=== PATIENT | female | born 1955 | race Caucasian/White ===

== ENCOUNTER 2018-04-07 17:28 | Outpatient (REF) | payer MEDICAID, SELFPAY ==
[2018-04-07 20:46] LABS: ALT 31 U/L (12-78); Anion Gap 10.7 mmol/L (3-11); BUN 18 mg/dL (7-18); CO2 29.3 mmol/L (21.0-32.0); CREATININE 0.79 mg/dL (0.55-1.02); Calcium 9.1 mg/dL (8.5-10.1); Chloride 102 mmol/L (98-107); Glucose 106 mg/dL (70-100); LDL CHOLESTEROL 112 mg/dL (<100); Potassium 3.5 mmol/L (3.5-5.1); Sodium 142 mmol/L (136-145); TSH 1.57 uIU/mL (0.358-3.74)
== END 2018-04-07 17:48 ==
LOC: NCHCN 17:28
PROVIDERS: PCP Internal Medicine; Visit Provider Internal Medicine
DX: I10 Essential (primary) hypertension (principal); E11.9 Type 2 diabetes mellitus without complications; Z00.00 Encounter for general adult medical examination without abnormal findings
CPT/HCPCS: 80048; 83721; 84443; 84460

== ENCOUNTER 2018-10-26 14:53 | Outpatient (REF) | payer MEDICAID, SELFPAY ==
[2018-10-26 18:40] LABS: HCT 35.2 % (36.0-46.0); HGB 11.5 g/dL (12.0-15.5); Mean Corp. HGB Concentration 32.7 g/dL (32.0-36.0); Mean Corpuscular Hemoglobin 31.3 pg (27.0-33.0); Mean Corpuscular Volume 95.9 fL (80-95); Mean Platelet Volume 11.6 fL (8.0-11.0); Platelet Count 237 x1000/uL (130-400); RBC 3.67 m/cumm (4.00-5.20); RBC Distribution Width 12.4 % (11.7-14.6); White Blood Cell Count 5.41 k/cumm (4.4-10.8)
[2018-10-26 19:36] LABS: Hemoglobin A1C 7.2 % (4.5-6.2)
== END 2018-10-26 15:13 ==
LOC: NCHCN 14:53
PROVIDERS: PCP Internal Medicine; Visit Provider Nurse Practitioner Family
DX: E11.9 Type 2 diabetes mellitus without complications (principal); K52.89 Other specified noninfective gastroenteritis and colitis
CPT/HCPCS: 85027; 83036

== ENCOUNTER 2018-12-02 17:16 | Outpatient (REF) | payer MEDICAID, SELFPAY ==
[2018-12-02 19:12] LABS: COMMENT (LAB VIEW ONLY) 90.38 mg/dL; Microalb ug/mg Crea 18.1 ug/mg Cr
== END 2018-12-02 17:36 ==
LOC: NCHCO 17:16
PROVIDERS: PCP Internal Medicine; Visit Provider Internal Medicine
DX: E11.9 Type 2 diabetes mellitus without complications (principal)
CPT/HCPCS: 82043; 82570

== ENCOUNTER 2020-03-20 12:06 | Outpatient (REF) | payer MEDICAID, SELFPAY ==
--- NOTE | 2020-03-20 11:00 | PAPFT_PTH ---
PATIENT: Luz Maria Carreno LOC: [facility] U#:[id number] AGE/SX: 64/F ROOM: RE03/20/[address]: SHANNAN Harris : 1955 BED: DIS: 03/20/2020 SPEC #: [id number] RECD: 03/20/20 12:58 STATUS: EDENILSON REClarissa #: [id number] GAYATRI: 03/20/20 11:[address]: Jessie Bynum DEPT: [facility] Cytology RECD BY: Medina Alexander ENTERED: 03/20/20 12:59 SP TYPE: PAPFT OTHR DR: Shabbir Ortiz Tissues: 1 - CX/ENDOCX FOR PAP SMEARS Procedures: PAP THIN PREP/UVM Screening HPV DNA PROBE Comments: [id number]
== END 2020-03-20 12:26 ==
LOC: LBN 12:06
PROVIDERS: PCP Internal Medicine; Visit Provider Nurse Practitioner Family
DX: Z12.4 Encounter for screening for malignant neoplasm of cervix (principal); Z11.51 Encounter for screening for human papillomavirus (HPV)
CPT/HCPCS: 88142; 87624

== ENCOUNTER 2020-04-26 17:16 | Outpatient (REF) | payer MEDICAID, SELFPAY ==
[2020-04-26 18:20] LABS: HCT 35.1 % (36.0-46.0); HGB 11.6 g/dL (11.2-15.7); MCH 31.4 pg (27.0-33.0); MCV 94.9 fL (80-95); Platelet Count 228 10^3/uL (130-400); RDW 12.1 % (11.7-14.6); RDW-SD 41.9 fL; Reticulocyte 1.2 % (0.5-2.4); WBC 6.03 10^3/uL (4.4-10.8)
[2020-04-26 18:21] LABS: Iron 78 ug/dL (50-170); Total Iron Binding Capacity 345 ug/dL (250-450); Transferrin Sat 23 % (15-50)
[2020-04-26 18:48] LABS: ALT 25 U/L (14-59); Anion Gap 10.5 mmol/L (3-11); BUN 22 mg/dL (7-18); CO2 29.5 mmol/L (21.0-32.0); CREATININE 0.9 mg/dL (0.55-1.02); Calcium 9.2 mg/dL (8.5-10.1); Chloride 101 mmol/L (98-107); Ferritin 177 ng/mL (8-252); Glucose 104 mg/dL (74-106); LDL CHOLESTEROL 123 mg/dL (<100); Potassium 3.6 mmol/L (3.5-5.1); Sodium 141 mmol/L (136-145); Vitamin B12 321 pg/mL (193-986)
== END 2020-04-26 17:17 | disposition home or self-care (01) ==
LOC: NCHCN 17:16
PROVIDERS: PCP Internal Medicine; Visit Provider Internal Medicine
DX: D64.9 Anemia, unspecified (principal); E11.9 Type 2 diabetes mellitus without complications; I10 Essential (primary) hypertension; R00.2 Palpitations; I35.0 Nonrheumatic aortic (valve) stenosis
CPT/HCPCS: 80048; 83721; 85027; 82607; 82728; 83540; 83550; 84460; 85045

== ENCOUNTER 2020-08-23 13:08 | Outpatient (REF) | payer MEDICAID, SELFPAY ==
[2020-08-23 19:10] LABS: Anion Gap 8.6 mmol/L (3-11); BUN 22 mg/dL (7-18); CO2 30.4 mmol/L (21.0-32.0); CREATININE 0.9 mg/dL (0.55-1.02); Calcium 9.4 mg/dL (8.5-10.1); Chloride 103 mmol/L (98-107); Glucose 212 mg/dL (74-106); Potassium 3.9 mmol/L (3.5-5.1); Sodium 142 mmol/L (136-145)
[2020-08-23 19:21] LABS: Hemoglobin A1C 7.3 % (<5.7)
== END 2020-08-23 13:09 | disposition home or self-care (01) ==
LOC: NCHCN 13:08
PROVIDERS: PCP Internal Medicine; Visit Provider Nurse Practitioner Family
DX: E11.9 Type 2 diabetes mellitus without complications; I10 Essential (primary) hypertension
CPT/HCPCS: 80048; 83036

== ENCOUNTER 2021-09-03 12:24 | Outpatient (REF) | payer MEDICAID, SELFPAY ==
[2021-09-03 19:01] LABS: Abs Immature Grans 0.02 10^3/uL (0.0-0.06); Absolute Basophil Count 0.04 10^3/uL (0.0-0.2); Absolute Eosinophil Count 0.12 10^3/uL (0.0-0.7); Absolute Lymphocyte Count 1.84 10^3/uL (1.2-3.4); Absolute Monocyte Count 0.38 10^3/uL (0.1-0.8); Absolute Neutrophil Count 3.83 10^3/uL (1.2-6.7); Basophils % 0.6; Eosinophils % 1.9; HCT 35.4 % (36.0-46.0); HGB 11.4 g/dL (11.2-15.7); Immature Grans % 0.3; Lymphocytes % 29.5; MCH 30.8 pg (27.0-33.0); MCHC 32.2 % (32.0-36.0); MCV 96 fL (80-95); MPV 11.3 fL (8.0-11.0); Monocytes % 6.1; Neutrophils % 61.6; Platelet Count 207 10^3/uL (130-400); RDW 12.3 % (11.7-14.6); RDW-SD 42.5 fL; WBC 6.23 10^3/uL (4.4-10.8)
[2021-09-03 19:16] LABS: ALT 26 U/L (14-59); AST 16 U/L (15-37); Albumin 3.9 g/dL (3.4-5.0); Alkaline Phosphatase 94 U/L (46-116); Anion Gap 9.4 mmol/L (3-11); BUN 16 mg/dL (7-18); Bilirubin, Total 0.4 mg/dL (0.2-1.0); CO2 28.6 mmol/L (21.0-32.0); CREATININE 0.9 mg/dL (0.55-1.02); Calcium 8.8 mg/dL (8.5-10.1); Calculated LDL 123 mg/dL (<100); Chloride 100 mmol/L (98-107); Cholesterol 214 mg/dL (<200); Glucose 157 mg/dL (74-106); HDL Cholesterol 49 mg/dL (40-60); Potassium 3.7 mmol/L (3.5-5.1); Sodium 138 mmol/L (136-145); Total Protein 7.3 g/dL (6.4-8.2); Triglyceride 214 mg/dL (<150)
== END 2021-09-03 12:25 | disposition home or self-care (01) ==
LOC: NCHCN 12:24
PROVIDERS: PCP Internal Medicine; Visit Provider Nurse Practitioner Family
DX: I10 Essential (primary) hypertension (principal); R42 Dizziness and giddiness; E11.9 Type 2 diabetes mellitus without complications
CPT/HCPCS: 80053; 80061; 85025

== ENCOUNTER 2022-01-29 16:50 | Outpatient (REF) | payer MEDICAID, SELFPAY ==
[2022-01-29 19:56] LABS: ESR 20 mm/hr (0-30)
[2022-01-31 11:09] LABS: Campylobacter PCR Negative (Negative); Salmonella PCR Negative (Negative); Shiga Toxin PCR Negative (Negative); Shigella/Enteroinvasive Ecoli Negative (Negative)
[2022-01-31 12:35] LABS: Lyme Ab w Rflx to Lyme Confirm Negative (Negative)
[2022-02-03 12:23] LABS: IgA 378 mg/dL (85-499); Interpretation (See Note); Tissue Transglutaminase IgA <1.2 U/mL (<4.0)
[2022-02-03 17:04] LABS: Anaplasma phagocytophilum Negative (Negative); B. miyamotoi PCR Negative (Negative); Babesia divergens/MO-1 Negative (Negative); Babesia duncani Negative (Negative); Babesia microti Negative (Negative); Ehrlichia chaffeensis Negative (Negative); Ehrlichia ewingii/canis Negative (Negative); Ehrlichia muris eauclairensis Negative (Negative)
== END 2022-01-29 16:51 | disposition home or self-care (01) ==
LOC: NCHCN 16:50
PROVIDERS: PCP Internal Medicine; Visit Provider Nurse Practitioner Family
DX: R19.7 Diarrhea, unspecified (principal); R11.0 Nausea; R42 Dizziness and giddiness; D64.9 Anemia, unspecified; I10 Essential (primary) hypertension; E11.9 Type 2 diabetes mellitus without complications
CPT/HCPCS: 82784; 83516; 85652; 87329; 87505; 87798; 83630; 86618

== ENCOUNTER 2022-10-15 11:39 | Outpatient (REF) | payer OTHER, MEDICAID, SELFPAY ==
--- NOTE | 2022-10-15 10:00 | SKI_PTH ---
PATIENT: Luz Maria Carreno LOC: [facility]#:[id number] AGE/SX: 66/F ROOM: RE10/15/[address]: Sugar Mosqueda : 1955 BED: DIS: 10/15/2022 SPEC #: [id number] RECD: 10/16/22 10:00 STATUS: EDENILSON GIVENS #: [id number] GAYATRI: 10/15/22 10:[address] RECD BY: Chase Sam Tissues: 1 - SKIN BIOPSY(SHAVE/PUNCH) Procedures: SKIN LEVEL 4 Comments: [id number]
== END 2022-10-15 11:40 | disposition home or self-care (01) ==
LOC: NCHCN 11:39
PROVIDERS: PCP Internal Medicine; Visit Provider Nurse Practitioner Family
DX: D22.5 Melanocytic nevi of trunk (principal)
CPT/HCPCS: 88305

== ENCOUNTER 2022-12-23 16:24 | Outpatient (REF) | payer MEDICARE, MEDICAID, SELFPAY ==
[2022-12-23 19:27] LABS: Anion Gap 7.4 mmol/L (3-11); BUN 22 mg/dL (7-18); CO2 28.6 mmol/L (21.0-32.0); CREATININE 0.9 mg/dL (0.55-1.02); Calcium 9.8 mg/dL (8.5-10.1); Chloride 106 mmol/L (98-107); Estimated GFR 70.51 (mL/min/1.73m2); Glucose 260 mg/dL (74-106); Potassium 3.9 mmol/L (3.5-5.1); Sodium 142 mmol/L (136-145)
== END 2022-12-23 16:25 | disposition home or self-care (01) ==
LOC: NCHCN 16:24
PROVIDERS: PCP Internal Medicine; Visit Provider Nurse Practitioner Family
DX: I10 Essential (primary) hypertension (principal); E11.9 Type 2 diabetes mellitus without complications
CPT/HCPCS: 80048

== ENCOUNTER 2023-03-23 16:38 | Outpatient (REF) | payer MEDICARE, SELFPAY ==
--- OUTSIDE RECORDS SUMMARY | 2023-03-23 16:40 | XMS_ITS | Continuity of Care Document ---
Author Name Unknown Organization [facility] Address [address] [place] [address] Care Team Providers Care Chiller Hand Name Role Phone Primeau [facility] Primary [facility] Physician [facility] [id number] Date(s): 01/24/22 - 01/24/22 [facility] [address] [place] [address] Encounter Diagnosis Nausea, vomiting, and diarrhea(Discharge Diagnosis) - 01/24/22 Diarrhea, unspecified(Discharge Diagnosis) - 01/24/22 Discharge Disposition: Home or Self Care Attending Physician: Gabe Horvath MD Admitting Physician: Gabe Horvath MD Allergies, Adverse Reactions, Alerts No Known Allergies Assessment and Plan Extracted from: Title:Clinical Document Author:Rekha Lugo Date :01/24/22 Diagnosis: 1. Nausea, vomiti ng, and diarrhea Comment: Diagnosis: Diarrhea, unspecified Comment: Diagnosis: Vomiting Comment: Future Appointments Functional Status 01/24/22 Family Member Travel History No recent t ravel Recent Travel History No recent travel Other exposure to Infectious Disease Non e Medications Zofran 4 mg oral tablet 4 mg = 1 tab, Oral, every 8 hr, PRN nausea, # 12 tab, 0 Refill(s), Pharmacy: [facility] #[id number], 163, cm, 01/24/22 11:40:00 EST, Height/Length Dosing, 68, kg, 01/24/22 11:40:00 EST, Weight Dosing Start Date: 01/24/22 Status: Ordered Results Laboratory List Name Date Basic Metabolic Panel (BMP) 01/24/22 CBC w/o Diff 01/24/22 Most recent to oldest [Reference Range]: 1 WBC [5.0-10.0 x10^3/mcL] 5.0 x10^3/mcL (01/24/22 12:28 PM) RBC [4.1-5.3 x10^6/mcL] 4.3 x10^6/mcL (01/24/22 12: PM) BUN [7-18 mg/dL] 14 mg/dL (01/24/22: PM) Glucose Level [74-106 mg/dL] 182 mg/dL *HI* (01/24/22 PM) Potassium Level [3.5-5.1 mmol/L] 3.6 mmo l/L (01/24/22: PM) MCV [80.0-96.0] 91.8 (01/24/22 PM) MCHC [31.0-35.0 g/dL] 33.2 g/dL (01/24/22 PM) Sodium Level [136-145 mmol/L] 138 mmol/L (01/24/22 PM) Hct [37.0-47.0 %] 39.2 % (01/24/22 PM) Calcium Level [8.5-10.1 mg/dL] 9.2 mg/dL (01/24/22 PM) MCH [26.0-32.0 pg] 30.4 pg (01/24/22 PM) Hgb [12.0-16.0 g/dL] 13.0 g/dL (01/24/22: PM) Platelets [130-450 x10^3/mcL] 222 x10^3/ mcL (01/24/22: PM) CO2 [21-32 mmol/L] 29 mmol/L (01/24/22: PM) eGFR Non-AA [>=60] 78 (01/24/22: PM) eGFR AA [>=60] 78 (01/24/22: PM) Chloride Level [98-107 mmol/L] 103 mmol/ L (01/24/22: PM) RDW-CV [11.7-17.0 %] 12.7 % (11/25/22 12:28 PM) Creatinine Level [0.55-1.02 mg/dL] 0.83 mg/dL (01/24/22 12:28 PM) Vital Signs Most recent to oldest [Reference Range]: 1 2 Temperature Temporal Artery [36-38 Deg C ] 36.1 Deg C (01/24/22 11:22 AM) Peripheral Pulse Rate [60-100 bpm] 59 bp m *LOW* (01/24/22 12:21 PM) 64 bpm (01/24/22: AM) Heart Rate Monitored [60-100 bpm] 60 bpm (01/24/22 12:21 PM) Respiratory Rate [12-24 br/min] 16 br/mi n (01/24/22 12:21 PM) 16 br/min (01/24/22 11: AM) Blood Pressure [90-140/60-90 mmHg] 161/8 7mmHg *HI* (01/24/22 12:21 PM) 182/84mmHg *HI* (01/24/22 11:22 AM) Weight Dosing 68.00 kg (01/24/22 11:40 AM) Weight Estimated 68.00 kg (01/24/22 11:22 AM) Height/Length Dosing 163.000 cm (01/24/22 11:40 AM) Height/Length Estimated 163.000 cm (01/24/22 11:22 AM) Social History Social History Type Response Tobacco Never tobacco user T obacco Use:. Sex Female Physician Emergency department Note * Gabe Horvath MD: PERFORM, MODIFY Event Display: ED Note Physician Authored Date: [id number] EUNICE QUEEN :1955 Age:66 years Sex:Female Visit Date:01/24/2022 Primary Care Physician: Shabbir Barrios MD HPI 66-year-old female presents for evaluation of 2+ weeks of 2 loose watery stools per day and upwardsof 1 round of emesis per day. Symptoms are provoked by taking p.o. and relieved by reduced oral intake. Patient has seen her primary care physician who tentatively described her symptoms to discontinuing Lexapro, patient presented today due to ongoing symptomatology. No recent travel, antibiotics, or drinking unpurified water. No fevers or chills. No similar prior episodes. ?? M/S/F/SocHx notable for: please see HPI; remainder reviewed with patient and in chart.? ROS: Negative constitutional, eye, cardiovascular, pulmonary, GI, , MSK, skin, neurologic, psychiatric, endocrine unless noted in the HPI. ?? Exam HR 64, RR 16, BP 182/84, T 36.1?C, SaO2 98% on room air. Gen:??Pleasant, non-toxic appearing, resting comfortably. HEENT: NC, AT, PEERL, EOMI, neck supple with full range of movement. Resp: Clear to auscultation bilaterally, normal work of breathing, no accessory muscle usage. Card: Regular rate and rhythm with no murmurs, rubs, or gallops, extremities warm and well perfused.?? GI: Non-tender to palpation throughout all quadrants, non-distended, no rebound or guarding. : No suprapubic tenderness to palpation. MSK: No visible deformities, strength and tone without visually appreciable deficit. Skin: Normal color with no visible lesions. Neuro: alert and oriented?3, no facial asymmetry, vision and hearing WNL. Psych: Depressed mood and flat affect. ?? Labs WBC 5.0, Hb 13.0, sodium 138, potassium 3.6. ?? MDM Previous chart, nursing note, and vitals reviewed.?? A:??66-year-old female presents for evaluation of 2+ weeks of 2 loose watery stools per day and upwards of 1 round of emesis per day.? DDx: viral (enteritis, gastroenteritis 2/2 norovirus, influenza, COVID-19, NOS), bacterial gastroenteritis, food poisoning, C. Difficile, dehydration, electrolyte abnormalities, septicemia/bacteremia, DKA, acute appendicitis, inflammatory (Crohn???s vs ulcerative colitis). ?? Evaluation: Abdominal exam benign, vital signs within acceptable limits.??CBC and BMP within clinically acceptable limits (hyperglycemia noted). No evidence of clinically significant inflammatory bowel disease, no features suggestive of obstipation, clinically significant constipation, obstruction,or other acute intra-abdominal process. Recommend PCP follow-up. Zofran prescribed. ?? Impression: Vomiting, diarrhea. Electronically Signed on 01/24/22 12:56 PM Gabe Horvath MD Electronically Signed on 01/24/22 12:57 PM Gabe Horvath MD Emergency department Discharge instructions * Gabe Horvath MD: PERFORM Event Display: ED Discharge Information Authored Date: [id number] EUNICE QUEEN :1955 Age:66 years Sex:Female Visit Date:01/24/2022 Primary Care Physician: Shabbir Barrios MD Discharge Instructions We would like to thank you for allowing us to assist you with your healthcare needs. The following includes patient education materials and information regarding your injury/illness. ?? You were seen at [facility] for evaluation for evaluation of??nausea, vomiting, and diarrhea. At the time of your evaluation the cause of your symptoms is unclear. You have been prescribed Zofran for treatment of your nausea and you should follow-up with your primary care physician within 3-4 days for repeat evaluation and further care as needed.??Please read and follow all of the instructions below. ?? When calling for follow-up care, please make the office aware that this follow- up is from your recent emergency room visit.? Your care today was limited to identifying and treating emergent medical problems only. Many peoplehave subtle differences in their test results that require follow up with their outpatient physician(s) to correctly determine if this represents a normal variation or concerning abnormality with respect to your specific health.??The care given to you today was limited to identifying and treating emergent medical problems - you need to request a copy of all of your medical records from today's visit and follow up with your outpatient physician(s) to review both today's visit and your overall health. If you have any new symptoms or if you are at all concerned about your health please return immediately to the emergency department. ?? Prescriptions: If you are uninsured or have financial difficulties with filling your prescription(s), you may consider using a free pharmacy discount service such as [employer] ([employer]) or [employer] ([employer]). These services allow you to search for a medication on your phone (or computer) and obtain a coupon that usually has a significant discount from the list gardiner at a pharmacy. Your physician does not have a financial relationship with either of these services. You may also wish to speak with your physician to determine if lower cost prescriptions are possible. ?? Diarrhea You were evaluated for diarrhea, the cause of your symptoms are presently unclear.??Please follow up within 3-4 days with your primary care physician. You should call your primary care physician's office to see if you should bring a stool sample. You may place a stool sample in Tupperware and keep it refrigerated (like food, it can spoil!). You may request that your primary physician obtain theserecords or you may obtain them yourself through the medical records office of this [facility]. In themeantime, please stay well- hydrated and take any prescribed medications.?? * Please drink Pedialyte or other commercially prepared oral rehydation solution. The goal is to replace the fluids and eletrolytes lost through vomiting and diarrhea. Drink enough to produce yellow urine every 4-6 hours.?? * When your symptoms start improving, begin eating small amounts of bland food. Avoid dairy for 3-4days following the resolution of your diarrhea as many people are temporarily lacatose intolerant following many diarrheal illnesses.?? * You have may have been prescribed an antinausea medication (Zofran), anti- cramping medication (Bentyl), and antidiarrheal (loperamide), please use these as directed below. * This virus is spread very easily. Wash your hands carefully for 20 seconds after using the bathroom. Avoid vomiting near others if possible. Flush the toilet with the lid down. Family members should be mindful to wash their hands frequently and to avoid touching their face with the hands if at all possible. ?? Please return to the emergency department if you experience any of the following: * Worsening pain. If your pain does not go away in the next 12-24 hours please return to the emergency department or see your primary care physician promptly. * You cannot keep fluids down or if you are vomiting dark green material, coffe ground like material, or bright bloody material. * If you have bloody bowel movements or bowel movements that are dark and tar like. * If you are unable to pass flatus (gas) or stool for more than 8 hours. * If you have a fever > 100.4??F or shaking chills. * If you have yellow skin or eyes or dark brown urine. * If your pain moves to the right lower corner (quadrant) of your abdomen. * If you are light headed upon standing or passing out.?? * If you are otherwise concerned about your health. ?? Diagnosis from Today's Visit Nausea, vomiting, and diarrhea Diarrhea, unspecified Discharge Vitals Temperature??(Temporal Artery) 97.0 ??F (36.1 ??C) Heart Rate??(Peripheral) 59 Heart Rate??(Monitored) 60 Respiratory Rate?? 16 Blood Pressure?? 161/87?? Height?? 64.17 in (163.000 cm) Weight??(Estimated) 149.94 lb (68.00 kg) Allergies No Known Allergies What to Do Next Upcoming Scheduled Appointments Thursday 1:15 PM EST ?? You were treated today on an emergency basis; it may be staley to contact your primary care provider to notify them of your visit today. You may have been referred to your regular doctor or a specialist, please follow up as instructed. If your condition worsens or you can't get in to see the doctor, contact the Emergency Department. Medications What How Much When Why Instructions Next Dose New ondansetron (Zofran 4 mg oral tablet) 1 tab Oral (given by mouth) Every 8 hours as needed for nausea Nausea, vomiting, and diarrhea Pickup at [facility] #[id number] Pharmacy Information [facility] #[id number]: [address], [place] [phone] Tests Performed Lab Test Name Test Result Date/Time WBC 5.0 x10^3/mcL 01/24/2022 12:28 EST RBC 4.3 x10^6/mcL 01/24/2022 12:28 EST Hgb 13.0 g/dL 01/24/2022 12:28 EST Hct 39.2 % 01/24/2022 12:28 EST MCV 91.8 01/24/2022 12:28 EST MCH 30.4 pg 01/24/2022 12:28 EST MCHC 33.2 g/dL 01/24/2022 12:28 EST RDW-CV 12.7 % 01/24/2022 12:28 EST Platelets 222 x10^3/mcL 01/24/2022 12:28 EST Sodium Level 138 mmol/L 01/24/2022 12:28 EST Potassium Level 3.6 mmol/L 01/24/2022 12:28 EST Chloride Level 103 mmol/L 01/24/2022 12:28 EST CO2 29 mmol/L 01/24/2022 12:28 EST BUN 14 mg/dL 01/24/2022 12:28 EST Glucose Level 182 mg/dL 01/24/2022 12:28 EST Creatinine Level 0.83 mg/dL 01/24/2022 12:28 EST eGFR AA 78 01/24/2022 12:28 EST eGFR Non-AA 78 01/24/2022 12:28 EST Calcium Level 9.2 mg/dL 01/24/2022 12:28 EST Patient/Meat Stocker Signature Patient Name:EUNICE QUEEN I have received this information and my questions have been answered. Patient/Meat Stocker Name: Patient/Meat Stocker Signature: Relationship to Patient: Witness Name/Signature: Date: Electronically Signed on: 01/24/2022 12:58 ESTSigned by:RDJ Discharge summary * Rekha Lugo: PERFORM Event Display: Discharge Note Authored Date: * Rekha Lugo: PERFORM Event Display: Discharge Note Authored Date: Diagnosis: 1. Nausea, vomiting, and diarrhea Comment: Diagnosis: Diarrhea, unspecified Comment: Diagnosis: Vomiting Comment: Electronically Signed on 01/24/22 02:22 PM Rekha Lugo Patient Care team information Personnel Name: Shabbir Barrios MD Address: Address: [address] [address]
--- OUTSIDE RECORDS SUMMARY | 2023-03-23 16:41 | XMS_ITS | Continuity of Care Document ---
Author Name Unknown Organization [facility] Address [address] [place] [address] Care Team Providers Care Hand Molder Meat Name Role Phone Shabbir Barrios Primary Care Physician [facility] Date(s): 01/13/22 - 01/13/[address] [address] Discharge Disposition: Home or Self Care Attending Physician: Loni Mosqueda NEWS CONTENT SPECIALIST Admitting Physician: Loni Mosqueda NP Referring Physician: Loni Mosqueda NEWS CONTENT SPECIALIST Allergies, Adverse Reactions, Alerts No Known Allergies Assessment and Plan Future Appointments Results Laboratory List Name Date Creatinine 01/13/22 Most recent to oldest [Reference Range]: 1 eGFR Non-AA [>=60] 70 (01/13/22 8:51 AM) eGFR AA [>=60] 70 (01/13/22 8:51 AM) Creatinine Level [0.55-1.02 mg/dL] 0.91 mg/dL (01/13/22 8:51 AM) Social History Social History Type Response Tobacco Never tobacco user T obacco Use:. Sex Female Patient Care team information Care Team Personnel Name: Shabbir Barrios MD Position: Physician Member Role: Primary Care Physician Address: Address: [address] [address] [place] Care Team Related Persons Name: TAYLOR QUEEN Address: Home [address] [facility], [id number] Name: MATEUS QUEEN Address: Home
--- OUTSIDE RECORDS SUMMARY | 2023-03-23 16:41 | XMS_ITS | Continuity of Care Document ---
Author Name Unknown Organization [facility] Address [address] [place] [address] Care Team Providers Care Lyric Writer Name Role Phone [facility], Shabbir Yuen Primary Care Physician [facility] Date[facility]): [facility]/22/22 - 05/23/22 [facility] [address] [place] [address] Encounter Diagnosis Gastritis(Discharge Diagnosis) - 05/22/22 Discharge Disposition: Home or Self Care Attending Physician: Harsha Fairbanks MD Admitting Physician: Harsha Fairbanks MD Allergies, Adverse Reactions, Alerts No Known Allergies Assessment and Plan Extracted from: Title:Clinical Document Author:Harsha Fairbanks Ra, MD Date:05/22/22 I obtained signout from Dr. Cheng pending results of the CT scan and eventually arranging for discharge. Patient has a history of lymphocytic colitis, she is tapering off of long course of prednisone, she is presently on 6 mg. She is followed by gastroenterology at [facility]. She chronically has some abdominal discomfort. Feels she has some abdominal pain that was different this evening. She spoke with Dr. Hardy who directed her to the ER. She states that when she is on prednisone it stimulates her appetite and she has been eating more. She had lunch today at noon and 4:30 PM she had onset of upper abdominal pain. It was epigastric and right upper quadrant going to the back. She proceeded to eat some spicy chicken. Was seen and examined by Dr. Cheng. She got some Zofran and eventually 1 mg of hydromorphone. Labs overall benign, CT scan questions dilatation of the common bile duct but no filling defect or stone seen. No signs of cholecystitis. At 12:15 she is markedly more comfortable does not look septic or toxic and pain has subsided. CT scan and recommends ultrasound or MRCP. Prescription was sent for pantoprazole by Dr. Cheng, I will send her with a prepack of Vicodin for her to have something to take as needed if the pain recurs. I went over the opiate consent form and checked V PMS. I warned her that this could upset the stomach and cause some constipation. We talked about simplifying the diet. And we will put in for outpatient gallbladder ultrasound study to be done hopefully tomorrow. Discharged in markedly improved and stable condition. Functional Status 05/22/22 Recent Travel History No recent travel Other exposure to Infectious Disease Non e Medications budesonide 9 mg oral capsule, extended release 9 mg = 1 cap, Oral, every morning, swallow whole, # 30 cap, 0 Refill(s) Start Date: 05/09/22 Status: Ordered glipiZIDE 0 Refill(s) Start Date: 05/09/22 Status: Ordered hydroCHLOROthiazide 0 Refill(s) Start Date: 05/09/22 Status: Ordered lisinopril 0 Refill(s) Start Date: 05/09/22 Status: Ordered losartan 0 Refill(s) Start Date: 05/09/22 Status: Ordered pantoprazole 20 mg oral delayed release tablet 20 mg = 1 tab, Oral, Daily, X 30 days, # 30 tab, 0 Refill(s), 06/21/22 23:21:00 EDT, Pharmacy: [facility] #[id number], 160, cm, 05/22/22 21:16:00 EDT, Height/Length Dosing, 68, kg, 05/22/22 21:16:00 EDT, Weight Dosing Start Date: 05/22/22 Stop Date: 06/21/22 Status: Ordered Paxlovid 0 Refill(s) Start Date: 05/09/22 Status: Ordered simvastatin 0 Refill(s) Start Date: 05/09/22 Status: Ordered Zofran 4 mg oral tablet 4 mg = 1 tab, Oral, every 8 hr, PRN nausea, # 12 tab, 0 Refill(s), Pharmacy: [facility] #[id number], 163, cm, 01/24/22 11:40:00 EST, Height/Length Dosing, 68, kg, 01/24/22 11:40:00 EST, Weight Dosing Start Date: 01/24/22 Status: Ordered Results Laboratory List Name Date Automated Diff 05/22/22 CBC w/ Diff 05/22/22 Comprehensive Metabolic Panel (CMP) 05/22 Lactic Acid 05/22/22 Lipase Level 05/22/22 Troponin-I 05/22/22 Most recent to oldest [Reference Range]: 1 WBC [5.0-10.0 x10^3/mcL] 10.2 x10^3/mcL *HI* (05/22/22 9:55 PM) RBC [4.1-5.3 x10^6/mcL] 4.0 x10^6/mcL *LOW* (05/22/22 9:55 PM) Neutro Auto [40.0-75.0 %] 77.5 % *HI* (05/22/22 9:55 PM) Lymph Auto [20.0-50.0 %] 15.7 % *LOW* (05/22/22 9:55 PM) Licking Auto [2.0-15.0 %] 5.3 % (05/22/22 9:55 PM) Basophil Auto [0.0-1.0 %] 0.4 % (05/22/22 9:55 PM) BUN [7-18 mg/dL] 24 mg/dL *HI* (05/22/22 9:55 PM) Glucose Level [74-106 mg/dL] 239 mg/dL *HI* (05/22/22 9:55 PM) Potassium Level [3.5-5.1 mmol/L] 3.8 mmo l/L (05/22/22 9:55 PM) MCV [80.0-96.0] 93.3 (05/22/22 9:55 PM) AST [15-37 unit/L] 14 unit/L *LOW* (05/22/22 9:55 PM) ALT [14-59 unit/L] 41 unit/L (05/22/22 9:55 PM) MCHC [31.0-35.0 g/dL] 32.4 g/dL (05/22/22 9:55 PM) Troponin-I [0.0-51.4 pg/mL] 7.0 pg/mL (05/22/22 9:55 PM) Sodium Level [136-145 mmol/L] 140 mmol/L (05/22/22 9:55 PM) Hct [37.0-47.0 %] 37.3 % (05/22/22 9:55 PM) Lipase Level [16-77 unit/L] 61 unit/L (05/22/22 9:55 PM) Calcium Level [8.5-10.1 mg/dL] 8.9 mg/dL (05/22/22 9:55 PM) Albumin Level [3.4-5.0 g/dL] 3.3 g/dL *LOW* (05/22/22 9:55 PM) Protein Total [6.4-8.2 g/dL] 6.9 g/dL (05/22/22 9:55 PM) MCH [26.0-32.0 pg] 30.3 pg (05/22/22 9:55 PM) Neutro Absolute 8.0 x10^3/mcL *NA* (05/22/22 9:55 PM) Bilirubin Total [0.2-1.0 mg/dL] 0.2 mg/d L (05/22/22 9:55 PM) Hgb [12.0-16.0 g/dL] 12.1 g/dL (05/22/22 9:55 PM) Alk Phos [46-146 unit/L] 117 unit/L (05/22/22 9:55 PM) Platelets [130-450 x10^3/mcL] 196 x10^3/ mcL (05/22/22 9:55 PM) CO2 [21-32 mmol/L] 24 mmol/L (05/22/22 9:55 PM) Lactic Acid Lvl [0.7-2.0 mmol/L] 1.8 mmo l/L (05/22/22 9:55 PM) eGFR Non-AA [>=60] 52 *LOW* (05/22/22 9:55 PM) eGFR AA [>=60] 52 *LOW* (05/22/22 9:55 PM) Chloride Level [98-107 mmol/L] 104 mmol/ L (05/22/22 9:55 PM) RDW-CV [11.7-17.0 %] 12.5 % (05/22/22 9:55 PM) Imm Gran Auto [0.0-0.9 %] 0.6 % (05/22/22 9:55 PM) Creatinine Level [0.55-1.02 mg/dL] 1.17 mg/dL *HI* (05/22/22 9:55 PM) Eos, Auto [1.0-6.0 %] 0.5 % *LOW* (05/22/22 9:55 PM) Vital Signs Most recent to oldest [Reference Range]: 1 2 3 Temperature Temporal Artery [36-38 Deg C] 36.2 Deg C (05/22/22 9:07 PM) Peripheral Pulse Rate [60-100 bpm] 57 bpm *LOW* (05/23/22 12:30 AM) 56 bpm *LOW* (05/23/22 12:15 AM) 62 bpm (05/23/22 12:00 AM) Heart Rate Monitored [60-100 bpm] 67 bpm (05/23/22 12:30 AM) 58 bpm *LOW* (05/23/22 12:15 AM) 59 bpm *LOW* (05/23/22 12:00 AM) Respiratory Rate [12-24 br/min] 14 br/min (05/23/22 12:30 AM) 14 br/min (05/23/22 12:15 AM) 14 br/min (05/23/22 12:00 AM) Blood Pressure [90-140/60-90 mmHg] 164/86mmHg *HI* (05/23/22 12:15 AM) 146/91mmHg *HI* (05/23/22 12:00 AM) 159/73mmHg *HI* (05/22/22 11:45 PM) Weight Dosing 68.00 kg (05/22/22 9:16 PM) Weight Estimated 68.00 kg (05/22/22 9:07 PM) Height/Length Dosing 160.000 cm (05/22/22 9:16 PM) Height/Length Estimated 160.000 cm (05/22/22 9:07 PM) Social History Social History Type Response Tobacco Never tobacco user T obacco Use:. Sex Female Hospital Discharge Instructions Patient Education 05/22/2022 22:20:42 Gastritis, Adult Gastritis, Adult Gastritis is inflammation of the stomach. There are two kinds of gastritis: ??? Acute gastritis. This kind develops suddenly. ??? Chronic gastritis. This kind is much more common and lasts for a long time. Gastritis happens when the lining of the stomach becomes weak or gets damaged. Without treatment, gastritis can lead to stomach bleeding and ulcers. What are the causes? This condition may be caused by: ??? An infection. ??? Drinking too much alcohol. ??? Certain medicines. These include steroids, antibiotics, and some jlxx-dfx-tlifzvw medicines, such as aspirin or ibuprofen. ??? Having too much acid in the stomach. ??? A disease of the intestines or stomach. ??? Stress. ??? An allergic reaction. ??? Crohn's disease. ??? Some cancer treatments (radiation). Sometimes the cause of this condition is not known. What are the signs or symptoms? Symptoms of this condition include: ??? Pain or a burning sensation in the upper abdomen. ??? Nausea. ??? Vomiting. ??? An uncomfortable feeling of fullness after eating. ??? Weight loss. ??? Bad breath. ??? Blood in your vomit or stools. In some cases, there are no symptoms. How is this diagnosed? This condition may be diagnosed with: ??? Your medical history and a description of your symptoms. ??? A physical exam. ??? Tests. These can include: ??? Blood tests. ??? Stool tests. ??? A test in which a thin, flexible instrument with a light and a camera is passed down the esophagus and into the stomach (upper endoscopy). ??? A test in which a sample of tissue is taken for testing (biopsy). How is this treated? This condition may be treated with medicines. The medicines that are used vary depending on the cause of the gastritis: ??? If the condition is caused by a bacterial infection, you may be given antibiotic medicines. ??? If the condition is caused by too much acid in the stomach, you may be given medicines called H2 blockers, proton pump inhibitors, or antacids. Treatment may also involve stopping the use of certain medicines, such as aspirin, ibuprofen, or other NSAIDs. Follow these instructions at home: Medicines ??? Take wwho-kgq-bfggrli and prescription medicines only as told by your health care provider. ??? If you were prescribed an antibiotic medicine, take it as told by your health care provider. Donot stop taking the antibiotic even if you start to feel better. Eating and drinking ??? Eat small, frequent meals instead of large meals. ??? Avoid foods and drinks that make your symptoms worse. ??? Drink enough fluid to keep your urine pale yellow. Alcohol use ??? Do not drink alcohol if: ??? Your health care provider tells you not to drink. ??? You are , may be , or are planning to become . ??? If you drink alcohol: ??? Limit your use to: ??? 0???1 drink a day for women. ??? 0???2 drinks a day for men. ??? Be aware of how much alcohol is in your drink. In the [place] one drink equals one 12 oz bottle of beer (355 mL), one 5 oz glass of wine (148 mL), or one 1?? oz glass of hard liquor (44 mL). General instructions ??? Talk with your health care provider about ways to manage stress, such as getting regular exercise or practicing deep breathing, meditation, or yoga. ??? Do not use any products that contain nicotine or tobacco, such as cigarettes and e-cigarettes. If you need help quitting, ask your health care provider. ??? Keep all follow-up visits as told by your health care provider. This is important. Contact a health care provider if: ??? Your symptoms get worse. ??? Your symptoms return after treatment. Get help right away if: ??? You vomit blood or material that looks like coffee grounds. ??? You have black or dark red stools. ??? You are unable to keep fluids down. ??? Your abdominal pain gets worse. ??? You have a fever. ??? You do not feel better after one week. Summary ??? Gastritis is inflammation of the lining of the stomach that can occur suddenly (acute) or develop slowly over time (chronic). ??? This condition is diagnosed with a medical history, a physical exam, or tests. ??? This condition may be treated with medicines to treat infection or medicines to reduce the amount of acid in your stomach. ??? Follow your health care provider's instructions about taking medicines, making changes to your diet, and knowing when to call for help. This information is not intended to replace advice given to you by your health care provider. Make sure you discuss any questions you have with your health care provider. Document Revised: 07/06/2018 Document Reviewed: 07/06/2018 [employer] Patient Education ?? 2021 [employer]. Follow Up Care 05/22/2022 21:07:48 With:[facility] Address: [address] [phone] When:1 week Physician Emergency department Note * Harsha Fairbanks MD: PERFORM Event Display: ED Note Physician Authored Date: [id number] I obtained signout from Dr. Cheng pending results of the CT scan and eventually arranging for discharge. Patient has a history of lymphocytic colitis, she is tapering off of long course of prednisone,she is presently on 6 mg. She is followed by gastroenterology at [facility]. She chronically has some abdominal discomfort. Feels she has some abdominal pain that was different this evening. She spokewith Dr. Hardy who directed her to the ER. She states that when she is on prednisone it stimulates her appetite and she has been eating more. She had lunch today at noon and 4:30 PM she had onset of upper abdominal pain. It was epigastric and right upper quadrant going to the back. She proceeded toeat some spicy chicken. Was seen and examined by Dr. Cheng. She got some Zofran and eventually 1 mg of hydromorphone. Labs overall benign, CT scan questions dilatation of the common bile duct but no filling defect or stone seen. No signs of cholecystitis. At 12:15 she is markedly more comfortable does not look septic or toxic and pain has subsided. CT scan and recommends ultrasound or MRCP. Prescription was sent for pantoprazole by Dr. Cheng, I will send her with a prepack of Vicodin for her to have something to take as needed if the pain recurs. I went over the opiate consent form and checked V PMS. I warned her that this could upset the stomach and cause some constipation. We talked about si mplifying the diet. And we will put in for outpatient gallbladder ultrasound study to be done hopefully tomorrow. Discharged in markedly improved and stable condition. Electronically Signed on 05/23/22 12:22 AM Harsha Fairbanks MD * Patricia Cheng MD: PERFORM Event Display: ED Note Physician Authored Date: [id number] EUNICE QUEEN :1955 Age:66 years Sex:Female Visit Date:05/22/2022 Primary Care Physician: Diana GARDNER, Shabbir Yuen MD Basic Information Time Seen: Patricia Cheng MD / 05/22/2022 21:34 Chief Complaint pt reports epigastric pain that radiates to the right upper abdomen that radiates to the back. Thisbegan about 4:30 today. Pt reports nausea History Of Present Illness: 66-year-old lady with history of??diabetes, hypertension,??hypercholesterolemia, colitis,??who presents to the emergency department complaining of??midepigastric pain??radiating to the??right upper quadrant and back. ??Pain said in the afternoon she started feeling some pain in her stomach like hunger pain. She had some fruit. Her pain became worse so she had some chicken with spicy sauce and then her pain became much worse. It has been constant since then. ??She has had some nausea without any vomiting.?? No constipation or diarrhea.?? No fevers or chills. Patient denies chest pain, shortness of breath, palpitations or dizziness.?? She has had no dysuriaor hematuria. Patient has not tried anything for pain Physical Exam Vitals & Measurements T:??36.2?C ??(Temporal Artery)?? HR:??74??(Peripheral)?? HR:??67??(Monitored)?? RR:??12?? BP:??170/88?? SpO2:??94%?? HT:??160.000??cm?? WT:??68.00??kg??(Estimated)?? Pain Score:??8?? O2 Therapy:??Room air?? General: A&Ox3, Calm, no apparent distress, well developed, pleasant and cooperative ?? HEENT: Head ATNC. Eyes: LILIA. Extraocular Mobility: intact and symmetrical. Conjunctiva: non-injected, anicteric, no discharge. Oral Cavity: moist. Neck: no masses, no crepitus. Lymph Nodes: no cervical lymphadenopathy? Respiratory: CTA bilaterally, no wheezing, no rales/crackles? CV: RRR, normal S1, normal S2, no murmurs, rubs or gallops ?? Abdomen : soft, tender in the mid epigastric??and right upper quadrant area without??a Quevedo sign,non-distended, no rebound or guarding, no hepatosplenomegaly ?? Extremities: no le swelling, warm and well-perfused, no cyanosis, capillary refill <2 seconds? Skin: no rash, no lesions, no bruising? Neuro: normal tone, normal strength in all 4 extremities, sensation intact?? Medical Decision Makin-year-old lady with history of??diabetes, hypertension,??hypercholesterolemia, colitis,??who presents to the emergency department complaining of??midepigastric pain??radiating to the??right upper quadrant and back. She is well nontoxic-appearing with reassuring vital signs??though hypertensive Differential diagnosis includes??gastritis, cholelithiasis,??pancreatitis,??less likely cholecystitis with no Quevedo sign,??less likely appendicitis, diverticulitis??or obstruction Plan: labs, bedside US, CT a/p, anti emetics, analgesia Labs reassuring, on reevaluation the patient says she feels much better after tylenol and Pantoprazole. CT - on my read, there are no secondary findings of acute cholecystitis or cholelithiasis, no evidence of obstruction If final read in agreement, will d/c home with Pantoprazole. I have discussed this with the patient, and also discussed avoiding stomach irritants. She is in agreement with this plan. ?? Procedure Bedside ultrasound shows GB with no stones, wall thickness less than 4mm, CBD measured at 0.15cm, no sono Quevedo's sign No Qualifying Data Assessment/Plan 1.??Gastritis??K29.70 Ordered: pantoprazole 20 mg oral delayed release tablet, 20 mg = 1 tab, Oral, Daily, X 30 days, # 30 tab, 0 Refill(s), 06/21/22 23:21:00 EDT, [id number], 160, cm, 05/22/22 21:16:00 EDT, Height/Length Dosing, 68, kg, 05/22/22 21:16:00 EDT, Weight Dosing ?? Orders: !-Zofran, 4 mg = 2 mL, IV Push, Soln, every 6 hr, PRN nausea/vomiting, First Dose: 05/22/22 21:59:00 EDT, STAT Patient Education Gastritis, Adult Medication Reconciliation New Prescription pantoprazole (pantoprazole 20 mg oral delayed release tablet)1 tab Oral (given by mouth) every day for 30 Days. Refills: 0. ?? Unchanged budesonide (budesonide 9 mg oral capsule, extended release)1 Capsules Oral (given by mouth) every morning. swallow whole. ?? glipiZIDE ?? hydroCHLOROthiazide ?? lisinopril ?? losartan ?? nirmatrelvir-ritonavir (Paxlovid) ?? ondansetron (Zofran 4 mg oral tablet)1 tab Oral (given by mouth) every 8 hours as needed nausea. Refills: 0. ?? simvastatin Problem List/Past Medical History Ongoing No qualifying data Historical No qualifying data Medication Administration Given !-Zofran, 4 mg, IV Push acetaminophen, 650 mg, Oral HYDROmorphone, 1 mg, Slow IV Push pantoprazole, 40 mg, IV Push Allergies No Known Allergies Social History Alcohol Never Electronic Cigarette/Vaping Electronic Cigarette Use: Never. Tobacco Never tobacco user Tobacco Use:. Lab Results CBC and Differential?? LATEST RESULTS?? HISTORICAL RESULTS?? WBC?? 05/22/22 21:55?? 10.2 ??High?? 05/09/22?? 10.4 ??High?? RBC?? 05/22/22 21:55?? 4.0 ??Low?? 05/09/22?? 4.4?? Hgb?? 05/22/22 21:55?? 12.1?? 05/09/22?? 13.1?? Hct?? 05/22/22 21:55?? 37.3?? 05/09/22?? 38.8?? MCV?? 05/22/22 21:55?? 93.3?? 05/09/22?? 89.2?? MCH?? 05/22/22 21:55?? 30.3?? 05/09/22?? 30.1?? MCHC?? 05/22/22 21:55?? 32.4?? 05/09/22?? 33.8?? RDW-CV?? 05/22/22 21:55?? 12.5?? 05/09/22?? 12.0?? Platelets?? 05/22/22 21:55?? 196?? 05/09/22?? 259?? Neutro Auto?? 05/22/22 21:55?? 77.5 ??High?? 09/14/21?? 68.2?? Lymph Auto?? 05/22/22 21:55?? 15.7 ??Low?? 09/14/21?? 23.7?? [place]icking Auto?? 05/22/22 21:55?? 5.3?? 09/14/21?? 5.5?? Eos, Auto?? 05/22/22 21:55?? 0.5 ??Low?? 09/14/21?? 1.8?? Basophil Auto?? 05/22/22 21:55?? 0.4?? 09/14/21?? 0.4?? Imm Gran Auto?? 05/22/22 21:55?? 0.6?? 09/14/21?? 0.4?? Neutro Absolute?? 05/22/22 21:55?? 8.0?? 09/14/21?? 5.5? Routine Chemistry?? LATEST RESULTS?? HISTORICAL RESULTS?? Sodium Level?? 05/22/22 21:55?? 140?? 05/09/22?? 137?? Potassium Level?? 05/22/22 21:55?? 3.8?? 05/09/22?? 3.3 ??Low?? Chloride Level?? 05/22/22 21:55?? 104?? 05/09/22?? 97 ??Low?? CO2?? 05/22/22 21:55?? 24?? 05/09/22?? 26?? Alk Phos?? 05/22/22 21:55?? 117?? 05/09/22?? 107?? AST?? 05/22/22 21:55?? 14 ??Low?? 05/09/22?? 18?? ALT?? 05/22/22 21:55?? 41?? 05/09/22?? 47?? BUN?? 05/22/22 21:55?? 24 ??High?? 05/09/22?? 36 ??High?? Glucose Level?? 05/22/22 21:55?? 239 ??High?? 05/09/22?? 440 ??High?? Creatinine Level?? 05/22/22 21:55?? 1.17 ??High?? 05/09/22?? 1.62 ??High?? eGFR AA?? 05/22/22 21:55?? 52 ??Low?? 05/09/22?? 35 ??Low?? eGFR Non-AA?? 05/22/22 21:55?? 52 ??Low?? 05/09/22?? 35 ??Low?? Calcium Level?? 05/22/22 21:55?? 8.9?? 05/09/22?? 9.3?? Protein Total?? 05/22/22 21:55?? 6.9?? 05/09/22?? 7.4?? Albumin Level?? 05/22/22 21:55?? 3.3 ??Low?? 05/09/22?? 3.3 ??Low?? Bilirubin Total?? 05/22/22 21:55?? 0.2?? 05/09/22?? 0.3?? Lactic Acid Lvl?? 05/22/22 21:55?? 1.8? Lipase Level?? 05/22/22 21:55?? 61?? 09/14/21?? 94? Cardiac Isoenzymes?? LATEST RESULTS?? HISTORICAL RESULTS?? Troponin-I?? 05/22/22 21:55?? 7.0?? 09/14/21?? 5.4? Electronically Signed on 05/22/22 11:25 PM Patricia Cheng MD Emergency department Discharge instructions * Harsha Fairbanks MD: PERFORM Event Display: ED Discharge Information Authored Date: [id number] EUNICE QUEEN :1955 Age:66 years Sex:Female Visit Date:05/22/2022 Primary Care Physician: Shabbir Madison MD Discharge Instructions We would like to thank you for allowing us to assist you with your healthcare needs. The following includes patient education materials and information regarding your injury/illness. Diagnosis from Today's Visit Gastritis Discharge Vitals Temperature??(Temporal Artery) 97.2 ??F (36.2 ??C) Heart Rate??(Peripheral) 56 Heart Rate??(Monitored) 57 Respiratory Rate?? 15 Blood Pressure?? 157/74?? Height?? 62.99 in (160.000 cm) Weight??(Estimated) 149.94 lb (68.00 kg) Allergies No Known Allergies What to Do Next Instructions from Your Care Team Please start Pantoprazole daily for your stomach. Avoid stomach irritants such as hot sauce, coffee, juice on an empty stomach, etc..?? An order for gallbladder sent was sent to the radiology department.?The CT scan reading??mentioned perhaps some distention of the common bile duct??which is the canal the joints of??bile from your liver and gallbladder towards your bowels. ??They should be calling you??to set up as an outpatient, you can also call [phone]??to inquire on timing.?You cantake 1??Vicodin as needed for severe pain only. ??Recommend you take??a stool softener if you do need to take this pain meds. ??Follow up with Dr Ortiz for reevaluation in 1-2 weeks. Return to the ED for any new or worsening symptoms??chest fever or unrelenting pain. You Need to Schedule the Following Appointments Follow Up with??[facility], Shabbir Yuen MD When:??Within 1 week Where: [address] [address] [phone] You were treated today on an emergency [...] Much When Why Instructions Next Dose New pantoprazole (pantoprazole 20 mg oral delayed release tablet) 1 tab Oral (given by mouth) Every day Gastritis Duration: 30 Days Pickup at [facility] #[id number] Unchanged budesonide (budesonide 9 mg oral capsule, extended release) 1 Capsules Oral (given by mouth) Every morning swallow whole ?? Unchanged glipiZIDE Unchanged hydroCHLOROthiazide Unchanged lisinopril Unchanged losartan Unchanged nirmatrelvir-ritonavir (Paxlovid) Unchanged ondansetron (Zofran 4 mg oral tablet) 1 tab Oral (given by mouth) Every 8 hours as needed for nausea Nausea, vomiting, and diarrhea Unchanged simvastatin Pharmacy Information [facility] #[id number]: [address] [place] [phone] Education Materials Gastritis, Adult Gastritis is inflammation of the stomach. There are two kinds of gastritis: ? Acute gastritis. This kind develops suddenly. ? Chronic gastritis. This kind is much more common and lasts for a long time. Gastritis happens when the lining of the stomach becomes weak or gets damaged. Without treatment, gastritis can lead to stomach bleeding and ulcers. What are the causes? This condition may be caused by: ? An infection. ? Drinking too much alcohol. ? Certain medicines. These include steroids, antibiotics, and some qrot-chf-mreinls medicines, such as aspirin or ibuprofen. ? Having too much acid in the stomach. ? A disease of the intestines or stomach. ? Stress. ? An allergic reaction. ? Crohn's disease. ? Some cancer treatments (radiation). Sometimes the cause of this condition is not known. What are the signs or symptoms? Symptoms of this condition include: ? Pain or a burning sensation in the upper abdomen. ? Nausea. ? Vomiting. ? An uncomfortable feeling of fullness after eating. ? Weight loss. ? Bad breath. ? Blood in your vomit or stools. In some cases, there are no symptoms. How is this diagnosed? This condition may be diagnosed with: ? Your medical history and a description of your symptoms. ? A physical exam. ? Tests. These can include: ? Blood tests. ? Stool tests. ? A test in which a thin, flexible instrument with a light and a camera is passed down the esophagus and into the stomach (upper endoscopy). ? A test in which a sample of tissue is taken for testing (biopsy). How is this treated? This condition may be treated with medicines. The medicines that are used vary depending on the cause of the gastritis: ? If the condition is caused by a bacterial infection, you may be given antibiotic medicines. ? If the condition is caused by too much acid in the stomach, you may be given medicines called H2 blockers, proton pump inhibitors, or antacids. Treatment may also involve stopping the use of certain medicines, such as aspirin, ibuprofen, or other NSAIDs. Follow these instructions at home: Medicines ? Take aagz-ifd-oklgjbn and prescription medicines only as told by your health care provider. ? If you were prescribed an antibiotic medicine, take it as told by your health care provider. Do notstop taking the antibiotic even if you start to feel better. Eating and drinking ? Eat small, frequent meals instead of large meals. ? Avoid foods and drinks that make your symptoms worse. ? Drink enough fluid to keep your urine pale yellow. Alcohol use ? Do not drink alcohol if: ? Your health care provider tells you not to drink. ? You are , may be , or are planning to become . ? If you drink alcohol: ? Limit your use to: ? 0???1 drink a day for women. ? 0???2 drinks a day for men. ? Be aware of how much alcohol is in your drink. In the [place] one drink equals one 12 oz bottle of beer (355 mL), one 5 oz glass of wine (148 mL), or one 1?? oz glass of hard liquor (44 mL). General instructions ? Talk with your health care provider about ways to manage stress, such as getting regular exercise or practicing deep breathing, meditation, or yoga. ? Do not use any products that contain nicotine or tobacco, such as cigarettes and e-cigarettes. If you need help quitting, ask your health care provider. ? Keep all follow-up visits as told by your health care provider. This is important. Contact a health care provider if: ? Your symptoms get worse. ? Your symptoms return after treatment. Get help right away if: ? You vomit blood or material that looks like coffee grounds. ? You have black or dark red stools. ? You are unable to keep fluids down. ? Your abdominal pain gets worse. ? You have a fever. ? You do not feel better after one week. Summary ? Gastritis is inflammation of the lining of the stomach that can occur suddenly (acute) or develop slowly over time (chronic). ? This condition is diagnosed with a medical history, a physical exam, or tests. ? This condition may be treated with medicines to treat infection or medicines to reduce the amount of acid in your stomach. ? Follow your health care provider's instructions about taking medicines, making changes to your diet, and knowing when to call for help. This information is not intended to replace advice given to you by your health care provider. Make sure you discuss any questions you have with your health care provider. Document Revised: 07/06/2018 Document Reviewed: 07/06/2018 [employer] Patient Education ?? 2021 [employer] Tests Performed Medications and Immunizations Administered Given !-Zofran, 4 mg, IV Push acetaminophen, 650 mg, Oral HYDROmorphone, 1 mg, Slow IV Push pantoprazole, 40 mg, IV Push Lab Test Name Test Result Date/Time WBC 10.2 x10^3/mcL 05/22/2022 21:55 EDT RBC 4.0 x10^6/mcL 05/22/2022 21:55 EDT Hgb 12.1 g/dL 05/22/2022 21:55 EDT Hct 37.3 % 05/22/2022 21:55 EDT MCV 93.3 05/22/2022 21:55 EDT MCH 30.3 pg 05/22/2022 21:55 EDT MCHC 32.4 g/dL 05/22/2022 21:55 EDT RDW-CV 12.5 % 05/22/2022 21:55 EDT Platelets 196 x10^3/mcL 05/22/2022 21:55 EDT Neutro Auto 77.5 % 05/22/2022 21:55 EDT Lymph Auto 15.7 % 05/22/2022 21:55 EDT Licking Auto 5.3 % 05/22/2022 21:55 EDT Eos, Auto 0.5 % 05/22/2022 21:55 EDT Basophil Auto 0.4 % 05/22/2022 21:55 EDT Imm Gran Auto 0.6 % 05/22/2022 21:55 EDT Neutro Absolute 8.0 x10^3/mcL 05/22/2022 21:55 EDT Sodium Level 140 mmol/L 05/22/2022 21:55 EDT Potassium Level 3.8 mmol/L 05/22/2022 21:55 EDT Chloride Level 104 mmol/L 05/22/2022 21:55 EDT CO2 24 mmol/L 05/22/2022 21:55 EDT Alk Phos 117 unit/L 05/22/2022 21:55 EDT AST 14 unit/L 05/22/2022 21:55 EDT ALT 41 unit/L 05/22/2022 21:55 EDT BUN 24 mg/dL 05/22/2022 21:55 EDT Glucose Level 239 mg/dL 05/22/2022 21:55 EDT Creatinine Level 1.17 mg/dL 05/22/2022 21:55 EDT eGFR AA 52 05/22/2022 21:55 EDT eGFR Non-AA 52 05/22/2022 21:55 EDT Calcium Level 8.9 mg/dL 05/22/2022 21:55 EDT Protein Total 6.9 g/dL 05/22/2022 21:55 EDT Albumin Level 3.3 g/dL 05/22/2022 21:55 EDT Bilirubin Total 0.2 mg/dL 05/22/2022 21:55 EDT Lactic Acid Lvl 1.8 mmol/L 05/22/2022 21:55 EDT Lipase Level 61 unit/L 05/22/2022 21:55 EDT Troponin-I 7.0 pg/mL 05/22/2022 21:55 EDT Patient/Economic Manager Signature Patient Name:EUNICE QUEEN I have received this information and my questions have been answered. Patient/Economic Manager Name: Patient/Economic Manager Signature: Relationship to Patient: Witness Name/Signature: Date: Electronically Signed on: 05/23/2022 00:28 EDTSigned by:Harsha Solis MD: PERFORM Event Display: ED Discharge Information Authored Date: [id number] EUNICE QUEEN :1955 Age:66 years Sex:Female Visit Date:05/22/2022 Primary Care Physician: Diana [facility], Shabbir Yuen MD Discharge Instructions We would like to thank you for allowing us to assist you with your healthcare needs. The following includes patient education materials and information regarding your injury/illness. Diagnosis from Today's Visit Gastritis Discharge Vitals Temperature??(Temporal Artery) 97.2 ??F (36.2 ??C) Heart Rate??(Peripheral) 56 Heart Rate??(Monitored) 57 Respiratory Rate?? 15 Blood Pressure?? 157/74?? Height?? 62.99 in (160.000 cm) Weight??(Estimated) 149.94 lb (68.00 kg) Allergies No Known Allergies What to Do Next Instructions from Your Care Team Please start Pantoprazole daily for your stomach. Avoid stomach irritants such as hot sauce, coffee, juice on an empty stomach, etc.. Follow up with Dr Ortiz for reevaluation in 1-2 weeks. Return to the ED for any new or worsening symptoms. You were treated today on an emergency [...] Much When Why Instructions Next Dose New pantoprazole (pantoprazole 20 mg oral delayed release tablet) 1 tab Oral (given by mouth) Every day Gastritis Duration: 30 Days Pickup at [id number] Unchanged budesonide (budesonide 9 mg oral capsule, extended release) 1 Capsules Oral (given by mouth) Every morning swallow whole ?? Unchanged glipiZIDE Unchanged hydroCHLOROthiazide Unchanged lisinopril Unchanged losartan Unchanged nirmatrelvir-ritonavir (Paxlovid) Unchanged ondansetron (Zofran 4 mg oral tablet) 1 tab Oral (given by mouth) Every 8 hours as needed for nausea Nausea, vomiting, and diarrhea Unchanged simvastatin Pharmacy Information [facility] #[id number]: [address], [place] [id number] [phone] Education Materials Gastritis, Adult Gastritis is inflammation of the stomach. There are two kinds of gastritis: ? Acute gastritis. This kind develops suddenly. ? Chronic gastritis. This kind is much more common and lasts for a long time. Gastritis happens when the lining of the stomach becomes weak or gets damaged. Without treatment, gastritis can lead to stomach bleeding and ulcers. What are the causes? This condition may be caused by: ? An infection. ? Drinking too much alcohol. ? Certain medicines. These include steroids, antibiotics, and some igbu-jvv-rgwcyqm medicines, such as aspirin or ibuprofen. ? Having too much acid in the stomach. ? A disease of the intestines or stomach. ? Stress. ? An allergic reaction. ? Crohn's disease. ? Some cancer treatments (radiation). Sometimes the cause of this condition is not known. What are the signs or symptoms? Symptoms of this condition include: ? Pain or a burning sensation in the upper abdomen. ? Nausea. ? Vomiting. ? An uncomfortable feeling of fullness after eating. ? Weight loss. ? Bad breath. ? Blood in your vomit or stools. In some cases, there are no symptoms. How is this diagnosed? This condition may be diagnosed with: ? Your medical history and a description of your symptoms. ? A physical exam. ? Tests. These can include: ? Blood tests. ? Stool tests. ? A test in which a thin, flexible instrument with a light and a camera is passed down the esophagus and into the stomach (upper endoscopy). ? A test in which a sample of tissue is taken for testing (biopsy). How is this treated? This condition may be treated with medicines. The medicines that are used vary depending on the cause of the gastritis: ? If the condition is caused by a bacterial infection, you may be given antibiotic medicines. ? If the condition is caused by too much acid in the stomach, you may be given medicines called H2 blockers, proton pump inhibitors, or antacids. Treatment may also involve stopping the use of certain medicines, such as aspirin, ibuprofen, or other NSAIDs. Follow these instructions at home: Medicines ? Take hodf-hgg-byhrdzv and prescription medicines only as told by your health care provider. ? If you were prescribed an antibiotic medicine, take it as told by your health care provider. Do notstop taking the antibiotic even if you start to feel better. Eating and drinking ? Eat small, frequent meals instead of large meals. ? Avoid foods and drinks that make your symptoms worse. ? Drink enough fluid to keep your urine pale yellow. Alcohol use ? Do not drink alcohol if: ? Your health care provider tells you not to drink. ? You are , may be , or are planning to become . ? If you drink alcohol: ? Limit your use to: ? 0???1 drink a day for women. ? 0???2 drinks a day for men. ? Be aware of how much alcohol is in your drink. In the [place] one drink equals one 12 oz bottle of beer (355 mL), one 5 oz glass of wine (148 mL), or one 1?? oz glass of hard liquor (44 mL). General instructions ? Talk with your health care provider about ways to manage stress, such as getting regular exercise or practicing deep breathing, meditation, or yoga. ? Do not use any products that contain nicotine or tobacco, such as cigarettes and e-cigarettes. If you need help quitting, ask your health care provider. ? Keep all follow-up visits as told by your health care provider. This is important. Contact a health care provider if: ? Your symptoms get worse. ? Your symptoms return after treatment. Get help right away if: ? You vomit blood or material that looks like coffee grounds. ? You have black or dark red stools. ? You are unable to keep fluids down. ? Your abdominal pain gets worse. ? You have a fever. ? You do not feel better after one week. Summary ? Gastritis is inflammation of the lining of the stomach that can occur suddenly (acute) or develop slowly over time (chronic). ? This condition is diagnosed with a medical history, a physical exam, or tests. ? This condition may be treated with medicines to treat infection or medicines to reduce the amount of acid in your stomach. ? Follow your health care provider's instructions about taking medicines, making changes to your diet, and knowing when to call for help. This information is not intended to replace advice given to you by your health care provider. Make sure you discuss any questions you have with your health care provider. Document Revised: 07/06/2018 Document Reviewed: 07/06/2018 [employer] Patient Education ?? 2021 [employer]. Tests Performed Medications and Immunizations Administered Given !-Zofran, 4 mg, IV Push acetaminophen, 650 mg, Oral HYDROmorphone, 1 mg, Slow IV Push pantoprazole, 40 mg, IV Push Lab Test Name Test Result Date/Time WBC 10.2 x10^3/mcL 05/22/2022 21:55 EDT RBC 4.0 x10^6/mcL 05/22/2022 21:55 EDT Hgb 12.1 g/dL 05/22/2022 21:55 EDT Hct 37.3 % 05/22/2022 21:55 EDT MCV 93.3 05/22/2022 21:55 EDT MCH 30.3 pg 05/22/2022 21:55 EDT MCHC 32.4 g/dL 05/22/2022 21:55 EDT RDW-CV 12.5 % 05/22/2022 21:55 EDT Platelets 196 x10^3/mcL 05/22/2022 21:55 EDT Neutro Auto 77.5 % 05/22/2022 21:55 EDT Lymph Auto 15.7 % 05/22/2022 21:55 EDT Licking Auto 5.3 % 05/22/2022 21:55 EDT Eos, Auto 0.5 % 05/22/2022 21:55 EDT Basophil Auto 0.4 % 05/22/2022 21:55 EDT Imm Gran Auto 0.6 % 05/22/2022 21:55 EDT Neutro Absolute 8.0 x10^3/mcL 05/22/2022 21:55 EDT Sodium Level 140 mmol/L 05/22/2022 21:55 EDT Potassium Level 3.8 mmol/L 05/22/2022 21:55 EDT Chloride Level 104 mmol/L 05/22/2022 21:55 EDT CO2 24 mmol/L 05/22/2022 21:55 EDT Alk Phos 117 unit/L 05/22/2022 21:55 EDT AST 14 unit/L 05/22/2022 21:55 EDT ALT 41 unit/L 05/22/2022 21:55 EDT BUN 24 mg/dL 05/22/2022 21:55 EDT Glucose Level 239 mg/dL 05/22/2022 21:55 EDT Creatinine Level 1.17 mg/dL 05/22/2022 21:55 EDT eGFR AA 52 05/22/2022 21:55 EDT eGFR Non-AA 52 05/22/2022 21:55 EDT Calcium Level 8.9 mg/dL 05/22/2022 21:55 EDT Protein Total 6.9 g/dL 05/22/2022 21:55 EDT Albumin Level 3.3 g/dL 05/22/2022 21:55 EDT Bilirubin Total 0.2 mg/dL 05/22/2022 21:55 EDT Lactic Acid Lvl 1.8 mmol/L 05/22/2022 21:55 EDT Lipase Level 61 unit/L 05/22/2022 21:55 EDT Troponin-I 7.0 pg/mL 05/22/2022 21:55 EDT Patient/Economic Manager Signature Patient Name:EUNICE QUEEN I have received this information and my questions have been answered. Patient/Economic Manager Name: Patient/Economic Manager Signature: Relationship to Patient: Witness Name/Signature: Date: Electronically Signed on: 05/23/2022 04:53 EDTSigned by:JOSE LUIS Emergency department Note * Yue Hernandez M: PERFORM Event Display: ED Notes Authored Date: [id number] Patient Care team information Care Team Personnel Name: Shabbir Madison MD Position: No Access Member Role: Primary Care Physician Address: Address: [address] [address]- [place] Name: Diana HIShabbir Jean MD Position: Physician Member Role: Informed Provider Address: Address: [address] [place] [address] Name: Patricia Cheng MD Position: Physician Member Role: ED Physician Address: Address: [address] [place], [place] [address] Name: Tila Medina RN Position: Nurse Member Role: ED Nurse Care Team Related Persons Name: TAYLOR QUEEN Address: Home [address] [facility] [facility], [id number] Name: MATEUS QUEEN Address: Home
--- OUTSIDE RECORDS SUMMARY | 2023-03-23 16:41 | XMS_ITS | Continuity of Care Document ---
Author Name Unknown Organization [facility] Address [address] [place] [address] Care Team Providers Care Oil And Gas Specialist Name Role Phone Primeau Shabbir PRIETO Primary Care Physician [facility] [id number] Date(s): 05/09/22 - 05/09/[address] [address] Discharge Disposition: Home or Self Care Attending Physician: Patricia Cheng MD Admitting Physician: Patricia Cheng MD Referring Physician: Patricia Cheng MD Allergies, Adverse Reactions, Alerts No Known Allergies Functional Status 05/09/22 Family Member Travel History No recent t ravel Recent Travel History No recent travel Other exposure to Infectious Disease Com munity exposure to COVID-19 within the last 14 days Medications budesonide 9 mg oral capsule, extended release 9 mg = 1 cap, Oral, every morning, swallow whole, # 30 cap, 0 Refill(s) Start Date: 05/09/22 Status: Ordered glipiZIDE 0 Refill(s) Start Date: 05/09/22 Status: Ordered hydroCHLOROthiazide 0 Refill(s) Start Date: 05/09/22 Status: Ordered lisinopril 0 Refill(s) Start Date: 05/09/22 Status: Ordered losartan 0 Refill(s) Start Date: 05/09/22 Status: Ordered Paxlovid 0 Refill(s) Start Date: 05/09/22 Status: Ordered simvastatin 0 Refill(s) Start Date: 05/09/22 Status: Ordered Zofran 4 mg oral tablet 4 mg = 1 tab, Oral, every 8 hr, PRN nausea, # 12 tab, 0 Refill(s), Pharmacy: [facility] #[id number], 163, cm, 01/24/22 11:40:00 EST, Height/Length Dosing, 68, kg, 01/24/22 11:40:00 EST, Weight Dosing Start Date: 01/24/22 Status: Ordered Mental Status 05/09/22 Eye Opening Response Rescue Spontaneous ly Best Verbal Response Kristofer Oriented Best Motor Response Rescue Obeys comman ds Kristofer Coma Score 15 Results Laboratory List Name Date Glucose POCT 05/09/22 Urinalysis Microscopic 05/09/22 Urinalysis with Microscopic 05/09/22 .Manual Differential (NCTY) 05/09/22 Beta Hydroxybutyrate 05/09/22 CBC w/ Diff 05/09/22 Comprehensive Metabolic Panel (CMP) 05/09 Hemoglobin A1c 05/09/22 Most recent to oldest [Reference Range]: 1 WBC [5.0-10.0 x10^3/mcL] 10.4 x10^3/mcL *HI* (05/09/22 3:50 PM) RBC [4.1-5.3 x10^6/mcL] 4.4 x10^6/mcL (05/09/22 3:50 PM) Segs Man [40-75 %] 93 % *HI* (05/09/22 3:50 PM) Lymph Man [20-50 %] 3 % *LOW* (05/09/22 3:50 PM) [place] Man 3 % *NA* (05/09/22 3:50 PM) Eos Man 0 % *NA* (05/09/22 3:50 PM) BUN [7-18 mg/dL] 36 mg/dL *HI* (05/09/22 3:50 PM) Glucose POC [74-106 mg/dL] 398 mg/dL *CRIT* (05/09/22 6:21 PM) UA Color Pale Yellow (05/09/22 5:17 PM) UA WBC [0-3] 0-3 (05/09/22 5:17 PM) Glucose Level [74-106 mg/dL] 440 mg/dL *HI* (05/09/22 3:50 PM) Potassium Level [3.5-5.1 mmol/L] 3.3 mmo l/L *LOW* (05/09/22 3:50 PM) MCV [80.0-96.0] 89.2 (05/09/22 3:50 PM) UA Urobilinogen Normal (05/09/22 5:17 PM) RBC Morph Normal (05/09/22 3:50 PM) UA Bili [Negative] Negative (05/09/22 5:17 PM) UA Ketones Negative (05/09/22 5:17 PM) AST [15-37 unit/L] 18 unit/L (05/09/22 3:50 PM) ALT [14-59 unit/L] 47 unit/L (05/09/22 3:50 PM) MCHC [31.0-35.0 g/dL] 33.8 g/dL (05/09/22 3:50 PM) Sodium Level [136-145 mmol/L] 137 mmol/L (05/09/22 3:50 PM) UA RBC [0-2] 0-2 (05/09/22 5:17 PM) UA Leuk Est Negative (05/09/22 5:17 PM) UA Nitrite Negative (05/09/22 5:17 PM) UA Glucose [Negative] 3+ *ABN* (05/09/22 5:17 PM) Hct [37.0-47.0 %] 38.8 % (05/09/22 3:50 PM) UA Bacteria None Seen /HPF (05/09/22 5:17 PM) Calcium Level [8.5-10.1 mg/dL] 9.3 mg/dL (05/09/22 3:50 PM) Albumin Level [3.4-5.0 g/dL] 3.3 g/dL *LOW* (05/09/22 3:50 PM) Protein Total [6.4-8.2 g/dL] 7.4 g/dL (05/09/22 3:50 PM) UA Protein Negative (05/09/22 5:17 PM) MCH [26.0-32.0 pg] 30.1 pg (05/09/22 3:50 PM) Bilirubin Total [0.2-1.0 mg/dL] 0.3 mg/d L (05/09/22 3:50 PM) Hgb [12.0-16.0 g/dL] 13.1 g/dL (05/09/22 3:50 PM) Alk Phos [46-146 unit/L] 107 unit/L (05/09/22 3:50 PM) UA Blood Negative (05/09/22 5:17 PM) UA Mucous None Seen /HPF (05/09/22 5:17 PM) Band Man [0-5 %] 0 % (05/09/22 3:50 PM) UA Spec Grav 1.010 *NA* (05/09/22 5:17 PM) Platelets [130-450 x10^3/mcL] 259 x10^3/ mcL (05/09/22 3:50 PM) CO2 [21-32 mmol/L] 26 mmol/L (05/09/22 3:50 PM) UA Squam Epithelial [None Seen] None See n (05/09/22 5:17 PM) UA pH 6.0 *NA* (05/09/22 5:17 PM) eGFR Non-AA [>=60] 35 *LOW* (05/09/22 3:50 PM) eGFR AA [>=60] 35 *LOW* (05/09/22 3:50 PM) UA Appear Clear (05/09/22 5:17 PM) Hemoglobin A1c [4.0-6.0 %] 6.7 % *HI* (05/09/22 3:50 PM) Chloride Level [98-107 mmol/L] 97 mmol/L *LOW* (05/09/22 3:50 PM) RDW-CV [11.7-17.0 %] 12.0 % (05/09/22 3:50 PM) UA Culture Ind?. Not Applicable (05/09/22 5:17 PM) Abs Neut Man 9.7 x10^3/mcL *NA* (05/09/22 3:50 PM) Immature Cells 1 *NA* (05/09/22 3:50 PM) Creatinine Level [0.55-1.02 mg/dL] 1.62 mg/dL *HI* (05/09/22 3:50 PM) Baso Man [0-1 %] 0 % (05/09/22 3:50 PM) Beta-Hydroxybutyrate [0.0-0.5 mmol/L] 0. 4 mmol/L (05/09/22 3:50 PM) Vital Signs Most recent to oldest [Reference Range]: 1 2 3 Temperature Temporal Artery [36-38 Deg C] 37.1 Deg C (05/09/22 3:50 PM) 36.4 Deg C (05/09/22 3:10 PM) Peripheral Pulse Rate [60-100 bpm] 51 bpm *LOW* (05/09/22 6:14 PM) 47 bpm *LOW* (05/09/22 4:30 PM) 44 bpm *LOW* (05/09/22 3:50 PM) Respiratory Rate [12-24 br/min] 16 br/min (05/09/22 6:14 PM) 18 br/min (05/09/22 4:30 PM) 16 br/min (05/09/22 3:50 PM) Blood Pressure [90-140/60-90 mmHg] 165/75mmHg *HI* (05/09/22 6:14 PM) 164/79mmHg *HI* (05/09/22 4:30 PM) 152/83mmHg *HI* (05/09/22 3:50 PM) Weight Dosing 68.04 kg (05/09/22 3:18 PM) Weight Estimated 68.04 kg (05/09/22 3:10 PM) Height/Length Dosing 160.000 cm (05/09/22 3:18 PM) Height/Length Estimated 160.000 cm (05/09/22 3:10 PM) Social History Social History Type Response Tobacco Never tobacco user T obacco Use:. Sex Female Physician Emergency department Note * Shabbir Geller MD: PERFORM Event Display: ED Note Physician Authored Date: [id number] BRET LUZ MARIA A :1955 Age:66 years Sex:Female Visit Date:05/09/2022 Primary Care Physician: Shabbir Madison MD Name:??Luz Maria Queen, age 66 CC:??Not feeling well Triage note:??I was COVID-positive on the fourth. ??I am on steroids for colitis. ??My blood glucoses have been superhigh ever since. ??I feel terrible. ??I have a follow-up appointment on the but I do not feel like this for 5 more days. Scope of care: Consider all options HPI:??Major complaints are dizziness which means weak and wobbly. ??Context is patient with lymphocytic colitis and COVID. ??She noted her blood sugars running high over the last few days. ??She has been taking the Paxlovid and is on budesonide for her colitis. ROS:??Otherwise negative Medications: Hydrochlorothiazide, lisinopril, simvastatin, budesonide, glipizide, losartan, Paxlovid, ondansetron Medical history:??COVID, lymphocytic colitis , Mitral stenosis review of systems is negative for fever, cough, shortness of breath, upper respiratory function, visual changes, GI symptoms, symptoms, hematologic symptoms, psychiatric symptoms. ??Positive for slight headache and occasional chest discomfort related to her mitral stenosis. ??Complicating social determinants of health: Exam:??Temperature is 36.4. ??Blood pressure is 163/82. ??Heart rate is 61. ??Respiratory rate is 18. ??Oxygen saturation is 97. ??Weight is 68 kg. ??Patient is in no acute distress. ??She converses normally. ??She establishes maintains eye contact. ??Respirations are normal. ??Chest auscultation is normal. ??Heart auscultation is positive for irregular rhythm. ??Abdomen is soft nontender peer extremities are normal. Laboratory tests ordered and reviewed:??WBC is 10.4. ??Hemoglobin is 13.1. ??Beta hydroxybutyrate is normal. ??At 0.4. ??Potassium is low at 3.3. ??Creatinine is elevated at 1.62. ??Hemoglobin A1c is6.2. Independent test interpretation:??Electrocardiogram shows a rate of 45. ??Rhythm is sinus. ??There is no ST deviation. Disposition: Discharge?? Diagnosis(es):??Diabetes mellitus type 2, mild, secondary to chronic steroid therapy Patient Instructions:??Monitor your glucose 3 times per day and record the results. ??When you feeldizzy, lightheaded, wobbly that means you are mildly dehydrated. ??Follow the general guidelines for diabetic diet. ??Follow-up with your primary care provider. ??Your hydrochlorothiazide can cause you to lose potassium which also makes you feel weak. ??Eating a banana daily can help prevent your body being too low and potassium. Shabbir Geller MD Medical Decision Making:??Problem Complexity:??Low, 78469;??Data Complexity: Low, 14520 risk of Management:??Low, 86664??final Code:??78015 Electronically Signed on 05/09/22 06:41 PM Shabbir Geller MD * Shabbir Geller MD: PERFORM Event Display: ED Note Physician Authored Date: [id number] Additional diagnosis is??hypokalemia. Electronically Signed on 05/09/22 06:43 PM Shabbir Geller MD Emergency department Discharge instructions * Shabbir Geller MD: PERFORM Event Display: ED Discharge Information Authored Date: [id number] LUZ MARIA QUEEN :1955 Age:66 years Sex:Female Visit Date:05/09/2022 Primary Care Physician: Shabbir Madison MD Discharge Instructions We would like to thank you for allowing us to assist you with your healthcare needs. The following includes patient education materials and information regarding your injury/illness. Discharge Vitals Temperature??(Temporal Artery) 98.8 ??F (37.1 ??C) Heart Rate??(Peripheral) 51 Respiratory Rate?? 16 Blood Pressure?? 165/75?? Blood Pressure?? 168/78(Sitting)?? Blood Pressure?? 164/79(Standing)?? Blood Pressure?? 155/73(Supine)?? Height?? 62.99 in (160.000 cm) Weight??(Estimated) 150.03 lb (68.04 kg) Allergies No Known Allergies What to Do Next Instructions from Your Care Team Diagnosis(es):??Diabetes mellitus type 2, mild, secondary to chronic steroid therapy Patient Instructions:??Monitor your glucose 3 times per day and record the results. ??When you feeldizzy, lightheaded, wobbly that means you are mildly dehydrated. ??Follow the general guidelines for diabetic diet. ??Follow-up with your primary care provider. ??Your hydrochlorothiazide can cause you to lose potassium which also makes you feel weak. ??Eating a banana daily can help prevent your body being too low and potassium. You were treated today on an emergency [...] How Much When Why Instructions Next Dose Unchanged budesonide (budesonide 9 mg oral capsule, extended release) 1 Capsules Oral (given by mouth) Every morning swallow whole ?? Unchanged glipiZIDE Unchanged hydroCHLOROthiazide Unchanged lisinopril Unchanged losartan Unchanged nirmatrelvir-ritonavir (Paxlovid) Unchanged ondansetron (Zofran 4 mg oral tablet) 1 tab Oral (given by mouth) Every 8 hours as needed for nausea Nausea, vomiting, and diarrhea Unchanged simvastatin Tests Performed Medications and Immunizations Administered Given 0.9% NaCl bolus, 1000 mL, IV Piggyback 0.9% NaCl bolus, 1500 mL, IV Piggyback potassium chloride, 10 mEq, 10 mEq, IV Piggyback Lab Test Name Test Result Date/Time WBC 10.4 x10^3/mcL 05/09/2022 15:50 EST RBC 4.4 x10^6/mcL 05/09/2022 15:50 EST Hgb 13.1 g/dL 05/09/2022 15:50 EST Hct 38.8 % 05/09/2022 15:50 EST MCV 89.2 05/09/2022 15:50 EST MCH 30.1 pg 05/09/2022 15:50 EST MCHC 33.8 g/dL 05/09/2022 15:50 EST RDW-CV 12.0 % 05/09/2022 15:50 EST Platelets 259 x10^3/mcL 05/09/2022 15:50 EST Segs Man 93 % 05/09/2022 15:50 EST Lymph Man 3 % 05/09/2022 15:50 EST [place] Man 3 % 05/09/2022 15:50 EST Eos Man 0 % 05/09/2022 15:50 EST Baso Man 0 % 05/09/2022 15:50 EST Band Man 0 % 05/09/2022 15:50 EST Abs Neut Man 9.7 x10^3/mcL 05/09/2022 15:50 EST RBC Morph Normal 05/09/2022 15:50 EST Immature Cells 1 05/09/2022 15:50 EST Sodium Level 137 mmol/L 05/09/2022 15:50 EST Potassium Level 3.3 mmol/L 05/09/2022 15:50 EST Chloride Level 97 mmol/L 05/09/2022 15:50 EST CO2 26 mmol/L 05/09/2022 15:50 EST Alk Phos 107 unit/L 05/09/2022 15:50 EST AST 18 unit/L 05/09/2022 15:50 EST ALT 47 unit/L 05/09/2022 15:50 EST BUN 36 mg/dL 05/09/2022 15:50 EST Glucose Level 440 mg/dL 05/09/2022 15:50 EST Creatinine Level 1.62 mg/dL 05/09/2022 15:50 EST eGFR AA 35 05/09/2022 15:50 EST eGFR Non-AA 35 05/09/2022 15:50 EST Calcium Level 9.3 mg/dL 05/09/2022 15:50 EST Protein Total 7.4 g/dL 05/09/2022 15:50 EST Albumin Level 3.3 g/dL 05/09/2022 15:50 EST Bilirubin Total 0.3 mg/dL 05/09/2022 15:50 EST Beta-Hydroxybutyrate 0.4 mmol/L 05/09/2022 15:50 EST Hemoglobin A1c 6.7 % 05/09/2022 15:50 EST Glucose POC 398 mg/dL 05/09/2022 18:21 EST UA Color Pale [place] 05/09/2022 17:17 EST UA Appear CLEAR. 05/09/2022 17:17 EST UA Glucose 3+ 05/09/2022 17:17 EST UA Bili NEGATIVE 05/09/2022 17:17 EST UA Ketones NEGATIVE 05/09/2022 17:17 EST UA Spec Grav 1.010 05/09/2022 17:17 EST UA Blood NEGATIVE 05/09/2022 17:17 EST UA pH 6.0 05/09/2022 17:17 EST UA Protein NEGATIVE 05/09/2022 17:17 EST UA Urobilinogen 0.2 Uro 05/09/2022 17:17 EST UA Nitrite NEGATIVE 05/09/2022 17:17 EST UA Leuk Est NEGATIVE 05/09/2022 17:17 EST UA Culture Ind?. Not Applicable 05/09/2022 17:17 EST UA WBC 0-3 05/09/2022 17:17 EST UA RBC 0-2 05/09/2022 17:17 EST UA Squam Epithelial None Seen 05/09/2022 17:17 EST UA Mucous None Seen 05/09/2022 17:17 EST UA Bacteria None Seen 05/09/2022 17:17 EST Patient/Assistant Plant Control Operator Signature Patient Name:LUZ MARIA QUEEN I have received this information and my questions have been answered. Patient/Assistant Plant Control Operator Name: Patient/Assistant Plant Control Operator Signature: Relationship to Patient: Witness Name/Signature: Date: Electronically Signed on: 05/09/2022 18:44 ESTSigned by:[facility] Emergency department Note * Starla Gandhi: PERFORM Event Display: ED Notes Authored Date: [id number] Patient Care team information Care Team Personnel Name: Diana Shabbir PRIETO MD Position: No Access Member Role: Primary Care Physician Address: Address: [address] Name: Diana [facility] Position: Physician Member Role: Informed Provider Address: Address: [address] [place], [place] [phone] Name: Lakshmi Cote Position: Nurse Member Role: ED Nurse Name: Shabbir Geller MD Position: Physician Member Role: ED Physician Address: Address: [address] [place] [phone] [place] Care Team Related Persons Name: TAYLOR QUEEN Address: Home [address] [place] [phone] Name: MATEUS QUEEN Address: Home
--- OUTSIDE RECORDS SUMMARY | 2023-03-23 16:41 | XMS_ITS | Continuity of Care Document ---
Author Name Unknown Organization [facility] Address [address] [place] [address] Care Team Providers Care Supervisor Loading Name Role Phone Shabbir Madison Primary Care Physician [facility] - 05/30/[address] [address] Discharge Disposition: Home or Self Care Attending Physician: Shabbir Madison MD Admitting Physician: Shabbir Madison MD Referring Physician: Shabbir Madison MD Allergies, Adverse Reactions, Alerts No Known Allergies Medications budesonide 9 mg oral capsule, extended [...] tab, 0 Refill(s), 06/21/22 23:21:00 EDT, Pharmacy: [email or web address] #[id number], 160, cm, 05/22/22 21:16:00 EDT, Height/Length Dosing, 68, kg, 05/22/22 21:16:00 EDT, Weight Dosing Start Date: 05/22/22 Stop Date: 06/21/22 Status: Ordered Paxlovid 0 Refill(s) Start Date: 05/09/22 Status: Ordered simvastatin 0 Refill(s) Start Date: 05/09/22 Status: Ordered Zofran 4 mg oral tablet 4 mg = 1 tab, Oral, every 8 hr, PRN nausea, # 12 tab, 0 Refill(s), Pharmacy: [facility] #[id number], 163, cm, 01/24/22 11:40:00 EST, Height/Length Dosing, 68, kg, 01/24/22 11:40:00 EST, Weight Dosing Start Date: 01/24/22 Status: Ordered Social History Social History Type Response Tobacco Never tobacco user T obacco Use:. Sex Female Patient Care team information Care Team Personnel Name: Diana Shabbir PRIETO MD Position: No Access Member Role: Primary Care Physician Address: Address: [address] [address]- [place] Name: Diana [facility] Position: Physician Member Role: Informed Provider Address: Address: [address] [place] [phone] Care Team Related Persons Name: TAYLOR QUEEN Address: Home [address] [place] [address], [phone] Name: MATEUS QUEEN Address: Home
--- OUTSIDE RECORDS SUMMARY | 2023-03-23 16:41 | XMS_ITS | Continuity of Care Document ---
Author Name Unknown Organization [facility] Address [address] [place] [address] Care Team Providers Care Environmental Journalist Name Role Phone Shabbir Madison Primary Care Physician [facility]22 - 06/03/[address] [address] Encounter Diagnosis Acute cholecystitis(Discharge Diagnosis) - 06/03/22 Discharge Disposition: Home or Self Care Attending [...] tab, 0 Refill(s), 06/21/22 23:21:00 EDT, Pharmacy: [facility] #[id number], 160, cm, 05/22/22 21:16:00 EDT, Height/Length Dosing, 68, kg, 05/22/22 21:16:00 EDT, Weight Dosing Start Date: 05/22/22 Stop Date: 06/21/22 Status: Ordered Paxlovid 0 Refill(s) Start Date: 05/09/22 Status: Ordered simvastatin 0 Refill(s) Start Date: 05/09/22 Status: Ordered Zofran 4 mg oral tablet 4 mg = 1 tab, Oral, every 8 hr, PRN nausea, # 12 tab, 0 Refill(s), Pharmacy: [facility] #[id number], 163, cm, 01/24/22 11:40:00 EST, Height/Length Dosing, 68, kg, 01/24/22 11:40:00 EST, Weight Dosing Start Date: 01/24/22 Status: Ordered Results Laboratory List Name Date Glucose POCT 06/03/22 Most recent to oldest [Reference Range]: 1 Glucose POC [74-106 mg/dL] 108 mg/dL *HI* (06/03/22 11:49 AM) Social History Social History Type Response Tobacco Never tobacco user T obacco Use:. Sex Female Patient Care team information Care Team Personnel Name: [facility] Position: No Access Member Role: Primary Care Physician Address: Address: [address] [address] Name: Diana [facility] Position: Physician Member Role: Informed Provider Address: Address: [address] [place] [phone] Care Team Related Persons Name: TAYLOR QUEEN Address: Home [address] [place] [address], [phone] Name: MATEUS QUEEN Address: Home
--- OUTSIDE RECORDS SUMMARY | 2023-03-23 16:41 | XMS_ITS | Continuity of Care Document ---
Author Name Unknown Organization [facility] Address [address] [place] [address] Care Team Providers Care Higher Education Administrator Name Role Phone Prime[place] Shabbir PRIETO Primary Care Physician [facility] - 05/23/[address] [address] Discharge Disposition: Home or Self Care Attending Physician: Harsha Fairbanks MD Admitting Physician: Harsha Fairbanks MD Referring Physician: Harsha Fairbanks MD Allergies, Adverse Reactions, [...] tab, 0 Refill(s), 06/21/22 23:21:00 EDT, Pharmacy: [facility] #[id number], 160, cm, 05/22/22 21:16:00 EDT, Height/Length Dosing, 68, kg, 05/22/22 21:16:00 EDT, Weight Dosing Start Date: 05/22/22 Stop Date: 06/21/22 Status: Ordered Paxlovid 0 Refill(s) Start Date: 05/09/22 Status: Ordered simvastatin 0 Refill(s) Start Date: 05/09/22 Status: Ordered Zofran 4 mg oral tablet 4 mg = 1 tab, Oral, every 8 hr, PRN nausea, # 12 tab, 0 Refill(s), Pharmacy: [facility] #[id number], 163, cm, 01/24/22 11:40:00 EST, Height/Length Dosing, 68, kg, 01/24/22 11:40:00 EST, Weight Dosing Start Date: 01/24/22 Status: Ordered Social History Social History Type Response Tobacco Never tobacco user T obacco Use:. Sex Female Patient Care team information Care Team Personnel Name: Diana Shabbir PRIETO MD Position: No Access Member Role: Primary Care Physician Address: Address: [address] [address]- [place] Name: Diana [facility] Position: Physician Member Role: Informed Provider Address: Address: [address] [place] [phone] Care Team Related Persons Name: TAYLOR QUEEN Address: Home [address] [place] [address], [phone] Name: MATEUS QUEEN Address: Home
--- OUTSIDE RECORDS SUMMARY | 2023-03-23 16:41 | XMS_ITS | Continuity of Care Document ---
Author Name Unknown Organization [facility] Address [address] [place] [address] Care Team Providers Care Cad Designer Name Role Phone Primeau [facility] Primary Care Physician [id number] Date(s): 05/14/22 - 05/14/[address] [address] Discharge Disposition: Home or Self Care Attending Physician: Loni Mosqueda TURBINE ATTENDANT Admitting Physician: Loni Mosqueda TURBINE ATTENDANT Referring Physician: Loni Mosqueda TURBINE ATTENDANT Allergies, Adverse Reactions, Alerts No Known Allergies [...] nausea, # 12 tab, 0 Refill(s), Pharmacy: [facility] #[id number], 163, cm, 01/24/22 11:40:00 EST, Height/Length Dosing, 68, kg, 01/24/22 11:40:00 EST, Weight Dosing Start Date: 01/24/22 Status: Ordered Social History Social History Type Response Tobacco Never tobacco user T obacco Use:. Sex Female Patient Care team information Care Team Personnel Name: Diana Shabbir PRIETO MD Position: No Access Member Role: Primary Care Physician Address: Address: [address] [address]- [place] Name: Diana [facility] Position: Physician Member Role: Informed Provider Address: Address: [address] [place] [phone] Care Team Related Persons Name: TAYLOR QEUEN Address: Home [address] [facility], [phone] Name: MATEUS QUEEN Address: Home
--- OUTSIDE RECORDS SUMMARY | 2023-03-23 16:41 | XMS_ITS | Continuity of Care Document ---
Author Name Unknown Organization [facility] Address [address] [place] [address] Care Team Providers Care Vehicle Return Associate Name Role Phone [facility] Date(s): 06/04/22 - 06/04/[address] [id number] Encounter Diagnosis Headache(Discharge Diagnosis) - 06/04/22 Headache, unspecified(Final) - Type 2 diabetes mellitus without complications(Final) - Essential (primary) hypertension(Final) - Pure hypercholesterolemia, unspecified(Final) - Other director long term care (current) drug therapy(Final) - Discharge Disposition: Home or Self Care Attending Physician: Connor Mcdonald MD Admitting Physician: Connor Mcdonald MD Allergies, Adverse Reactions, Alerts No Known Allergies Medications budesonide 9 mg oral capsule, extended release 9 mg = 1 cap, Oral, every morning, swallow whole, # 30 cap, 0 Refill(s) Start Date: 05/09/22 Status: Ordered glipiZIDE 0 Refill(s) Start Date: 05/09/22 Status: Ordered imipramine 10 mg oral tablet 10 mg = 1 tab, Oral, Daily, Take one tab tonight and tomorrow night, then take 2 tabs per night. Follow up with your primary care provider prior to increasing further., X 10 days, # 20 tab, 0 Refill(s), 06/14/22 17:09:00 EDT, [facility]... Start Date: 06/04/22 Stop Date: 06/14/22 Status: Ordered losartan 0 Refill(s) Start Date: 05/09/22 Status: Ordered pantoprazole 20 mg oral delayed release tablet 20 mg = 1 tab, Oral, Daily, X 30 days, # 30 tab, 0 Refill(s), 06/21/22 23:21:00 EDT, Pharmacy: [facility] #[id number], 160, cm, 05/22/22 21:16:00 EDT, Height/Length Dosing, 68, kg, 05/22/22 21:16:00 EDT, Weight Dosing Start Date: 05/22/22 Stop Date: 06/21/22 Status: Ordered Paxlovid 0 Refill(s) Start Date: 05/09/22 Status: Ordered simvastatin 0 Refill(s) Start Date: 05/09/22 Status: Ordered Zofran 4 mg oral tablet 4 mg = 1 tab, Oral, every 8 hr, PRN nausea, # 12 tab, 0 Refill(s), Pharmacy: [facility] #[id number], 163, cm, 01/24/22 11:40:00 EST, Height/Length Dosing, 68, kg, 01/24/22 11:40:00 EST, Weight Dosing Start Date: 01/24/22 Status: Ordered Results Laboratory List Name Date CBC w/ Diff 06/04/22 Comprehensive Metabolic Panel (CMP) Automated Diff 06/04/22 Most recent to oldest [Reference Range]: 1 WBC [5.0-10.0 x10^3/mcL] 4.2 x10^3/mcL *LOW* (06/04/22 3:18 PM) RBC [4.1-5.3 x10^6/mcL] 4.2 x10^6/mcL (06/04/22 3:18 PM) Neutro Auto [40.0-75.0 %] 64.8 % (06/04/22 3:18 PM) Lymph Auto [20.0-50.0 %] 26.4 % (06/04/22 3:18 PM) [place] Auto [2.0-15.0 %] 6.2 % (06/04/22 3:18 PM) Basophil Auto [0.0-1.0 %] 0.7 % (06/04/22 3:18 PM) BUN [7-18 mg/dL] 12 mg/dL (06/04/22 3:18 PM) Glucose Level [74-106 mg/dL] 168 mg/dL *HI* (06/04/22 3:18 PM) Potassium Level [3.5-5.1 mmol/L] 4.0 mmo l/L (06/04/22 3:18 PM) MCV [80.0-96.0] 93.6 (06/04/22 3:18 PM) AST [15-37 unit/L] 16 unit/L (06/04/22 3:18 PM) ALT [14-59 unit/L] 32 unit/L (06/04/22 3:18 PM) MCHC [31.0-35.0 g/dL] 32.5 g/dL (06/04/22 3:18 PM) Sodium Level [136-145 mmol/L] 141 mmol/L (06/04/22 3:18 PM) Hct [37.0-47.0 %] 39.7 % (06/04/22 3:18 PM) Calcium Level [8.5-10.1 mg/dL] 9.4 mg/dL (06/04/22 3:18 PM) Albumin Level [3.4-5.0 g/dL] 3.5 g/dL (06/04/22 3:18 PM) Protein Total [6.4-8.2 g/dL] 7.2 g/dL (06/04/22 3:18 PM) MCH [26.0-32.0 pg] 30.4 pg (06/04/22 3:18 PM) Neutro Absolute 2.7 x10^3/mcL *NA* (06/04/22 3:18 PM) Bilirubin Total [0.2-1.0 mg/dL] 0.3 mg/d L (06/04/22 3:18 PM) Hgb [12.0-16.0 g/dL] 12.9 g/dL (06/04/22 3:18 PM) Alk Phos [46-146 unit/L] 123 unit/L (06/04/22 3:18 PM) Platelets [130-450 x10^3/mcL] 246 x10^3/ mcL (06/04/22 3:18 PM) CO2 [21-32 mmol/L] 29 mmol/L (06/04/22 3:18 PM) eGFR Non-AA [>=60] 71 (06/04/22 3:18 PM) eGFR AA [>=60] 71 (06/04/22 3:18 PM) Chloride Level [98-107 mmol/L] 104 mmol/ L (06/04/22 3:18 PM) RDW-CV [11.7-17.0 %] 12.7 % (06/04/22 3:18 PM) Imm Gran Auto [0.0-0.9 %] 0.2 % (06/04/22 3:18 PM) Creatinine Level [0.55-1.02 mg/dL] 0.90 mg/dL (06/04/22 3:18 PM) Eos, Auto [1.0-6.0 %] 1.7 % (06/04/22 3:18 PM) Vital Signs Most recent to oldest [Reference Range]: 1 2 3 Temperature Temporal Artery [36-38 Deg C] 35.2 Deg C *LOW* (06/04/22 2:32 PM) Peripheral Pulse Rate [60-100 bpm] 49 bpm *LOW* (06/04/22 5:31 PM) 55 bpm *LOW* (06/04/22 5:08 PM) 49 bpm *LOW* (06/04/22 4:45 PM) Heart Rate Monitored [60-100 bpm] 50 bpm *LOW* (06/04/22 5:31 PM) 55 bpm *LOW* (06/04/22 5:08 PM) 50 bpm *LOW* (06/04/22 4:45 PM) Respiratory Rate [12-24 br/min] 12 br/min (06/04/22 5:31 PM) 12 br/min (06/04/22 5:08 PM) 13 br/min (06/04/22 4:45 PM) Blood Pressure [90-140/60-90 mmHg] 151/82mmHg *HI* (06/04/22 5:08 PM) 171/77mmHg *HI* (06/04/22 4:45 PM) 155/75mmHg *HI* (06/04/22 4:24 PM) Mean Arterial Pressure Cuff 111 mmHg (06/04/22 3:47 PM) 110 mmHg (06/04/22 3:18 PM) 113 mmHg (06/04/22 3:00 PM) Weight Dosing 65.77 kg (06/04/22 2:39 PM) Weight Estimated 65.77 kg (06/04/22 2:32 PM) Height/Length Dosing 157.480 cm (06/04/22 2:39 PM) Height/Length Estimated 157.480 cm (06/04/22 2:32 PM) Social History Social History Type Response Tobacco Never tobacco user T obacco Use:. Sex Female Hospital Discharge Instructions Patient Education 06/04/2022 16:46:39 Migraine Headache Migraine Headache A migraine headache is an intense, throbbing pain on one side or both sides of the head. Migraine headaches may also cause other symptoms, such as nausea, vomiting, and sensitivity to light and noise. A migraine headache can last from 4 hours to 3 days. Talk with your doctor about what things may bring on (trigger) your migraine headaches. What are the causes? The exact cause of this condition is not known. However, a migraine may be caused when nerves in the brain become irritated and release chemicals that cause inflammation of blood vessels. This inflammation causes pain. This condition may be triggered or caused by: ??? Drinking alcohol. ??? Smoking. ??? Taking medicines, such as: ??? Medicine used to treat chest pain (nitroglycerin). ??? control pills. ??? Estrogen. ??? Certain blood pressure medicines. ??? Eating or drinking products that contain nitrates, glutamate, aspartame, or tyramine. Aged cheeses, chocolate, or caffeine may also be triggers. ??? Doing physical activity. Other things that may trigger a migraine headache include: ??? Menstruation. ??? . ??? Hunger. ??? Stress. ??? Lack of sleep or too much sleep. ??? Weather changes. ??? Fatigue. What increases the risk? The following factors may make you more likely to experience migraine headaches: ??? Being a certain age. This condition is more common in people who are 25???55 years old. ??? Being female. ??? Having a family history of migraine headaches. ??? Being . ??? Having a mental health condition, such as depression or anxiety. ??? Being obese. What are the signs or symptoms? The main symptom of this condition is pulsating or throbbing pain. This pain may: ??? Happen in any area of the head, such as on one side or both sides. ??? Interfere with daily activities. ??? Get worse with physical activity. ??? Get worse with exposure to bright lights or loud noises. Other symptoms may include: ??? Nausea. ??? Vomiting. ??? Dizziness. ??? General sensitivity to bright lights, loud noises, or smells. Before you get a migraine headache, you may get warning signs (an aura). An aura may include: ??? Seeing flashing lights or having blind spots. ??? Seeing bright spots, halos, or zigzag lines. ??? Having tunnel vision or blurred vision. ??? Having numbness or a tingling feeling. ??? Having trouble talking. ??? Having muscle weakness. Some people have symptoms after a migraine headache (postdromal phase), such as: ??? Feeling tired. ??? Difficulty concentrating. How is this diagnosed? A migraine headache can be diagnosed based on: ??? Your symptoms. ??? A physical exam. ??? Tests, such as: ??? CT scan or an MRI of the head. These imaging tests can help rule out other causes of headaches. ??? Taking fluid from the spine (lumbar puncture) and analyzing it (cerebrospinal fluid analysis, or CSF analysis). How is this treated? This condition may be treated with medicines that: ??? Relieve pain. ??? Relieve nausea. ??? Prevent migraine headaches. Treatment for this condition may also include: ??? Acupuncture. ??? Lifestyle changes like avoiding foods that trigger migraine headaches. ??? Biofeedback. ??? Cognitive behavioral therapy. Follow these instructions at home: Medicines ??? Take pltg-tqh-mxhlmki and prescription medicines only as told by your health care provider. ??? Ask your health care provider if the medicine prescribed to you: ??? Requires you to avoid driving or using heavy machinery. ??? Can cause constipation. You may need to take these actions to prevent or treat constipation: ??? Drink enough fluid to keep your urine pale yellow. ??? Take kakx-aab-wlulnbk or prescription medicines. ??? Eat foods that are high in fiber, such as beans, whole grains, and fresh fruits and vegetables. ??? Limit foods that are high in fat and processed sugars, such as fried or sweet foods. Lifestyle ??? Do not drink alcohol. ??? Do not use any products that contain nicotine or tobacco, such as cigarettes, e-cigarettes, andchewing tobacco. If you need help quitting, ask your health care provider. ??? Get at least 8 hours of sleep every night. ??? Find ways to manage stress, such as meditation, deep breathing, or yoga. General instructions ??? Keep a journal to find out what may trigger your migraine headaches. For example, write down: ??? What you eat and drink. ??? How much sleep you get. ??? Any change to your diet or medicines. ??? If you have a migraine headache: ??? Avoid things that make your symptoms worse, such as bright lights. ??? It may help to lie down in a dark, quiet room. ??? Do not drive or use heavy machinery. ??? Ask your health care provider what activities are safe for you while you are experiencing symptoms. ??? Keep all follow-up visits as told by your health care provider. This is important. Contact a health care provider if: ??? You develop symptoms that are different or more severe than your usual migraine headache symptoms. ??? You have more than 15 headache days in one month. Get help right away if: ??? Your migraine headache becomes severe. ??? Your migraine headache lasts longer than 72 hours. ??? You have a fever. ??? You have a stiff neck. ??? You have vision loss. ??? Your muscles feel weak or like you cannot control them. ??? You start to lose your balance often. ??? You have trouble walking. ??? You faint. ??? You have a seizure. Summary ??? A migraine headache is an intense, throbbing pain on one side or both sides of the head. Migraines may also cause other symptoms, such as nausea, vomiting, and sensitivity to light and noise. ??? This condition may be treated with medicines and lifestyle changes. You may also need to avoid certain things that trigger a migraine headache. ??? Keep a journal to find out what may trigger your migraine headaches. ??? Contact your health care provider if you have more than 15 headache days in a month or you develop symptoms that are different or more severe than your usual migraine headache symptoms. This information is not intended to replace advice given to you by your health care provider. Make sure you discuss any questions you have with your health care provider. Document Revised: 06/10/2019 Document Reviewed: 03/31/2019 Elsevier Patient Education ?? 2021 [employer]. Follow Up Care 06/04/2022 14:32:48 With:Follow up with primary care provider Address: When:1 to 2 weeks Physician Emergency department Note * Patricia Cheng MD: PERFORM Event Display: ED Note Physician Authored Date: [id number] EUNICE QUEEN :1955 Age:66 years Sex:Female Visit Date:06/04/2022 Primary Care Physician: Shabbir Madison MD Basic Information Time Seen: Patricia Cheng MD / 06/04/2022 14:42 Chief Complaint Pt states duraing a HIDA Scan yesterday she became dizzy. ??Went home and felt weak. ??C/O headacheand weakness today History Of Present Illness: 66-year-old lady with history of??diabetes, hypertension,??hypercholesterolemia, colitis,??who presents to the emergency department complaining of??extreme fatigue and CUNNINGHAM today. The patient states she believes her headache actually started??yesterday??prior to a HIDA scan cosmo had done here??at [facility].?? She says that after 4 hours they were not able to see her gallbladder.?? She says that she had a mild headache at the time which has become worse.?? Itdoes feel like her prior migraine headaches that she had??in the past??but had gone away??after arjun pause. ??It is located in her entire head??with radiation to bilateral eyes.?? She has some mild photophobia. ??No vision changes.?? She also described feeling dizzy??but also says that she feels dizzy most of the day??most of the time.?? This is a slight different dizziness which she describesas more like lightheadedness.??She denies this CUNNINGHAM being??the worst CUNNINGHAM she has??ever had.??She denies numbness, tingling or weakness anywhere.?? She has had no nausea or vomiting??but she does??say she has had a decreased appetite??since the problems with her gallbladder and has not been eating and drinking as much as usual, though she says her pain has not returned. She says she went home with some strong medications after her visit to the ED last week but has not had to use any.?? She denies cough, fevers, chills, neck pain or rigidity. Physical Exam Vitals & Measurements T:??35.2?C ??(Temporal Artery)?? HR:??49??(Peripheral)?? HR:??50??(Monitored)?? RR:??12?? BP:??151/82?? SpO2:??94%?? HT:??157.480??cm?? WT:??65.77??kg??(Estimated)?? O2 Therapy:??Room air?? General: A&Ox3, Calm, no [...] rubs or gallops ?? Abdomen : soft, non-tender, non-distended, no rebound or guarding, no hepatosplenomegaly ?? Extremities: no le swelling, warm and well-perfused, no cyanosis, capillary refill <2 seconds? Skin: no rash, no lesions, no bruising? Neuro: normal tone, normal strength in all 4 extremities, sensation intact?? Medical Decision Makin-year-old lady with history of??diabetes, hypertension,??hypercholesterolemia, colitis,??h/o migraine HAs, who presents to the emergency department complaining of??extreme fatigue and CUNNINGHAM today. Pt also with chronic dizziness. Pt is well and non toxic appearing with reassuring VS except some HTN. She is neurologically intact. She has no nuchal rigidity. ?? Thorough chart review performed Her ekg is reassuring and similar to previous recorded ekgs for her ?? DDx includes migraine CUNNINGHAM, dehydration, no red flags for SAH, RCVS, meningitis ?? Plan: fluids, Reglan, Toradol, monitor and r/a On reevaluation the pt tells me her headache is still present and severe. I asked what medications helped her migraine HAs in the past. Pt tells me no??medications helped. She also tells me she has not had a CUNNINGHAM in 20 years. Her then asked me if this could be an aneurysm, because she was diagnosed with an aneurysm last year. Pt then recalled that she had an MRI done in December because of daily HAs. I reviewed the imaging that the pt is talking about and which is most likely a CTA as below: ?? IMPRESSION:?? 1. 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 measuring 4.4 mm in diameter on axial image 97 with no evidence of a?? projecting aneurysm.?? 2. There is no confirmation of the suspected aneurysm of the right?? middle cerebral artery trifurcation.?? 3. There is no evidence of intracranial large vessel stenosis or?? occlusion.?? 4. There is no evidence of venous sinus thrombosis.? Pt reassured that there was no aneurysm. Nevertheless, we discussed this possibly being a worse CUNNINGHAM than she had before. I recommended an LP which the patient declined. ?? I discussed this patient with Dr Ortiz and he has recommended trial of a Tryptan here, and d/cing home on Imipramine. Increase dose from 10 to 20 in 2 days and his team will reach out to the patient for f/u. Pt in agreement with this plan. Her CUNNINGHAM was improved by the time she left. I have discussed the planextensively with her an her and answered all their questions. Procedure No Qualifying Data Assessment/Plan 1.??Headache??R51.9 Ordered: imipramine 10 mg oral tablet, 10 mg = 1 tab, Oral, Daily, Take one tab tonight and tomorrow night, then take 2 tabs per night. Follow up with your primary care provider prior to increasing further., X 10 days, # 20 tab, 0 Refill(s), 06/14/22 17:09:00 EDT, [facility]acy: [facility]... Discharge Patient, 06/04/22 17:47:00 EDT, Constant Indicator ?? Patient Education Migraine Headache Follow Up With When Contact Information Follow up with primary care provider Within 1 to 2 weeks Additional Instructions: Medication Reconciliation New Prescription imipramine (imipramine 10 mg oral tablet)1 tab Oral (given by mouth) every day for 10 Days. Take one tab tonight and tomorrow night, then take 2 tabs per night. Follow up with your primary care provider prior to increasing further.. Refills: 0. ?? Unchanged budesonide (budesonide 9 mg oral capsule, extended release)1 Capsules Oral (given by mouth) every morning. swallow whole. ?? glipiZIDE ?? losartan ?? nirmatrelvir-ritonavir (Paxlovid) ?? ondansetron (Zofran 4 mg oral tablet)1 tab Oral (given by mouth) every 8 hours as needed nausea. Refills: 0. ?? pantoprazole (pantoprazole 20 mg oral delayed release tablet)1 tab Oral (given by mouth) every day for 30 Days. Refills: 0. ?? simvastatin ?? Discontinued hydroCHLOROthiazide ?? lisinopril Problem List/Past Medical History Ongoing No qualifying data Historical No qualifying data Medication Administration Given 0.9% NaCl bolus, 500 mL, IV Bolus 0.9% NaCl bolus, 500 mL, IV Bolus Dilaudid, 0.4 mg, Slow IV Push Reglan, 10 mg, IV Push SUMAtriptan, 50 mg, Oral Toradol, 30 mg, IV Push Allergies No Known Allergies Social History Alcohol Never Electronic Cigarette/Vaping Electronic Cigarette Use: Never. Tobacco Never tobacco user Tobacco Use:. Lab Results CBC and Differential?? LATEST RESULTS?? HISTORICAL RESULTS?? WBC?? 06/04/22 15:18?? 4.2 ??Low?? 05/22/22?? 10.2 ??High?? RBC?? 06/04/22 15:18?? 4.2?? 05/22/22?? 4.0 ??Low?? Hgb?? 06/04/22 15:18?? 12.9?? 05/22/22?? 12.1?? Hct?? 06/04/22 15:18?? 39.7?? 05/22/22?? 37.3?? MCV?? 06/04/22 15:18?? 93.6?? 05/22/22?? 93.3?? MCH?? 06/04/22 15:18?? 30.4?? 05/22/22?? 30.3?? MCHC?? 06/04/22 15:18?? 32.5?? 05/22/22?? 32.4?? RDW-CV?? 06/04/22 15:18?? 12.7?? 05/22/22?? 12.5?? Platelets?? 06/04/22 15:18?? 246?? 05/22/22?? 196?? Neutro Auto?? 06/04/22 15:18?? 64.8?? 05/22/22?? 77.5 ??High?? Lymph Auto?? 06/04/22 15:18?? 26.4?? 05/22/22?? 15.7 ??Low?? [place] Auto?? 06/04/22 15:18?? 6.2?? 05/22/22?? 5.3?? Eos, Auto?? 06/04/22 15:18?? 1.7?? 05/22/22?? 0.5 ??Low?? Basophil Auto?? 06/04/22 15:18?? 0.7?? 05/22/22?? 0.4?? Imm Gran Auto?? 06/04/22 15:18?? 0.2?? 05/22/22?? 0.6?? Neutro Absolute?? 06/04/22 15:18?? 2.7?? 05/22/22?? 8.0? Routine Chemistry?? LATEST RESULTS?? HISTORICAL RESULTS?? Sodium Level?? 06/04/22 15:18?? 141?? 05/22/22?? 140?? Potassium Level?? 06/04/22 15:18?? 4.0?? 05/22/22?? 3.8?? Chloride Level?? 06/04/22 15:18?? 104?? 05/22/22?? 104?? CO2?? 06/04/22 15:18?? 29?? 05/22/22?? 24?? Alk Phos?? 06/04/22 15:18?? 123?? 05/22/22?? 117?? AST?? 06/04/22 15:18?? 16?? 05/22/22?? 14 ??Low?? ALT?? 06/04/22 15:18?? 32?? 05/22/22?? 41?? BUN?? 06/04/22 15:18?? 12?? 05/22/22?? 24 ??High?? Glucose Level?? 06/04/22 15:18?? 168 ??High?? 05/22/22?? 239 ??High?? Creatinine Level?? 06/04/22 15:18?? 0.90?? 05/22/22?? 1.17 ??High?? eGFR AA?? 06/04/22 15:18?? 71?? 05/22/22?? 52 ??Low?? eGFR Non-AA?? 06/04/22 15:18?? 71?? 05/22/22?? 52 ??Low?? Calcium Level?? 06/04/22 15:18?? 9.4?? 05/22/22?? 8.9?? Protein Total?? 06/04/22 15:18?? 7.2?? 05/22/22?? 6.9?? Albumin Level?? 06/04/22 15:18?? 3.5?? 05/22/22?? 3.3 ??Low?? Bilirubin Total?? 06/04/22 15:18?? 0.3?? 05/22/22?? 0.2? Electronically Signed on 06/04/22 05:59 PM Patricia Cheng MD Emergency department Discharge instructions * Patricia Cheng MD: PERFORM Event Display: ED Discharge Information Authored Date: [id number] EUNICE QUEEN :1955 Age:66 years Sex:Female Visit Date:06/04/2022 Primary Care Physician: Shabbir Madison MD Discharge Instructions We would like to thank you for allowing us to assist you with your healthcare needs. The following includes patient education materials and information regarding your injury/illness. Diagnosis from Today's Visit Headache Discharge Vitals Temperature??(Temporal Artery) 95.4 ??F (35.2 ??C) Heart Rate??(Peripheral) 49 Heart Rate??(Monitored) 50 Respiratory Rate?? 12 Blood Pressure?? 151/82?? Height?? 62.00 in (157.480 cm) Weight??(Estimated) 145.02 lb (65.77 kg) Allergies No Known Allergies What to Do Next Instructions from Your Care Team Please start Imipramine 10mg every night in the next 2 nights, then go up to 20mg every night. Drink plenty of fluids and eat enough food as sometimes headaches can be triggered by not eating food. ??Primary care will reach out to you for a follow up appointment. Return to the ED for any new or worsening symptoms. You Need to Schedule the Following Appointments Follow Up with??Follow up with primary care provider When:??Within 1 to 2 weeks You were treated today on an emergency [...] Much When Why Instructions Next Dose New imipramine (imipramine 10 mg oral tablet) 1 tab Oral (given by mouth) Every day Headache Duration: 10 Days Take one tab tonight and tomorrow night, then take 2 tabs per night. Follow up with your primary care provider prior to increasing further. ?? Pickup at [id number] Unchanged budesonide (budesonide 9 mg oral capsule, extended release) 1 Capsules Oral (given by mouth) Every morning swallow whole ?? Unchanged glipiZIDE Unchanged losartan Unchanged nirmatrelvir-ritonavir (Paxlovid) Unchanged ondansetron (Zofran 4 mg oral tablet) 1 tab Oral (given by mouth) Every 8 hours as needed for nausea Nausea, vomiting, and diarrhea Unchanged pantoprazole (pantoprazole 20 mg oral delayed release tablet) 1 tab Oral (given by mouth) Every day Gastritis Duration: 30 Days Unchanged simvastatin Pharmacy Information [id number]: [address], [place] [id number] [phone] ?? What When Comments Stop Taking hydroCHLOROthiazide Stop Taking lisinopril Education Materials Migraine Headache A migraine headache is an intense, throbbing pain on one side or both sides of the head. Migraine headaches may also cause other symptoms, such as nausea, vomiting, and sensitivity to light and noise. A migraine headache can last from 4 hours to 3 days. Talk with your doctor about what things may bring on (trigger) your migraine headaches. What are the causes? The exact cause of this condition is not known. However, a migraine may be caused when nerves in the brain become irritated and release chemicals that cause inflammation of blood vessels. This inflammation causes pain. This condition may be triggered or caused by: ? Drinking alcohol. ? Smoking. ? Taking medicines, such as: ? Medicine used to treat chest pain (nitroglycerin). ? control pills. ? Estrogen. ? Certain blood pressure medicines. ? Eating or drinking products that contain nitrates, glutamate, aspartame, or tyramine. Aged cheeses,chocolate, or caffeine may also be triggers. ? Doing physical activity. Other things that may trigger a migraine headache include: ? Menstruation. ? . ? Hunger. ? Stress. ? Lack of sleep or too much sleep. ? Weather changes. ? Fatigue. What increases the risk? The following factors may make you more likely to experience migraine headaches: ? Being a certain age. This condition is more common in people who are 25???55 years old. ? Being female. ? Having a family history of migraine headaches. ? Being . ? Having a mental health condition, such as depression or anxiety. ? Being obese. What are the signs or symptoms? The main symptom of this condition is pulsating or throbbing pain. This pain may: ? Happen in any area of the head, such as on one side or both sides. ? Interfere with daily activities. ? Get worse with physical activity. ? Get worse with exposure to bright lights or loud noises. Other symptoms may include: ? Nausea. ? Vomiting. ? Dizziness. ? General sensitivity to bright lights, loud noises, or smells. Before you get a migraine headache, you may get warning signs (an aura). An aura may include: ? Seeing flashing lights or having blind spots. ? Seeing bright spots, halos, or zigzag lines. ? Having tunnel vision or blurred vision. ? Having numbness or a tingling feeling. ? Having trouble talking. ? Having muscle weakness. Some people have symptoms after a migraine headache (postdromal phase), such as: ? Feeling tired. ? Difficulty concentrating. How is this diagnosed? A migraine headache can be diagnosed based on: ? Your symptoms. ? A physical exam. ? Tests, such as: ? CT scan or an MRI of the head. These imaging tests can help rule out other causes of headaches. ? Taking fluid from the spine (lumbar puncture) and analyzing it (cerebrospinal fluid analysis, or CSF analysis). How is this treated? This condition may be treated with medicines that: ? Relieve pain. ? Relieve nausea. ? Prevent migraine headaches. Treatment for this condition may also include: ? Acupuncture. ? Lifestyle changes like avoiding foods that trigger migraine headaches. ? Biofeedback. ? Cognitive behavioral therapy. Follow these instructions at home: Medicines ? Take qeke-vbx-qkqqovn and prescription medicines only as told by your health care provider. ? Ask your health care provider if the medicine prescribed to you: ? Requires you to avoid driving or using heavy machinery. ? Can cause constipation. You may need to take these actions to prevent or treat constipation: ? Drink enough fluid to keep your urine pale yellow. ? Take malk-lle-hbnhkvr or prescription medicines. ? Eat foods that are high in fiber, such as beans, whole grains, and fresh fruits and vegetables. ? Limit foods that are high in fat and processed sugars, such as fried or sweet foods. Lifestyle ? Do not drink alcohol. ? Do not use any products that contain nicotine or tobacco, such as cigarettes, e- cigarettes, and chewing tobacco. If you need help quitting, ask your health care provider. ? Get at least 8 hours of sleep every night. ? Find ways to manage stress, such as meditation, deep breathing, or yoga. General instructions ? Keep a journal to find out what may trigger your migraine headaches. For example, write down: ? What you eat and drink. ? How much sleep you get. ? Any change to your diet or medicines. ? If you have a migraine headache: ? Avoid things that make your symptoms worse, such as bright lights. ? It may help to lie down in a dark, quiet room. ? Do not drive or use heavy machinery. ? Ask your health care provider what activities are safe for you while you are experiencing symptoms. ? Keep all follow-up visits as told by your health care provider. This is important. Contact a health care provider if: ? You develop symptoms that are different or more severe than your usual migraine headache symptoms. ? You have more than 15 headache days in one month. Get help right away if: ? Your migraine headache becomes severe. ? Your migraine headache lasts longer than 72 hours. ? You have a fever. ? You have a stiff neck. ? You have vision loss. ? Your muscles feel weak or like you cannot control them. ? You start to lose your balance often. ? You have trouble walking. ? You faint. ? You have a seizure. Summary ? A migraine headache is an intense, throbbing pain on one side or both sides of the head. Migraines may also cause other symptoms, such as nausea, vomiting, and sensitivity to light and noise. ? This condition may be treated with medicines and lifestyle changes. You may also need to avoid certain things that trigger a migraine headache. ? Keep a journal to find out what may trigger your migraine headaches. ? Contact your health care provider if you have more than 15 headache days in a month or you develop symptoms that are different or more severe than your usual migraine headache symptoms. This information is not intended to replace advice given to you by your health care provider. Make sure you discuss any questions you have with your health care provider. Document Revised: 06/10/2019 Document Reviewed: 03/31/2019 [employer] Patient Education ?? 2021 [employer] Tests Performed Medications and Immunizations Administered Given 0.9% NaCl bolus, 500 mL, IV Bolus 0.9% NaCl bolus, 500 mL, IV Bolus Dilaudid, 0.4 mg, Slow IV Push Reglan, 10 mg, IV Push SUMAtriptan, 50 mg, Oral Toradol, 30 mg, IV Push Lab Test Name Test Result Date/Time WBC 4.2 x10^3/mcL 06/04/2022 15:18 EDT RBC 4.2 x10^6/mcL 06/04/2022 15:18 EDT Hgb 12.9 g/dL 06/04/2022 15:18 EDT Hct 39.7 % 06/04/2022 15:18 EDT MCV 93.6 06/04/2022 15:18 EDT MCH 30.4 pg 06/04/2022 15:18 EDT MCHC 32.5 g/dL 06/04/2022 15:18 EDT RDW-CV 12.7 % 06/04/2022 15:18 EDT Platelets 246 x10^3/mcL 06/04/2022 15:18 EDT Neutro Auto 64.8 % 06/04/2022 15:18 EDT Lymph Auto 26.4 % 06/04/2022 15:18 EDT [place] Auto 6.2 % 06/04/2022 15:18 EDT Eos, Auto 1.7 % 06/04/2022 15:18 EDT Basophil Auto 0.7 % 06/04/2022 15:18 EDT Imm Gran Auto 0.2 % 06/04/2022 15:18 EDT Neutro Absolute 2.7 x10^3/mcL 06/04/2022 15:18 EDT Sodium Level 141 mmol/L 06/04/2022 15:18 EDT Potassium Level 4.0 mmol/L 06/04/2022 15:18 EDT Chloride Level 104 mmol/L 06/04/2022 15:18 EDT CO2 29 mmol/L 06/04/2022 15:18 EDT Alk Phos 123 unit/L 06/04/2022 15:18 EDT AST 16 unit/L 06/04/2022 15:18 EDT ALT 32 unit/L 06/04/2022 15:18 EDT BUN 12 mg/dL 06/04/2022 15:18 EDT Glucose Level 168 mg/dL 06/04/2022 15:18 EDT Creatinine Level 0.90 mg/dL 06/04/2022 15:18 EDT eGFR AA 71 06/04/2022 15:18 EDT eGFR Non-AA 71 06/04/2022 15:18 EDT Calcium Level 9.4 mg/dL 06/04/2022 15:18 EDT Protein Total 7.2 g/dL 06/04/2022 15:18 EDT Albumin Level 3.5 g/dL 06/04/2022 15:18 EDT Bilirubin Total 0.3 mg/dL 06/04/2022 15:18 EDT Patient/Belt Loop Machine Operator Signature Patient Name:EUNICE QUEEN I have received this information and my questions have been answered. Patient/Belt Loop Machine Operator Name: Patient/Belt Loop Machine Operator Signature: Relationship to Patient: Witness Name/Signature: Date: Electronically Signed on: 06/04/2022 17:47 EDTSigned by:[facility] Emergency department Note * Carlee Vazquez J: PERFORM Event Display: ED Notes Authored Date: Patient Care team information Care Team Personnel Name: Shabbir Madison MD Position: No Access Member Role: Primary Care Physician Address: Address: [address] [address]- [place] Name: Shabbir Barrios MD Position: Physician Member Role: Informed Provider Address: Address: [address] [place] [address] Name: Patricia Cheng MD Position: Physician Member Role: ED Physician Address: Address: [address], [place] [address] Name: Lakshmi Cote Position: Nurse Member Role: ED Nurse Care Team Related Persons Name: TAYLOR QUEEN Address: Home [address] [place], [id number] Name: MATEUS QUEEN Address: Home
[2023-03-23 20:51] LABS: Hemoglobin A1C 8.8 % (<5.7)
[2023-03-23 21:09] LABS: ALT 34 U/L (14-59); AST 18 U/L (15-37); Albumin 3.8 g/dL (3.4-5.0); Alkaline Phosphatase 189 U/L (46-116); Anion Gap 5.2 mmol/L (3-11); BUN 12 mg/dL (7-18); Bilirubin, Total 0.3 mg/dL (0.2-1.0); CO2 30.8 mmol/L (21.0-32.0); CREATININE 0.7 mg/dL (0.55-1.02); Calcium 9.3 mg/dL (8.5-10.1); Chloride 105 mmol/L (98-107); Estimated GFR 95.32 (mL/min/1.73m2); Glucose 205 mg/dL (74-106); Potassium 3.7 mmol/L (3.5-5.1); Sodium 141 mmol/L (136-145); Total Protein 7.6 g/dL (6.4-8.2)
== END 2023-03-23 16:39 | disposition home or self-care (01) ==
LOC: NCHCN 16:38
PROVIDERS: PCP Internal Medicine; Visit Provider Nurse Practitioner Family
DX: E11.9 Type 2 diabetes mellitus without complications (principal)
CPT/HCPCS: 80053; 83036

== ENCOUNTER 2024-02-17 09:55 | Outpatient (REF) | payer MEDICARE, SELFPAY ==
--- OUTSIDE RECORDS SUMMARY | 2024-02-17 09:58 | XMS_ITS | Encounter Summary ---
Author Organization [facility] [place] [address] Care Team Providers Care Travel Clerk Name Role Phone Loni Mosqueda APRN Primary Care Provider [phone]- [phone] Encounter Details Date Type Department Care Team (Late st Contact Info) Description 10/03/2022 Telephone Audiology at [address] [address] Keara Goldberg Social History Tobacco Use Types Packs/Day Years Used Date Smoking Tobacco: Never Passive Smoke Exposure: Never Smokeless Tobacco: Never Comments:Denies vaping Alcohol Use Standard Drinks/Week Comments Yes 0 (1 standard drink = 0.6 oz pur e alcohol) 1 drink a month Overall Financial Resource Strain (CARDIA) Answe r Date Recorded How hard is it for you to pa y for the very basics like food, housing, medical care, and heating? Not very hard 09/24/2021 Hunger Vital Sign Answer Date Recorded Within the past 12 months, y ou worried that your food would run out before you got the money to buy more. Never true 09/25/19 22 Within the past 12 months, t he food you bought just didn't last and you didn't have money to get more. Never true 09/24/2021 PRAPARE - Transportation Answer Date Re corded In the past 12 months, has l ack of transportation kept you from medical appointments or from getting medications? No 08/31 In the past 12 months, has l ack of transportation kept you from meetings, work, or from getting things needed for daily living? No 09/24/2021 Housing Stability Vital Sign Answer Vargas e Recorded In the last 12 months, was t here a time when you were not able to pay the mortgage or rent on time? No 09/24/2021 Number of Places Lived in the Last Year Not on f ile 09/24/2021 In the last 12 months, was t here a time when you did not have a steady place to sleep or slept in a penitentiary (including now)? No 09/24/2021 DH IPV Inpatient Questions Answer Date Recorded Does Anyone Try to Keep You From Having Contact with Others or Doing Things Outside Your Home? no 07/08/2022 Feels Threatened by Someone no 10/2022 Feels Unsafe at Home or Work/School no 07/08/2022 Physical Signs of Abuse Present no 07/08/2022 Sex and Gender Information Value Date Recorded Sex Assigned at Not on file Gender Identity Not on file Sexual Orientation Not on file documented as of this encounter Miscellaneous Notes * Telephone Encounter - Keara Goldberg J - 10/03/2022 2:26 PM EDT VERTIGO TRIAGE QUESTIONNAIRE (PLEASE USE THE F2 RODRIGUEZ TO BEGIN THE QUESTIONNAIRE) Do you have hearing loss that is worse in one ear? Yes, both sides Does your hearing get worse ONLY when or around the time you have a dizzy spell? Yes, both sides Does your ear feel full ONLY when or around the time you have a dizzy spell? Yes, both sides Does your ear ring ONLY when or around the time you have a dizzy spell? No Is your dizziness worse when you lie down or roll over in bed? No How long do dizzy spells last? (ie seconds, minutes, hours???.?) Seconds Have you been previously seen by Neurology for your dizziness? No Have you been previously seen an ENT doctor for your dizziness? No Have you been previously seen by PT for your dizziness? No Do you have a history of migraines or headaches? Yes Do you have blackout spells or have your passed out at any time from feeling dizzy? No If Yes, to last question, If so, how long before you regained consciousness? N/A Do you have balance problems on a regular basis? Yes Do you have visual changes with your dizziness? No Do you have weakness with your dizziness? Yes, sea legs Do you have numbness with your dizziness? No What phrase best characterizes your dizziness? -I feel off balance/lightheaded Records and Imaging If patient has been seen by ENT, Neurology, or Physical Therapy previously, please send any summaries from these visits, if available. If any imaging has been done (MRI brain, etc), please have images sent to us. *PLEASE USE THE F2 RODRIGUEZ TO BEGIN THE QUESTIONNAIRE* documented in this encounter Plan of Treatment Not on file documented as of this encounter Visit Diagnoses Not on filedocumented in this encounter Care Teams Travel Clerk Relationship Specialty Start Date End Date Loni Mosqueda APRN [address] [place] [id number] PCP - General Family Medicine 05/28/22 documented as of this encounter
--- OUTSIDE RECORDS SUMMARY | 2024-02-17 09:58 | XMS_ITS | Encounter Summary ---
Author Organization [facility] [place] [address] Care Team Providers Care Biomass Power Plant Superintendent Name Role Phone Loni Mosqueda APRN Primary Care Provider [phone]- [phone] Reason for Visit * Physical Therapy (Routine) - Closed Specialty Diagnoses / Procedures Referred By Katherine lópez Referred To Contact Physical Therapy Diagnoses Vertigo Essie Connor, [facility] [place] [address] [facility] [place] [address] Referral ID Status Reason Start Date Expiration Date V isits Requested Visits Authorized [id number] Closed Evaluate and Treat 09/29/2022 09/29/2023 100 100 Encounter Details Date Type Department Care Team (Late st Contact Info) Description 12/04/2022 10:30 AM EDT Office [place] [address] Cha Ambriz, PT Dizziness; BPPV (benign paroxysmal positional vertigo), left Social History Tobacco Use Types Packs/Day Years [...] place to sleep or slept in a long-term (including now)? No 09/24/2021 DH IPV Inpatient [...] as of this encounter Miscellaneous Notes * Initial Evaluation - Cha Ambriz, PT - 12/04/2022 10:30 AM EDT Images from the original note were not included. Physical Therapy Initial Evaluation Note Date of Exam/First treatment: 12/04/22 Referral Date: 10/06/22 Referring Provider: sEsie Connor DO Diagnosis and Pertinent Co-morbidities affecting Plan of Care ICD-10-CM 1. Dizziness R42 2. BPPV (benign paroxysmal positional vertigo), left H81.12 Medical History: refer also to medical record Medications: refer to medical record HISTORY Patient reports vertigo triggered by laying down, rolling over left side, getting up quickly. Does not last long, about 3 seconds, but is frequent. Feels it was previously both ears but now mostly left ear. 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 Pat states she has a life long history of motion sickness being a passenger in a car, sitting in a rocking chair, and could never do somersaults or cartwheels. She used to get nauseouswith her dizziness but that has not happened recently. She states a tendency to veer left with walking in narrow hallways. 6 months ago, her dizziness would last half a day to multiple days. Had COVID-19 in December 2021, was on Paxlovid and a steroid which she believes caused dizziness initially. That dizziness lasted longer than current episodes, triggered by head movements. Dizziness: spinning sensation. Number of Falls in last year: none Current Assistive Device Used for Mobility: none Vision Prescription eyewear / last eye exam: , gets regular eye exams, glasses are up to date, progressivelenses. Peripheral sensation: patient denies numbness / tingling in feet, reports good sensation in feet Typical footwear: Patient presents today wearing flip flops . Typically wears boots. Functional Limitations: Patient reports difficulty with the following: Bending over Turning to L in bed Previous Level of Function: life long hx of motion sickness, but vertigo symptoms have been going on for almost a year. Social history/Personal factors affecting plan of care: Work: [employer] Living situation / social support: Lives with . Has 4 daughters and 8 grandchildren. 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 Patient's goals for physical therapy: Wants to improve dizziness 12/04/2022 10:18 AM Dizziness Handicap Inventory 2. Because of your problem, do you feel frustrated? Sometimes 3. Because of your problem, do you restrict your travel for business or pleasure? No 4. Does walking down the aisle of a supermarket increase your problem? Yes 5. Because of your problem, do you have difficulty getting into or out of bed? Yes 6. Does your problem significantly restrict your participation in social activities such as going out to dinner, the movies, dancing or to parties? No 7. Because of your problem, do you have difficulty reading? No 8. Does performing more ambitious activities like sports, dancing, or customer care professional such as sweeping or putting dishes away increase your problem? Sometimes 9. Because of your problem, are you afraid to leave your home without having someone accompany you?No 10. Because of your problem, are you embarrassed in front of others? No 11. Do quick movements of your head increase your problem? Yes 12. Because of your problem, do you avoid heights? No 13. Does turning over in bed increase your problem? Yes 14. Because of your problem, is it difficult for you to do strenuous housework or yard work? No 15. Because of your problem, are you afraid people may think that you are intoxicated? No 16. Because of your problem, is it difficult to go for a walk by yourself? No 17. Does walking down a sidewalk increase your problem? Sometimes 18. Because of your problem, is it difficult for you to concentrate? No 19. Because of your problem, is it difficult for you to walk around your house in the dark? No 20. Because of your problem, are you afraid to stay home alone? No 21. Because of your problem, do you feel handicapped? No 22. Has your problem placed stress on your relationships with members of your family or friends? No 23. Because of your problem, are you depressed? No 24. Does your problem interfere with your job or household responsibilities? No 25. Does bending over increase your problem? Yes Total Physical 18 Total Emotional 2 Total Functional 6 Total DHI Score 26 (Mild Handicap) OBJECTIVE Cervical Evaluation: WNL active range of motion in all planes Oculomotor Exam Tilt in resting head posture absent Ptosis absent Ocular alignment Slight right exophoria noted Cover/Uncover test of skew deviation Right eye exophoria Resting or gaze evoked nystagmus absent Smooth pursuit Eye movements are conjugate and full without nystagmus Saccades normal fast and not dysmetric Vestibulo-Ocular Reflex Exam Head impulse test Right Negative Head impulse test Left Negative Positional Testing for BPPV: Left Right Posterior canal (Loaded Christo-Hallpike) Positive for left torsional and upbeating nystagmus, ~2 second latency, duration ~4 seconds Not Tested Horizontal Canal (Roll test) Not Indicated Not Indicated Canalith Repositioning (21157) untimed min Single modified Adrianna maneuver performed Repeat loaded [place]-Hallpike negative Modified Clinical Test of Sensory Interaction in Balance (mCTSIB): Tested with patient standing in [place] (feet touching) with arms crossed, unless otherwise noted. Condition Time (up to 30 sec) Balance responses 1 - Eyes Open, firm surface 30 Timely and effective ankle strategies noted 2 - Eyes Closed, firm surface 30 Timely and effective ankle strategies noted 3 - Eyes Open, foam surface 30 Timely and effective ankle strategies noted 4 - Eyes Closed, foam surface 30 Timely and effective ankle strategies noted Computerized Dynamic Posturography see media tab in eD-H for detailed report Tested with subject standing in socks Functional Gait Assessment (scale 0-3, 3 = normal 0 = severe impairment) Task Score Comment 1. Gait Level Surface 3 2. Change in Gait Speed 3 3. Gait with Horizontal Head Turns 3 4. Gait with Vertical Head Turns 2 Minimal path deviation to L 5. Gait and Pivot Turn 3 6. Step Over Obstacle 3 7. Gait Narrow Base of Support 0 Hard for patient to maintain proper balance due to footwear 8. Gait with Eyes Closed 2 9. Ambulating Backward 3 10. Steps 2 Uses R hand rail for ascent, BL hand rail on descent Reciprocal stepping pattern Total Score Total Score: Assistive Device: None (MDC acute and chronic stroke 4.2 points Vianca et al. 2010; MCID Vestibular Disorders 8 points Noal and Vianca 2010; 22 or less considered Fall Risk for adults 60 or older, Kirsten and Rainer 2010) Date 12/04/22 Dizziness Handicap Inventory (self-report, lower score is better) 26/100 Functional Gait Assessment Higher score is better Sensory Organization Test Composite Score 81/68 SOT Vestibular Sub-Score 84/54 ASSESSMENT Luz Maria Carreno presents to physical therapy for vestibular evaluation due to history of vertigo with laying down, rolling to the left in bed and getting up from sitting or bed. Patient's subjective report is strongly suggestive of BPPV and positional tests for Left posterior canal BPPV were positive today. Performed canalith repositioning treatment and repeat positional test was negative. Provided patient with descriptive handout of modified Adrianna maneuver for possible self- treatment in the future. Results of oculomotor testing in room light were within normal limits. Negative bilateral head impulse test indicates appropriate vestibulo-ocular reflex function, although this was tested without the benefit of video oculography. Patient's score on the Functional Gait Assessment was 24/30, indicating fair dynamic balance and but does not classify the patient as a fall risk. Results of Sensory Organization Test (SOT) portion of Computerized Dynamic Posturography were within normal limits and indicate that the patient is able to appropriately utilize and re-weight sensoryinputs for balance. Results are not suggestive of vestibular hypofunction. Patient with resolution of symptoms following today's treatment. Patient did not schedule any follow up visits at this time, as she plans to attempt self- treatment of modified Adrianna maneuver if symptoms onset again and will contact therapist for follow up if needed. Clinical presentation: Stable Evolving Unstable X Clinical decision making of low complexity using standardized patient assessment instrument and measurable assessment of functional outcome. Interventions completed today: Initial evaluation ,canalith repositioning, patient education. GOALS GOALS Status Short Term Goals By 12/04/22 patient will... Met 12/04/22 Participate in a comprehensive vestibular physical therapy evaluation and make a plan for follow-up to address identified impairments. Met 12/04/22 Participate in Sensory Organization Test component of Computerized Dynamic Posturography for diagnostic purposes PLAN Patient to contact therapist if future visit is needed. Informed Consent: The patient consented to the physical therapy evaluation. The patient agrees to and understands the physical therapy treatment plan and goals. Total Timed Coded Treatment: Evaluation LOW Complexity (03776) Canalith Repositioning (61921) untimed code min Total visit time: 75 minutes Informed consent - patient gives verbal permission and consent for DPT student, Kat Kenny, to participate in today's session. I was present throughout today's treatment/evaluation of the patient with my student participating. Cha Ambriz PT, DPT * Addendum Note - Essie Connor DO - 12/04/2022 10:30 AM EDTAddended by: ESSIE CONNOR on: 12/04/2022 12:51 PM Modules accepted: Level of Service documented in this encounter Plan of Treatment Not on file documented as of this encounter Procedures Procedure Name Priority Date/Time Associated Diagnosis Comments PT PLAN OF CARE CERT/RE-CERT Routine 12/04/2022 12:38 PM EDT Dizziness BPPV (benign paroxysmal positional vertigo), left documented in this encounter Visit Diagnoses Diagnosis Dizziness Dizziness and giddiness BPPV (benign paroxysmal positional vertigo), left documented in this encounter Care Teams Bi[employer] Power Plant Superintendent Relationship Specialty Start Date End Date Loni Mosqueda APRN [address] [place] [id number] PCP - General Family Medicine 05/28/22 documented as of this encounter
--- OUTSIDE RECORDS SUMMARY | 2024-02-17 09:58 | XMS_ITS | Encounter Summary ---
Author Organization [facility] Address [facility] [place] [address] Care Team Providers Care Rfid Specialist Name Role Phone Loni Mosqueda MATT Primary Care Provider +1- [phone] Reason for Visit * Reason Comments Vertigo Happens cortney hurley ions are 3 seconds, happens when lying flat, rolling over, looking up. Encounter Details Date Type Department Care Team (Late st Contact Info) Description 12/04/2022 2:00 PM EDT Office [place] [address] Ivan Lemons MD [facility] [place] [address] Benign paroxysmal positional vertigo of left ear; Subjective tinnitus, bilateral; Acquired deviated nasal septum Social History Tobacco Use Types Packs/Day Years [...] place to sleep or slept in a assisted (including now)? No 09/24/2021 DH IPV Inpatient [...] on file documented as of this encounter Last Filed Vital Signs Vital Sign Reading Time Taken Comments Blood Pressure 115/81 12/04/2022 1:52 PM EDT Pulse 76 12/04/2022 1:52 PM EDT Temperature - - Respiratory Rate 18 12/04/2022 1:52 PM EDT Oxygen Saturation 96% 12/04/2022 1:52 PM EDT Inhaled Oxygen Concentration - - Weight 71.7 kg (158 lb) 12/04/2022 1:52 PM EDT Height 160 cm (5' 3) 12/04/2022 1:52 PM EDT Body Mass Index 27.99 12/04/2022 1:52 PM EDT documented in this encounter Progress Notes * Ivan Lemons MD - 12/04/2022 2:00 PM EDTAttached media from the original note were not included. * Ivan Lemons MD - 12/04/2022 2:00 PM EDT Images from the original note were not included. [facility] Otolaryngology - Head and Neck Surgery Ivan Lemons MD 12/04/22 2:19 PM [place], [place] [address] Office Patient Name: Luz Maria Yousif Date of : 1955 PCP: Loni Mosqueda APRN Chief Complaint: vertigo History of Present Illness: Luz Maria Yousif is a 67 y.o. year old female with a history of migraines and motion sensitivity, who was seen today at the request of Bogdan Benjamin in consultation for vertigo. Lifelong motion hypersensitivity. Vertigo started 6-8 months ago. When the dizziness first happened, she would have a spell lasting 6-48 hours. This was dreadful. She now only gets it at night when she lays down or rolls over. Happens 5-7 times in the night. Looking up and moving quickly triggers it. She is getting better. When the vertigo started, there were no associated changes in hearing, no aural fullness. Chronic bilateral buzzing tinnitus. Prior treatments include Kim maneuvers Otologic surgical history: None No regular qtip use. No family history of hearing loss. No prior hearing aid use. No acoustic trauma, barotrauma, or head injury. 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 No ototoxic drug exposures. No history of Lyme disease. She had strabismus surgery as a child. Also complains of left nasal obstruction. She has to pull out on the left cheek to breathe through the left side of the nose when she is sleeping. Radiology images personally reviewed: Open MRI 12/31/21: no acute intracranial process Follow up MRI raised concern for possible aneurism. Neurosurgical opinion on MRA was that there was not likely an aneurism. This is being followed. Relevant Labs reviewed: None Discussed with PT who noted: Definite left posterior canal BPPV. Negative repeat positional test after Kim. Perfect performance on CDP. Patient also reports lifelong history of being very vestibular sensitive, easily motion sick, etc, but she knows this is her baseline and is not concerned about it. Audiogram: Past Medical and Surgical History Patient Active Problem List Diagnosis Code Aortic valve stenosis I35.0 Chest pain R07.9 Lightheadedness R42 Heart palpitations R00.2 Mitral valve prolapse I34.1 Situational stress F43.9 Hypertension I10 Diabetes mellitus E11.9 Current Outpatient Medications on File Prior to Visit Medication Sig Dispense Refill meclizine (Antivert) 25 mg tablet TAKE 1 TABLET BY MOUTH TWICE DAILY NEEDED FOR DIZZINESS amLODIPine (Norvasc) 2.5 mg tablet Take 5 mg by mouth daily. losartan (Cozaar) 100 mg tablet Take 100 mg by mouth daily. pantoprazole EC (Protonix) [address] tablet Take 20 mg by mouth daily as needed. budesonide EC (Entocort EC) 3 mg Capsule, Delayed & Ext.Release Take 3 capsules by mouth every morning. 90 capsule 2 melatonin 5 mg tablet Take 10 mg by mouth. Mesalamine (CANASA) 1,000 mg Suppository glipiZIDE XL (Glucotrol XL) 5 mg Tablet Extended Rel 24 hr Take 5 mg by mouth 2 times daily. Two tablets in the am and one in the pm simvastatin (Zocor) 20 mg Tablet Take 20 mg by mouth nightly. Ibuprofen-diphenhydrAMINE (Advil PM) 200-38 mg Tablet Take 1 tablet by mouth nightly. polyethylene glycoL (Miralax) 17 gram oral powder packet Take 17 g by mouth daily. (Patient not taking: Reported on 09/29/2022) 14 each 0 No current facility-administered medications on file prior to visit. Allergies: Codeine Surgical History: Past Surgical History: Procedure Laterality Date ECTOPIC SURGERY PRO COLONOSCOPY, BIOPSY N/A 02/28/2022 COLONOSCOPY FLEXIBLE, WITH BX (WRVU 3.66) performed by Pelon Tolliver MD at [facility] ENDOSCOPY PRO COLONOSCOPY, REMV LESN, SNARE N/A 02/28/2022 COLONOSCOPY, POLYPECTOMY, REMOVAL LESION BY SNARE (WRVU 4.67) performed by Pelon Tolliver MDat [facility] ENDOSCOPY PRO LAP, CHOLECYSTECTOMY/GRAPH N/A 07/08/2022 LAPAROSCOPIC CHOLECYSTECTOMY WITH CHOLANGIOGRAM (WRVU 11.47) performed by Celestina Ruffin MD at [facility] MAIN OR STRABISMUS SURGERY Bilateral Family and Social History Family History: Family History Problem Relation Age of Onset Hypertension Mother Hypertension Father Heart Failure Father Myocardial Infarction Father Lung Cancer Sister Social History: Lives in [place] [place] [place] [facility] [id number] Social History Socioeconomic History Marital status: Spouse name: Jefry yousif Number of children: Not on file Years of education: Not on file Highest education level: Not on file Occupational History 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 Tobacco Use Smoking status: Never Passive exposure: Never Smokeless tobacco: Never Tobacco comments: Denies vaping Vaping Use Vaping Use: Never used Substance and Sexual Activity Alcohol use: Yes Comment: 1 drink a month Drug use: Never Sexual activity: Yes Partners: Male control/protection: Post-menopausal Other Topics Concern Abuse or Threat: Help requested by patient No Abuse or Threat: Physical, Sexual, Verbal Not Asked Back Care Not Asked Bike Helmet Not Asked Blood Transfusions Not Asked Caffeine Concern No Exercise Not Asked Exercise: Patient reported Not Asked Hobby Hazards Not Asked Service Not Asked Occupational Exposure Not Asked Poor oral hygiene Not Asked Seat Belt Not Asked Second-hand smoke exposure Not Asked Self-Exams Not Asked Sleep Concern No Special Diet Not Asked Stress Concern Yes Comment: feels tremendous stress about their business and managing employees/unreliable in high importance duties Violence Concern No Weight Concern Not Asked Social History Narrative Not on file Social Determinants of Health Financial Resource Strain: Not on file Food Insecurity: Not on file Transportation Needs: Not on file Physical Activity: Not on file Housing Stability: Not on file Physical Exam Temperature: Heart Rate: 76 Blood Pressure: 115/81 Respiratory Rate: 18 SpO2: 96 % General: Age appropriate, healthy appearing, well-groomed, independently mobile. Communicates easily, speech clear, voice is strong. Awake, alert, and oriented to person, place and time. Affect appropriate. Head and Face: Head is normocephalic, atraumatic. Facial resting tone symmetric. Eyes: Conjugate gaze, ocular motility intact bilaterally. Right eye deviates laterally with upward gaze consistent with history of strabismus. She denies subjective diplopia when this occurs. Neurologic: Cranial Nerves II-XII grossly intact and symmetric. Ears: External ears without deformity. See documentation of otomicroscopy below. Hearing is grossly normal. Tuning fork lateralizes to the right ear with Air>Bone bilaterally. Nose: External nose has a slight c-shape to brow tip aesthetic line. External valve on the left is nearly blocked by cupping of the caudal septum to the left. More posteriorly, the septum is straight. Oral: There are no visible or palpable buccal, gingival, lingual, or palatal lesions. The floor of mouth is soft and flat. Dentition is in good repair. Oropharynx: Symmetric without tonsillar pathology. Larynx: Strong voice and cough Pulmonary: Breathing comfortably. Symmetric chest expansion without use of accessory muscles or retraction. Procedures Binocular otomicroscopy was performed: Left side: Ear canal clear Tympanic membrane intact and translucent with normal mobility on pneumatic otoscopy. Fistula test is negative. Right side: Ear canal clear Tympanic membrane intact and translucent with normal mobility on pneumatic otoscopy. Fistula test is negative. ASSESSMENT & RECOMMENDATIONS Luz Maria Yousif is a very pleasant 67 y.o. female howard with history of migraines, strabismus, andmotion sensitivity, who has been diagnosed with left posterior canal BPPV and treated with kim maneuvers by PT today. I am hopeful this will help with her dizziness and encouraged that she is improving over time. We talked about consideration of hearing aids for management of hearing loss and tinnitus but she'snot ready to consider this yet. We also discussed her left nasal valve narrowing. In my opinion she is a candidate for swinging door septoplasty with nasal valve reconstruction and possible columellar strut graft. She will try airmax first but may call to set up functional nasal surgery in the future if this remains bothersome. Ihave attached a photo of the base view of the nose. Follow up with ENT as needed. Ivan Lemons MD, FACS Otolaryngology - Head and Neck Surgery 12/04/22 2:19 PM documented in this encounter Plan of Treatment Not on file documented as of this encounter Visit Diagnoses Diagnosis Benign paroxysmal positional vertigo of left ear Subjective tinnitus, bilateral Acquired deviated nasal septum Deviated nasal septum documented in this encounter Care Teams Rfid Specialist Relationship Specialty Start Date End Date Loni Mosqueda APRN [address] [place] [id number] PCP - General Family Medicine 05/28/22 documented as of this encounter
--- OUTSIDE RECORDS SUMMARY | 2024-02-17 09:58 | XMS_ITS | Encounter Summary ---
Author Organization [facility] Address [facility] [place] [address] Care Team Providers Care Strategic Planner Name Role Phone Loni Mosqueda APRN Primary Care Provider +1- [phone] Encounter Details Date Type Department Care Team (Latest Contact Info) Description 12/04/2022 Travel Social History Tobacco Use Types Packs/Day Years [...] place to sleep or slept in a chcf (including now)? No 09/24/2021 DH IPV Inpatient [...] on file documented as of this encounter Plan of Treatment Not on file documented as of this encounter Visit Diagnoses Not on filedocumented in this encounter Care Teams Strategic Planner Relationship Specialty Start Date End Date Loni Mosqueda APRN [address] [place] [phone] PCP - General Family Medicine 05/28/22 documented as of this encounter
--- OUTSIDE RECORDS SUMMARY | 2024-02-17 09:58 | XMS_ITS | Encounter Summary ---
Author Organization [facility] Address [facility] [place] [address] Care Team Providers Care Psychiatric Therapist Name Role Phone Loni Mosqueda APRN Primary Care Provider +1- [phone] Encounter Details Date Type Department Care Team (Late st Contact Info) Description 11/12/2023 2:00 PM EDT TH Visit (TeleHealth) [place] [id number] Nelsy Orta MD [facility] [address] Abnormal MRI of head Social History Tobacco Use Types Packs/Day Years Used Date Smoking Tobacco: Never Passive Smoke Exposure: Never Smokeless Tobacco: Never Comments:Denies vaping Alcohol Use Standard Drinks/Week Comments Yes 0 (1 standard drink = 0.6 oz pur e alcohol) 1 drink a month Overall Financial Resource Strain (CARDIA) Keylae r Date Recorded How hard is it [...] place to sleep or slept in a usp (including now)? No 09/24/2021 DH IPV Inpatient [...] on file documented as of this encounter Progress Notes * Nelsy Orta MD - 11/12/2023 2:00 PM EDT Cerebrovascular & Neurosurgery Telehealth Note Patient Luz Maria Carreno 1955 DATE OF VISIT: 11/12/2023 RELEVANT HISTORY: F/u with MRA for basilar artery appearance. No concerning symptoms or new headaches. PAST MEDICAL HISTORY: Past Medical History: Diagnosis Date Aortic valve stenosis 09/12/2021 Chest pain 09/12/2021 Diabetes mellitus Heart murmur Heart palpitations 09/17/2021 Hyperlipidemia Hypertension Lightheadedness 09/17/2021 Migraine Mitral valve prolapse 09/17/2021 Overweight Palpitations PAST SURGICAL HISTORY: Past Surgical History: Procedure Laterality Date ECTOPIC SURGERY PRO COLONOSCOPY, BIOPSY N/A 02/28/2022 COLONOSCOPY FLEXIBLE, WITH BX (WRVU 3.66) performed by Pelon Tolliver MD at [facility] ENDOSCOPY PRO COLONOSCOPY, REMV LESN, SNARE N/A 02/28/2022 COLONOSCOPY, POLYPECTOMY, REMOVAL LESION BY SNARE (WRVU 4.67) performed by Pelon Tolliver MDat [facility] ENDOSCOPY PRO LAP, CHOLECYSTECTOMY/GRAPH N/A 07/08/2022 LAPAROSCOPIC CHOLECYSTECTOMY WITH CHOLANGIOGRAM (WRVU 11.47) performed by Celestina Ruffin MD at [facility] MAIN OR STRABISMUS SURGERY Bilateral RELEVANT FINDINGS ON TELE-NEUROLOGIC EXAMINATION: Well-sounding, NAD Speech fluent without dysarthria or aphasia Asks and answers questions appropriately CURRENT MEDICATIONS: Ibuprofen-diphenhydrAMINE, Mesalamine, amLODIPine, budesonide EC, glipiZIDE XL, losartan, meclizine, melatonin, pantoprazole EC, polyethylene glycoL, and simvastatin IMAGING & STUDIES PERSONALLY INTERPRETED: MRA head 11/11/2023: Anteflexed basilar apex without saccular aneurysm that is unchanged in appearance from prior studies. No intracranial aneurysm identified. ASSESSMENT & PLAN: Problem List Items Addressed This Visit None Given the stable and reassuring imaging results, I do not see significant benefit in repeating an MRA or CTA in the absence of a new problem. This is a normal anatomic variant that does not carry a risk of hemorrhage. She does not have a family history of aneurysm that would make periodic surveillance indicated. She is in agreement for no scheduled follow up at this time and will reach out with any questions or concerns in the future. I spent a total of 10 minutes in the care of this patient today including review of prior notes, review of prior images, interval history, physical exam as outlined above, personal review and independent interpretation of studies outlined above, patient counseling, documentation in the medical record, and coordination of care. -- Nelsy Orta MD Open cerebrovascular and endovascular neurosurgery attending Section of Neurosurgery Department of Surgery [facility] Please note that due to the virtual nature of the visit, no vital signs were obtained and physical examination is limited. documented in this encounter Plan of Treatment Not on file documented as of this encounter Visit Diagnoses Diagnosis Abnormal MRI of head Nonspecific (abnormal) findings on radiological and other examination of skull and head documented in this encounter Care Teams Psychiatric Therapist Relationship Specialty Start Date End Date Loni Mosqueda APRN [address] [place] [phone] PCP - General Family Medicine 05/28/22 documented as of this encounter
--- OUTSIDE RECORDS SUMMARY | 2024-02-17 09:58 | XMS_ITS | Encounter Summary ---
Author Organization [facility] Address [facility] [place] [address] Care Team Providers Care Cycle Manager Name Role Phone Loni Mosqueda APRN Primary Care Provider +1- [phone] Encounter Details Date Type Department Care Team (Latest Contact Info) Description 12/03/2022 Travel Social History Tobacco Use Types Packs/Day [...] on filedocumented in this encounter Care Teams Cycle Manager Relationship Specialty Start Date End Date Loni Mosqueda APRN [address] [place] [phone] PCP - General Family Medicine 05/28/22 documented as of this encounter
--- OUTSIDE RECORDS SUMMARY | 2024-02-17 09:58 | XMS_ITS | Encounter Summary ---
Author Organization [facility] [place] [address] Care Team Providers Care Diesel Fleet Mechanic Name Role Phone Loni Mosqueda APRN Primary Care Provider +1- [phone] Reason for Visit * Reason Onset Date Comments Abdominal Pain 05/05/2023 Encounter Details Date Type Department Care Team (Late st Contact Info) Description 05/05/2023 [place] [address] Osiris Yan, RN Abdominal Pain Social History Tobacco Use Types Packs/Day Years [...] place to sleep or slept in a prison (including now)? No 09/24/2021 DH IPV Inpatient [...] encounter Miscellaneous Notes * Telephone Encounter - Osiris Yan RN - 05/05/2023 11:41 AM EST PC to Pat attempted regarding scheduling of MRI Angiogram head ordered by Dr. Nelsy Orta on 11/07/22. LVM for pt to call Radiology at [phone]. documented in this encounter Plan of Treatment Not on file documented as of this encounter Visit Diagnoses Not on filedocumented in this encounter Care Teams Diesel Fleet Mechanic Relationship Specialty Start Date End Date Loni Mosqueda APRN [address] [place] [id number] PCP - General Family Medicine 05/28/22 documented as of this encounter
--- OUTSIDE RECORDS SUMMARY | 2024-02-17 09:58 | XMS_ITS | Encounter Summary ---
Author Organization [facility] Address [facility] [place] [address] Care Team Providers Care Training Mgr Name Role Phone Loni Mosqueda APRN Primary Care Provider +1- [phone] Encounter Details Date Type Department Care Team (Latest Contact Info) Description 01/14/2023 Travel Social History Tobacco Use Types Packs/Day [...] place to sleep or slept in a alf (including now)? No 09/24/2021 DH IPV Inpatient [...] on filedocumented in this encounter Care Teams Training Mgr Relationship Specialty Start Date End Date Loni Mosqueda APRN [address] [place] [id number] PCP - General Family Medicine 05/28/22 documented as of this encounter
--- OUTSIDE RECORDS SUMMARY | 2024-02-17 09:58 | XMS_ITS | Encounter Summary ---
Author Organization [facility] Address [facility] [place] [address] Care Team Providers Care Skin Care Consultant Name Role Phone Jaylin Loni Jean APRN Primary Care Provider +1- [phone] Encounter Details Date Type Department Care Team (Latest Contact Info) Description 10/22/2022 Travel Social History Tobacco Use Types Packs/Day [...] place to sleep or slept in a senior living (including now)? No 09/24/2021 DH IPV Inpatient [...] on filedocumented in this encounter Care Teams Skin Care Consultant Relationship Specialty Start Date End Date Loni Mosqueda APRN [address] [place] [phone] PCP - General Family Medicine 05/28/22 documented as of this encounter
--- OUTSIDE RECORDS SUMMARY | 2024-02-17 09:58 | XMS_ITS | Encounter Summary ---
Author Organization [facility] [place] [address] Care Team Providers Care Gluing Machine Offbearer Name Role Phone Loni Mosqueda APRN Primary Care Provider +1- [phone] Reason for Visit * Audiology Exam (Routine) - Closed Specialty Diagnoses / Procedures Referred By Katherine lópez Referred To Contact Audiology Diagnoses Vertigo Bogdan Benjamin, DO [facility] [place] [address] [facility] [address] [place] [phone] Referral ID Status Reason Start Date Expiration Date V isits Requested Visits Authorized [id number] Closed Specialty Service Requested 09/29/2022 09/29/2023 1 1 Encounter Details Date Type Department Care Team (Late st Contact Info) Description 12/04/2022 9:30 AM EDT Office Visit Audiology at [address] [address] Kitty Peters, PhD [facility] [place] [address] Dizziness; Tinnitus, unspecified laterality; Sensorineural hearing loss, bilateral Social History Tobacco Use Types Packs/Day Years [...] as of this encounter Progress Notes * Kitty Peters, PhD - 12/04/2022 9:30 AM EDT Luz Maria Carreno was seen on 12/04/2022 for an audiologic evaluation in conjunction with Ivan Lemons MD, Otolaryngology. Please refer to the scanned audiogram listed under the Procedures tab in theEMR for findings, impressions and recommendations. Kitty Peters, [place] [address] ; documented in this encounter Plan of Treatment Not on file documented as of this encounter Procedures Procedure Name Priority Date/Time Associated Diagnosis Comments COMPREHENSIVE HEARING TEST Routine 12/04/2022 9:20 AM EDT documented in this encounter Results * Comprehensive hearing test (12/04/2022 9:20 AM EDT) 12/04/2022 9:20 AM EDT Narrative AUDBASE COMP - 12/04/2022 9:20 AM EDT Better thresholds with supra-aural earphones this date Right: mild to moderate high frequency sensorineural hearing loss. Left: mild low and moderate to severe high frequency sensorineural hearing loss. Good word recognition. Tympanograms: Right WNL / Left reduced static admittance Follow-up as scheduled with Dr. Lemons. ?? Procedure Note Unknown - 12/04/2022 Better thresholds with supra-aural earphones this date Right: mild to moderate high frequency sensorineural hearing loss. Left: mild low and moderate to severe high frequency sensorineural hearingloss. Good word recognition. Tympanograms: Right WNL / Left reduced static admittance Follow-up as scheduled with Dr. Lemons. Kitty Peters PhD AUDIOLOGY SERVICES ORDERABLES AUDBASE COMP documented in this encounter Visit Diagnoses Diagnosis Dizziness Dizziness and giddiness Tinnitus, unspecified laterality Sensorineural hearing loss, bilateral documented in this encounter Care Teams Gluing Machine Offbearer Relationship Specialty Start Date End Date Loni Mosqueda APRN [address] [place] [address] PCP - General Family Medicine 05/28/22 documented as of this encounter
--- OUTSIDE RECORDS SUMMARY | 2024-02-17 09:58 | XMS_ITS | Encounter Summary ---
Author Organization [facility] [place] [address] Care Team Providers Care Watch Train Inspector Name Role Phone Loni Mosqueda APRN Primary Care Provider +1- [phone] Reason for Referral * Consultation (Priority 3) - Closed Specialty Diagnoses / Procedures Referred By Katherine lópez Referred To Contact Dermatology Diagnoses Melanocytic nevus, unspecified location Loni Mosqueda APRN [address] [place] [id number] [facility] Dermatology [address] [place] [address] Referral ID Status Reason Start Date Expiration Date V isits Requested Visits Authorized [id number] Closed Consult, Test & Treat PCP Updated and/or Approved 10/24/2022 10/24/2023 6 6 Encounter Details Date Type Department Care Team (Late st Contact Info) Description 10/24/2022 Transcribe Orders eDH Incoming Referrals [phone] Loni Mosqueda APRN [address] [place] [id number] Melanocytic nevus, unspecified location Social History Tobacco Use Types Packs/Day Years [...] place to sleep or slept in a mcc (including now)? No 09/24/2021 DH IPV Inpatient [...] as of this encounter Plan of Treatment Scheduled Referrals Name Type Priority Associated Diagnoses Orde r Schedule Referral to Dermatology Outpatient Referral Routine Melanocytic nevus, unspecified location Ordered: 10/24/2022 documented as of this encounter Visit Diagnoses Diagnosis Melanocytic nevus, unspecified location documented in this encounter Care Teams Watch Train Inspector Relationship Specialty Start Date End Date Loni Mosqueda APRN [address] [place] [id number] PCP - General Family Medicine 05/28/22 documented as of this encounter
--- OUTSIDE RECORDS SUMMARY | 2024-02-17 09:58 | XMS_ITS | Encounter Summary ---
Author Organization [facility] [place] [address] Care Team Providers Care Social Worker Assistant Name Role Phone Loni Mosqueda APRN Primary Care Provider [phone]- [phone] Reason for Referral * Diagnostic Test (Routine) - Closed Specialty Diagnoses / Procedures Referred By Katherine lópez Referred To Contact Radiology Diagnoses Abnormal MRI of head Procedures MRI Angiogram Head wo Contrast (Generic) Nelsy Orta MD [facility] [place] [address] [place] [address] [place] [address] Referral ID Status Reason Start Date Expiration Date V isits Requested Visits Authorized [id number] Closed Specialty Service Requested 11/07/2022 05/07/2024 1 1 Reason for Visit * Diagnostic Test (Routine) - Closed Specialty Diagnoses / Procedures Referred By Katherine lópez Referred To Contact Radiology Diagnoses Abnormal MRI of head Procedures MRI Angiogram Head wo Contrast (Generic) Nelsy Orta MD [facility] [place] [address] [place] [address] [place] [address] Referral ID Status Reason Start Date Expiration Date V isits Requested Visits Authorized [id number] Closed Specialty Service Requested 11/07/2022 05/07/2024 1 1 Encounter Details Date Type Department Care Team (Latest Contact Info) Description 11/11/2023 12:26 PM EDT - 11/11/2023 11:59 PM EDT Hospital Encounter MRI at [facility] [place] [address] Nelsy Orta MD [facility] [place] [address] [place] [address] Abnormal MRI of head Discharge Disposition: Home Social History Tobacco Use Types Packs/Day Years [...] place to sleep or slept in a retirement (including now)? No 09/24/2021 DH IPV Inpatient [...] on file documented as of this encounter Medications at Time of Discharge Medication Sig Dispensed Refills Start Date End Date meclizine (Antivert) 25 mg tablet TAKE 1 TABLET BY MOUTH TWICE DAILY NEEDED FOR DIZZINESS 08/14/2022 amLODIPine (Norvasc) 2.5 mg tablet Take 5 mg by mouth daily. 06/18/2022 losartan (Cozaar) 100 mg tablet Take 100 mg by mouth daily. 05/19/2022 pantoprazole EC (Protonix) [address] tablet Take 20 mg by mouth daily as needed. 06/17/2022 polyethylene glycoL (Miralax) 17 gram oral powder packet Take 17 g by mouth daily. 14 each 07/08/2022 budesonide EC (Entocort EC) 3 mg Capsule, Delayed & Ext.ReleaseIndications: Microscopic colitis, unspecified microscopic colitis type Take 3 capsules by mouth every morning. 90 capsule 2 05/05/2022 melatonin 5 mg tablet Take 10 mg by mouth. Mesalamine (CANASA) 1,000 mg Suppository 02/11/2022 glipiZIDE XL (Glucotrol XL) 5 mg Tablet Extended Rel 24 hr Take 5 mg by mouth 2 times daily. Two tablets in the am and one in the pm simvastatin (Zocor) 20 mg Tablet Take 20 mg by mouth nightly. Ibuprofen-diphenhydrAMI NE (Advil PM) 200-38 mg Tablet Take 1 tablet by mouth nightly. documented as of this encounter Plan of Treatment Not on file documented as of this encounter Procedures Procedure Name Priority Date/Time Associated Diagnosis Comments MRI HEAD ANGIOGRAM WO CONTRAST Routine 11/11/2023 1:15 PM EDT Abnormal MRI of head documented in this encounter Results * MRI Angiogram Head wo Contrast (Generic) (11/11/2023 1:15 PM EDT) GEO'Supp WORKSTATION ID [id number] RAD Anatomical Region Laterality Modality Head Magnetic Resonan ce Impressions 11/12/2023 12:24 PM EDT No definitive saccular aneurysm. Similar fullness of the basilar tip noted without increased size or change in morphology. Otherwise normal MRA. Thank you for letting us participate in the care of this patient. ??If you are a health care provider and have any questions regarding this report, please contact the number below. ??For patients who have questions please contact the health career professional that requested your imaging first. ? 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 3-D MIP reconstructions were created. COMPARISON: MRI of 07/07/2022 and 12/31/2021. FINDINGS: Intracranial internal carotid artery segments are patent. There is no significant stenosis identified of the proximal anterior or middle cerebral artery segments. Similar fullness of the basilar tip noted without increased size or change in morphology, where bilaterally duplicated superior cerebellar arteries and bilateral P1 segments of the posterior cerebral arteries originate. The vertebrobasilar system and posterior cerebral arteries are otherwise unremarkable. Patent P-comm's are likely present bilaterally. Symmetric patent A1 segments of the anterior cerebral artery and A-comm noted. There are no definitive saccular aneurysms identified. Procedure Note Connor Jacobson DO - 11/12/2023 EXAMINATION: MRI ANGIOGRAM HEAD WO CONTRAST (GENERIC) CLINICAL HISTORY: Cerebral aneurysm, follow-up R93.0, Abnormal findings on diagnostic imaging of skull and head, notelsewhere classified TECHNIQUE: MRA of the head performed without contrast. 3-D MIP reconstructions were created. COMPARISON: MRI of 07/07/2022 and 12/31/2021. FINDINGS: Intracranial internal carotid artery segments are patent. There is no significant stenosis identified of the proximal anterior or middlecerebral artery segments. Similar fullness of the basilar tip noted without increased size or changein morphology, where bilaterally duplicated superior cerebellar arteriesand bilateral P1 segments of the posterior cerebral arteries originate. The vertebrobasilar system and posterior cerebral arteries are otherwise unremarkable. Patent P-comm's are likely present bilaterally. Symmetric patent A1 segments of the anterior cerebral artery and A-commnoted. There are no definitive saccular aneurysms identified. IMPRESSION No definitive saccular aneurysm. Similar fullness of the basilar tip noted without increased size or changein morphology. Otherwise normal MRA. Thank you for letting us participate in the care of this patient. If youare a health care provider and have any questions regarding this report,please contact the number below. For patients who have questions please contactthe health career professional that requested your imaging first. Nelsy Orta MD IMG MRI ORDERABLES documented in this encounter Visit Diagnoses Diagnosis Abnormal MRI of head Nonspecific (abnormal) findings on radiological and other examination of skull and head documented in this encounter Care Teams Social Worker Assistant Relationship Specialty Start Date End Date Loni Mosqueda APRN [address] [place] [id number] PCP - General Family Medicine 05/28/22 documented as of this encounter
--- OUTSIDE RECORDS SUMMARY | 2024-02-17 09:58 | XMS_ITS | Encounter Summary ---
Author Organization [facility] [place] [address] Care Team Providers Care Global Engineering Manager Name Role Phone Loni Mosqueda APRN Primary Care Provider +1- [phone] Reason for Visit * Reason Onset Date Comments Appointment 04/28/2023 Encounter Details Date Type Department Care Team (Late st Contact Info) Description 04/28/2023 [place] [address] Osiris Yan, RN Appointment Social History Tobacco Use Types Packs/Day Years [...] place to sleep or slept in a residential (including now)? No 09/24/2021 DH IPV Inpatient [...] Telephone Encounter - Osiris Yan RN - 04/28/2023 1:04 PM EST PC to Pat attempted regarding scheduling MRI Angiogram Head ordered by Dr. Nelsy Orta on 11/07/22 due 11/08/23. LVM for pt to call [phone] to schedule imaging and f/u. documented in this encounter Plan of Treatment Not on file documented as of this encounter Visit Diagnoses Not on filedocumented in this encounter Care Teams Global Engineering Manager Relationship Specialty Start Date End Date Loni Mosqueda APRN [address] [place] [address] PCP - General Family Medicine 05/28/22 documented as of this encounter
--- OUTSIDE RECORDS SUMMARY | 2024-02-17 09:58 | XMS_ITS | Encounter Summary ---
Author Organization [facility] Address [facility] [place] [address] Care Team Providers Care Materials Planning Manager Name Role Phone Loni Mosqueda APRN Primary Care Provider +1- [phone] Reason for Visit * Consultation (Priority 3) - Closed Specialty Diagnoses / Procedures Referred By Katherine lópez Referred To Contact Dermatology Diagnoses Melanocytic nevus, unspecified location Loni Mosqueda APRN [address] [place] [address] [facility] Dermatology [address] [place] [address] Referral ID Status Reason Start Date Expiration Date V isits Requested Visits Authorized [id number] Closed Consult, Test & Treat PCP Updated and/or Approved 10/24/2022 10/24/2023 6 6 Encounter Details Date Type Department Care Team (Late st Contact Info) Description 01/14/2023 3:30 PM EST Office Visit Dermatology at [facility] [address] [place] [address] Joan Guy MD [facility] [place] [address] Actinic keratoses; Seborrheic keratoses; Multiple nevi; Lentigines; Arias angioma; Xerosis cutis Social History Tobacco Use Types Packs/Day Years [...] place to sleep or slept in a care home (including now)? No 09/24/2021 DH IPV Inpatient [...] as of this encounter Progress Notes * Joan Guy MD - 01/14/2023 3:30 PM EST Images from the original note were not included. DEPARTMENT OF DERMATOLOGY Medical Dermatology Clinic Provider: Joan Guy MD Patient's preferred name Pat Preferred contact method for results [x]Phone []myD-H []Letter Detailed phone message OK? Yes Are there any other people with whom we may discuss your care? Yes - Jefry Carreno Past Medical History Date, location, treatment Melanoma No Dysplastic nevi No SCC No BCC No AKs No UV Exposure & Protection + history of blistering sunburn No Family History Details Melanoma Yes - Father NMSC No Other relevant family history + Lung cancer; Mother, and Sister Social History Occupation: Hobbies: Other: Pre-Procedure Screening Details Allergy to lidocaine, epinephrine, Dermabond, chlorhexidine, or adhesives No Bleeding disorder or blood thinners No Pacemaker, defibrillator, deep brain stimulator, cochlear implant No History of Present Illness: Luz Maria Carreno is a 67 y.o. Patient is referred to the clinic at the request of Loni Mosqueda for a full skin exam.Patient denies any specific skin concerns today; no lesions that are new, changing or symptomatic. Review of Systems: General: Feeling well. Skin: No other skin concerns. Medications: Reviewed in eD-H Allergies: Reviewed in eD-H Skin Examination: Full skin examination: Patient asked to undress to their comfort level. Verbalized that the provider???s preference is that the patient remove all clothing and that the provider will not examine areas patient elects to keep covered. Patient elects to keep underwear on and have the following examined: scalp, hair, face, ears, neck, chest, axillae, abdomen, back, and upper and lower extremities. Genitalia and buttocks were not examined. Assessment/Plan #. Actinic Keratoses - Ill-defined gritty papules on the chest x6, right upper cutaneous lip x1, left nasal edge x1. - Explained premalignant potential of these lesions. - Discussed treatment with cryotherapy. Patient elects to proceed with cryotherapy today. - Instructed patient to return to clinic for re-evaluation if lesion(s) does not resolve as expected with this treatment. Procedure: Destruction of lesion(s) with cryotherapy (LN2). Location(s): As noted above. Number: 8 Discussed procedure and expectations, including risks and benefits. Verbal consent obtained. Treated with LN2. There were no complications; Patient tolerated the procedure well. Post-procedure expectations and wound care reviewed. #. Seborrheic Keratoses - Stuck on, waxy papules on the trunk and extremities. - Discussed benign nature of lesions and provided reassurance. No treatment necessary at this time. #. Benign Nevi - Scattered medium brown, evenly pigmented macules and papules on the trunk and extremities with reassuring pigment pattern on dermoscopy. - Discussed benign nature of lesions and provided reassurance. Will continue to monitor. #. Lentigines - Scattered light-brown, evenly pigmented, well-demarcated macules on sun-exposed areas of the trunk and extremities. - No worrisome pigmented lesions. Discussed benign nature of lesions and provided reassurance. Willcontinue to monitor. #. Arias Angiomas - Multiple bright red, well-demarcated papules on the trunk and extremities. - Discussed benign nature of lesions and provided reassurance. No treatment necessary at this time. #. Xerosis - Diffuse xerosis. - Recommended applying a bland moisturizer (such as AmLactin Rapid Relief) daily immediately after bathing. Other: N/A RTC: 1 year for a full skin exam. []Note routed to statistical secretary []Recall placed in scheduling system []Appointment scheduled at checkout Scribe attestation: Pili Guzmán CMA has performed the documentation for this encounter in the presence of and acting as a scribe for Joan Guy MD. I performed the above scribed service and agree with the accuracy of the documentation in this encounter. Reviewed and signed by: Joan Guy MD Dermatology [facility] documented in this encounter Plan of Treatment Scheduled Referrals Name Type Priority Associated Diagnoses Orde r Schedule Referral to Dermatology Outpatient Referral Routine Melanocytic nevus, unspecified location Ordered: 10/24/2022 documented as of this encounter Visit Diagnoses Diagnosis Actinic keratoses Actinic keratosis Seborrheic keratoses Multiple nevi Benign neoplasm of skin, site unspecified Lentigines Other dyschromia Arias angioma Nevus, non-neoplastic Xerosis cutis Other specified disease of sebaceous glands documented in this encounter Care Teams Materials Planning Manager Relationship Specialty Start Date End Date Loni Mosqueda, LEAD SOFTWARE ARCHITECT [address] [address] PCP - General Family Medicine 05/28/22 documented as of this encounter
--- OUTSIDE RECORDS SUMMARY | 2024-02-17 09:58 | XMS_ITS | Encounter Summary ---
Author Organization [facility] [place] [address] Care Team Providers Care Disc Pad Plate Filler Name Role Phone Marcelluslisa Loni Jean APRN Primary Care Provider +1- [phone] Encounter Details Date Type Department Care Team (Late st Contact Info) Description 10/03/2022 Notes Only [place] [id number] Libertad Alvarado, RN Social History Tobacco Use Types Packs/Day Years [...] as of this encounter Progress Notes * Libertad Alvarado RN - 10/03/2022 4:31 PM EDT On 10/03/22 we have carefully reviewed your case with the Clinical Vertigo Team including your dizziness questionnaire, medical history, and any other previous diagnostic tests performed/forwarded by your referring provider. It's our recommendation that you have an AE, PT evaluation with CDP and appointment with ENT. Inside Sales Person has been made aware. documented in this encounter Plan of Treatment Not on file documented as of this encounter Visit Diagnoses Not on filedocumented in this encounter Care Teams Disc Pad Plate Filler Relationship Specialty Start Date End Date Loni Mosqueda APRN [address] [place] [id number] PCP - General Family Medicine 05/28/22 documented as of this encounter
--- OUTSIDE RECORDS SUMMARY | 2024-02-17 09:58 | XMS_ITS | Clinical Summary ---
Author Organization [facility] Address [facility] [place] [address] Care Team Providers Care Digital Media Director Name Role Phone Loni Mosqueda APRN Primary Care Provider [phone]- [phone] Allergies Active Allergy Reactions Criticality Noted Date Comments Codeine Medium 09/12/2021 Medications Medication Sig Dispensed Refills Start Date End Date Status simvastatin (Zocor) 20 mg Tablet Take 20 mg by mouth nightly. Active Ibuprofen-diphenhyd rAMINE (Advil PM) 200-38 mg Tablet Take 1 tablet by mouth nightly. Active Mesalamine (CANASA) 1,000 mg Suppository 02/11/2022 Active glipiZIDE XL (Glucotrol XL) 5 mg Tablet Extended Rel 24 hr Take 5 mg by mouth 2 times daily. Two tablets in the am and one in the pm Active melatonin 5 mg tablet Take 10 mg by mouth. Active budesonide EC (Entocort EC) 3 mg Capsule, Delayed & Ext.ReleaseIndicati ons:Microscopic colitis, unspecified microscopic colitis type Take 3 capsules by mouth every morning. 90 capsule 2 05/05/2022 Active polyethylene glycoL (Miralax) 17 gram oral powder packet Take 17 g by mouth daily. 14 each 07/08/2022 Active Additional Information Patient not taking.Reported on 09/29/2022 amLODIPine (Norvasc) 2.5 mg tablet Take 5 mg by mouth daily. 06/18/2022 Active losartan (Cozaar) 100 mg tablet Take 100 mg by mouth daily. 05/19/2022 Active pantoprazole EC (Protonix) [address] tablet Take 20 mg by mouth daily as needed. 06/17/2022 Active meclizine (Antivert) 25 mg tablet TAKE 1 TABLET BY MOUTH TWICE DAILY NEEDED FOR DIZZINESS 08/14/2022 Active Active Problems Problem Noted Date Diagnosed Date Hypertension 06/17/2022 Diabetes mellitus 06/17/2022 Situational stress 09/24/2021 Lightheadedness 09/17/2021 Heart palpitations 09/17/2021 Mitral valve prolapse 09/17/2021 Aortic valve stenosis 09/12/2021 Chest pain 09/12/2021 Assessment & Plan (10/23/2021 2:56 PM EDT): Because of the typical qualities, will obtain stress testing. The mode of stress testing would optimally be echocardiographic, as patient is not low risk (age, DM), and it would be helpful to visualize the aortic valve as well as surrounding areas at stress (given discordant information in resting echocardiogram) - [place] Resolved Problems Problem Noted Date Diagnosed Date Resolved Date Acute cholecystitis 07/08/2022 07/10/19 23 Post-operative pain 07/08/2022 07/10/19 23 Family History Medical History Relation Comments Heart Failure Father Hypertension Father Myocardial Infarction Father Hypertension Mother Lung Cancer Sister Relation Status Comments Father Mother Sister Social History Tobacco Use Types Packs/Day Years Used Date Smoking Tobacco: Never Passive Smoke Exposure: Never Smokeless Tobacco: Never Tobacco Cessation:Counseling Given: No Comments:Denies vaping Alcohol Use Standard Drinks/Week Comments [...] place to sleep or slept in a longterm (including now)? No 09/24/2021 DH IPV Inpatient [...] on file Sexual Orientation Not on file Last Filed Vital Signs Vital Sign Reading Time Taken Comments Blood Pressure 115/81 12/04/2022 1:52 PM EDT Pulse 76 12/04/2022 1:52 PM EDT Temperature 37.2 ??C (99 ??F) 07/09/2022 7:23 AM EDT Respiratory Rate 18 12/04/2022 1:52 PM EDT Oxygen Saturation 96% 12/04/2022 1:52 PM EDT Inhaled Oxygen Concentration - - Weight 71.7 kg (158 lb) 12/04/2022 1:52 PM EDT Height 160 cm (5' 3) 12/04/2022 1:52 PM EDT Body Mass Index 27.99 12/04/2022 1:52 PM EDT Plan of Treatment Health Maintenance Due Date Last Done Comments CT Colonography 1955 FIT DNA 1955 FIT 1955 Sigmoidoscopy 1955 Pneumoccocal Vaccine: 65+ (1 of 2 - PCV) 1962 DM Hemoglobin A1c 1966 DM Opthalmology Exam 1966 DM Urine Microalbumin yearly 1966 Hepatitis C Screening 1974 Tetanus/Diphtheria/Pertussis Vaccines (1 - Tdap) 12/02/1975 Breast Cancer Share Decision Needed 1996 Breast Cancer screening 1996 Zoster vaccine (1 of 2) 2006 Advance Directive 12/02/2011 Bone Density Scan 2021 DM Creatinine yearly 02/19/2023 02/19/2022 Covid-19 Vaccine (1 - 2023-2 5 season) 2023 Influenza (Flu) vaccine (1 o f 1 - Influenza standard series) 11/01/2023 Colonoscopy 02/29/2032 02/28/2022, 02/01, 02/28/2022 Colorectal Cancer Screening 02/29/2032 Sigmoidoscopy (10 year) with FIT yearly 02/29/2032 02/28/2022, 02/28/2022, 02/28/2022 Diabetes Screening (HgbA1C o r Glucose) Discontinued 02/19/2022 Procedures Procedure Name Priority Date/Time Associated Diagnosis Comments COLONOSCOPY Routine 02/28/2022 1:37 PM EST COMPREHENSIVE METABOLIC PANEL Routine 02/19/2022 11:58 AM EST Diarrhea, unspecified type from Last 3 Months or Most Recently Relevant to Health Maintenance Results * COLONOSCOPY (02/28/2022 1:37 PM EST) COLONOSCOPY [facility] Endoscopy Procedure Date: 02/28/2022 1:37 PM ? Patient Name: Luz Maria Carreno ? Date of : 1955 ? Age: 66 ? Order #: [id number] ? Instrument Name: [id number] ? Procedure: ? Colonoscopy Indications: ? Chronic diarrhea, Suspected ? microscopic colitis, Follow-up of ? microscopic colitis Providers: ? Pelon Tolliver MD, Fabian Alvares ? Renu Keller Referring : ?Loni Mosqueda Requesting Provider: ?? Elsa L. Brittney Medicines: ? Midazolam 3.5 mg IV, Fentanyl 150 ? micrograms IV Complications: ? No immediate complications. Procedure: ? Pre-Anesthesia Assessment: ? - Prior to the procedure, a History ? and Physical was performed, and ? patient medications and allergies ? were reviewed. The patient's ? tolerance of previous anesthesia ? was also reviewed. The risks and ? benefits of the procedure and the ? sedation options and risks were ? discussed with the patient. All ? questions were answered, and ? informed consent was obtained. ? Prior Anticoagulants: The patient ? has taken no anticoagulant or ? antiplatelet agents. ASA Grade ? Assessment: II - A patient with ? mild systemic disease. After ? reviewing the risks and benefits, ? the patient was deemed in ? satisfactory condition to undergo ? the procedure. ? The procedure, indications, ? benefits, risks and alternatives ? were explained to the patient. ? Specifically discussed were ? potential complications including, ? but not limited to, bleeding, ? perforation, infection, missing a ? cancer, and adverse medication ? reactions. The patient was placed ? in the left lateral decubitus ? position, and a digital rectal exam ? was performed. The Colonoscope was ? inserted in the anus and under ? direct visualization, advanced to ? the terminal ileum, with ? identification of the appendiceal ? orifice and IC valve. Careful ? inspection was made as the ? colonoscope was withdrawn. The ? colonoscopy was performed without ? difficulty. The patient tolerated ? the procedure well. The quality of ? the bowel preparation was good. The ? terminal ileum, ileocecal valve, ? appendiceal orifice, and rectum ? were photographed. Scope withdrawal ? time was 11 minutes. ? Findings: ? Hemorrhoids were found on perianal exam and ? retroflexion. ? Scattered small and large-mouthed diverticula were ? found in the sigmoid colon. ? The terminal ileum appeared normal. ? A diminutive 2-3 mm polyp was found in the cecum. The ? polyp was flat. The polyp was removed with a cold ? snare. Resection and retrieval were complete. ? An area of mildly congested mucosa was found in the ? ascending colon and in the cecum. Biopsies were taken ? with a cold forceps for histology. ? The descending colon and transverse colon appeared ? normal. Biopsies were taken with a cold forceps for ? histology. ? An area of mildly congested mucosa was found in the ? sigmoid colon with patchy subtle erythema. Biopsies ? were taken with a cold forceps for histology. ? No additional abnormalities were found on ? retroflexion. ? Moderate Sedation: ? Moderate (conscious) sedation was administered by the ? endoscopy nurse and supervised by the endoscopist. ? The patient's oxygen saturation, heart rate, blood ? pressure and response to care were monitored. Impression: ?- Hemorrhoids found on perianal ? exam. ? - Diverticulosis in the sigmoid ? colon. ? - The examined portion of the ileum ? was normal. ? - One 2 mm polyp in the cecum, ? removed with a cold snare. Resected ? and retrieved. ? - Congested mucosa in the ascending ? colon and in the cecum. Biopsied. ? - The descending colon and ? transverse colon are normal. ? Biopsied. ? - Congested mucosa in the sigmoid ? colon. Biopsied. Recommendation: ?- Use Benefiber two teaspoons PO ? daily and increase to twice daily ? if tolerated. ? - Recommend avoiding routine use of ? NSAIDs including but not limited to ? ibuprofen (Advil/Motrin etc) and ? naproxen (Aleve). ? - If biopsies show microscopic ? colitis then consider ? stopping/changing the lisinopril. ? - OK to use Imodium (1-2 tabs) as ? needed (up to 4 times daily). ? Attending Participation: ? I personally performed the entire procedure. ? Dr. Esvin Tolliver ___ Pelon Tolliver MD 02/28/2022 2:33:17 PM Number of Addenda: 0 Note Initiated On: 02/28/2022 1:37 PM PROVATION 02/28/2022 1:37 PM EST Loni Mosqueda APRN GENERAL SURGICAL O RDERABLES PROVATION * (ABNORMAL) Comprehensive metabolic panel (non-fasting) (02/19/2022 11:58 AM EST) Glucose 106 65 - 199 mg/dL [facility] Comment:Diabetes: >=200 mg/d L plus symptoms Blood Urea Nitrogen 14 8 - 18 mg/dL [facility] Creatinine 0.71 0.70 - 1.20 mg/dL [facility] Sodium 144 135 - 145 mmol/L [facility] Potassium 3.6 3.5 - 5.0 mmol/L [facility] Comment: Please note: ??Patients with WBC >100,000 may have falsely elevated Potassium levels. ??For accurate Potassium quantification in these patients send serum separator tube (gold top) for subsequent determinations. ??Contact the Clinical Chemistry Laboratory if there are any questions. Chloride 109(H) 98 - 107 mmol/L [facility] Carbon Dioxide 25 22 - 31 mmol/L [facility] Anion Gap 10 5 - 15 mmol/L [facility] Calcium 9.4 8.5 - 10.5 mg/dL [facility] Protein, Total 6.9 6.1 - 8.0 g/dL [facility] Albumin 4.2 3.2 - 5.2 g/dL [facility] Aspartate Aminotransferase 16 0 - 30 unit/L [facility] Alanine Aminotransferase 20 0 - 30 unit/L [facility] Alkaline Phosphatase 107(H) 35 - 105 unit/L [facility] Bilirubin, Total 0.2 0.2 - 1.3 mg/dL [facility] Est Glomerular Filtration Rate 94 >=60 mL/min/1. 73 m?? [facility] Comment: This patient's estimated GFR was calculated using the 2020 CKD-EPI equation. The estimated GFR can vary from the measured GFR by up to 30% in the absence of rapidly changing kidney function. Assessment of the estimated GFR is not appropriate when creatinine concentrations are rapidly changing. For clinical situations in which a more precise estimate of GFR is necessary, consider alternative methods of GFR estimation such as a 24-hour urine creatinine clearance. Assignment of CKD stage 1-5 for patients with an eGFR near the transition point between stages may be based on clinical assessment of muscle mass and symptoms in addition to eGFR. Blood 02/19/2022 11:5 8 AM EST 02/19/2022 12:03 PM EST Narrative Resulting Agency Comment Spec In Lab Connor Travis MD CHEMISTRY ORDERABLES [facility] [place] [address] from Last 3 Months or Most Recently Relevant to Health Maintenance Advance Directives * Attempt Cardiopulmonary Resuscitation - Inpatient (Latest Code Status on File) Date Activated Date Inactivated Comments 07/08/2022 7:50 PM 07/09/2022 12:12 PM Question Answer Comments Code Status decision made by: Patient Care Teams Digital Media Director Relationship Specialty Start Date End Date Loni Mosqueda APRN [address] [place] [address] PCP - General Family Medicine 05/28/22
--- OUTSIDE RECORDS SUMMARY | 2024-02-17 09:58 | XMS_ITS | Encounter Summary ---
Author Organization [facility] [place] [address] Care Team Providers Care Satellite Specialist Name Role Phone Loni Mosqueda APRN Primary Care Provider [phone]- [phone] Reason for Referral * Diagnostic Test (Routine) - Closed Specialty Diagnoses / Procedures Referred By Katherine t Referred To Contact Radiology Diagnoses Abnormal MRI of head Procedures MRI Angiogram Head wo Contrast (Generic) Nelsy Orta MD [facility] [place] [address] [place] [address] Referral ID Status Reason Start Date Expiration Date V isits Requested Visits Authorized [id number] Closed Specialty Service Requested 11/07/2022 05/07/2024 1 1 Reason for Visit * Consultation (Routine) - Closed Specialty Diagnoses / Procedures Referred By Katherine t Referred To Contact Neurosurgery Diagnoses Vertigo Bogdan Benjamin, DO [facility] [place] [address] [facility] Neurosurgery [address] [place] [id number] Referral ID Status Reason Start Date Expiration Date V isits Requested Visits Authorized [id number] Closed Consult, Test & Treat 09/29/2022 09/29/2023 1 1 Encounter Details Date Type Department Care Team (Archana st Contact Info) Description 10/29/2022 11:00 AM EDT Office Visit Neurosurgery at [facility] [place] [address] Nelsy Orta MD [facility] [place] [address] Abnormal MRI of head Social History Tobacco [...] no 07/08/2022 Feels Threatened by Someone no 0 10/2022 Feels Unsafe at Home or Work/School no 07/08/2022 Physical Signs of Abuse Present no 07/08/2022 Sex and Gender Information Value Date Recorded Sex Assigned at Not on file Gender Identity Not on file Sexual Orientation Not on file documented as of this encounter Last Filed Vital Signs Vital Sign Reading Time Taken Comments Blood Pressure 139/83 10/29/2022 10:40 AM EDT Pulse 56 10/29/2022 10:40 AM EDT Temperature - - Respiratory Rate - - Oxygen Saturation 99% 10/29/2022 10:40 AM EDT Inhaled Oxygen Concentration - - Weight - - Height - - Body Mass Index - - documented in this encounter Progress Notes * Nelsy Orta MD - 10/29/2022 11:00 AM EDT Cerebrovascular & Neurosurgery Clinic Note Patient Luz Maria Carreno 1955 DATE OF VISIT: 10/29/2022 REASON FOR VISIT: Problem List Items Addressed This Visit None Visit Diagnoses Abnormal MRI of head RELEVANT NARRATIVE: Luz Maria Carreno is a 66 y.o. right handed with history of dizziness episodes, some room spinning, some presyncopal, which has been bad for the last 6 months. It typically lasts for half a day to 2 days. In the last few weeks, she has been having stereotyped vertigo episodes of 5 seconds, after rolling to the left > right. No history of thunderclap headaches. Aneurysm risk factors: Family history: Denies HTN: Yes Smoker: Never Diabetes: T2DM, no insulin Connective tissue disorders: Denies ADPCKD: Denies Blood thinners or DAPT: Denies PAST MEDICAL HISTORY: Past Medical History: Diagnosis Date Aortic valve stenosis 09/12/2021 Chest pain 09/12/2021 Diabetes mellitus Heart murmur Heart palpitations 09/17/2021 Hyperlipidemia Hypertension Lightheadedness 09/17/2021 Migraine Mitral valve prolapse 09/17/2021 Overweight Palpitations PAST SURGICAL HISTORY: Past Surgical History: Procedure Laterality Date ECTOPIC SURGERY PRO COLONOSCOPY, BIOPSY N/A 02/28/2022 COLONOSCOPY FLEXIBLE, WITH BX (WRVU 3.66) performed by Pelon Tolliver MD at [facility] ENDOSCOPY PRO COLONOSCOPY, REMV LESN, SNARE N/A 02/28/2022 COLONOSCOPY, POLYPECTOMY, REMOVAL LESION BY SNARE (WRVU 4.67) performed by Pelon Tolliver MDat [facility] ENDOSCOPY PRO LAP, CHOLECYSTECTOMY/GRAPH N/A 07/08/2022 LAPAROSCOPIC CHOLECYSTECTOMY WITH CHOLANGIOGRAM (WRVU 11.47) performed by Celestina Ruffin MD at [facility] MAIN OR STRABISMUS SURGERY Bilateral OBJECTIVE: BP 139/83 (BP Location (NBP): Right arm, Patient Position: Sitting) Pulse 56 SpO2 99% RELEVANT FINDINGS ON NEUROLOGIC EXAMINATION: No focal deficits DETAILED NEUROLOGIC EXAMINATION: MENTAL STATUS: Awake, alert, appropriate. Oriented x3 SPEECH: Fluent and without dysarthria or aphasia CRANIAL NERVES: Visual cassidy intact x 4 quadrants. EOMI without subjective diplopia. Facial sensation & motion intact & symmetric. Hearing intact to finger rub bilaterally. Palatal elevationand tongue protrusion midline. 5/5 shoulder shrug. MOTOR: 5/5 BUE without drift. 5/5 BLE. SENSORY: SILT throughout. CEREBELLAR: No dysmetria on [id number] testing UPPER MOTOR NEURON SIGNS: negative Hoffmans GAIT: Toe and heel walks without difficulty. CURRENT MEDICATIONS: Ibuprofen-diphenhydrAMINE, Mesalamine, amLODIPine, budesonide EC, glipiZIDE XL, losartan, meclizine, melatonin, pantoprazole EC, polyethylene glycoL, and simvastatin IMAGING & STUDIES PERSONALLY INTERPRETED: MRA head 07/07/2022: Anteflexed basilar apex without clear saccular aneurysm. No aneurysms identified. ASSESSMENT & PLAN: Problem List Items Addressed This Visit None Visit Diagnoses Abnormal MRI of head Based on my review of her imaging, I do not think she has a saccular aneurysm. We discussed that the definitive test for whether this is an aneurysm would be a cerebral angiogram. There are some risks which we discussed with the procedure, though these are low. Another option would be to observe the basilar apex for growth or change, which the patient is in favor of. We will plan for an MRA in 1 year given there is no appreciable difference between the present and the 2021 study. We discussed the signs and symptoms of aneurysm rupture including severe, intractable headache, without or without new neurologic deficit. The patient understands to seek emergent help with these or any other concerning neurologic symptoms. PLAN SUMMARY: MRA in 1 year I spent a total of 40 minutes in the care of this patient today including review of prior notes, review of prior images, interval history, physical exam as outlined above, personal review and independent interpretation of studies outlined above, patient counseling, documentation in the medical record, and coordination of care. -- 11/07/2022 6:27 PM Nelsy Orta MD Open cerebrovascular and endovascular neurosurgery attending Section of Neurosurgery Department of Surgery [facility] documented in this encounter Plan of Treatment Not on file documented as of this encounter Results * MRI Angiogram Head wo Contrast (Generic) (11/11/2023 1:15 PM EDT) [email or web address] WORKSTATION ID [id number] RAD Anatomical Region Laterality Modality Head Magnetic [...] have questions please contact the health career education teacher that requested your imaging first. ? Electronically signed by: Connor Jacobson DO, [facility] ??([phone]), at 11/12/2023 12:24 PM Narrative 11/12/2023 12:24 PM EDT EXAMINATION: MRI [...] who have questions please contactthe health career education teacher that requested your imaging first. Nelsy Orta MD IMG MRI ORDERABLES documented in this encounter Visit Diagnoses Diagnosis Abnormal MRI of head Nonspecific (abnormal) findings on radiological and other examination of skull and head Abnormal MRI of head Nonspecific (abnormal) findings on radiological and other examination of skull and head documented in this encounter Care Teams Satellite Specialist Relationship Specialty Start Date End Date Loni Mosqueda APRN [address] [place] [id number] PCP - General Family Medicine 05/28/22 documented as of this encounter
--- OUTSIDE RECORDS SUMMARY | 2024-02-17 09:58 | XMS_ITS | Encounter Summary ---
Author Organization [facility] [place] [address] Care Team Providers Care Senior Investment Manager Name Role Phone Loni Mosqueda APRN Primary Care Provider +1- [phone] Reason for Referral * Physical Therapy (Routine) - Duplicate Referral Specialty Diagnoses / Procedures Referred By Katherine lópez Referred To Contact Physical Therapy Diagnoses Balance problem Dizziness Fabian Villa MD [facility] [place] [address] [facility] [place] [address] Referral ID Status Reason Start Date Expiration Date Visits Requested Visits Authorized [id number] Duplicate Referral Evaluate and Treat 10/06/2022 10/06/2023 12 12 Encounter Details Date Type Department Care Team (Late st Contact Info) Description 10/03/2022 Orders [place] [address] Libertad Alvarado RN Balance problem; Dizziness Social History Tobacco Use Types Packs/Day Years [...] place to sleep or slept in a snf (including now)? No 09/24/2021 DH IPV Inpatient [...] Associated Diagnoses Orde r Schedule Referral to Physical Therapy Outpatient Referral Routine Balance problem Dizziness Ordered: 10/06/2022 documented as of this encounter Visit Diagnoses Diagnosis Balance problem Other symptoms involving nervous and musculoskeletal systems Dizziness Dizziness and giddiness documented in this encounter Care Teams Senior Investment Manager Relationship Specialty Start Date End Date Chute, Loni H, SCALLOPER [address] [place] [id number] PCP - General Family Medicine 05/28/22 documented as of this encounter
--- OUTSIDE RECORDS SUMMARY | 2024-02-17 09:58 | XMS_ITS | Encounter Summary ---
Author Organization [facility] Address [facility] [place] [address] Care Team Providers Care Armed Security Professional Name Role Phone Jaylin Loni Jean APRN Primary Care Provider +1- [phone] Encounter Details Date Type Department Care Team (Latest Contact Info) Description 10/29/2022 Travel Social History Tobacco Use Types Packs/Day [...] place to sleep or slept in a fdc (including now)? No 09/24/2021 DH IPV Inpatient [...] on filedocumented in this encounter Care Teams Armed Security Professional Relationship Specialty Start Date End Date Loni Mosqueda APRN [address] [place] [id number] PCP - General Family Medicine 05/28/22 documented as of this encounter
--- OUTSIDE RECORDS SUMMARY | 2024-02-17 09:58 | XMS_ITS | Encounter Summary ---
Author Organization [facility] Address [facility] [place] [address] Care Team Providers Care Maintenance Repairer Name Role Phone Loni Mosqueda APRN Primary Care Provider +1- [phone] Encounter Details Date Type Department Care Team (Latest Contact Info) Description 11/11/2023 Travel Social History Tobacco Use Types Packs/Day [...] on filedocumented in this encounter Care Teams Maintenance Repairer Relationship Specialty Start Date End Date Loni Mosqueda APRN [address] [place] [id number] PCP - General Family Medicine 05/28/22 documented as of this encounter
--- OUTSIDE RECORDS SUMMARY | 2024-02-17 09:59 | XMS_ITS | Encounter Summary ---
Author Organization [facility] Address [facility] [place] [address] Care Team Providers Care Surgeon/President Name Role Phone Shabbir Ortiz MD Primary Care Provider [phone] Encounter Details Date Type Department Care Team (Latest Contact Info) Description 02/19/2022 Travel Social History Tobacco Use Types Packs/Day Years Used Date Smoking Tobacco: Never Smokeless Tobacco: Never Alcohol Use Standard Drinks/Week Comments Yes 0 [...] place to sleep or slept in a detention (including now)? No 09/24/2021 Sex and Gender Information Value Date Recorded Sex Assigned at Not on file Gender Identity Not on file Sexual Orientation Not on file documented as of this encounter Plan of Treatment Not on file documented as of this encounter Visit Diagnoses Not on filedocumented in this encounter Additional Health Concerns Infection Onset Date Last Indicated Resolved Time Rule Out C. difficile 02/19/2022 02/19/20222021 1:34 PM EST documented as of this encounter Care Teams Surgeon/President Relationship Specialty Start Date End Date Shabbir Ortiz MD [address] [place] [id number] PCP - General 01/22/10 05/27/22 documented as of this encounter
--- OUTSIDE RECORDS SUMMARY | 2024-02-17 09:59 | XMS_ITS | Encounter Summary ---
[place] [address] Care Team Providers Care Clinical Trial Assistant Name Role Phone Loni Mosqueda APRN Primary Care Provider [phone] Reason for Visit * Auth/Cert (Routine) Specialty Diagnoses / Procedures Referred By Contflorentin t Referred To Contact Diagnoses Chronic cholecystitis Chronic cholecystitis Procedures PRO LAP, CHOLECYSTECTOMY/GRAPH LAPAROSCOPIC CHOLECYSTECTOMY WITH CHOLANGIOGRAM (WRVU 11.47) Celestina Ruffin MD [facility] [place] [address] [facility] [place] Referral ID Status Reason Start Date Expiration Date Visits Re quested Visits Authorized [id number] 1 1 Encounter Details Date Type Department Care Team (Late st Contact Info) Description 07/08/2022 1:26 PM EDT - 07/08/2022 4:57 PM EDT Surgery [place] [id number] Celestina Ruffin MD [facility] [place] [address] LAPAROSCOPIC CHOLECYSTECTOMY WITH CHOLANGIOGRAM (WRVU 11.47) Social History Tobacco Use Types Packs/Day Years [...] Sign Reading Time Taken Comments Blood Pressure 171/82 07/08/2022 4:50 PM EDT Pulse 58 07/08/2022 1:01 PM EDT Temperature 36.4 ??C (97.5 ??F) 07/08/2022 4:50 PM ED T Respiratory Rate 16 07/08/2022 4:50 PM EDT Oxygen Saturation 100% 07/08/2022 4:50 PM EDT Inhaled Oxygen Concentration - - Weight 71.2 kg (157 lb) 07/08/2022 1:01 PM EDT Height - - Body Mass Index 28.5 07/08/2022 9:05 PM EDT documented in this encounter Discharge Summaries * Karishma Jama PA - 07/09/2022 7:04 AM EDT General Surgery Discharge Summary Patient Name: Luz Maria Carreno Patient Age: 66 y.o. : 1955 Attending Physician: Celestina Ruffin MD Date of Admission: 07/08/2022 Date of Discharge: 07/09/2022 Reason for admission: Post operative care following laparoscopic cholecystectomy Primary Diagnosis: acute cholecystitis Secondary Diagnosis: Patient Active Problem List Diagnosis Code ??? Aortic valve stenosis I35.0 ??? Chest pain R07.9 ??? Lightheadedness R42 ??? Heart palpitations R00.2 ??? Mitral valve prolapse I34.1 ??? Situational stress F43.9 ??? Hypertension I10 ??? Diabetes mellitus E11.9 Operations and Procedures: Procedure(s): LAPAROSCOPIC CHOLECYSTECTOMY WITH CHOLANGIOGRAM (WRVU 11.47) Surgeons: Surgeon(s) and Role: * Celestina Ruffin MD - Primary * Tyler Colon MD - Resident - Assisting History of Present Illness: Luz Maria Carreno is a 66 y.o. female with h/o hypertension, diabetes, cardiac valvular disease, and cholecystitis. She underwent HIDA scan to evaluate RUQ pain 12/2021 and was found to have no filling after 4 hours; CT A/P showed large gallbladder with dilated CBD. she pre sents for laparoscopic cholecystectomy. Hospital Course: Luz Maria Carreno is a 66 y.o. female who was admitted on 07/08/2022 postoperatively after a Laparoscopic Cholecystectomy and Intra- operative Cholangiogram. Operative course was uneventful, cholangiogram negative, please see operative note for further detail. This was originally planned for same day discharge, however patient was admitted for post-op pain control. She received IV fentanyl, oxycodone, and Tylenol which were effective in controlling pain. By the morning of POD#1 painwas adequately controlled on Tylenol alone. She was tolerating clear liquids overnight with no nausea, vomiting, or increased abdominal pain. she did not have Perales catheter and was voiding without difficulty for the duration of her admission. Prior to discharge on 07/09/22 or hospital day 0, patient's pain was well controlled with oral painmedications, patient was voiding without difficulty, and wounds were intact and healing appropriately. Patient did not have a bowel movement during this admission, and was tolerating a Regular diet. Vitals were within normal limits and patient was determined medically ready for discharge to home. Vital Signs Last value Range last 24hrs Temperature Temp: 36.5 ??C (97.7 ??F) Temp: [36.3 ??C (97.3 ??F)-36.9 ??C (98.4 ??F)] Heart Rate Heart Rate: 84 Heart Rate: [58-84] Blood Pressure BP: 127/75 BP: (122-187)/(75-89) Respiratory Rate Resp: 16 Resp: [16] SpO2 SpO2: 94 % SpO2: [90 %-100 %] Pertinent Lab Data: No results for input(s): WBC, HGB, HCT, PLATELET, PT, INR, PTT in the last 72 hours. No results for input(s): NA, K, CL, CO2, BUN, CREATININE, GLUCOSE, CALCIUM, MAGNESIUM, PHOS in the last 72 hours. Imaging: None Physical Exam: General: AOx3, pleasant, conversant, no acute distress HEENT: normocephalic, atraumatic, PERRLA, anicteric sclerae CVS: RRR on monitor Pulm: breathing comfortably on room air Abd: soft, diffusely mildly tender, non-distended, incisions clean/dry/intact : no perales Skin: warm, dry Ext: well perfused, no jaundice or cyanosis, no edema Neuro: CN 2-12 grossly intact, nonfocal, moving all four extremities spontaneously Condition at discharge: Stable Mental Status: awake and alert, oriented x 3 Medications: Your Medications New Medications Dose Details acetaminophen 500 mg tablet Commonly known as: Tylenol Take 2 tablets by mouth every 8 hours for 7 days. 1,000 mg Quantity: 42 tablet Refills: 0 docusate sodium 100 mg capsule Commonly known as: Colace Take 1 capsule by mouth 2 times daily for 10 days. 100 mg Quantity: 20 capsule Refills: 0 ibuprofen 400 mg tablet Commonly known as: Motrin Take 1 tablet by mouth every 6 hours as needed for Pain for up to 7 days. 400 mg Quantity: 30 tablet Refills: 12 oxyCODONE 5 mg tablet Commonly known as: Roxicodone Take 1 tablet by mouth every 4 hours as needed for Pain. 5 mg Quantity: 10 tablet Refills: 0 polyethylene glycoL 17 gram oral powder packet Commonly known as: Miralax Take 17 g by mouth daily. 17 g Quantity: 14 each Refills: 0 Continued medications, unchanged Dose Details Advil PM 200-38 mg Tablet Take 1 tablet by mouth nightly. Generic drug: Ibuprofen-diphenhydrAMINE 1 tablet Refills: 0 amLODIPine 10 mg tablet Commonly known as: Norvasc Take 10 mg by mouth daily. 10 mg Refills: 0 budesonide EC [address] - ER capsule Commonly known as: Entocort EC Take 3 capsules by mouth every morning. 9 mg Quantity: 90 capsule Refills: 2 glipiZIDE XL 5 mg ER 24 hr tablet Commonly known as: Glucotrol XL Take 5 mg by mouth 2 times daily. 10mg AM, 5mg PM 5 mg Refills: 0 losartan 50 mg tablet Commonly known as: Cozaar Take 100 mg by mouth daily. 100 mg Refills: 0 melatonin 5 mg tablet Take 10 mg by mouth. 10 mg Refills: 0 Mesalamine 1,000 mg rectal suppository Commonly known as: Canasa Refills: 0 pantoprazole EC [address] tablet Commonly known as: Protonix Take 40 mg by mouth daily. 40 mg Refills: 0 simvastatin 20 mg tablet Commonly known as: Zocor Take 20 mg by mouth nightly. 20 mg Refills: 0 Disposition: Home Allergies: Allergies Allergen Reactions ??? Codeine Outpatient Services/Studies: No discharge procedures on file. Scheduled Appointments: Future Appointments and Orders Future Appointments and Orders Future Appointments Provider Department Dept Phone 08/04/2022 12:50 PM Celestina Ruffin MD General Surgery at [facility] Arrive at: Home [phone] Please do not come in for this visit. Your provider will call you at the number you provided. 08/21/2022 11:00 AM Elsa Lugo MD Gastroenterology at [facility] Arrive at: [facility] [facility] Instructions Given to Patient at Discharge: Patient Instructions Discharge Instructions - Laparoscopic Cholecystectomy Wound Care: ??? You have liquid dressing over your incisions, there is nothing to remove. You may shower in 24 hours. ??? When you shower, let soap and water run over incisions without scrubbing. Pat dry gently. ??? Some bruising around your incisions is normal. ??? Using ice packs will help minimize this swelling. ??? No swimming or soaking in water (ie. hot tubs or baths) for two weeks. ??? Your stitches will dissolve and do not need to be removed. Activity, Lifting, Driving: ??? For laparoscopic surgery, there are no lifting restrictions. Lift when you feel comfortable to do so. ??? Do not drive if you are taking narcotic pain medication. When you are no longer taking narcoticpain medication and when it no longer causes pain to get in and out of the vehicle, you may drive when comfortable. Call Doctor For: ??? Worsening redness or drainage from incision(s) lasting longer than 5 days after your surgery ??? Any foul-smelling drainage from the incision ??? Pain not controlled by pain medications ??? Persistent nausea or vomiting ??? Any fevers greater than 101.3 F For questions or concerns during business hours please call the Surgery Clinic at [phone] before 5 PM on weekdays. For questions after hours and on weekends please call the hospital second floor operator at [phone] and ask for the General Surgery resident plant production manager. They may not be familiar with your case so be prepared to identify yourself and the procedure you had done. Diet: ?? No dietary restrictions, you may notice soft bowel movements after cholecystectomy and should improve over time ?? Surgery can also lead to constipation - we've prescribed tqpy-hvs-lhvuvyl stool softeners. Take these as needed, titrate to 1-2 soft bowel movements per day. Pain Management ??? Use heat or ice packs to your incisions. ??? Take Tylenol 1000mg (two extra strength tablets) up to every 6 hours. Do NOT take more than 4000mg every day, AND ??? Take ibuprofen 200-600mg every 6 hours with some food. Avoid taking ibuprofen on an empty stomach or for longer than 2 weeks. ??? For pain not covered by Tylenol and ibuprofen, take the prescription narcotic medicine: 5 mg every 4-6 hours ??? Take the medication exactly as it is prescribed and make sure to read all instructions that come with the medication. o Over the next couple of days you should be requiring less of this medication to control your pain, so that eventually you will not need any at all. You do not have to take all of the medication that was prescribed, if you have leftover pain medication this can be disposed of at a pharmacy or at your next follow up visit in the surgery clinic. o Taking more than the prescribed amount of medication or using with alcohol or other drugs can cause you to stop breathing resulting in coma, brain damage, or . o Opioids can slow reaction time, cause drowsiness, or cloud judgement. Do not drive for 8 hours after any dose of opioid pain medication if one was prescribed for you. o Using this drug may cause addiction. While addiction is more common in people with a personal or family history of addiction, it can occur in anyone. o Opioids are at risk of being diverted by anyone with access to your home. Opioids should be stored in a safe and secure place, such as a locked cabinet or safe. o Unused opioids should be disposed of appropriately. They may be returned to a take-back location,or mixed with a small amount of water and poured over an undesirable waste such as used coffee grounds or cat litter. o Please note that most pain medications can cause constipation. You may use a stool softener such as Miralax to prevent this. Pain Tapering Instructions ??? Your pain should slowly and steadily diminish as you heal. If your pain level at the surgery site increases, you should call us. ??? It is normal for increased pain if you are overly active or you decrease your pain medication, but a significant and unexplained increase in pain should be discussed with your surgeon. ??? Pain medication is usually necessary for only 4-5 days postoperatively. It is important to havea plan for tapering off of pain medication. See below for tapering schedule sample. o As your pain improves, start to wean oxycodone first by taking fewer tablets and taking it less often. o Continue your Tylenol and ibuprofen as you wean the narcotic. o Next, stop taking the ibuprofen. o Wean the Tylenol last. Other Means for Pain Relief: ?? Learn deep breathing exercises or meditation to help you relax. ?? Reduce stress. ?? Your body produces natural endorphins from exercise which can help reduce pain. Even walking is considered exercise. Talk with your provider/surgical team about what exercises are appropriate for you to perform. ?? You may use a heating pad or apply ice to the painful area unless specifically discouraged by the surgical team. ?? Find ways to distract yourself from the pain. Follow-up: Please call [phone] (clinic number for appointments) to confirm or change the date and time ofyour appointment. Future Appointments Date Time Provider Department Center 08/04/2022 12:50 PM Celestina Ruffin MD [facility] SURG [facility] 08/21/2022 11:00 AM Elsa Lugo MD [facility] GASTRO [facility] General Instructions None Future Appointments and Orders Future Appointments and Orders Future Appointments Provider Department Dept Phone 08/04/2022 12:50 PM Celestina Ruffin MD General Surgery at [facility] Arrive at: Home [phone] Please do not come in for this visit. Your provider will call you at the number you provided. 08/21/2022 11:00 AM Elsa Lugo MD Gastroenterology at [facility] Arrive at: [facility] [phone] Signed: JOSE Mane Minimally Invasive Surgery 7:12 AM 07/09/22 Service pager: [phone] [facility] Physician: Loni Mosqueda APRN [address] / [facility] [id number] documented in this encounter Discharge Instructions * Patient Instructions* Tyelr Colon MD - 07/08/2022 1:37 PM EDT Discharge Instructions - Laparoscopic Cholecystectomy Wound Care: You have liquid dressing over your incisions, there is nothing to remove. You may shower in 24 hours. When you shower, let soap and water run over incisions without scrubbing. Pat dry gently. Some bruising around your incisions is normal. Using ice packs will help minimize this swelling. No swimming or soaking in water (ie. hot tubs or baths) for two weeks. Your stitches will dissolve and do not need to be removed. Activity, Lifting, Driving: For laparoscopic surgery, there are no lifting restrictions. Lift when you feel comfortable to do so. Do not drive if you are taking narcotic pain medication. When you are no longer taking narcotic pain medication and when it no longer causes pain to get in and out of the vehicle, you may drive when comfortable. Call Doctor For: Worsening redness or drainage from incision(s) lasting longer than 5 days after your surgery Any foul-smelling drainage from the incision Pain not controlled by pain medications Persistent nausea or vomiting Any fevers greater than 101.3 F For questions or concerns during business hours please call the Surgery Clinic at [phone] before 5 PM on weekdays. For questions after hours and on weekends please call the hospital second floor operator at [phone] and ask for the General Surgery resident plant production manager. They may not be familiar with your case so be prepared to identify yourself and the procedure you had done. Diet: No dietary restrictions, you may notice soft bowel movements after cholecystectomy and should improve over time Surgery can also lead to constipation - we've prescribed ybom-yhd-ajrbmep stool softeners. Take these as needed, titrate to 1-2 soft bowel movements per day. Pain Management Use heat or ice packs to your incisions. Take Tylenol 1000mg (two extra strength tablets) up to every 6 hours. Do NOT take more than 4000mg every day, AND Take ibuprofen 200-600mg every 6 hours with some food. Avoid taking ibuprofen on an empty stomach or for longer than 2 weeks. For pain not covered by Tylenol and ibuprofen, take the prescription narcotic medicine: 5 mg every 4-6 hours Take the medication exactly as it is prescribed and make sure to read all instructions that come with the medication. Over the next couple of days you should be requiring less of this medication to control your pain, so that eventually you will not need any at all. You do not have to take all of the medication that was prescribed, if you have leftover pain medication this can be disposed of at a pharmacy or at your next follow up visit in the surgery clinic. Taking more than the prescribed amount of medication or using with alcohol or other drugs can causeyou to stop breathing resulting in coma, brain damage, or . Opioids can slow reaction time, cause drowsiness, or cloud judgement. Do not drive for 8 hours after any dose of opioid pain medication if one was prescribed for you. Using this drug may cause addiction. While addiction is more common in people with a personal or family history of addiction, it can occur in anyone. Opioids are at risk of being diverted by anyone with access to your home. Opioids should be stored in a safe and secure place, such as a locked cabinet or safe. Unused opioids should be disposed of appropriately. They may be returned to a take-back location, or mixed with a small amount of water and poured over an undesirable waste such as used coffee grounds or cat litter. Please note that most pain medications can cause constipation. You may use a stool softener such asMiralax to prevent this. Pain Tapering Instructions Your pain should slowly and steadily diminish as you heal. If your pain level at the surgery site increases, you should call us. It is normal for increased pain if you are overly active or you decrease your pain medication, but a significant and unexplained increase in pain should be discussed with your surgeon. Pain medication is usually necessary for only 4-5 days postoperatively. It is important to have a plan for tapering off of pain medication. See below for tapering schedule sample. As your pain improves, start to wean oxycodone first by taking fewer tablets and taking it less often. Continue your Tylenol and ibuprofen as you wean the narcotic. Next, stop taking the ibuprofen. Wean the Tylenol last. Other Means for Pain Relief: Learn deep breathing exercises or meditation to help you relax. Reduce stress. Your body produces natural endorphins from exercise which can help reduce pain. Even walking is considered exercise. Talk with your provider/surgical team about what exercises are appropriate for youto perform. You may use a heating pad or apply ice to the painful area unless specifically discouraged by the surgical team. Find ways to distract yourself from the pain. Follow-up: Please call [phone] (clinic number for appointments) to confirm or change the date and time ofyour appointment. Future Appointments Date Time Provider Department Center 08/04/2022 12:50 PM Celestina Ruffin MD [facility] SURG [facility] 08/21/2022 11:00 AM Elsa Lugo MD [facility] GASTRO [facility] documented in this encounter Medications at Time of Discharge Medication Sig Dispensed Refills Start Date End Date amLODIPine (Norvasc) 2.5 mg tablet Take 5 [...] Tablet Take 1 tablet by mouth nightly. docusate sodium (Colace) 100 mg capsule Take 1 capsule by mouth 2 times daily for 10 days. 20 capsule 07/08/2022 07/18/2022 acetaminophen (Tylenol) 500 mg tablet Take 2 tablets by mouth every 8 hours for 7 days. 42 tablet 07/08/2022 07/15/2022 ibuprofen (Motrin) 400 mg tablet Take 1 tablet by mouth every 6 hours as needed for Pain for up to 7 days. 30 tablet 12 07/08/2022 07/15/2022 oxyCODONE (Roxicodone) 5 mg tablet Take 1 tablet by mouth every 4 hours as needed for Pain. 10 tablet 07/08/2022 07/14/2022 amLODIPine (Norvasc) 10 mg tablet Take 10 mg by mouth daily. 07/14/2022 pantoprazole EC (Protonix) [address] tablet Take 40 mg by mouth daily. 07/14/2022 losartan (Cozaar) 50 mg Tablet Take 100 mg by mouth daily. 07/14/2022 documented as of this encounter Progress Notes * Rachel Dillon RN - 07/09/2022 10:06 AM EDT Pt. AVS and d/c paperwork gone over at bedside. All questions and concerns addressed. PIVs removed.Escorted down w/ nursing staff to d/c lounge * Santiago Moyer RN - 07/09/2022 6:49 AM EDT Pt had an uneventful night. Pain mgt was controlled with 650 mg of tylenol which pt stated very effective for her pain. documented in this encounter H&P Notes * Solomon Vo MD - 07/08/2022 12:05 PM EDT [facility] Minimally Invasive Surgery Preoperative H&P HPI: Luz Maria Carreno is a 66 y.o. female with a PMH significant for acute cholecystitis and a positive HIDA scan who presents today for laparoscopic cholecystectomy with cholangiogram. They were lastseen in clinic by Dr. Ruffin on 06/16/22, please see that note for additional details. Since their last clinic visit they have been feeling well overall, no recent changes to PMH, PSH, medications or allergies. Objective: Last value Range last 24hrs Temperature Temp: 36.4 ??C (97.5 ??F) Temp: [36.3 ??C (97.3 ??F)-36.4 ??C (97.5 ??F)] Heart Rate Heart Rate: 58 Heart Rate: [58] Blood Pressure BP: 159/80 BP: (153-187)/(80-89) Respiratory Rate Resp: 16 Resp: [16] SpO2 SpO2: 95 % SpO2: [92 %-100 %] PE: General: Alert, no acute distress Head: Atraumatic, non cyanotic Cardiac: Regular rate & rhythm Pulmonary: Normal respiratory effort on RA Abdominal: Soft, non distended, non tender Neuro: Grossly intact, follows commands Extremities: Warm and well-perfused Labs: No results for input(s): WBC, HGB, HCT, PLATELET, PT, INR, PTT in the last 72 hours. No results for input(s): NA, K, CL, CO2, BUN, CREATININE, GLUCOSE, CALCIUM, MAGNESIUM, PHOS, PTH inthe last 72 hours. Invalid input(s): LFTS Microbiology: N/A Imaging: No new imaging Assessment: Luz Maria Carreno is a 66 y.o. female with a PMH significant for acute cholecystitis and a positive HIDA scan who presents today for laparoscopic cholecystectomy with cholangiogram. The risks, benefits and alternatives to the procedure were reviewed. The patient's questions were answered and informed consent obtained. Will proceed to the OR as planned, plan to discharge postoperatively. Addendum: post operatively the patient reported RUQ abd pain, not controlled with PRN pain medication in Same Day. Exam unremarkable, abd nontender, vital signs within normal limits. She was admittedto observation for pain control. Solomon Vo MD 07/08/2022 Minimally Invasive Surgery [id number] documented in this encounter Miscellaneous Notes * Care Management Discharge - Анна Prasad RN - 07/09/2022 9:45 AM EDT CARE MANAGEMENT FINAL DISCHARGE NOTE Chart reviewed, care reviewed with primary team and at interdisciplinary rounds. Patient is medically ready for discharge to home. Needs for Transition of Care: Plan for discharge is: home no needs Agency Referrals & Follow-up Care: 08/04/2022 12:50 PM Celestina Ruffin MD General Surgery at [facility] Arrive at: Home [phone] ?? Please do not come in for this visit. Your provider will call you at the number you provided. ? 08/21/2022 11:00 AM Elsa Lugo MD Gastroenterology at [facility] Arrive at: [facility] [facility] 4L Transportation: family Wheelchair van/Ambulance? No Functional status prior to admission: Home Environment: . Current Living Arrangements: home/apartment/condo. Accessibility Concerns: . DME Needed at Discharge: none Patient is insured through: Primary Insurance: [employer] Payor: [employer] / Plan: [employer] / Product Type: *No Product type* / Secondary Insurance: MEDICAID [place] Prescription Coverage: This plan was formulated with input from patient, and team. All are in agreement with plan. ALAN Morales,se[employer] Team Case Management Pager #[phone] * Op Note - Celestina Ruffin MD - 07/08/2022 2:25 PM EDT [facility] Operative Note Patient Name: Luz Maria Carreno : [id number] MR#: [id number] Case Date: 07/08/2022 Surgeon: Surgeon(s) and Role: * Celestina Ruffin MD - Primary * Tyler Colon MD - Resident - Assisting Preoperative diagnosis: Chronic cholecystitis Postoperative diagnosis: Chronic cholecystitis Procedure(s) (LRB): LAPAROSCOPIC CHOLECYSTECTOMY WITH CHOLANGIOGRAM (VU 11.47) (N/A) Findings: Chronic inflammation of the gallbladder. Cystic duct was filled with small stones. These stones were milked out and cholangiogram was negative for additional filling defects. Anesthesia: General Estimated Blood Loss: 5 mL Specimens removed during surgery: Order Name Source Comment Collection Info Order Time SPECIMEN TO PATHOLOGY Gallbladder-perm OR 25 #[id number] Chronic cholecystitis Gallbladder excision No 07/08/2022 4:19 PM Time specimen removed from patient: 4:19 PM Number of tissue samples (in container) 1 Drains: none Surgical Closure: Primary Closure - skin incision is completely closed without any wires, bryanna, drains or other devices Disposition: awakened from anesthesia, extubated and taken to the recovery room in a stable condition, having suffered no apparent untoward event. Condition: doing well without problems (Please see the Surgical Encounter Summary for any Implant and Specimen details pertinent to this patient.) HPI/Surgical Indications: This is a 66 y.o.-old female with a history of acute cholecystitis and a positive HIDA scan who was evaluated in clinic. She has not had any symptoms since her episode of cholecystitis but I think she would benefit from gallbladder removal given the lack of filling on her HIDA scan. Given her CBD dilation, I think she would benefit from a cholangiogram. Procedure Description: The patient's identity and informed consent were verified in the pre-operative holding area. Subcutaneous heparin was administered for DVT prophylaxis. Luz Maria Carreno was taken to the operating room and placed in Supine position. Bilateral sequential compression devices placed. Anesthesia was induced without complications; see anesthesia record for details. The patient wasprepped and draped in sterile fashion. Time out was performed and preoperative antibiotics given. A Veress needle was used to access the abdomen in the left upper quadrant and the abdomen was insufflated with normal opening pressures. A 5mm incision was made above the umbilicus. A 5-mm port was placed at this site under direct visualization followed by insertion of the laparoscope. General exploration of the abdomen was performed and there was no gross abnormality seen except for the gallbladder. An 11mm port was placed in the epigastrium, and two more 5mm ports along the right subcostal margin, all under direct visualization. The patient was placed in a reverse Trendelenburg position, slightly tilted to left, and then the neck of the gallbladder was exposed by retracting the neck laterallyand the fundus medially. The triangle of Calot was exposed and then dissected out to verify the relationship between the gallbladder neck, the cystic duct, and the cystic artery. The triangle behind the body of the gallbladder and between the cystic duct/artery and the portahepatis was clearly defined and dissected out. The hepatic plate was clearly defined, and only two tubular structures were seen entering the gallbladder. The cystic artery was doubly clipped and divided. An additional branch of the artery was also clipped and divided. We then proceeded with a cholangiogram. The cystic duct was clipped on the gallbladder side and then incised. A moderate amount of small stones and sludge were milked out of the cystic duct. A cholangiogram catheter was inserted and secured. Contrast was then injected and intraoperative fluoroscopywas used to demonstrate filling of the common bile duct, bilateral hepatic ducts and into the duodenum. No obstructive stone was visualized. The cystic duct was controlled with hemolock clips and divided. A retrograde dissection of the gallbladder was performed using electrosurgery to release the gallbladder from its bed on the liver. Hemostasis was reassured along the operative field. There was no evidence of bile leak at the liver bed. Both cystic duct and cystic artery stumps were inspected and confirmed to be secured. The gallbladder was placed in an Endocatch bag and removed from the abdomen. The subxyphoid fascia was closed with 0 Vicryl suture using a suture passer device. The abdomen wasdeflated and ports were removed. A total of 30 mL of 0.25% Bupivacaine solution was injected in theport sites for postop analgesia, the skin was closed with interrupted 4-0 Monocryl sutures, and then it was sealed with Dermabond. At the end of the procedure, all sponge, instrument and needle counts were reported as correct and verified x2. The patient was awakened from anesthesia, extubated, and then transferred to the PACU in a stable condition. Attestation: Case Date: 07/08/2022 I was present and I participated during the entire procedure (does not need to include opening and closing). Celestina Ruffin MD 07/08/2022 Surgical Infection Prevention Bundle Used? N/A documented in this encounter Plan of Treatment Not on file documented as of this encounter Procedures Procedure Name Priority Date/Time Associated Diagnosis Comments POCT GLUCOSE Routine 07/08/2022 5:05 PM EDT SURGICAL PATHOLOGY REPORT Routine 07/08/2022 4:19 PM EDT SPECIMEN TO PATHOLOGY Routine 07/08/2022 4:19 PM EDT XR FLUORO NO RAD <1HR - OR USE Routine 07/08/2022 4:15 PM EDT Lap, Cholecystectomy/Graph ([id number]) 07/08/2022 1:51 PM EDT Symptomatic cholelithiasis POCT GLUCOSE Routine 07/08/2022 1:05 PM EDT LAPAROSCOPIC CHOLECYSTECTOMY WITH CHOLANGIOGRAM Routine 07/08/2022 12:53 PM EDT Symptomatic cholelithiasis FILM LIBRARY STORAGE ONLY MR HEAD Routine 12/31/2021 12:00 AM EDT documented in this encounter Results * POCT Glucose (07/08/2022 5:05 PM EDT) Glucose, POC 195 65 - 199 mg/dL [facility] Comment: Supplemental ranges: <140 mg/dL before meals <180 mg/dL all other times of the day Blood 07/08/2022 5:05 PM EDT 07/08/2022 5:05 PM EDT Celestina Ruffin MD POINT OF CARE TEST O RDERABLES Performing Organization Address City/State/[facility] Co de Phone Number [facility] [place] [address] * Surgical Pathology Report (07/08/2022 4:19 PM EDT) Final Diagnosis [id number] ? [facility]; The signing pathologist has (i) examined the relevant preparation(s) for the specimen(s) and (ii) rendered or confirmed the diagnosis(es). . ?Surgical Pathology DIAGNOSIS Gallbladder, excision: Acute and chronic cholecystitis. Electronically signed by: ?Tina Haskins MD Verified: ??07/24/2022 19:59 ??Pathologist Performed at: ??-[facility] [place] Dept. [place]ology, [place] [address] Electrician Marine: Ledy Johnston MD, FCAP, ??CLIA Certificate: [id number] SPECIMEN(S) SUBMITTED A - Gallbladder, excision (1) CLINICAL INFORMATION Chronic cholecystitis SPECIMEN PROCESSING A - Labeled/Fixative: Gallbladder, fresh. Quantity/Size: ??Single, 6.8 x 2.5 x 0.7 cm. Specimen Description: Gallbladder, received intact. Serosa: Quez[place] blue smooth and glistening Hepatic margin: Intact, [place] brown shaggy with no liver parenchyma grossly identified Lumen contents: Bile is absent Gallstones: Absent Mucosa: Red quezada and ranging from velvety to trabeculated Wall: Ranging from 0.2-0.3 cm thick. Duct: 0.3 cm, patent. Ink Designation: The hepatic margin is inked black Sections/Processi ng: Geospatial Imagery Intelligence Analyst sections in 1 cassettes as follows: ?A1: ??cystic duct margin and key account representative mucosa. ??nrl 07/24/2022 7:[address] [facility] GALLBLADDER STRUCTURE / Unknown 07/08/2022 4:19 PM EDT 07/08/2022 4:19 PM EDT Celestina Ruffin MD PATHOLOGY/CYTOLOGY O [place] Performing Organization Address City/[facility]/ZIP Co de Phone Number [facility] [place], [place] [id number] [place] [address] [place] [address] * Specimen to Pathology (07/08/2022 4:19 PM EDT) AP Specimen 07/08/2022 4:19 PM EDT 07/08/2022 4:19 PM EDT Narrative [facility] - 07/08/2022 4:19 PM EDT Specimen requisition ordered. ??Separate Pathology report to follow Celestina Ruffin MD PATHOLOGY/CYTOLOGY O RDERABLES Performing Organization Address [facility]/ZIP Co de Phone Number [facility] [address] * XR Fluoro No Rad <1Hr - OR Use (07/08/2022 4:15 PM EDT) Narrative Dicom, Auditing User - 07/08/2022 4:15 PM EDT This exam is auto-finalizing. No interpretation was done. Celestina Ruffin MD IMG FLUORO ORDERABLE S * POCT Glucose (07/08/2022 1:05 PM EDT) Glucose, POC 121 65 - 199 mg/dL [facility] Comment: Supplemental ranges: <140 mg/dL before meals <180 mg/dL all other times of the day Blood 07/08/2022 1:05 PM EDT 07/08/2022 1:05 PM EDT Celestina Ruffin MD POINT OF CARE TEST O RDERABLES [facility] [address] * Film Library- Storage Only MR Head (12/31/2021 12:00 AM EDT) Narrative Dicom, Auditing User - 07/08/2022 2:11 PM EDT This exam is auto-finalizing. It's purpose is for storage only. Celestina Ruffin MD IMG FILM LIBRARY ORD ERABLES documented in this encounter Visit Diagnoses Diagnosis Symptomatic cholelithiasis Calculus of gallbladder without mention of cholecystitis or obstruction Symptomatic cholelithiasis Calculus of gallbladder without mention of cholecystitis or obstruction documented in this encounter Admitting Diagnoses Diagnosis Acute cholecystitis documented in this encounter Administered Medications Inactive Administered Medications - up to 3 most recent administrations Medication Order MAR Action Action Date Dose Rate Site acetaminophen (Tylenol) tablet 1,000 mg 1,000 mg, Oral, EVERY 6 HOURS SCHEDULED, First dose on Thu07/08/22 at 2015, Until Discontinued, Maximum dose of acetaminophen is 4,000 mg from all sources in 24 hours. When ordered for pain, acetaminophen should be given even when other ordered pain medications are indicated. , Routine Given 07/09/2022 9:42 AM EDT 1,000 mg Given 07/09/2022 4:01 AM EDT 1,000 mg Given 07/08/2022 9:30 PM EDT 1,000 mg BUpivacaine (pf) (Marcaine) (2.5 mg/mL) 0.25% injection ONCE PRN, Starting on Thu07/08/22 at 1505, Until Thu07/09/22 at 1207, Intra-Operative (Intra-Procedure), Routine Given 07/08/2022 4:30 PM EDT 8 mLs 19- Surgical Site Given 07/08/2022 3:05 PM EDT 22 mLs 19 - Surgical Site fentaNYL (pf) (50 mcg/mL) multi-dose injection 25 mcg 25 mcg, Intravenous, EVERY 5 MIN PRN, Starting on Thu07/08/22 at 1708, Until Thu07/08/22 at 1950, Pain, Mild to moderate pain (1-5 out of 10), Hold for respiratory rate less than 10 per minute. Maximum dose 200 mcg over one hour, including OR administration. If ordered with HYDROmorphone or morphine, give HYDROmorphone or morphine first and use fentaNYL for breakthrough pain., PACU Recovery, Routine Given 07/08/2022 5:12 PM EDT 25 mcg heparin (porcine) (5,000 units/1 mL) subcutaneous injection 5,000 Units 5,000 Units, Subcutaneous, ONCE, 1 dose, On Thu07/08/22 at 1330, Day of Surgery (Day of Procedure), Routine Given 07/08/2022 1:12 PM EDT 5,000 Units Left Lower Quadrant heparin (porcine) (5,000 units/1 mL) subcutaneous injection 5,000 Units 5,000 Units, Subcutaneous, EVERY 8 HOURS SCHEDULED, First dose on Thu07/08/22 at 2200, Until Discontinued, Routine Given 07/09/2022 6:47 AM EDT 5,000 Units Abdominal Tissue Given 07/08/2022 9:32 PM EDT 5,000 Units iohexoL (Omnipaque) (300 mg/mL) solution ONCE PRN, Starting on Thu07/08/22 at 1610, Until Thu07/09/22 at 1207, Intra-Operative (Intra-Procedure), Routine Given 07/08/2022 4:10 PM EDT 20 mLs 20-Other (document i n comment section) lactated ringers infusion 1,000 mL, at 100 mL/hr, Intravenous, CONTINUOUS, Starting on Thu07/08/22 at 1330, Until Thu07/08/22 at 1952, Day of Surgery (Day of Procedure) Restarted 07/08/2022 1:49 PM EDT New Bag 07/08/2022 1:14 PM EDT 1,000 mLs 100 mL/hr lactated ringers infusion 1,000 mL, at 100 mL/hr, Intravenous, CONTINUOUS, Starting on Thu07/08/22 at 2145, Until Thu07/08/22 at 2158, Recovery (Recovery-Hospital Unit) New Bag 07/08/2022 9:30 PM EDT 1,000 mLs 100 mL/hr lidocaine (Lidoderm) 5% patch 1 patch 1 patch, Transdermal, Administer over 12 Hours, EVERY 24 HOURS, First dose on Thu07/08/22 at 2015, Until Discontinued, Apply patch(es) for 12 hours, and then remove for 12 hours., Routine Patch Applied 07/08/2022 9:32 PM EDT 1 patch 07- Back Lower (Left) lidocaine (Xylocaine) 1% (10 mg/mL) injection 3 mg 3 mg (0.3 mL), Subcutaneous, ONCE PRN, 1 dose, Starting on Thu07/08/22 at 1301, Until Thu07/09/22 at 1207, for discomfort with PIV insertion, Day of Surgery (Day of Procedure), Routine lidocaine (Xylocaine) 1% (10 mg/mL) injection 3 mg 3 mg (0.3 mL), Subcutaneous, ONCE PRN, 1 dose, Starting on Thu07/08/22 at 2059, Until Thu07/09/22 at 1207, for discomfort with PIV insertion, Recovery (Recovery-Hospital Unit), Routine naloxone (Narcan) (0.4 mg/mL) injection 0.04 mg 0.04 mg, Intravenous, EVERY 5 MIN PRN, 3 doses, Starting on Thu07/08/22 at 1708, Until Thu07/09/22 at 1207, Opioid Reversal, for respiratory rate less than 6 or unresponsive., May repeat every 5 minutes to increase respiratory rate. DO NOT exceed 0.12 mg total dose. Notify anesthesia immediately if administered., PACU Recovery, Routine naloxone (Narcan) (0.4 mg/mL) injection 0.2 mg 0.2 mg, Intravenous, EVERY 1 MIN PRN, Starting on Thu07/08/22 at 2059, Until Thu07/09/22 at 1207, Opioid Reversal, If respiratory rate less than 6 OR the patient is unable to arouse OR SpO2 is declining, Give for respiratory rate of less than or equal to 6 and patient is heavily sedated or unarousable. May repeat every 60 seconds to increase respiratory rate. DO NOT exceed 2 mg total dose., Recovery (Recovery-Hospital Unit), Routine ondansetron (pf) (Zofran) (2 mg/mL) injection 4-8 mg 4-8 mg, Intravenous, EVERY 8 HOURS PRN, Starting on Thu07/08/22 at 1948, Until Thu07/09/22 at 1207, Nausea, Start with 4mg and if ineffective in 30 minutes, give an additional 4mg If multiple antiemetics are ordered, give ondansetron first. ondansetron (Zofran) tablet 4-8 mg 4-8 mg, Oral, EVERY 8 HOURS PRN, Starting on Thu07/08/22 at 1948, Until Thu07/09/22 at 1207, Nausea, Vomiting, If multiple antiemetics are ordered, use ondansetron first. PO Preferred. If patient unable to take PO, may give IV if ordered. Start with 4mg and if ineffective in 45 minutes, give an additional 4mg. If unable to take PO, may give IV., Routine oxyCODONE (Roxicodone) tablet 5 mg 5 mg, Oral, ONCE PRN, 1 dose, Starting on Thu07/08/22 at 1655, Until Thu07/08/22 at 1831, Pain, Prn for pain >5/10 unrelieved by other available medications., Routine Given 07/08/2022 6:31 PM EDT 5 mg oxyCODONE (Roxicodone) tablet 5 mg 5 mg, Oral, ONCE, 1 dose, On Thu07/08/22 at 1915, Routine Given 07/08/2022 7:03 PM EDT 5 mg oxyCODONE (Roxicodone) tablet 5-10 mg 5-10 mg, Oral, EVERY 4 HOURS PRN, Starting on Thu07/08/22 at 1952, Until Thu07/09/22 at 1207, Pain, 5mg for MODERATE pain (4-6), 10mg for pain 7-10, For pain not relieved by ibuprofen or acetaminophen - if ordered., Routine senna-docusate (Pericolace) 8.6-50 mg per tablet 2 tablet 2 tablet, Oral, 2 TIMES DAILY, First dose on Thu07/08/22 at 2100, Until Discontinued, Routine Given 07/09/2022 8:16 AM EDT 2 tablets sodium chloride 0.9 % (flush) (BD PosiFlush Normal Saline 0.9) flush 5 mL 5 mL, Intravenous, 2 TIMES DAILY, First dose on Thu07/08/22 at 2145, Until Discontinued, Recovery (Recovery-Hospital Unit), Routine Given 07/09/2022 8:16 AM EDT 5 mLs Given 07/08/2022 9:32 PM EDT 5 mLs sodium chloride 0.9 % (flush) (BD PosiFlush Normal Saline 0.9) flush 5-20 mL 5-20 mL, Intravenous, EVERY 1 MIN PRN, Starting on Thu07/08/22 at 1301, Until Thu07/09/22 at 1207, flush, Flush pertains to all indwelling lines. Flush per protocol found in the job aid using the link provided on this medication record., Day of Surgery (Day of Procedure), Routine sodium chloride 0.9 % (flush) (BD PosiFlush Normal Saline 0.9) flush 5-20 mL 5-20 mL, Intravenous, EVERY 1 MIN PRN, Starting on Thu07/08/22 at 2059, Until Thu07/09/22 at 1207, flush, Flush pertains to all indwelling lines. Flush per protocol found in the job aid using the link provided on this medication record., Recovery (Recovery-Hospital Unit), Routine documented in this encounter Active and Recently Administered Medications Times are shown in EDT. Scheduled Medication Order 07/07/2022 07/08/2022 07/09/2022 acetaminophen (Tylenol) tablet 1,000 mg 1,000 mg, Oral, EVERY 6 HOURS SCHEDULED, First dose on Thu07/08/22 at 2015, Until Discontinued, Maximum dose of acetaminophen is 4,000 mg from all sources in 24 hours. When ordered for pain, acetaminophen should be given even when other ordered pain medications are indicated. , Routine 2129 (Given - Provider: Santiago Moyer RN) 0000 (Not Given - Provider: Santiago Moyer RN - Reason: Patient/family refused)0401 (Given - Provider: Santiago Moyer RN)0942 (Given - Provider: Rachel Dillon RN) ceFAZolin (Ancef) 2 g vial attach to sodium chloride 0.9% 100 mL Mini-Bag Plus (COMPLETED) 2 g, Intravenous, EVERY 4 HOURS, 1 dose, First dose on Thu07/08/22 at 1330, Administer over 30 Minutes, Intra-Operative (Intra-Procedure), Indication for (Active or Suspected): Prophylaxis 1420 (New Bag - Provider: Laureano Graham MD) heparin (porcine) (5,000 units/1 mL) subcutaneous injection 5,000 Units (COMPLETED) 5,000 Units, Subcutaneous, ONCE, 1 dose, On Thu07/08/22 at 1330, Day of Surgery (Day of Procedure), Routine 1312 (Given - Provider: Miryam Brennan RN) heparin (porcine) (5,000 units/1 mL) subcutaneous injection 5,000 Units 5,000 Units, Subcutaneous, EVERY 8 HOURS SCHEDULED, First dose on Thu07/08/22 at 2200, Until Discontinued, Routine 2131 (Given - Provider: Santiago Moyer RN) 0647 (Given - Provider: Santiago Moyer RN) lidocaine (Lidoderm) 5% patch 1 patch 1 patch, Transdermal, Administer over 12 Hours, EVERY 24 HOURS, First dose on Thu07/08/22 at 2015, Until Discontinued, Apply patch(es) for 12 hours, and then remove for 12 hours., Routine 2131 (Patch Applied - Provider: Santiago Moyer RN) 0932 (Patch Removed - Provider: Rachel Dillon, SONIA) oxyCODONE (Roxicodone) tablet 5 mg (COMPLETED) 5 mg, Oral, ONCE, 1 dose, On Thu07/08/22 at 1915, Routine 1903 (Given - Provider: Noelle Burleson RN) senna-docusate (Pericolace) 8.6-50 mg per tablet 2 tablet 2 tablet, Oral, 2 TIMES DAILY, First dose on Thu07/08/22 at 2100, Until Discontinued, Routine 2100 (Not Given - Provider: Santiago Moyer RN - Reason: Patient/family refused) 0816 (Given - Provider: Rachel Dillon RN) sodium chloride 0.9 % (flush) (BD PosiFlush Normal Saline 0.9) flush 5 mL 5 mL, Intravenous, 2 TIMES DAILY, First dose on Thu07/08/22 at 2145, Until Discontinued, Recovery (Recovery-Hospital Unit), Routine 2132 (Given - Provider: Santiago Moyer RN) 0816 (Given - Provider: Rachel Dillon RN) Continuous Medication Order 07/07/2022 07/08/2022 07/09/2022 lactated ringers infusion (CANCELED) 1,000 mL, at 100 mL/hr, Intravenous, CONTINUOUS, Starting on Thu07/08/22 at 1330, Until Thu07/08/22 at 1952, Day of Surgery (Day of Procedure) 1314 (New Bag - Provider: Julio Cesar Brennan RN)1348 (Paused - Provider: Cheri Victor CRNA - Comment: Switch to gravity)1349 (Restarted - Provider: Cheri Victor CRNA)1534 (Anesthesia Volume Adjustment - Provider: Laureano Graham MD)1600 (Anesthesia Volume Adjustment - Provider: Cheri Victor CRNA)1644 (Stopped - Provider: Cheri Victor CRNA) lactated ringers infusion (CANCELED) 1,000 mL, at 100 mL/hr, Intravenous, CONTINUOUS, Starting on Thu07/08/22 at 2145, Until Thu07/08/22 at 2158, Recovery (Recovery-Hospital Unit) 2130 (New Bag - Provider: Santiago Moyer RN)2230 (Stopped - Provider: Santiago Moyer RN) PRN Medication Order 07/07/2022 07/08/2022 07/09/2022 BUpivacaine (pf) (Marcaine) (2.5 mg/mL) 0.25% injection (CANCELED) ONCE PRN, Starting on Thu07/08/22 at 1505, Until Thu07/09/22 at 1207, Intra-Operative (Intra-Procedure), Routine 1505 (Given - Provider: Celestina Ruffin MD)1630 (Given - Provider: Celestina Ruffin MD) fentaNYL (pf) (50 mcg/mL) multi-dose injection 25 mcg (CANCELED)(Linked Group 1) 25 mcg, Intravenous, EVERY 5 MIN PRN, Starting on Thu07/08/22 at 1708, Until Thu07/08/22 at 1950, Pain, Mild to moderate pain (1-5 out of 10), Hold for respiratory rate less than 10 per minute. Maximum dose 200 mcg over one hour, including OR administration. If ordered with HYDROmorphone or morphine, give HYDROmorphone or morphine first and use fentaNYL for breakthrough pain., PACU Recovery, Routine 1712 (Given - Provider: Kina Flores RN) iohexoL (Omnipaque) (300 mg/mL) solution (CANCELED) ONCE PRN, Starting on Thu07/08/22 at 1610, Until Thu07/09/22 at 1207, Intra-Operative (Intra-Procedure), Routine 1610 (Given - Provider: Celestina Ruffin MD - Comment: Given with Cholangiogram. 20 ML of Omnipaque mixed 1:1 with 20ML normal saline, to make a total of 40ML.) lidocaine (Xylocaine) 1% (10 mg/mL) injection 3 mg 3 mg (0.3 mL), Subcutaneous, ONCE PRN, 1 dose, Starting on Thu07/08/22 at 1301, Until Thu07/09/22 at 1207, for discomfort with PIV insertion, Day of Surgery (Day of Procedure), Routine lidocaine (Xylocaine) 1% (10 mg/mL) injection 3 mg 3 mg (0.3 mL), Subcutaneous, ONCE PRN, 1 dose, Starting on Thu07/08/22 at 2059, Until Thu07/09/22 at 1207, for discomfort with PIV insertion, Recovery (Recovery-Hospital Unit), Routine naloxone (Narcan) (0.4 mg/mL) injection 0.04 mg 0.04 mg, Intravenous, EVERY 5 MIN PRN, 3 doses, Starting on Thu07/08/22 at 1708, Until Thu07/09/22 at 1207, Opioid Reversal, for respiratory rate less than 6 or unresponsive., May repeat every 5 minutes to increase respiratory rate. DO NOT exceed 0.12 mg total dose. Notify anesthesia immediately if administered., PACU Recovery, Routine naloxone (Narcan) (0.4 mg/mL) injection 0.2 mg 0.2 mg, Intravenous, EVERY 1 MIN PRN, Starting on Thu07/08/22 at 2059, Until Thu07/09/22 at 1207, Opioid Reversal, If respiratory rate less than 6 OR the patient is unable to arouse OR SpO2 is declining, Give for respiratory rate of less than or equal to 6 and patient is heavily sedated or unarousable. May repeat every 60 seconds to increase respiratory rate. DO NOT exceed 2 mg total dose., Recovery (Recovery-Hospital Unit), Routine ondansetron (pf) (Zofran) (2 mg/mL) injection 4-8 mg(Linked Group 2) 4-8 mg, Intravenous, EVERY 8 HOURS PRN, Starting on Thu07/08/22 at 1948, Until Thu07/09/22 at 1207, Nausea, Start with 4mg and if ineffective in 30 minutes, give an additional 4mg If multiple antiemetics are ordered, give ondansetron first. ondansetron (Zofran) tablet 4-8 mg(Linked Group 2) 4-8 mg, Oral, EVERY 8 HOURS PRN, Starting on Thu07/08/22 at 1948, Until Thu07/09/22 at 1207, Nausea, Vomiting, If multiple antiemetics are ordered, use ondansetron first. PO Preferred. If patient unable to take PO, may give IV if ordered. Start with 4mg and if ineffective in 45 minutes, give an additional 4mg. If unable to take PO, may give IV., Routine oxyCODONE (Roxicodone) tablet 5 mg (COMPLETED) 5 mg, Oral, ONCE PRN, 1 dose, Starting on Thu07/08/22 at 1655, Until Thu07/08/22 at 1831, Pain, Prn for pain >5/10 unrelieved by other available medications., Routine 1830 (Given - Provider: Kina Flores RN) oxyCODONE (Roxicodone) tablet 5-10 mg 5-10 mg, Oral, EVERY 4 HOURS PRN, Starting on Thu07/08/22 at 1952, Until Thu07/09/22 at 1207, Pain, 5mg for MODERATE pain (4-6), 10mg for pain 7-10, For pain not relieved by ibuprofen or acetaminophen - if ordered., Routine sodium chloride 0.9 % (flush) (BD PosiFlush Normal Saline 0.9) flush 5-20 mL 5-20 mL, Intravenous, EVERY 1 MIN PRN, Starting on Thu07/08/22 at 1301, Until Thu07/09/22 at 1207, flush, Flush pertains to all indwelling lines. Flush per protocol found in the job aid using the link provided on this medication record., Day of Surgery (Day of Procedure), Routine sodium chloride 0.9 % (flush) (BD PosiFlush Normal Saline 0.9) flush 5-20 mL 5-20 mL, Intravenous, EVERY 1 MIN PRN, Starting on Thu07/08/22 at 2059, Until Thu07/09/22 at 1207, flush, Flush pertains to all indwelling lines. Flush per protocol found in the job aid using the link provided on this medication record., Recovery (Recovery-Hospital Unit), Routine Linked Groups Order Group 1: fentaNYL (pf) (50 mcg/mL) multi-dose injection 25 mcg (CANCELED)Jump to med 25 mcg, Intravenous, EVERY 5 MIN PRN, Starting on Thu07/08/22 at 1708, Until Thu07/08/22 at 1950, Pain, Mild to moderate pain (1-5 out of 10), Hold for respiratory rate less than 10 per minute. Maximum dose 200 mcg over one hour, including OR administration. If ordered with HYDROmorphone or morphine, give HYDROmorphone or morphine first and use fentaNYL for breakthrough pain., PACU Recovery, Routine Or fentaNYL (pf) (50 mcg/mL) multi-dose injection 50 mcg (CANCELED) 50 mcg, Intravenous, EVERY 5 MIN PRN, Starting on Thu07/08/22 at 1708, Until Thu07/08/22 at 1950, Pain, Moderate to severe pain (6-10 out of 10), Hold for respiratory rate less than 10 per minute. Maximum dose 200 mcg over one hour, including OR administration. If ordered with HYDROmorphone or morphine, give HYDROmorphone or morphine first and use fentaNYL for breakthrough pain., PACU Recovery, Routine Group 2: ondansetron (Zofran) tablet 4-8 mgJump to med 4-8 mg, Oral, EVERY 8 HOURS PRN, Starting on Thu07/08/22 at 1948, Until Thu07/09/22 at 1207, Nausea, Vomiting, If multiple antiemetics are ordered, use ondansetron first. PO Preferred. If patient unable to take PO, may give IV if ordered. Start with 4mg and if ineffective in 45 minutes, give an additional 4mg. If unable to take PO, may give IV., Routine Or ondansetron (pf) (Zofran) (2 mg/mL) injection 4-8 mgJump to med 4-8 mg, Intravenous, EVERY 8 HOURS PRN, Starting on Thu07/08/22 at 1948, Until Thu07/09/22 at 1207, Nausea, Start with 4mg and if ineffective in 30 minutes, give an additional 4mg If multiple antiemetics are ordered, give ondansetron first. documented in this encounter Care Teams Clinical Trial Assistant Relationship Specialty Start Date End Date Loni Mosqueda, ASSOCIATE JUVENILE COURT JUDGE [address] [place] [id number] PCP - General Family Medicine 05/28/22 documented as of this encounter
--- OUTSIDE RECORDS SUMMARY | 2024-02-17 09:59 | XMS_ITS | Encounter Summary ---
[place] [address] Care Team Providers Care Spool Carrier Name Role Phone Shabbir Ortiz MD Primary Care Provider [phone] Reason for Visit * Auth/Cert (Routine) Specialty Diagnoses / Procedures Referred By Contac t Referred To Contact Diagnoses Diarrhea, unspecified Microscopic colitis, unspecified Diarrhea, history of microscopic colitis, please obtain non-targeted colon biopsies Procedures PRO COLONOSCOPY, DIAGNOSTIC PRO ANESTH, LWR INTESTINE, NOS COLONOSCOPY, DIAGNOSTIC Pelon Tolliver MD [facility] [place] [address] [place] Referral ID Status Reason Start Date Expiration Date Visits Re quested Visits Authorized [id number] 1 1 Encounter Details Date Type Department Care Team (Late st Contact Info) Description 02/28/2022 11:44 AM EST - 02/28/2022 3:32 PM EST Hospital En[place] [id number] Pelon Tolliver MD [facility] [place] [address] Discharge Disposition: Home Social History Tobacco Use Types Packs/Day Years Used Date Smoking Tobacco: Never Smokeless Tobacco: Never Tobacco Cessation:Counseling Given: Not Answered Comments:Denies vaping Alcohol Use Standard Drinks/Week Comments [...] place to sleep or slept in a long term (including now)? No 09/24/2021 Sex and Gender Information Value Date Recorded Sex Assigned at Not on file Gender Identity Not on file Sexual Orientation Not on file documented as of this encounter Last Filed Vital Signs Vital Sign Reading Time Taken Comments Blood Pressure 97/60 02/28/2022 2:45 PM EST Pulse 50 02/28/2022 2:24 PM EST Temperature 36.2 ??C (97.2 ??F) 02/28/2022 12:[address] Respiratory Rate 16 02/28/2022 2:24 PM EST Oxygen Saturation 95% 02/28/2022 2:50 PM EST Inhaled Oxygen Concentration - - Weight 64.4 kg (142 lb) 02/28/2022 12:13 PM EST Height 158.8 cm (5' 2.5) 02/28/2022 12:13 PM ES T Body Mass Index 25.56 02/28/2022 12:13 PM EST documented in this encounter Discharge Instructions * Discharge Instructions* Zenia Jewell RN - 02/28/2022 3:24 PM EST Colonoscopy and polyp removal What to expect after the procedure You may feel a little more gassy or bloated than usual, this is normal. You should expect the return of normal bowel function in the next 2 to 3 days. Because some polyps were removed, you may see a little blood with the next few bowel movements, this should be a small amount ( less than a few tablespoons) and will resolve on it's own. ACTIVITY Because of the sedation that you received Your judgement and reaction time are effected Go home and rest for the remainder for the day. You may resume your normal activities tomorrow Change from one position to the next slowly because you may lose your balance unexpectedly. Be careful on stairs, as you may be unsteady. FOR THE NEXT [address] OR OPERATE MACHINERY DO NOT DRINK ALCOHOLIC BEVERAGES DO NOT SIGN LEGAL DOCUMENTS If you are a smoker: DO NOT SMOKE WHILE YOU ARE ALONE Diet Start by eating small portions of foods that ordinarily will not upset your stomach, avoid gas producing foods for the next few days. Be gentle with what you choose to start with Drink plenty of fluids ( unless your doctor has told you not to). Medicines Avoid medicines that influence the way your blood clots for the next week. These would include anti-inflammatory medicine, such as ibuprofen( Advil, Motrin) and naproxen ( Aleve). If you need something for discomfort, Tylenol (Acetaminophen) is safe if used as directed. Your Doctor will tell you when to restart your prescribed blood thinners The IV site-- slight tenderness, or redness is normal, you can use warm compresses if you get concerned. If the tenderness +/or redness increases or foul drainage and a red streak occurs, please contact your PCP immediately. When should you call for help? Call 911 anytime you think you may need emergency care. For example If you pass out (loss of consciousness) If you pass maroon or bloody stools If you have severe belly pain Call your healthcare provider or seek immediate medical care if: Your stools are black or tar like Your stools have streaks of blood that is more pronounced with each BM You have belly pain, or your belly is swollen and firm You vomit You have a fever You are very dizzy Watch closely for changes in your health, and be sure to contact your doctor if you have any problems. Your Doctor will let you know when you will need your next colonoscopy. The results of your test and your risk for colorectal cancer will help your doctor decide how often you need to be checked. Thursday-Thursday Same Day Endo [phone] 7a-8p Otherwise contact [phone] and ask to speak to the heel seat fitter coach professional athletes Follow up care is a chapman part of your treatment and safety. Be sure to make and go to all appointments, and call your doctor if you are having problems. Discharge instructions reviewed with patient who expresses understanding documented in this encounter Medications at Time of Discharge Medication Sig Dispensed Refills Start Date End Date melatonin 5 mg tablet Take 10 mg [...] Tablet Take 1 tablet by mouth nightly. hydroCHLOROthiazide (Hydrodiuril) 12.5 mg Tablet Take 12.5 mg by mouth daily. 12/13/2021 06/16/2022 metFORMIN (Glucophage) 1,000 mg Tablet Take 2,000 mg by mouth 2 times daily (with meals). 06/16/2022 lisinopriL (Zestril) 30 mg Tablet Take 30 mg by mouth daily. 03/31/2022 documented as of this encounter H&P Notes * Pelon Tolliver MD - 02/28/2022 1:38 PM EST Patient Name: Luz Maria Carreno Patient Age: 66 y.o. Birthdate: 1955 Admit date: 02/28/2022 Attending Physician: Pelon Tolliver MD Gastroenterology & Hepatology Pre-Procedure History and Physical Planned Procedure: Colonoscopy: Indication: watery diarrhea, elevated stool calpro Patient Active Problem List Diagnosis Code ??? Aortic valve stenosis I35.0 ??? Chest pain R07.9 ??? Lightheadedness R42 ??? Heart palpitations R00.2 ??? Mitral valve prolapse I34.1 ??? Situational stress F43.9 Medications: Reviewed in [facility] Allergies Allergen Reactions ??? Codeine Social History/Family History: Reviewed in [facility]. No changes Exam: Patient Vitals for the past 24 hrs: Temp Pulse BP SpO2 O2 Device 02/28/22 1213 36.2 ??C (97.2 ??F) 61 103/74 98 % RA GEN: NAD, AAOX3 HEENT: NC/AT dryMM, anicteric Chest: CTAB Heart: RRR, nl s1, s2 Abdomen: normal bowel sounds, soft, non tender Assessment and Plan: Proceed with Colonoscopy: ASA Grade: ASA 2 - Patient with mild systemic disease with no functional limitations Mallampati: II (soft palate, uvula, fauces visible) Sedation plan: IV Conscious Sedation Risks and benefits of the procedure were discussed with the patient. Risks discussed including bleeding, infection, reaction to anesthesia, perforation or other intraabdominal trauma, pancreatitis (if applicable), missing a cancer (if applicable) and/or other unforseen complication. Informed Consent signed by patient (or access services representative). documented in this encounter Plan of Treatment Not on file documented as of this encounter Procedures Procedure Name Priority Date/Time Associated Diagnosis Comments SURGICAL PATHOLOGY REPORT Routine 02/28/2022 2:24 PM EST SPECIMEN TO PATHOLOGY Routine 02/28/2022 2:24 PM EST SPECIMEN TO PATHOLOGY Routine 02/28/2022 2:24 PM EST SPECIMEN TO PATHOLOGY Routine 02/28/2022 2:24 PM EST SPECIMEN TO PATHOLOGY Routine 02/28/2022 2:24 PM EST SPECIMEN TO PATHOLOGY Routine 02/28/2022 2:24 PM EST Colonoscopy, Biopsy ([id number]) 02/28/2022 1:47 PM EST Diarrhea, unspecified type Colonoscopy, Remv Lesn, Snare ([id number]) 02/28/2022 1:47 PM EST Diarrhea, unspecified type COLONOSCOPY Routine 02/28/2022 1:37 PM EST documented in this encounter Results * Surgical Pathology Report (02/28/2022 2:24 PM EST) Final Diagnosis [id number] ? Location: 4; [facility]; A The signing pathologist has (i) examined the relevant preparation(s) for the specimen(s) and (ii) rendered or confirmed the diagnosis(es). . ?Surgical Pathology DIAGNOSIS A ??- Cecal polyp, resection: - ??Tubular adenoma. B - Non target ascending colon bx r/o IBD, biopsy: - ??Lymphocytic colitis. C - Non targeted transverse colon bxs r/o IBD, biopsy: - ??Lymphocytic colitis. D - Non targeted ??descending ??colon bxs r/o IBD, biopsy: - ??Lymphocytic colitis. E - Non targeted sigmoid colon bxs r/o IBD, biopsy: - ??Lymphocytic colitis. Electronically signed by: ?Mckinley SHARIF PhD, Luz Elena Verified: ??03/07/2022 17:54 ??Pathologist Performed at: ??-[facility] Dept. of Pathology, [place] [id number] [facility] Specialist: Ledy Johnston MD, FCAP, ??CLIA Certificate: [id number] SPECIMEN(S) SUBMITTED A - cecal polyp, resection (1) B - non target ascending colon bx r/o IBD, biopsy (4) C - non targeted transverse colon bxs r/o IBD, biopsy (4) D - non targeted ??descending ??colon bxs r/o IBD, biopsy (4) E - non targeted sigmoid colon bxs r/o IBD, biopsy (4) CLINICAL INFORMATION 66 years old female. Colonoscopy. Watery diarrhea, elevated stool calpro SPECIMEN PROCESSING A - Labeled/Fixativ e: Cecal polyp, formalin. Quantity/Size: Single, 0.1 cm. Tissue Description: Soft, quezada-pink tissue. Sections/Proces sing: Submitted en toto ??in 1 cassette labeled A1. B - Labeled/Fixativ e: Nontargeted ascending colon biopsy, formalin. Quantity/Size: Fragments, 0.2-0.3 cm. Tissue Description: Soft, quezada-pink tissues. Sections/Proces sing: Submitted en toto ??in 1 cassette labeled B1. C - Labeled/Fixativ e: Nontargeted transverse colon, formalin. Quantity/Size: Four, averaging 0.2-0.3 cm. Tissue Description: Soft, quezada-pink tissues. Sections/Proces sing: Submitted en toto ??in 1 cassette labeled C1. . SPECIMEN PROCESSING D - Labeled/Fixativ e: Nontargeted descending colon, formalin. Quantity/Size: Fragments, 0.2-0.4 cm. Tissue Description: Soft, quezada-pink tissues. Sections/Proces sing: Submitted en toto ??in 1 cassette labeled D1. E - Labeled/Fixativ e: Nontargeted sigmoid colon biopsy, formalin. Quantity/Size: Fragments, 0.1-0.3 cm. Tissue Description: Soft, quezada-pink tissues. Sections/Proces sing: Submitted en toto ??in 1 cassette labeled E1. ??pps 03/07/2022 5:54 PM EST [facility] GI Biopsy 02/28/2022 2:24 PM EST 02/28/2022 2:24 PM EST GI Biopsy 02/28/2022 2:24 PM EST 02/28/2022 2:24 PM EST GI Biopsy 02/28/2022 2:24 PM EST 02/28/2022 2:24 PM EST GI Biopsy 02/28/2022 2:24 PM EST 02/28/2022 2:24 PM EST GI Biopsy 02/28/2022 2:24 PM EST 02/28/2022 2:24 PM EST Pelon Tolliver MD PATHOLOGY/[place] [address] [facility] [place] [address] * Specimen to Pathology (02/28/2022 2:24 PM EST) AP Specimen 02/28/2022 2:24 PM EST 02/28/2022 2:24 PM EST Narrative [facility] - 02/28/2022 2:24 PM EST Specimen requisition ordered. ??Separate Pathology report to follow Pelon Tolliver MD PATHOLOGY/CYTOLOG Y ORDERABLES Performing Organization Address City/[facility]/ZIP Co de Phone Number [facility] [place] [address] * Specimen to Pathology (02/28/2022 2:24 PM EST) AP Specimen 02/28/2022 2:24 PM EST 02/28/2022 2:24 PM EST Narrative [facility] - 02/28/2022 2:24 PM EST Specimen requisition ordered. ??Separate Pathology report to follow Pelon Tolliver MD PATHOLOGY/CYTOLOG Y ORDERABLES Performing Organization Address City/[facility]/ZIP Co de Phone Number [facility] [place] [address] * Specimen to Pathology (02/28/2022 2:24 PM EST) AP Specimen 02/28/2022 2:24 PM EST 02/28/2022 2:24 PM EST Narrative [facility] - 02/28/2022 2:24 PM EST Specimen requisition ordered. ??Separate Pathology report to follow Pelon Tolliver MD PATHOLOGY/CYTOLOG Y ORDERABLES Performing Organization Address City/[facility]/ZIP Co de Phone Number [facility] [place] [address] * Specimen to Pathology (02/28/2022 2:24 PM EST) AP Specimen 02/28/2022 2:24 PM EST 02/28/2022 2:24 PM EST Narrative [facility] - 02/28/2022 2:24 PM EST Specimen requisition ordered. ??Separate Pathology report to follow Pelon Tolliver MD PATHOLOGY/CYTOLOG Y ORDERABLES Performing Organization Address [facility] [place] [address] * Specimen to Pathology (02/28/2022 2:24 PM EST) AP Specimen 02/28/2022 2:24 PM EST 02/28/2022 2:24 PM EST Narrative [facility] - 02/28/2022 2:24 PM EST Specimen requisition ordered. ??Separate Pathology report to follow Pelon Tolliver MD PATHOLOGY/CYTOLOG Y ORDERABLES Performing Organization Address [facility] [place] [address] * COLONOSCOPY (02/28/2022 1:37 PM EST) COLONOSCOPY [facility] Endoscopy Procedure Date: 02/28/2022 1:37 PM ? Patient Name: Luz Maria Carreno ? N: [id number] ? Date of : 1955 ? Age: 66 ? Order #: [id number] ? Instrument Name: [id number] ? Procedure: ? Colonoscopy Indications: ? Chronic diarrhea, Suspected ? microscopic colitis, Follow-up of ? microscopic colitis Providers: ? Pelon Tolliver MD, Fabian Alvares ? Renu Keller Referring : ?Loni Mosqueda Requesting Provider: ?? Elsa Marr Brittney Medicines: ? Midazolam 3.5 mg IV, [...] PROVATION 02/28/2022 1:37 PM EST Loni Mosqueda PROPELLER ENGINEER GENERAL SURGICAL O RDERABLES PROVATION documented in this encounter Visit Diagnoses Not on filedocumented in this encounter Administered Medications Inactive Administered Medications - up to 3 most recent administrations Medication Order MAR Action Action Date Dose Rate Site lactated ringers infusion 100 mL/hr, Intravenous, CONTINUOUS, Starting on Thu02/28/22 at 1230, Until Thu02/28/22 at 1732, Endoscopy (Day of Procedure) New Bag 02/28/2022 12:30 PM EST 100 mL/hr 100 mL/hr documented in this encounter Active and Recently Administered Medications Times are shown in EST. Scheduled Medication Order 02/26/2022 02/27/2022 02/28/2022 ondansetron (pf) (Zofran) (2 mg/mL) injection 4 mg (COMPLETED) 4 mg, Intravenous, ONCE, 1 dose, On Thu02/28/22 at 1445, Endoscopy (Intra-Procedure) 1408 (Given - Provid er: Fabian Keller RN)1445 (Due) Continuous Medication Order 02/26/2022 02/27/2022 02/28/2022 lactated ringers infusion 100 mL/hr, Intravenous, CONTINUOUS, Starting on Thu02/28/22 at 1230, Until Thu02/28/22 at 1732, Endoscopy (Day of Procedure) 1230 (New Bag - Prov ider: Melva Alvarez, SONIA) PRN Medication Order 02/26/2022 02/27/2022 02/28/2022 fentaNYL (pf) (50 mcg/mL) multi-dose injection (CANCELED) ONCE PRN, Starting on Thu02/28/22 at 1350, Until Thu02/28/22 at 1732, Intra-Operative (Intra-Procedure), Routine 1350 (Given - Provid er: Fabian Keller RN)1353 (Given - Provider: Fabian Keller RN)1401 (Given - Provider: Fabian Keller RN) midazolam (pf) (Versed) (1 mg/mL) multi-dose injection (CANCELED) ONCE PRN, Starting on Thu02/28/22 at 1350, Until Thu02/28/22 at 1732, Intra-Operative (Intra-Procedure), Routine 1350 (Given - Provid er: Fabian Keller RN)1353 (Given - Provider: Fabian Keller RN)1400 (Given - Provider: Fabian Keller RN)1405 (Given - Provider: Fabian Keller RN) documented in this encounter Care Teams Spool Carrier Relationship Specialty Start Date End Date Shabbir Ortiz MD [address] [place] [id number] PCP - General 01/22/10 05/27/22 documented as of this encounter
--- OUTSIDE RECORDS SUMMARY | 2024-02-17 09:59 | XMS_ITS | Encounter Summary ---
Author Organization [facility] Address [facility] [place] [address] Care Team Providers Care Fruit Buying Grader Name Role Phone Loni Mosqueda APRN Primary Care Provider [phone] Encounter Details Date Type Department Care Team (Latest Contact Info) Description 09/29/2022 Travel Social History Tobacco Use Types Packs/Day [...] in a detention (including now)? No 09/24/2021 DH IPV Inpatient [...] on filedocumented in this encounter Care Teams Fruit Buying Grader Relationship Specialty Start Date End Date Loni Mosqueda APRN [address] [place] [id number] PCP - General Family Medicine 05/28/22 documented as of this encounter
--- OUTSIDE RECORDS SUMMARY | 2024-02-17 09:59 | XMS_ITS | Encounter Summary ---
Author Organization [facility] [place] [address] Care Team Providers Care Surveyor Helper Name Role Phone Loni Mosqueda APRN Primary Care Provider [phone] Reason for Referral * Consultation (Urgent) - Closed Specialty Diagnoses / Procedures Referred By Katherine lópez Referred To Contact General Surgery Diagnoses Biliary colic Elsa Lugo MD [facility] DR [place] [address] [facility] [address] [place] [address] Referral ID Status Reason Start Date Expiration Date V isits Requested Visits Authorized [id number] Closed Consult, Test & Treat 06/13/2022 06/13/2023 1 1 Encounter Details Date Type Department Care Team (Late st Contact Info) Description 06/13/2022 Orders Only [place] [address] Elsa Lugo MD [facility] [place] [address] Biliary colic Social History Tobacco Use Types Packs/Day Years Used Date Smoking Tobacco: Never Smokeless Tobacco: Never Comments:Denies vaping Alcohol [...] in a longterm (including now)? No 09/24/2021 Sex and Gender Information Value Date Recorded Sex Assigned at Not on file Gender Identity Not on file Sexual Orientation Not on file documented as of this encounter Plan of Treatment Scheduled Referrals Name Type Priority Associated Diagnoses Orde r Schedule Referral to General Surgery Outpatient Referral Urgent Biliary colic Ordered: 06/13/2022 documented as of this encounter Visit Diagnoses Diagnosis Biliary colic Calculus of gallbladder without mention of cholecystitis or obstruction documented in this encounter Care Teams Surveyor Helper Relationship Specialty Start Date End Date Loni Mosqueda APRN [address] [place] [id number] PCP - General Family Medicine 05/28/22 documented as of this encounter
--- OUTSIDE RECORDS SUMMARY | 2024-02-17 09:59 | XMS_ITS | Encounter Summary ---
Author Organization [facility] [address] Care Team Providers Care Testing Manager Name Role Phone Loni Mosqueda APRN Primary Care Provider [phone] Reason for Visit * Reason Comments Establish Care * Consultation (Urgent) - Closed Specialty Diagnoses / Procedures Referred By Katherine lópez Referred To Contact General Surgery Diagnoses Biliary colic Elsa Lugo MD [facility] [place] [address] [facility] Gen Surgery [address] [place] [id number] Referral ID Status Reason Start Date Expiration Date V isits Requested Visits Authorized [id number] Closed Consult, Test & Treat 06/13/2022 06/13/2023 1 1 Encounter Details Date Type Department Care Team (Latest Contact Info) Description 06/16/2022 11:00 AM EDT Office [place] [address] Celestina Ruffin MD [facility] [place] [address] Symptomatic cholelithiasis Social History Tobacco Use Types Packs/Day Years [...] a care home (including now)? No 09/24/2021 Sex and Gender Information Value Date Recorded Sex Assigned at Not on file Gender Identity Not on file Sexual Orientation Not on file documented as of this encounter Last Filed Vital Signs Vital Sign Reading Time Taken Comments Blood Pressure 177/81 06/16/2022 10:51 AM EDT Pulse 56 06/16/2022 10:51 AM EDT Temperature 36.4 ??C (97.6 ??F) 06/16/2022 10:44 AM E DT Respiratory Rate 16 06/16/2022 10:44 AM EDT Oxygen Saturation 100% 06/16/2022 10:44 AM EDT Inhaled Oxygen Concentration - - Weight 71.2 kg (157 lb) 06/16/2022 10:44 AM EDT Height 161.9 cm (5' 3.75) 06/16/2022 10:44 AM E DT Body Mass Index 27.16 06/16/2022 10:44 AM EDT documented in this encounter Progress Notes * Celestina Ruffin MD - 06/16/2022 11:00 AM EDT Images from the original note were not included. [facility] General Surgery History and Physical History of Present Illness: Luz Maria Carreno is a 66 y.o. female referred by Dr. Elsa Lugo for RUQ pain and an abnormal HIDA scan. She reports that she had an episode of lymphocytic colitis in December 2021 for which she was put on budesonide. Then contracted COVID and was given Paxlovid. She says after this her blood sugars and blood pressure went up quite a bit. In the beginning of May, she was sitting one morningafter eating an orange and an apple and developed severe RUQ pain. The pain radiated to her back. It lasted about 4 hours. She has never had an episode since and has not had anything like this previously. She says she recently had a heart monitor and was told she had three events. She got a letter from her [employer] but doesn't remember what it said. Past Medical History: Patient Active Problem List Diagnosis Code ??? Aortic valve stenosis I35.0 ??? Chest pain R07.9 ??? Lightheadedness R42 ??? Heart palpitations R00.2 ??? Mitral valve prolapse I34.1 ??? Situational stress F43.9 ??? Hypertension I10 ??? Diabetes mellitus E11.9 She was told she needed a valve replacement in her 80s Past Surgical History: Past Surgical History: Procedure Laterality Date ??? ECTOPIC SURGERY ??? PRO COLONOSCOPY, BIOPSY N/A 02/28/2022 COLONOSCOPY FLEXIBLE, WITH BX (WRVU 3.66) performed by Pelon Tolliver MD at [facility] ENDOSCOPY ??? PRO COLONOSCOPY, REMV LESN, SNARE N/A 02/28/2022 COLONOSCOPY, POLYPECTOMY, REMOVAL LESION BY SNARE (WRVU 4.67) performed by Pelon Tolliver MDat [facility] ENDOSCOPY ??? STRABISMUS SURGERY Bilateral pfannenstiel for a ruptured tubal Medications: Current Outpatient Medications on File Prior to Visit Medication Sig Dispense Refill ??? pantoprazole EC (Protonix) [address] tablet Take 40 mg by mouth daily. ??? losartan (Cozaar) 50 mg Tablet Take 100 mg by mouth daily. ??? glipiZIDE XL (Glucotrol XL) 5 mg Tablet Extended Rel 24 hr Take 5 mg by mouth 2 times daily. 10mg AM, 5mg PM ??? simvastatin (Zocor) 20 mg Tablet Take 20 mg by mouth nightly. ? ? budesonide EC (Entocort EC) 3 mg Capsule, Delayed & Ext.Release Take 3 capsules by mouth every morning. 90 capsule 2 ??? melatonin 5 mg Tablet Take 10 mg by mouth. ??? Mesalamine (CANASA) 1,000 mg Suppository ??? Ibuprofen-diphenhydrAMINE (Advil PM) 200-38 mg Tablet Take 1 tablet by mouth nightly. No current facility-administered medications on file prior to visit. Allergies: Codeine Family History: Family History Problem Relation Age of Onset ??? Hypertension Mother ??? Hypertension Father ??? Heart Failure Father ??? Myocardial Infarction Father ??? Lung Cancer Sister No history of bleeding disorders, clotting disorders, or complications from anesthesia. Social History: reports that she has never smoked. She has never used smokeless tobacco. She reports current alcohol use. She reports that she does not use drugs. Review of Systems: A 10 point review of systems was performed. Pertinent positives and negatives are listed in the above HPI. All other systems are negative. Physical Exam: Vital Signs: BP 177/81 Pulse 56 Temp 36.4 ??C (97.6 ??F) Resp 16 Ht 161.9 cm (5' 3.75) Wt 71.2 kg (157 lb) SpO2 100% BMI 27.16 kg/m?? General appearance: Alert and oriented, appears stated age, well groomed HEENT: No scleral icterus, normocephalic, atraumatic Neck: Trachea midline Skin: No jaundice Heart: Regular rate and rhythm, heart murmur present Lungs: Symmetric chest rise, no distress, clear breath sounds bilaterally Abdomen: Non distended, soft, non tender to palpation Extremities: Moves all four extremities, no gross deformity. Studies: HIDA scan 06/03/22- No filling of the gallbladder after [address] scan shows a large gallbladder with a dilated CBD up to 13mm US showed GB wall thickening and edema. CBD measured 8mm on US MRCP showed a contracted gallbladder, and CBD measuring 10mm. No filling defects. Assessment and Recommendation: A 66 y.o.-old female with a history of acute cholecystitis and a positive HIDA scan. She has not had any symptoms since this time but I think she would benefit from gallbladder removal given the lackof filling on her HIDA scan. Given her CBD dilation, I think she would benefit from a cholangiogram. The patient was educated on the natural history of gallbladder disease and was recommended to consider laparoscopic cholecystectomy with cholangiogram. Luz Maria Carreno was educated on the indications, risks, and benefits of surgery. she understands these risks include but are not limited to general risks such as DE, stroke, PE, DVT and even , and risks directly related to surgery such as infection, bleeding, possibility of surrounding organ injury, bile leak or bile duct injury which would require lengthy hospitalization and multiple reconstructive procedures. Luz Maria Carreno understands the basics of laparoscopic cholecystectomy as well as the possible need for conversion to an open procedure. Will plan to proceed with laparoscopic cholecystectomy with cholangiogram next available. Her BP was elevated today in clinic. She has an appointment with her PCP this week and will discuss this. I did explain that if it is poorly controlled on the day of surgery, there is a risk of her case being cancelled. She expressed understanding. Thank you for the referral and for allowing me to participate in the care of Luz Maria Imani Carreno. Celestina Ruffin MD General Surgery Minimally Invasive Surgery [phone] documented in this encounter Plan of Treatment Not on file documented as of this encounter Visit Diagnoses Diagnosis Symptomatic cholelithiasis Calculus of gallbladder without mention of cholecystitis or obstruction documented in this encounter Care Teams Testing Manager Relationship Specialty Start Date End Date Loni Mosqueda APRN [address] [place] [id number] PCP - General Family Medicine 05/28/22 documented as of this encounter
--- OUTSIDE RECORDS SUMMARY | 2024-02-17 09:59 | XMS_ITS | Encounter Summary ---
Author Organization [facility] Address [facility] [place] [address] Care Team Providers Care Finishing Machine Tender Name Role Phone Loni Mosqueda APRN Primary Care Provider [phone]- [phone] Encounter Details Date Type Department Care Team (Latest Contact Info) Description 08/04/2022 12:50 PM EDT TH Visit (TeleHealth) [place] [id number] Celestina Ruffin MD [facility] [place] [address] Hx of cholecystectomy Social History Tobacco Use Types Packs/Day Years [...] as of this encounter Progress Notes * Celestina Ruffin MD - 08/04/2022 12:50 PM EDT [facility] General Surgery Telehealth Postoperative Follow up Procedure: Laparoscopic cholecystectomy on 07/08/22 Pathology: Gallbladder, excision: Acute and chronic cholecystitis. Subjective: She says her recovery went well. Her incisions are healing well. One incision still hasa scab on it. She is pretty much eating without a problem. She had some night sweats for 3 days butthat went away. She feels that she is back to her normal for bowel movements. Assessment/Plan: Overall recovering well. Discussed no lifting restrictions moving forward. She should call with questions or concerns but may follow up as needed in the future. Celestina Ruffin MD General Surgery Minimally Invasive Surgery [phone] documented in this encounter Plan of Treatment Not on file documented as of this encounter Visit Diagnoses Diagnosis Hx of cholecystectomy Other acquired absence of organ documented in this encounter Care Teams Finishing Machine Tender Relationship Specialty Start Date End Date Loni Mosqueda APRN [address] [place] [phone] PCP - General Family Medicine 05/28/22 documented as of this encounter
--- OUTSIDE RECORDS SUMMARY | 2024-02-17 09:59 | XMS_ITS | Encounter Summary ---
Author Organization [facility] [place] [address] Care Team Providers Care Lime Trimmer Name Role Phone Shabbir Ortiz MD Primary Care Provider [phone] Encounter Details Date Type Department Care Team (Late st Contact Info) Description 03/31/2022 Abstract [place] [phone] Valentine Love, RN Social History Tobacco Use Types Packs/Day [...] a senior living (including now)? No 09/24/2021 Sex and Gender Information Value Date Recorded Sex Assigned at Not on file Gender Identity Not on file Sexual Orientation Not on file documented as of this encounter Plan of Treatment Not on file documented as of this encounter Visit Diagnoses Not on filedocumented in this encounter Care Teams Lime Trimmer Relationship Specialty Start Date End Date Shabbir Ortiz MD [address] [place] [phone] PCP - General 01/22/10 05/27/22 documented as of this encounter
--- OUTSIDE RECORDS SUMMARY | 2024-02-17 09:59 | XMS_ITS | Encounter Summary ---
Author Organization [facility] Address [facility] [place] [address] Care Team Providers Care Television Antenna Installer Name Role Phone Jaylin Loni Jean APRN Primary Care Provider [phone] Encounter Details Date Type Department Care Team (Late st Contact Info) Description 07/14/2022 Telephone [place] [address] Filomena Ruiz RN Social History Tobacco Use Types Packs/Day [...] encounter Miscellaneous Notes * Telephone Encounter - Filomena Ruiz RN - 07/14/2022 9:50 AM EDT Nursing Triage - Phone Note CALLER: Pt CHIEF COMPLAINT: Night Sweats SUBJECTIVE- I've had a low grade fever and night sweats PERTINENT PAST SURGICAL HISTORY: 07/08/22: Leah garrison NURSING ASSESSMENT: Pt reports 3 day h/o fever to 100.8, currently afebrile. Has had night sweats for the past 3 nights, soaking her clothing and waking her up multiple times. She otherwise feels well - does not feel sick, denies redness at her incisions, has no other signs of illness like urinary symptoms or cough. Has been in contact with PCP who recommended continued monitoring. Took a COVID test today - was negative, will retest tomorrow. Did have COVID in April and had the same night sweats then. Pain is well-controlled, not taking any pain medication (takes Advil PM but more for sleep than pain). INTERVENTION/PLAN/ FOLLOW UP: Pt to continue to monitor from home. She will call with any new symptoms, including fever of 101 orhigher, redness spreading from her incisions, or new/worse pain. She agrees. Will send Dr. Ruffin this note. documented in this encounter Plan of Treatment Not on file documented as of this encounter Visit Diagnoses Not on filedocumented in this encounter Care Teams Television Antenna Installer Relationship Specialty Start Date End Date Loni Mosqueda, MATT [address] [place] [id number] PCP - General Family Medicine 05/28/22 documented as of this encounter
--- OUTSIDE RECORDS SUMMARY | 2024-02-17 09:59 | XMS_ITS | Encounter Summary ---
[place] [address] Care Team Providers Care Gullet Slitter Name Role Phone Loni Mosqueda APRN Primary Care Provider [phone] Reason for Visit * Auth/Cert (Routine) Specialty Diagnoses / Procedures Referred By Contac t Referred To Contact Diagnoses Chronic cholecystitis Chronic cholecystitis Procedures PRO LAP, CHOLECYSTECTOMY/GRAPH LAPAROSCOPIC CHOLECYSTECTOMY WITH CHOLANGIOGRAM (WRVU 11.47) Celestina Ruffin MD [facility] [place] [address] [facility] Referral ID Status Reason Start Date Expiration Date Visits Re quested Visits Authorized [id number] 1 1 Encounter Details Date Type Department Care Team (Late st Contact Info) Description 07/08/2022 1:49 PM EDT Anesthesia [place] [address] Trini Peterson MD [facility] [place] [address] Laureano Graham MD [facility] [place] [address] [phone] (work) Anesthesia Record Procedure Summary Procedure Name Responsible Anesthesiologist Anesthesia Start Time Anesthesia Stop Time LAPAROSCOPIC CHOLECYSTECTOMY WITH CHOLANGIOGRAM (WRVU 11.47) (Abdomen) Trini Peterson MD 07/08/22 1349 07/08/22 1652 Events Date Time Event Comment 07/08/2022 1344 1349 AN Verify 1349 Start 1349 An Start Data 1400 An Induction 1404 An Intubation 1411 Anesthesia Ready 1505 Break/Relief In I assumed ca re for Break Relief before which we: 1. Identified the patient 2. Identified the responsible provider(s) 3. Reviewed the pertinent medical history 4. Discussed the surgical plan and course 5. Reviewed intra-op anesthesia management and issues during anesthesia 6. Set expectations for the relief (and/or post-procedure) period 7. Allowed opportunity for questions and acknowledgement of understanding Esa Kraft CRNA 1529 Break/Relief Out 1534 Handoff Intra-procedure anesthesia care was transferred after review of the patient's history, current anesthetic/surgical status and procedural plan, anticipated issues and expected post-operative course (including disposition.) Cheri Victor CRNA 1637 Procedure Stop 1639 Extubation/LMA Out 1641 an stop data 1652 Recovery or ICU Handoff Radha ent care was transferred to the destination unit staff after review of the patient's medical history, current anesthetic/surgical status and plan, according to the Provider Handoff Checklist. 1652 Stop Meds Name Total fentaNYL 100 mcg IV Lidocaine 50 mg Propofol 200 mg Rocuronium 70 mg PHENYLephrine 320 mcg Ondansetron 8 mg ceFAZolin (Ancef) 2 g vial a ttach to sodium chloride 0.9% 100 mL Mini-Bag Plus 2 g PHENYLephrine INF 2,810 mcg Propofol INF 224.28 mg Sugammadex 200 mg lactated ringers infusion 500 mL * Agents Name O2 Air N2O Sevoflurane (et) O2 Auxiliary Flowmeter 2 * Blood No blood administrations on file. Lines, Drains, and Airways Type Details Placement Removal Incision 07/08/22; 1429; Bilateral; abdomen; laparoscopic punctures (specify) 07/08/22 1429 by Tejinder Lester, RN (RETIRED) Peripheral IV Line - Single Lumen 07/08/22; 1309; median cubital vein (antecubital fossa), right; [id number] catheter system; Anatomical Landmarks; 20 gauge; Bel SCOTT; no longer indicated, removed per policy/procedure, site care per policy/procedure, catheter/device intact; 07/09/22; 93707/08/22 1309 by Miryam Brennan RN 07/09/22 09 by Ye Rivera ETT Mask Ventilation: Ea sy (1); ETT Type: Cuffed, Oral; ETT Size: 7.5 mm; Cruz Blade: 2; Notes: Asleep, Pre-O2; Attempts: 1; Laryngoscopy Grade: 1; ETT Placement Verified By: Auscultation, Capnometry; Secured at Teeth: 22 cm; Inserted by: MD Santos; Removal Date: 07/08/22; Removal Time: 16307/08/22 1409 by Laureano Graham MD 07/08/22 163 by Cheri Victor CRNA documented in this encounter Social History Tobacco Use Types Packs/Day Years [...] on file documented as of this encounter OR Notes * Anesthesia Postprocedure Evaluation - Trini Peterson MD - 07/08/2022 5:52 PM EDT Department of Anesthesiology Post-procedure Note Patient: Luz Maria Carreno Procedure Summary Date: 07/08/22 Room / Location: [facility] OR [address] [place] [address] MAIN OR Anesthesia Start: 1349 Anesthesia Stop: 1651 Procedure: LAPAROSCOPIC CHOLECYSTECTOMY WITH CHOLANGIOGRAM (WRVU 11.47) (Abdomen) Diagnosis: Symptomatic cholelithiasis (Chronic cholecystitis) Surgeons: Celestina Ruffin MD Responsible Provider: Trini Peterson MD Anesthesia Type: general ASA Status: 3 All Anesthesia Providers: Anesthesiologist: Trini Peterson MD; Laureano Graham MD TEMPERATURE REGULATOR PYROMETER: Cheri Victor CRNA Vitals Value Taken Time BP 178/87 07/08/22 1746 Temp 36.4 ??C (97.5 ??F) 07/08/22 1650 Pulse Resp 16 07/08/22 1715 SpO2 94 % 07/08/22 1752 Pain Level 8 07/08/22 1730 Vitals shown include unvalidated device data. Patient Location: PACU/[facility] Level of Consciousness: Conscious but Sleepy Pain Management: Satisfactory Analgesia PONV: None Cardiovascular Status: At Baseline and Hemodynamically Stable Respiratory Status: Supplemental O2 (NC or FM) Postoperative Fluid Status: Intravascular EUvolemia Possible Anesthetic Complications: NONE apparent at time of evaluation Final Primary Anesthesia Type: General (The anesthetic type performed was the same as planned.) Comments: Trini Peterson MD * Anesthesia Preprocedure Evaluation - Laureano Graham MD - 07/08/2022 12:25 PM EDT Images from the original note were not included. Pre-Anesthesia Evaluation for: Luz Maria Carreno a 66 y.o. female. Procedure(s): LAPAROSCOPIC CHOLECYSTECTOMY WITH CHOLANGIOGRAM (WRVU 11.47) Patient Active Problem List Diagnosis Date Noted ??? Aortic valve stenosis 09/12/2021 ??? Chest pain 09/12/2021 ??? Hypertension 06/17/2022 ??? Diabetes mellitus 06/17/2022 ??? Situational stress 09/24/2021 ??? Lightheadedness 09/17/2021 ??? Heart palpitations 09/17/2021 ??? Mitral valve prolapse 09/17/2021 Past Medical History: Diagnosis Date ??? Aortic valve stenosis 09/12/2021 ??? Chest pain 09/12/2021 ??? Diabetes mellitus ??? Heart murmur ??? Heart palpitations 09/17/2021 ??? Hyperlipidemia ??? Hypertension ??? Lightheadedness 09/17/2021 ??? Migraine ??? Mitral valve prolapse 09/17/2021 ??? Overweight ??? Palpitations Past Surgical History: Procedure Laterality Date ??? ECTOPIC SURGERY ??? PRO COLONOSCOPY, BIOPSY N/A 02/28/2022 COLONOSCOPY FLEXIBLE, WITH BX (WRVU 3.66) performed by Pelon Tolliver MD at [facility] ENDOSCOPY ??? PRO COLONOSCOPY, REMV LESN, SNARE N/A 02/28/2022 COLONOSCOPY, POLYPECTOMY, REMOVAL LESION BY SNARE (WRVU 4.67) performed by Pelon Tolliver MDat [facility] ENDOSCOPY ??? STRABISMUS SURGERY Bilateral Social History Tobacco Use ??? Smoking status: Never ??? Smokeless tobacco: Never ??? Tobacco comments: Denies vaping Substance Use Topics ??? Alcohol use: Yes Comment: 1 drink a month Social History Substance and Sexual Activity Drug Use Never Allergies Allergen Reactions ??? Codeine Medications: MAR and/or home medications have been reviewed. Physical Exam: Preprocedure Vitals Current as of 07/08/22 1225 No BP, pulse, respiration, SpO2, or temperature recorded. Height: 161.9 cm (5' 3.75) (06/16/22) Weight: 71.2 kg (157 lb) (06/16/22) BMI: 27.16 IBW: 54.1 kg (119 lb 4.4 oz) Airway Assessment: Mallampati: II TM distance: >3 FB Neck ROM: full Cardiovascular Assessment: system normal Pulmonary Assessment: unlabored breathing Dental Assessment: - normal exam Misc Assessment: Last Filed Perioperative Cognitive Screening None Anesthesia Plan: ASA 3 general, with a(n) intravenous induction 66yo 71kg (BMI 27) F s/f lap cholecystectomy PMH significant for mild , DM, MVP, HTN. Seen by cardiology who recommended stress echo to eval and chest pain but patient unable to get due to insurance. No prior anesthetic records available for review. Plan: GETA, PIV access, standard ASA monitors, +/- arterial line Region - Other Informed Consent: Anesthetic plan and risks discussed with patient. Plan discussed with attending. Anesthesia Screening documented in this encounter Plan of Treatment Not on file documented as of this encounter Visit Diagnoses Not on filedocumented in this encounter Administered Medications Inactive Administered Medications - up to 3 most recent administrations Medication Order MAR Action Action Date Dose Rate Site ceFAZolin (Ancef) 2 g vial attach to sodium chloride 0.9% 100 mL Mini-Bag Plus 2 g, Intravenous, EVERY 4 HOURS, 1 dose, First dose on Thu07/08/22 at 1330, Administer over 30 Minutes, Intra-Operative (Intra-Procedure), Indication for (Active or Suspected): Prophylaxis New Bag 07/08/2022 2:20 PM EDT 2 g fentaNYL (pf) (50 mcg/mL) multi-dose injection Intravenous, PRN, Starting on Thu07/08/22 at 1400, Until Thu07/08/22 at 1652, Anesthesia Intra-op, Routine Given 07/08/2022 4:00 PM EDT 25 mcg Given 07/08/2022 3:43 PM EDT 25 mcg Given 07/08/2022 2:21 PM EDT 25 mcg lactated ringers infusion 1,000 mL, at 100 mL/hr, Intravenous, CONTINUOUS, Starting on Thu07/08/22 at 1330, Until Thu07/08/22 at 1952, Day of Surgery (Day of Procedure) Restarted 07/08/2022 1:49 PM EDT New Bag 07/08/2022 1:14 PM EDT 1,000 mLs 100 mL/hr lidocaine (pf) (Xylocaine) (20 mg/mL) 2% injection syringe Intravenous, PRN, Starting on Thu07/08/22 at 1402, Until Thu07/08/22 at 1652, Anesthesia Intra-op, Routine Given 07/08/2022 2:02 PM EDT 50 mg ondansetron (pf) (Zofran) (2 mg/mL) injection Intravenous, PRN, Starting on Thu07/08/22 at 1627, Until Thu07/08/22 at 1652, Anesthesia Intra-op, Routine Given 07/08/2022 4:27 PM EDT 8 mg PHENYLephrine (Rizwan-Synephrine) (80 mcg/mL) in sodium chloride 0.9% 250 mL infusion Intravenous, CONTINUOUS PRN, Starting on Thu07/08/22 at 1418, Until Thu07/08/22 at 1652, Anesthesia Intra-op, Routine Rate/Dose Change 07/08/2022 4:24 PM EDT 15 mcg/min 11.25 mL/hr Rate/Dose Change 07/08/2022 4:09 PM EDT 20 mcg/min 15 mL/h r Rate/Dose Change 07/08/2022 3:43 PM EDT 15 mcg/min 11.25 m L/hr PHENYLephrine in NS (PF) (RIZWAN-SYNEPHRINE) 0.8 mg/10 mL (80 mcg/mL) multi-dose injection Syringe Intravenous, PRN, Starting on Thu07/08/22 at 1401, Until Thu07/08/22 at 1652, Anesthesia Intra-op, Routine Given 07/08/2022 2:27 PM EDT 160 mcg Given 07/08/2022 2:04 PM EDT 80 mcg Given 07/08/2022 2:01 PM EDT 80 mcg propofoL (Diprivan) (10 mg/mL) infusion Intravenous, CONTINUOUS PRN, Starting on Thu07/08/22 at 1442, Until Thu07/08/22 at 1652, Anesthesia Intra-op, Routine New Bag 07/08/2022 2:42 PM EDT 30 mcg/kg/min 12.816 mL/hr propofoL (Diprivan) 10 mg/mL bolus injection (Anesthesia) Intravenous, PRN, Starting on Thu07/08/22 at 1402, Until Thu07/08/22 at 1652, Anesthesia Intra-op Given 07/08/2022 2:19 PM EDT 50 mg Given 07/08/2022 2:03 PM EDT 50 mg Given 07/08/2022 2:02 PM EDT 100 mg rocuronium (Zemuron) (10 mg/mL) multi-dose injection Intravenous, PRN, Starting on Thu07/08/22 at 1402, Until Thu07/08/22 at 1652, Anesthesia Intra-op, Routine Given 07/08/2022 3:43 PM EDT 10 mg Given 07/08/2022 3:07 PM EDT 10 mg Given 07/08/2022 2:02 PM EDT 50 mg sugammadex (Bridion) 100 mg/mL injection Intravenous, PRN, Starting on Thu07/08/22 at 1634, Until Thu07/08/22 at 1652, Anesthesia Intra-op, Routine Given 07/08/2022 4:34 PM EDT 200 mg documented in this encounter Care Teams Gullet Slitter Relationship Specialty Start Date End Date Loni Mosqueda, [employer]ITOR FINAL [address] [place] [address] PCP - General Family Medicine 05/28/22 documented as of this encounter
--- OUTSIDE RECORDS SUMMARY | 2024-02-17 09:59 | XMS_ITS | Encounter Summary ---
Author Organization [facility] [place] [address] Care Team Providers Care Tail Trimmer Name Role Phone Loni Mosqueda APRN Primary Care Provider [phone] Reason for Referral * Audiology Exam (Routine) - Closed Specialty Diagnoses / Procedures Referred By Contflorentin t Referred To Contact Audiology Diagnoses Vertigo Bogdan Benjamin [facility] [place] [address] [facility] Audiology [address] [place] [phone] Referral ID Status Reason Start Date Expiration Date V isits Requested Visits Authorized [id number] Closed Specialty Service Requested 09/29/2022 09/29/2023 1 1 * Consultation (Routine) - Closed Specialty Diagnoses / Procedures Referred By Contflorentin t Referred To Contact Neurosurgery Diagnoses Vertigo Bogdan Benjamin, [facility] [place] [address] [facility] Neurosurgery [address] [place] [phone] Referral ID Status Reason Start Date Expiration Date V isits Requested Visits Authorized [id number] Closed Consult, Test & Treat 09/29/2022 09/29/2023 1 1 Reason for Visit * Consultation (Routine) - Closed Specialty Diagnoses / Procedures Referred By Contac t Referred To Contact Neurology Diagnoses Benign paroxysmal positional vertigo, unspecified laterality Maritza Mosquedaide Ted [employer] [address] [place] [address] [facility] Neurology [address] [place] [address] Referral ID Status Reason Start Date Expiration Date V isits Requested Visits Authorized [id number] Closed Consult, Test & Treat PCP Updated and/or Approved 08/14/2022 08/15/2023 6 6 Encounter Details Date Type Department Care Team (Late st Contact Info) Description 09/29/2022 2:30 PM EDT [place] [address] Noa Garcia MD [facility] [place] [address] Bogdan Benjamin DO [facility] [place] [address] Vertigo (Primary Dx) Social History Tobacco Use Types Packs/Day Years [...] place to sleep or slept in a [place] facility (including now)? No 09/24/2021 DH IPV Inpatient [...] Sign Reading Time Taken Comments Blood Pressure 141/72 09/29/2022 2:14 PM EDT Pulse 60 09/29/2022 2:14 PM EDT Temperature - - Respiratory Rate - - Oxygen Saturation - - Inhaled Oxygen Concentration - - Weight 70.3 kg (155 lb) 09/29/2022 2:14 PM EDT Height 157.5 cm (5' 2) 09/29/2022 2:14 PM EDT Body Mass Index 28.35 09/29/2022 2:14 PM EDT documented in this encounter Progress Notes * Bogdan Benjamin, - 09/29/2022 2:30 PM EDT Neurology Outpatient Clinic Note - 09/29/2022 PCP: Loni Mosqueda APRN Clinic Attending: Dr. Garcia CC: Vertigo HPI: Luz Maria Carreno is a 66 y.o. female with PMHx of basilar aneurism (5x5 mm), AV stenosis, DM, HLD, HTN, migraine, MVP, lymphocytic colitis who is referred to Neurology clinic by Loni Mosqueda APRN for evaluation of vertigo. Patient reports that she has been dealing with dizziness her whole life. She often gets carsick andhas difficulty reclining back in chairs. However, since December 2021, she reports that she has hadworsening dizziness from her baseline. Her dizziness occurs in spells which can last up to several days. She feels these spells could be triggered by rolling over in bed or getting up incorrectly. During these dizzy spells, she feels like the entire room is spinning around her. She feels that she was walking like she has sea legs, and that she veers off to the side. She reports that she still feels like the room is spinning when she sits completely still, and that these episodes seem to randomly bridgett after up to 48 hours or more. Her last episode was 1 week ago, and lasted for 2 days. She is forced to stay home during the spells as her dizziness is so disabling. She has tried meclizine and only used it a few times, and reports that she uses Dramamine to make her go to sleep rather thanrelief or dizziness. Patient also endorses a occasional sense of lightheadedness where she feels like a head lira and occasionally sees stars when she bends over or bears down. Of note, the patient is concerned for a more sinister underlying etiology. She went through a number of health conditions this past year including exacerbation of her diabetes, cholecystectomy, a COVID infection, and multiple other issues. She is also concerned that her symptoms are being dismissedand that there is something additional going on, and is worried about something like M??ni??re's disease as her grandmother suffered from this. Patient reports she was given a clinical diagnosis of BPPV and had no additional work-up for the cause of her dizziness. Past Medical Hx: Past Medical History: Diagnosis Date Aortic valve stenosis 09/12/2021 Chest pain 09/12/2021 Diabetes mellitus Heart murmur Heart palpitations 09/17/2021 Hyperlipidemia Hypertension Lightheadedness 09/17/2021 Migraine Mitral valve prolapse 09/17/2021 Overweight Palpitations Past Surgical Hx: Past Surgical History: Procedure Laterality Date ECTOPIC SURGERY PRO COLONOSCOPY, BIOPSY N/A 02/28/2022 COLONOSCOPY FLEXIBLE, WITH BX (WRVU 3.66) performed by Pelon Tolliver MD at [facility] ENDOSCOPY PRO COLONOSCOPY, REMV LESN, SNARE N/A 02/28/2022 COLONOSCOPY, POLYPECTOMY, REMOVAL LESION BY SNARE (WRVU 4.67) performed by Pelon Tolliver MDat [facility] ENDOSCOPY PRO LAP, CHOLECYSTECTOMY/GRAPH N/A 07/08/2022 LAPAROSCOPIC CHOLECYSTECTOMY WITH CHOLANGIOGRAM (WRVU 11.47) performed by Celestina Ruffin MD at [facility] MAIN OR STRABISMUS SURGERY Bilateral Medications: Current Outpatient Medications on File Prior to Visit Medication Sig Dispense Refill meclizine (Antivert) 25 mg tablet TAKE 1 TABLET BY MOUTH TWICE DAILY NEEDED FOR DIZZINESS amLODIPine (Norvasc) 2.5 mg tablet Take 5 mg by mouth daily. losartan (Cozaar) 100 mg tablet Take 100 mg by mouth daily. melatonin 5 mg tablet Take 10 mg by mouth. glipiZIDE XL (Glucotrol XL) 5 mg Tablet Extended Rel 24 hr Take 5 mg by mouth 2 times daily. Two tablets in the am and one in the pm simvastatin (Zocor) 20 mg Tablet Take 20 mg by mouth nightly. pantoprazole EC (Protonix) [address] tablet Take 20 mg by mouth daily as needed. polyethylene glycoL (Miralax) 17 gram oral powder packet Take 17 g by mouth daily. (Patient not taking: Reported on 09/29/2022) 14 each 0 budesonide EC (Entocort EC) 3 mg Capsule, Delayed & Ext.Release Take 3 capsules by mouth every morning. 90 capsule 2 Mesalamine (CANASA) 1,000 mg Suppository Ibuprofen-diphenhydrAMINE (Advil PM) 200-38 mg Tablet Take 1 tablet by mouth nightly. No current facility-administered medications on file prior to visit. Allergies: Allergies Allergen Reactions Codeine Family Hx: Family History Problem Relation Age of Onset Hypertension Mother Hypertension Father Heart Failure Father Myocardial Infarction Father Lung Cancer Sister Social Hx: Social History Tobacco Use Smoking status: Never Passive exposure: Never Smokeless tobacco: Never Tobacco comments: Denies vaping Vaping Use Vaping Use: Never used Substance Use Topics Alcohol use: Yes Comment: 1 drink a month Drug use: Never Review of Systems: Review of Systems Neurological: Positive for vertigo. Negative for hearing loss. Physical Exam: General: Alert, oriented to self, time, & place. In no acute distress. HEENT: Normocephalic, atraumatic. Anicteric sclerae, normal conjunctivae. Oropharynx clear without lesions. Moist mucous membranes. Neck: Normal range of motion, no lymphadenopathy. Cardio: Normal rate, regular rhythm; normal S1/S2, no S3; no murmurs or rubs appreciated. Pulmonary: Breathing non-labored with adequate inspiratory effort. CTA bilaterally. Abdomen: Non-distended, normal bowel sounds; soft, non-tender. Extremities: Warm, well perfused. No cyanosis, clubbing, or edema. 2+ peripheral pulses present in all four extremities. Skin: Warm, dry. Normal turgor. No rashes, lesions, petechia or purpura. Neuro Exam: MS: AAOx4, clear language, no dysarthria, follows commands CN: Visual acuity with best correction grossly normal, visual cassidy full PERRL, EOMI, nystagmus with fast beat to the left elicited with left conjugate gaze Facial sensation intact, no facial asymmetry Hearing to finger impaired Palate elevates symmetrically, tongue protrudes midline SCM and trap strength intact Motor: Normal bulk and tone. UE: 5/5 R, 5/5 L Shoulder abduction 5/5 R, 5/5 L Elbow extension 5/5 R, 5/5 L Elbow flexion 5/5 R, 5/5 L Finger flexion 5/5 R, 5/5 L Thumb abduction (APB) 5/5 R, 5/5 L Finger abduction LE: 5/5 R, 5/5 L Hip flexion 5/5 R, 5/5 L Knee extension 5/5 R, 5/5 L Knee flexion 5/5 R, 5/5 L Foot dorsiflexion 5/5 R, 5/5 L Hallux extension 5/5 R, 5/5 L Foot plantar flexion Sensation: Romberg unsteady Reflexes: DTRs 2+ R, 2+ L Biceps 2+ R, 2+ L Brachioradialis 2+ R, 2+ L Triceps 2+ R, 2+ L Patellar 2+ R, 2+ L Achilles tendon Cerebellum: Ysojyo-fj-xipw intact, no dysmetria Finger tapping smooth and symmetric Rapid alternating movement intact Sblc-jf-qgai intact No tremor observed Gait: Steady, appropriate stride, arm swing, and pace. Head Impulse: fast beating phase to the left when turing the head right or left Nystagmus: left beating nystagmus with left conjugate gaze Test of Skew: skew deviation bilaterally Labs: Lab Results Component Value Date WBC 7.5 02/19/2022 HGB 12.0 02/19/2022 HCT 35.9 02/19/2022 MCV 89.8 02/19/2022 PLATELET 229 02/19/2022 Lab Results Component Value Date NA 144 02/19/2022 K 3.6 02/19/2022 CL 109 (H) 02/19/2022 CO2 25 02/19/2022 BUN 14 02/19/2022 CREATININE 0.71 02/19/2022 GLUCOSE 106 02/19/2022 CALCIUM 9.4 02/19/2022 ESTGFR 94 02/19/2022 No results found for: MAGNESIUM Lab Results Component Value Date CALCIUM 9.4 02/19/2022 Lab Results Component Value Date ALT 20 02/19/2022 AST 16 02/19/2022 ALKPHOS 107 (H) 02/19/2022 BILITOT 0.2 02/19/2022 Lab Results Component Value Date CRP <3.0 02/19/2022 Diagnostic Tests and Imaging: MRI Angio Head 07/07/22 1) No definite MCA aneurysm identified. 2) Aneurysm of the basilar tip approximately 5 x 5 mm stable in appearance when compared with previous exam. Please see 3-D reformatted images. CTA Head IMPRESSION: 1. There is redemonstration of a broad top of the basilar artery measuring 4.4 mm in diameter on axial image 97 with no evidence of a projecting aneurysm. 2. There is no confirmation of the suspected aneurysm of the right middle cerebral artery trifurcation. 3. There is no evidence of intracranial large vessel stenosis or occlusion. 4. There is no evidence of venous sinus thrombosis. CT Brain/Head w/o contrast 06/04/22 Mild dilation of the ventricles, cisterns, and sulci. No acute intracranial abnormality. Assessment: Luz Maria Carreno is a 66 y.o. female with PMHx of of basilar aneurism (5x5 mm), AV stenosis, DM, HLD, HTN, migraine, MVP, lymphocytic colitis who is referred to Neurology clinic by Loni Mosqueda APRN for evaluation of vertigo. Importantly, the patient has been diagnosed with an incidental basilar artery aneurysm as part of her work-up for dizziness and headache. She has not been referred to a neurosurgeon, thus will ensureshe establishes care here with one of our neuro interventionalists. Will defer to their opinion as to the possible surgical considerations and monitoring intervals. Patient has vertiginous features which are concerning for a process more complex than BPPV. The fact that her symptoms persist for several days and are still present without movement is concerning. She demonstrates signs of hearing loss on gross physical exam, and should be established with audiology. M??ni??re's is on the differential until proven that hearing loss is not present. Physical therapy would be a low risk approach, however the patient is reluctant to try this at this time. Could also consider ear nose and throat for formal inner ear work-up. Plan: # Vertigo - [place] [facility] [place] - Consider vestibular physical therapy at next visit - Consider ENT referral for vestibular testing # Basilar artery aneurysm - Referral to neurosurgery placed // Patient seen with Dr. Garcia // RTC in 6 weeks Bogdan Benjamin, Neurology, PGY-2 09/29/2022 Attending Physician Attestation I saw and evaluated the patient with the resident in person. I have reviewed the medical records and the patient's history during the visit and I agree with the details as written. My physical examination confirms the residents's findings. The assessment and plan were formulated in discussion with me at the time of the visit and I agree with them as documented. Noa Garcia, Professor of Neurology Chair, Department of Neurology documented in this encounter Plan of Treatment Scheduled Referrals Name Type Priority Associated Diagnoses Order Schedule Referral to Neurosurgery Outpatient Referral Routine Vertigo Ordered: 09/29/2022 Referral to Audiology Outpatient Referral Routine Vertigo Ordered: 09/29/2022 documented as of this encounter Visit Diagnoses Diagnosis Vertigo- Primary Dizziness and giddiness documented in this encounter Care Teams Tail Trimmer Relationship Specialty Start Date End Date Loni Mosqueda APRN [address] [place] [id number] PCP - General Family Medicine 05/28/22 documented as of this encounter
--- OUTSIDE RECORDS SUMMARY | 2024-02-17 09:59 | XMS_ITS | Encounter Summary ---
Author Organization [facility] [place] [address] Care Team Providers Care Inner Tube Inserter Name Role Phone Shabbir Ortiz MD Primary Care Provider [phone] Encounter Details Date Type Department Care Team (Late st Contact Info) Description 05/23/2022 Telephone [place] [address] Miryam Jones, RN Social History Tobacco Use Types Packs/Day [...] encounter Miscellaneous Notes * Telephone Encounter - Miryam Jones RN - 05/27/2022 9:25 AM EDT Received call from patient asking for update. Discussed that her PCP had been in communication withDr. Lugo and that PCP would be ordering MRCP to follow-up on gall bladder ductal dilation. Patient in agreement with plan. * Telephone Encounter - Miryam Jones RN - 05/23/2022 2:40 PM EDT Received vmm from patient reiterating information in below message. Returned call. Pat stats that she has been started on Pantoprazole for gastritis. She is scheduled for a follow-up ultrasound on Thursday to look more close at her gallbladder. Records request sent to [facility] for copy of ER and CT report. * Telephone Encounter - Miryam Jones RN - 05/23/2022 2:40 PM EDT ----- Message from Luz Maria Carreno sent at 05/23/2022 9:48 AM EDT ----- Regarding: Updating info Contact: Can you guide me? ER visit last night for RUQ. Had cat scan showing distention of bile duct. Have ultrasound scheduled for today at 2:00. They suggested starting Pantoprazole. Think this issue is related to Budesonide? I am taking 6mg daily for a few more days and then 3mg daily for 2 weeks. I think this is the cause of all my troubles. (High sugar and now this) Pat documented in this encounter Plan of Treatment Not on file documented as of this encounter Visit Diagnoses Not on filedocumented in this encounter Care Teams Inner Tube Inserter Relationship Specialty Start Date End Date Shabbir Ortiz MD [address] [place] [id number] PCP - General 01/22/10 05/27/22 documented as of this encounter
--- OUTSIDE RECORDS SUMMARY | 2024-02-17 09:59 | XMS_ITS | Encounter Summary ---
Author Organization [facility] Address [facility] [place] [address] Care Team Providers Care Overnight Houseperson Name Role Phone Shabbir Ortiz MD Primary Care Provider [phone] Encounter Details Date Type Department Care Team (Late st Contact Info) Description 05/23/2022 Ancillary Procedure Radiology Library at [facility] [id number] Shabbir Ortiz MD [address] [place] [address] Social History Tobacco Use Types Packs/Day Years [...] Procedure Name Priority Date/Time Associated Diagnosis Comments FILM LIBRARY STORAGE ONLY ULTRASOUND STUDY Routine 05/23/2022 12:00 AM EDT documented in this encounter Results * Film Library- Storage Only Ultrasound Study (05/23/2022 12:00 AM EDT) Narrative [facility] - 05/27/2022 6:14 AM EDT This exam is auto-finalizing. It's purpose is for storage only. Shabbir Ortiz MD [facility] FILM LIBRARY ORD ERABLES Performing Organization Address City/State/[facility] Co de Phone Number [place], [place] documented in this encounter Visit Diagnoses Not on filedocumented in this encounter Care Teams Overnight Houseperson Relationship Specialty Start Date End Date Shabbir Ortiz MD [address] [place] [id number] PCP - General 01/22/10 05/27/22 documented as of this encounter
--- OUTSIDE RECORDS SUMMARY | 2024-02-17 09:59 | XMS_ITS | Encounter Summary ---
Author Organization [facility] [place] [address] Care Team Providers Care Adult Basic Education Teacher Name Role Phone Shabbir Ortiz MD Primary Care Provider [phone] Reason for Visit * Reason Onset Date Comments Medication Refill 05/05/2022 Encounter Details Date Type Department Care Team (Late st Contact Info) Description 05/05/2022 [place] [phone] Elsa Lugo MD [facility] DR [place]STRO[place] [address] Microscopic colitis, unspecified microscopic colitis type Social History Tobacco Use Types Packs/Day Years [...] the money to buy more. Never true 07/26/20 22 Within the past 12 months, t [...] place to sleep or slept in a fpc (including now)? No 09/24/2021 Sex and Gender Information Value Date Recorded Sex Assigned at Not on file Gender Identity Not on file Sexual Orientation Not on file documented as of this encounter Plan of Treatment Not on file documented as of this encounter Visit Diagnoses Diagnosis Microscopic colitis, unspecified microscopic colitis type documented in this encounter Care Teams Adult Basic Education Teacher Relationship Specialty Start Date End Date Shabbir Ortiz MD [address] [place] [id number] PCP - General 01/22/10 05/27/22 documented as of this encounter
--- OUTSIDE RECORDS SUMMARY | 2024-02-17 09:59 | XMS_ITS | Encounter Summary ---
Author Organization [facility] Address [facility] [place] [address] Care Team Providers Care Digital Imaging Specialist Name Role Phone Shabbir Ortiz MD Primary Care Provider [phone] Encounter Details Date Type Department Care Team (Late st Contact Info) Description 02/19/2022 Telephone [place] [address] Alicia Low Social History Tobacco Use Types Packs/Day Years [...] place to sleep or slept in a half-way (including now)? No 09/24/2021 Sex and Gender Information Value Date Recorded Sex Assigned at Not on file Gender Identity Not on file Sexual Orientation Not on file documented as of this encounter Miscellaneous Notes * Telephone Encounter - Alicia Low - 02/19/2022 12:35 PM EST Luz Maria Carreno [id number] Diagnosis/Indication: Diarrhea, history of microscopic colitis, please obtain non-targeted colon biopsies Please review patient chart to confirm if previous Endoscopy procedure was performed within system. If yes, take note of Anesthesia type used. If previous procedure found, and with MAC/propofol Anesthesia support was used, schedule this procedure with Anesthesia and skip the Anesthesia portion of questions. If not performed within system, not performed at all, or performed with IVCS, ask Anesthesia questions. SCHEDULING QUESTIONS (ask all patient these questions) 1. Have you ever had a/an Colonoscopy before? Yes[facility] If yes, did you have any problems with the procedure (such as waking up during the procedure, pain or difficulties afterwards, etc.)? No What type of sedation was used: Other: unknown 2. Do you take any blood thinners or have you been diagnosed with a bleeding disorder that increases your risk of bleeding with procedures? No 3. Do you have a Pacemaker or Defibrillator device? If yes, send pool message to Cardiology with patient information and date or procedure. No 4. Are you a diabetic? If yes, call PCP/managing provider to discuss use of prep and any questions or concerns related to. Yes: Controlled by diet or medication? Medication 5. Do you take any iron supplements or vitamins that contain iron? No 6. Do you have a preference regarding the gender of your provider? No ANESTHESIA QUESTIONS (YES to any question, please book with Anesthesia support) 7. Have you ever been diagnosed with Pulmonary Hypertension and/or Congential Heart Disease? No 8. Have you been diagnosed with A-Fib (atrial fibrillation) that is NOT being well controled with medications? No 9. Have you ever had an allergic or adverse reaction to Fentanyl or Versed? No 10. Have you had a problem with sedation or anesthesia? (Waking up during procedure, extreme confusion after, etc.) No 11. Do you have a diagnosis of Obstructive Sleep Apnea that requires the use of a c-pap machine? No 12. Do you use an oxygen tank at home? No 13. Do you use a rescue inhaler more than twice per day? (COPD, severe asthma) No 14. Do you experience breathing problems when you lay flat for a period of time? No 15. Do you take prescription narcotic pain medications, including suboxone or methodone? No SCHEDULING CONFIRMATIONS: Please note any and all parts of your conversation with the patient here. 16. We offer all new patients an opportunity to have an appointment with one of our associate care providers to learn more about your upcoming procedure, ask questions and get answers. These appointments are offered via telehealth. Would you be interested in scheduling this appointment? (Only ask if NEW referral patient; skip this question if [facility] provider ordered the procedure.) No 17. Is there any other information or concerns you would like to us to share with your care team inrelation to your upcoming scheduled procedure? No 18. You must have a responsible libertarian who will drive you to your procedure, stay on campus for the entire duration of your procedure, and drive you home from your procedure. Who will likely be your cmv driver for the procedure? *Please Verify the height and weight, and adjust if height and/or weight have changed* Estimated body mass index is 26.08 kg/m?? as calculated from the following: Height as of an earlier encounter on 02/19/22: 160 cm (5' 3). Weight as of an earlier encounter on 02/19/22: 66.8 kg (147 lb 3.2 oz). Age:66 y.o. documented in this encounter Plan of Treatment Not on file documented as of this encounter Visit Diagnoses Not on filedocumented in this encounter Care Teams Digital Imaging Specialist Relationship Specialty Start Date End Date Shabbir Ortiz MD [address] [place] [id number] PCP - General 01/22/10 05/27/22 documented as of this encounter
--- OUTSIDE RECORDS SUMMARY | 2024-02-17 09:59 | XMS_ITS | Encounter Summary ---
Author Organization [facility] Address [facility] [place] [address] Care Team Providers Care Dungeon Master Name Role Phone Loni Mosqueda APRN Primary Care Provider +1- [phone] Reason for Referral * Consultation (Routine) - Duplicate Referral Specialty Diagnoses / Procedures Referred By Katherine lópez Referred To Contact Gastroenterology Diagnoses Lymphocytic colitis Shabbir Ortiz MD [address] [place] [address] Elsa Lugo MD [facility] [place] [address] Referral ID Status Reason Start Date Expiration Date Visits Requested Visits Authorized [id number] Duplicate Referral Consult, Test & Treat PCP Updated and/or Approved 06/09/2022 06/09/2023 6 6 Encounter Details Date Type Department Care Team (Latest Contact Info) Description 06/09/2022 Transcribe Orders eDH Incoming Referrals [phone] Shabbir Ortiz MD [address] [place] [address] Lymphocytic colitis Social History Tobacco Use Types Packs/Day Years [...] Priority Associated Diagnoses Order Schedule Referral to Gastroenterology Outpatient Referral Routine Lymphocytic colitis Ordered: 06/09/2022 documented as of this encounter Visit Diagnoses Diagnosis Lymphocytic colitis Other and unspecified noninfectious gastroenteritis and colitis documented in this encounter Care Teams Dungeon Master Relationship Specialty Start Date End Date Loni Mosqueda APRN [address] [place] [address] PCP - General Family Medicine 05/28/22 documented as of this encounter
--- OUTSIDE RECORDS SUMMARY | 2024-02-17 09:59 | XMS_ITS | Encounter Summary ---
Author Organization [facility] Address [facility] [place] [address] Care Team Providers Care Litigation Docket Manager Name Role Phone Shabbir Ortiz MD Primary Care Provider [phone] Encounter Details Date Type Department Care Team (Late st Contact Info) Description 03/10/2022 Orders [place] [address] Elsa Lugo MD [facility] [place]STROENTER[place] [address] Social History Tobacco Use Types Packs/Day Years [...] on filedocumented in this encounter Care Teams Litigation Docket Manager Relationship Specialty Start Date End Date Shabbir Ortiz MD [address] [place] [address] PCP - General 01/22/10 05/27/22 documented as of this encounter
--- OUTSIDE RECORDS SUMMARY | 2024-02-17 09:59 | XMS_ITS | Encounter Summary ---
[place] [address] Care Team Providers Care Junk Removal Specialist Name Role Phone Loni Mosqueda APRN Primary Care Provider +1- [phone] Reason for Visit * Auth/Cert (Routine) Specialty Diagnoses / Procedures Referred By Contac t Referred To Contact Diagnoses Chronic cholecystitis Chronic cholecystitis Procedures PRO LAP, CHOLECYSTECTOMY/GRAPH LAPAROSCOPIC CHOLECYSTECTOMY WITH CHOLANGIOGRAM (WRVU 11.47) Celestina Ruffin MD [facility] [place] [address] [facility] Referral ID Status Reason Start Date Expiration Date Visits Re quested Visits Authorized [id number] 1 1 Encounter Details Date Type Department Care Team (Latest Contact Info) Description 07/08/2022 12:10 PM EDT - 07/09/2022 10:06 AM EDT Hospital Encounter Heart and Vascular Unit Level 4 [place] [id number] Celestina Ruffin MD [facility] [place] [address] Symptomatic cholelithiasis Discharge Disposition: Home Social History Tobacco Use [...] Sign Reading Time Taken Comments Blood Pressure 139/77 07/09/2022 7:23 AM EDT Pulse 84 07/08/2022 9:05 PM EDT Temperature 37.2 ??C (99 ??F) 07/09/2022 7:23 AM EDT Respiratory Rate 16 07/09/2022 7:23 AM EDT Oxygen Saturation 98% 07/09/2022 7:23 AM EDT Inhaled Oxygen Concentration - - Weight 70.7 kg (155 lb 12.8 oz) 07/08/2022 9:05 PM EDT Height 157.5 cm (5' 2) 07/08/2022 9:05 PM EDT Body Mass Index 28.5 07/08/2022 9:05 PM [...] and Procedures: Procedure(s): LAPAROSCOPIC CHOLECYSTECTOMY WITH [facility]OLANGIOGRAM [facility] Surgeons: Surgeon(s) and Role: * Celestina [...] PM Celestina Ruffin MD General Surgery at [facility] Arrive at: Home [phone] Please do not come in for this visit. Your provider will call you at the number you provided. 08/21/2022 11:00 AM Elsa Lugo MD Gastroenterology at [facility] Arrive at: Dividend Clerk Area Instructions Given to Patient at Discharge: [...] hours please call the Surgery Clinic at [phone] before 5 PM on weekdays. For questions after hours and on weekends please call the hospital sprue cutting press operator at [phone] and ask for the General Surgery resident adjudication specialist. They may not be familiar with your case so be prepared to identify yourself and the procedure you had done. Diet: ?? No dietary restrictions, you may notice soft bowel movements after cholecystectomy and should improve over time ?? Surgery can also lead to constipation - we've prescribed liaj-kbt-edrdbjx stool softeners. Take these as needed, titrate [...] yourself from the pain. Follow-up: Please call [phone] (clinic number for appointments) to confirm or change the date and time ofyour appointment. Future Appointments Date Time Provider Department Center 08/04/2022 12:50 PM Celestina Ruffin MD [facility] SURG [facility] 08/21/2022 11:00 AM Elsa Lugo MD [facility] GASTRO [facility] General Instructions None Future Appointments and Orders Future Appointments and Orders Future Appointments Provider Department Dept Phone 08/04/2022 12:50 PM Celestina Ruffin MD General Surgery at [facility] Arrive at: Home [phone] Please do not come in for this visit. Your provider will call you at the number you provided. 08/21/2022 11:00 AM Elsa Lugo MD Gastroenterology at [facility] Arrive at: Dividend Clerk Area Signed: JOSE Mane Minimally Invasive Surgery 7:12 AM 07/09/22 Service pager: [phone] Primary Friendship Physician: Loni Mosqueda APRN [address] / [facility] [address] documented in this encounter Discharge Instructions * Patient Instructions* Tyler Colon MD - 07/08/2022 1:37 PM EDT [...] hours please call the Surgery Clinic at [phone] before 5 PM on weekdays. For questions after hours and on weekends please call the hospital sprue cutting press operator at [phone] and ask for the General Surgery resident adjudication specialist. They may not be familiar with your case so be prepared to identify yourself and the procedure you had done. Diet: No dietary restrictions, you may notice soft bowel movements after cholecystectomy and should improve over time Surgery can also lead to constipation - we've prescribed trjm-ahg-[id number] stool softeners. Take these as needed, titrate [...] yourself from the pain. Follow-up: Please call [phone] (clinic number for appointments) to confirm or change the date and time ofyour appointment. Future Appointments Date Time Provider Department Center 08/04/2022 12:50 PM Celestina Ruffin MD [facility] SURG [facility] 08/21/2022 11:00 AM Elsa Lugo MD [facility] GASTRO [facility] documented in this encounter Medications at Time [...] Vo MD - 07/08/2022 12:05 PM EDT [facility] Minimally Invasive Surgery Preoperative H&P HPI: Luz [...] PM Celestina Ruffin MD General Surgery at [facility] Arrive at: Home [phone] ?? Please do not come in for this visit. Your provider will call you at the number you provided. ? 08/21/2022 11:00 AM Elsa Lugo MD Gastroenterology at [facility] Arrive at: Dividend Clerk Area 4L Transportation: family Wheelchair van/Ambulance? No [...] All are in agreement with plan. ALAN Morales,lining closer Team Case Management Pager #[phone] * Op Note - Celestina Ruffin MD - 07/08/2022 2:25 PM EDT [facility] Operative Note Patient Name: Luz Maria Carreno : [id number] MR#: [id number] Case Date: 07/08/2022 Surgeon: Surgeon(s) and Role: * Celestina Ruffin MD - Primary * Tyler Colon MD - Resident - Assisting Preoperative diagnosis: Chronic cholecystitis Postoperative diagnosis: Chronic cholecystitis Procedure(s) (LRB): LAPAROSCOPIC CHOLECYSTECTOMY WITH CHOLANGIOGRAM (WRVU 11.47) (N/A) Findings: Chronic inflammation of the gallbladder. Cystic duct was filled with small stones. These stones were milked out and cholangiogram was negative for additional filling defects. Anesthesia: General Estimated Blood Loss: 5 mL Specimens removed during surgery: Order Name Source Comment Collection Info Order Time SPECIMEN TO PATHOLOGY Gallbladder-perm OR 25 #[id number] Chronic cholecystitis Gallbladder excision No 07/08/2022 4:19 [...] Routine 07/08/2022 4:15 PM EDT Lap, Cholecystectomy/Graph ([id number]) 07/08/2022 1:51 PM EDT Symptomatic cholelithiasis POCT GLUCOSE Routine 07/08/2022 1:05 PM EDT LAPAROSCOPIC CHOLECYSTECTOMY WITH CHOLANGIOGRAM Routine 07/08/2022 12:53 PM EDT Symptomatic cholelithiasis FILM LIBRARY STORAGE ONLY MR HEAD Routine 12/31/2021 12:00 AM EDT documented in this encounter Results * POCT Glucose (07/08/2022 5:05 PM EDT) Glucose, POC 195 65 - 199 mg/dL [facility] Comment: Supplemental ranges: <140 mg/dL before meals <180 mg/dL all other times of the day Blood 07/08/2022 5:05 PM EDT 07/08/2022 5:05 PM EDT Celestina Ruffin MD POINT OF CARE TEST O RDERABLES [facility] [place] [address] * Surgical Pathology Report (07/08/2022 4:19 PM EDT) Final Diagnosis [id number] ? Location: [facility]; [facility]; The signing pathologist has (i) examined the relevant preparation(s) for the specimen(s) and (ii) rendered or confirmed the diagnosis(es). . ?Surgical Pathology DIAGNOSIS Gallbladder, excision: Acute and chronic cholecystitis. Electronically signed by: ?Tina Haskins MD Verified: ??07/24/2022 19:59 ??Pathologist Performed at: ??-[facility] Dept. of Pathology, [place] [address] Insurance Biller: Ledy Johnston MD, FCAP, ??CLIA Certificate: [id number] SPECIMEN(S) SUBMITTED A - Gallbladder, excision (1) [...] hepatic margin is inked black Sections/Processi ng: Hosiery Repairer sections in 1 cassettes as follows: ?A1: ??cystic duct margin and sales promotion representative mucosa. ??nrl 07/24/2022 7:59 PM EDT [facility] GALLBLADDER STRUCTURE / Unknown 07/08/2022 4:19 PM EDT 07/08/2022 4:19 PM EDT Celestina Ruffin MD PATHOLOGY/CYTOLOGY O [place] [facility] [address] [place] [address] * Specimen to Pathology (07/08/2022 4:19 PM EDT) AP Specimen 07/08/2022 4:19 PM EDT 07/08/2022 4:19 PM EDT Narrative [facility] - 07/08/2022 4:19 PM EDT Specimen requisition ordered. ??Separate Pathology report to follow Celestina Ruffin MD PATHOLOGY/CYTOLOGY O [place] Performing Organization Address City/[facility]/ZIP Co de Phone Number [facility] [place] [address] * XR Fluoro No Rad <1Hr - OR Use (07/08/2022 4:15 PM EDT) Narrative Dicom, Auditing User - 07/08/2022 4:15 PM EDT This exam is auto-finalizing. No interpretation was done. Celestina Ruffin MD IMG FLUORO ORDERABLE S * POCT Glucose (07/08/2022 1:05 PM EDT) Glucose, POC 121 65 - 199 mg/dL [facility] Comment: Supplemental ranges: <140 mg/dL before meals <180 mg/dL all other times of the day Blood 07/08/2022 1:05 PM EDT 07/08/2022 1:05 PM EDT Celestina Ruffin MD POINT OF CARE TEST O RDERABLES Performing Organization Address City/State/[facility] Co de Phone Number [facility] [place] [address] * Film Library- Storage Only MR Head (12/31/2021 12:00 AM EDT) Narrative Dicom, Auditing User - 07/08/2022 2:11 PM EDT This exam is auto-finalizing. It's purpose is for storage only. Celestina Ruffin MD IMG FILM LIBRARY ORD ERABLES documented in this encounter Visit Diagnoses Diagnosis Acute cholecystitis- Primary Symptomatic cholelithiasis Calculus of gallbladder without mention of cholecystitis or obstruction Post-operative pain Other acute postoperative pain documented in this encounter Admitting Diagnoses Diagnosis [...] Given 07/08/2022 9:30 PM EDT 1,000 mg fentaNYL (pf) (50 mcg/mL) multi-dose injection 25 [...] Given 07/08/2022 9:32 PM EDT 5,000 Units lactated ringers infusion 1,000 mL, at 100 [...] PRN, 1 dose, Starting on Thu07/08/22 at 205, Until Thu07/09/22 at 1207, for discomfort with [...] 1 MIN PRN, Starting on Thu07/08/22 at 205, Until Thu07/09/22 at 1207, Opioid Reversal, If [...] ordered pain medications are indicated. , Routine 2130 (Given - Provider: Santiago Moyer RN) 0000 [...] RN) 0932 (Patch Removed - Provider: Rachel Dillon RN) oxyCODONE (Roxicodone) tablet 5 mg (COMPLETED) 5 [...] 2145, Until Discontinued, Recovery (Recovery-Hospital Unit), Routine 2131 (Given - Provider: Santiago Moyer RN) 0816 [...] >5/10 unrelieved by other available medications., Routine 183 (Given - Provider: Kina Flores RN) oxyCODONE [...] first. documented in this encounter Care Teams Junk Removal Specialist Relationship Specialty Start Date End Date Loni Mosqueda, MEDICAL OFFICE REPRESENTATIVE [address] [place] [address] PCP - General Family Medicine 05/28/22 documented as of this encounter
--- OUTSIDE RECORDS SUMMARY | 2024-02-17 09:59 | XMS_ITS | Encounter Summary ---
Author Organization [facility] [place] [address] Care Team Providers Care Development Writer Name Role Phone Loni Mosqueda APRN Primary Care Provider +1- [phone] Reason for Referral * Diagnostic Test (Routine) - Closed Specialty Diagnoses / Procedures Referred By Katherine lópez Referred To Contact Radiology Diagnoses Dissection of cerebral artery Procedures MRI Angiogram Head wo Contrast (Generic) Shabbir Ortiz MD [address] [place] [address] [place] [address] Referral ID Status Reason Start Date Expiration Date V isits Requested Visits Authorized [id number] Closed Specialty Service Requested 07/03/2022 01/04/2024 1 1 Reason for Visit * Diagnostic Test (Routine) - Closed Specialty Diagnoses / Procedures Referred By Katherine lópez Referred To Contact Radiology Diagnoses Dissection of cerebral artery Procedures MRI Angiogram Head wo Contrast (Generic) Shabbir Ortiz MD [address] [place] [address] [place] [address] Referral ID Status Reason Start Date Expiration Date V isits Requested Visits Authorized [id number] Closed Specialty Service Requested 07/03/2022 01/04/2024 1 1 Encounter Details Date Type Department Care Team (Latest Contact Info) Description 07/07/2022 6:14 PM EDT - 07/07/2022 11:59 PM EDT Hospital [place] [address] Shabbir Ortiz MD [address] [place] [address] Dissection of cerebral artery Discharge Disposition: Home Social History Tobacco Use [...] a long term (including now)? No 09/24/2021 DH IPV Inpatient [...] daily. 07/14/2022 documented as of this encounter Plan of Treatment Not on file documented as of this encounter Procedures Procedure Name Priority Date/Time Associated Diagnosis Comments MRI HEAD ANGIOGRAM WO CONTRAST Routine 07/07/2022 7:16 PM EDT Dissection of cerebral artery documented in this encounter Results * MRI Angiogram Head wo Contrast (Generic) (07/07/2022 7:16 PM EDT) Anatomical Region Laterality Modality Head Magnetic Resonan ce Impressions 07/08/2022 3:08 PM EDT No definite MCA aneurysm identified. 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 Please see 3-D reformatted images. I have personally reviewed the image(s) and the resident's interpretation and agree with the findings, Charlie Doyle MD at 07/08/2022 3:08 PM Thank you for letting us participate in the care of this patient. ??If you are a health care provider and have any questions regarding this report, please contact the number below. ??For patients who have questions please contact the health palliative care physician that requested your imaging first. ? Electronically signed by: Charlie Doyle MD, [facility] ([phone]), at 07/08/2022 3:08 PM Narrative 07/08/2022 3:08 PM EDT EXAMINATION: MRI ANGIOGRAM HEAD WO CONTRAST (GENERIC) CLINICAL HISTORY: Dissection of cerebral artery TECHNIQUE: MRA of the head performed without contrast. 3-D MIP reconstructions were created. I performed additional 3-D volume rendered surface shaded as well as through the MIP P images on the diagnostic workstation. These were archived to PACS. COMPARISON: 12/31/2021 MRA head. FINDINGS: MRA BRAIN: No dissection. Anterior circulation: Normal course and caliber of the intracranial internal carotid arteries. ??The anterior and middle cerebral arteries and major branches demonstrate normal caliber. No flow-limiting stenosis. Posterior circulation: Normal course and caliber of the intracranial vertebral arteries. Basilar tip has a saccular or bulbous appearance, showing dilatation between the origins of the superior cerebellar and posterior cerebral arteries. Reformatted images this measures approximately 5 x 5, unchanged compared to prior of 12/31/2021. The posterior cerebral and superior cerebellar arteries and major branches are normal in course and caliber. Three-D reformatted images fail to demonstrate aneurysm of the right MCA. The area questioned on the previous exam appears to be related to a vessel bifurcation seen well on the volume rendered images. The patient's previous studies are not available for comparison. We are requesting those. Procedure Note Charlie Doyle MD - 07/08/2022 EXAMINATION: MRI ANGIOGRAM HEAD WO CONTRAST (GENERIC) CLINICAL HISTORY: Dissection of cerebral artery TECHNIQUE: MRA of the head performed without contrast. 3-D MIP reconstructions were created. I performed additional 3-D volume rendered surface shaded as well asthrough the MIP P images on the diagnostic workstation. These were archived to PACS. COMPARISON: 12/31/2021 MRA head. FINDINGS: MRA BRAIN: No dissection. Anterior circulation: Normal course and caliber of the intracranialinternal carotid arteries. The anterior and middle cerebral arteries and majorbranches demonstrate normal caliber. No flow-limiting stenosis. Posterior circulation: Normal course and caliber of the intracranialvertebral arteries. Basilar tip has a saccular or bulbous appearance, showingdilatation between the origins of the superior cerebellar and posterior cerebralarteries. Reformatted images this measures approximately 5 x 5, unchanged comparedto prior of 12/31/2021. The posterior cerebral and superior cerebellararteries and major branches are normal in course and caliber. Three-D reformatted images fail to demonstrate aneurysm of the right MCA.The area questioned on the previous exam appears to be related to a vessel bifurcation seen well on the volume rendered images. The patient's previous studies are not available for comparison. We are requesting those. IMPRESSION No definite MCA aneurysm identified. 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 Please see 3-D reformatted images. I have personally reviewed the image(s) and the resident's interpretationand agree with the findings, Charlie Doyle MD at 07/08/2022 3:08 PM Thank you for letting us participate in the care of this patient. If youare a health care provider and have any questions regarding this report,please contact the number below. For patients who have questions please contactthe health palliative care physician that requested your imaging first. Electronically signed by: Charlie Doyle MD, [facility]([phone]), at 07/08/2022 3:08 PM Shabbir Ortiz MD IMG MRI ORDERABLES documented in this encounter Visit Diagnoses Diagnosis Dissection of cerebral artery documented in this encounter Care Teams Development Writer Relationship Specialty Start Date End Date Loni Mosqueda, [address] [place] [address] PCP - General Family Medicine 05/28/22 documented as of this encounter
--- OUTSIDE RECORDS SUMMARY | 2024-02-17 09:59 | XMS_ITS | Encounter Summary ---
Author Organization [facility] Address [facility] [place] [address] Care Team Providers Care Brand Inspector Name Role Phone Loni Mosqueda APRN Primary Care Provider +1- [phone] Encounter Details Date Type Department Care Team (Latest Contact Info) Description 09/24/2022 Travel Social History Tobacco Use Types Packs/Day [...] on filedocumented in this encounter Care Teams Brand Inspector Relationship Specialty Start Date End Date Loni Mosqueda APRN [address] [place] [address] PCP - General Family Medicine 05/28/22 documented as of this encounter
--- OUTSIDE RECORDS SUMMARY | 2024-02-17 09:59 | XMS_ITS | Encounter Summary ---
Author Organization [facility] [place] [address] Care Team Providers Care Body Coverer Name Role Phone Loni Mosqueda APRN Primary Care Provider +1- [phone] Reason for Referral * Consultation (Routine) - Closed Specialty Diagnoses / Procedures Referred By Katherine lópez Referred To Contact Neurology Diagnoses Benign paroxysmal positional vertigo, unspecified laterality Loni Mosqueda APRN [address] [place] [address] [facility] [address] [place] [address] Referral ID Status Reason Start Date Expiration Date V isits Requested Visits Authorized [id number] Closed Consult, Test & Treat PCP Updated and/or Approved 08/14/2022 08/15/2023 6 6 Encounter Details Date Type Department Care Team (Late st Contact Info) Description 08/22/2022 Transcribe Orders eDH Incoming Referrals [phone] Loni Mosqueda APRN [address] [place] [address] Benign paroxysmal positional vertigo, unspecified laterality Social History Tobacco Use Types Packs/Day Years [...] place to sleep or slept in a jail (including now)? No 09/24/2021 DH IPV Inpatient [...] Associated Diagnoses Orde r Schedule Referral to Neurology Outpatient Referral Routine Benign paroxysmal positional vertigo, unspecified laterality Ordered: 08/22/2022 documented as of this encounter Visit Diagnoses Diagnosis Benign paroxysmal positional vertigo, unspecified laterality documented in this encounter Care Teams Body Coverer Relationship Specialty Start Date End Date Loni Mosqueda APRN [address] [place] [address] PCP - General Family Medicine 05/28/22 documented as of this encounter
--- OUTSIDE RECORDS SUMMARY | 2024-02-17 09:59 | XMS_ITS | Encounter Summary ---
Author Organization [facility] Address [facility] [place] [address] Care Team Providers Care Marketing Support Manager Name Role Phone Shabbir Ortiz MD Primary Care Provider [phone] Encounter Details Date Type Department Care Team (Late st Contact Info) Description 05/13/2022 Ancillary Procedure Radiology Library [place] [phone] Shabbir Ortiz MD [address] [place] [address] Social History Tobacco Use Types [...] place to sleep or slept in a group home (including now)? No 09/24/2021 Sex and Gender Information Value Date Recorded Sex Assigned at Not on file Gender Identity Not on file Sexual Orientation Not on file documented as of this encounter Plan of Treatment Not on file documented as of this encounter Procedures Procedure Name Priority Date/Time Associated Diagnosis Comments FILM LIBRARY STORAGE ONLY ULTRASOUND STUDY Routine 05/13/2022 12:00 AM EDT documented in this encounter Results * Film Library- Storage Only Ultrasound Study (05/13/2022 12:00 AM EDT) Narrative [facility] - 05/27/2022 6:13 AM EDT This exam is auto-finalizing. It's purpose is for storage only. Shabbir Ortiz MD [facility] FILM LIBRARY ORD ERABLES Performing Organization Address City/State/[facility] Co de Phone Number [place], [place] documented in this encounter Visit Diagnoses Not on filedocumented in this encounter Care Teams Marketing Support Manager Relationship Specialty Start Date End Date Shabbir Ortiz MD [address] [place] [address] PCP - General 01/22/10 05/27/22 documented as of this encounter
--- OUTSIDE RECORDS SUMMARY | 2024-02-17 09:59 | XMS_ITS | Encounter Summary ---
Author [place] [address] Care Team Providers Care Electric Range Assembler Name Role Phone Shabbir Ortiz MD Primary Care Provider [phone] Reason for Referral * Consultation (STAT) - Closed Specialty Diagnoses / Procedures Referred By Katherine lópez Referred To Contact Gastroenterology Diagnoses Lymphocytic colitis Shabbir Ortiz MD [address] [place] [address] [facility] [place] [address] Referral ID Status Reason Start Date Expiration Date V isits Requested Visits Authorized [id number] Closed Consult, Test & Treat PCP Updated and/or Approved 05/26/2022 05/26/2023 6 6 Encounter Details Date Type Department Care Team (Latest Contact Info) Description 05/26/2022 Transcribe Orders eDH Incoming Referrals [phone] Shabbir Ortiz MD [address] [place] [address] Lymphocytic colitis Social History Tobacco Use [...] Order Schedule Referral to Gastroenterology Outpatient Referral Urgent Lymphocytic colitis Ordered: 05/26/2022 documented as of this encounter Visit Diagnoses Diagnosis Lymphocytic colitis Other and unspecified noninfectious gastroenteritis and colitis documented in this encounter Care Teams Electric Range Assembler Relationship Specialty Start Date End Date Shabbir Ortiz MD [address] [place] [address] PCP - General 01/22/10 05/27/22 documented as of this encounter
--- OUTSIDE RECORDS SUMMARY | 2024-02-17 09:59 | XMS_ITS | Encounter Summary ---
Author Organization [facility] Address [facility] [place] [address] Care Team Providers Care Beef Boner Name Role Phone Shabbir Ortiz MD Primary Care Provider [phone] Encounter Details Date Type Department Care Team (Late st Contact Info) Description 05/22/2022 Ancillary Procedure Radiology Library at [facility] [place] [phone] Shabbir Ortiz MD [address] [place] [address] Social History Tobacco Use Types [...] Associated Diagnosis Comments FILM LIBRARY STORAGE ONLY CT ABDOMEN AND PELVIS Routine 05/22/2022 12:00 AM EDT documented in this encounter Results * Film Library- Storage Only CT Abdomen & Pelvis (05/22/2022 12:00 AM EDT) Narrative [facility] - 05/27/2022 6:17 AM EDT This exam is auto-finalizing. It's purpose is for storage only. Shabbir Ortiz MD G FILM LIBRARY ORD ERABLES Performing Organization Address City/State/[facility] Co de Phone Number [place], [place] documented in this encounter Visit Diagnoses Not on filedocumented in this encounter Care Teams Beef Boner Relationship Specialty Start Date End Date Shabbir Ortiz MD [address] [place] [address] PCP - General 01/22/10 05/27/22 documented as of this encounter
--- OUTSIDE RECORDS SUMMARY | 2024-02-17 09:59 | XMS_ITS | Encounter Summary ---
Author Organization [facility] Address [facility] [place] [address] Care Team Providers Care Fisher Trawl Net Name Role Phone Jaylin Loni Jean APRN Primary Care Provider [phone] Encounter Details Date Type Department Care Team (Latest Contact Info) Description 07/06/2022 Travel Social History Tobacco Use Types Packs/Day [...] in a prison (including now)? No 09/24/2021 Sex and Gender Information Value Date Recorded Sex Assigned at Not on file Gender Identity Not on file Sexual Orientation Not on file documented as of this encounter Plan of Treatment Not on file documented as of this encounter Visit Diagnoses Not on filedocumented in this encounter Care Teams Fisher Trawl Net Relationship Specialty Start Date End Date Loni Mosqueda APRN [address] [place] [address] PCP - General Family Medicine 05/28/22 documented as of this encounter
--- OUTSIDE RECORDS SUMMARY | 2024-02-17 09:59 | XMS_ITS | Encounter Summary ---
Author Organization [facility] [place] [address] Care Team Providers Care Jail Guard Name Role Phone Shabbir Ortiz MD Primary Care Provider [phone] Encounter Details Date Type Department Care Team (Late st Contact Info) Description 05/13/2022 Telephone [place] [address] Miryam Jones, RN Social History [...] Telephone Encounter - Miryam Jones RN - 05/13/2022 9:08 AM EDT Received call from patient asking to discuss taper of budesonide as she has concerns over her elevated blood glucose levels. Reports 1-2 soft stools daily. States I am happy with this. Sample of daily AM readings: 298, 295, 404, 275, 317, 163). At recent ED visit, hemoglobin A1C under 7. Today - the PCP has increased glipizide to 10 mg in AM and 5 mg at PM. She further c/o fatigue, dizziness, I can't get my head off the pillow. Also reports low heart rate. Baseline is around 45 but it has been as low as 38 recently. B/Ps have been elevated (172/81). PCP has ordered Ziopatch to assess. States KCL low at recent ED visit. She was given IV replacement and sent home with instructions to eat a banana daily. Patient states she was also told she was dehydrated. She is working on increasing fluid intake. Advised I would forward her message to provider. documented in this encounter Plan of Treatment Not on file documented as of this encounter Visit Diagnoses Not on filedocumented in this encounter Care Teams Jail Guard Relationship Specialty Start Date End Date Shabbir Ortiz MD [address] [address] PCP - General 01/22/10 05/27/22 documented as of this encounter
--- OUTSIDE RECORDS SUMMARY | 2024-02-17 09:59 | XMS_ITS | Encounter Summary ---
Author Organization [facility] [place] [address] Care Team Providers Care Certified Medical Aide Name Role Phone Shabbir Ortiz MD Primary Care Provider [phone] Encounter Details Date Type Department Care Team (Late st Contact Info) Description 05/12/2022 Abstract [place] [phone] Miryam Jones, RN Social History Tobacco Use [...] on filedocumented in this encounter Care Teams Certified Medical Aide Relationship Specialty Start Date End Date Shabbir Ortiz MD [address] [place] [address] PCP - General 01/22/10 05/27/22 documented as of this encounter
--- OUTSIDE RECORDS SUMMARY | 2024-02-17 09:59 | XMS_ITS | Encounter Summary ---
Author Organization [facility] Address [facility] [place] [address] Care Team Providers Care Brasswind Instrument Repairer Name Role Phone Loni Mosqueda APRN Primary Care Provider [phone] Encounter Details Date Type Department Care Team (Late st Contact Info) Description 06/03/2022 Ancillary Procedure Radiology Library at [facility] [place] [address] Loni Mosqueda APRN [address] [place] [address] Social History Tobacco Use Types Packs/Day [...] place to sleep or slept in a nursing home (including now)? No 09/24/2021 Sex and Gender Information Value Date Recorded Sex Assigned at Not on file Gender Identity Not on file Sexual Orientation Not on file documented as of this encounter Plan of Treatment Not on file documented as of this encounter Procedures Procedure Name Priority Date/Time Associated Diagnosis Comments FILM LIBRARY STORAGE ONLY NUCLEAR MEDICINE Routine 06/03/2022 12:00 AM EDT documented in this encounter Results * Film Library- Storage Only nuclear medicine (06/03/2022 12:00 AM EDT) Narrative [facility] - 06/10/2022 9:19 AM EDT This exam is auto-finalizing. It's purpose is for storage only. Loni Mosqueda APRN IMG FILM LIBRARY O RDERABLES Performing Organization Address City/State/[facility] Co de Phone Number [place], [place] documented in this encounter Visit Diagnoses Not on filedocumented in this encounter Care Teams Brasswind Instrument Repairer Relationship Specialty Start Date End Date Loni Mosqueda APRN [address] [place] [address] PCP - General Family Medicine 05/28/22 documented as of this encounter
--- OUTSIDE RECORDS SUMMARY | 2024-02-17 09:59 | XMS_ITS | Encounter Summary ---
Author Organization [facility] Address [facility] [place] [address] Care Team Providers Care Sewing Department Supervisor Name Role Phone Jaylin Loni Jean APRN Primary Care Provider [phone] Encounter Details Date Type Department Care Team (Latest Contact Info) Description 06/16/2022 Travel Social History Tobacco Use Types Packs/Day [...] place to sleep or slept in a fci (including now)? No 09/24/2021 Sex and Gender Information Value Date Recorded Sex Assigned at Not on file Gender Identity Not on file Sexual Orientation Not on file documented as of this encounter Plan of Treatment Not on file documented as of this encounter Visit Diagnoses Not on filedocumented in this encounter Care Teams Sewing Department Supervisor Relationship Specialty Start Date End Date Loni Mosqueda APRN [address] [place] [address] PCP - General Family Medicine 05/28/22 documented as of this encounter
--- OUTSIDE RECORDS SUMMARY | 2024-02-17 09:59 | XMS_ITS | Encounter Summary ---
[place] [address] Care Team Providers Care Trim Setter Name Role Phone Shabbir Ortiz MD Primary Care Provider [phone] Reason for Visit * Auth/Cert (Routine) Specialty Diagnoses / Procedures Referred By Contac t Referred To Contact Diagnoses Diarrhea, unspecified Microscopic colitis, unspecified Diarrhea, history of microscopic colitis, please obtain non-targeted colon biopsies Procedures PRO COLONOSCOPY, DIAGNOSTIC PRO ANESTH, LWR INTESTINE, NOS COLONOSCOPY, DIAGNOSTIC Pelon Tolliver MD [facility] [place] [address] [facility] Referral ID Status Reason Start Date Expiration Date Visits Re quested Visits Authorized [id number] 1 1 Encounter Details Date Type Department Care Team (Late st Contact Info) Description 02/28/2022 1:00 PM EST - 02/28/2022 1:45 PM EST [place] [phone] Pelon Tolliver MD [facility] [place] [address] COLONOSCOPY, POLYPECTOMY, REMOVAL LESION BY SNARE (WRVU 4.57) Social History Tobacco Use Types Packs/Day Years [...] in a fdc (including now)? No 09/24/2021 Sex and Gender Information Value Date Recorded Sex Assigned at Not on file Gender Identity Not on file Sexual Orientation Not on file documented as of this encounter Last Filed Vital Signs Vital Sign Reading Time Taken Comments Blood Pressure 103/74 02/28/2022 12:13 PM EST Pulse 61 02/28/2022 12:13 PM EST Temperature 36.2 ??C (97.2 ??F) 02/28/2022 12:[address] Respiratory Rate - - Oxygen Saturation 98% 02/28/2022 12:13 PM EST Inhaled Oxygen Concentration - - Weight 64.4 kg (142 lb) 02/28/2022 12:13 PM EST Height 158.8 cm (5' 2.5) 02/28/2022 12:13 PM ES T Body Mass Index 25.56 02/28/2022 12:13 PM EST documented in this encounter Discharge Instructions * Discharge Instructions* Zenia Jewell, RN - 02/28/2022 3:24 PM EST Colonoscopy [...] to be checked. Thursday-Thursday Same Day Endo [phone]-[id number] Otherwise contact [phone] and ask to speak to the armhole feller handstitching machine chemical production technician Follow up care is a chapman part [...] complication. Informed Consent signed by patient (or sales representative facility services). documented in this encounter Plan of Treatment [...] Routine 02/28/2022 2:24 PM EST Colonoscopy, Biopsy ([id number]) 02/28/2022 1:47 PM EST Diarrhea, unspecified type Colonoscopy, Remv Lesn, Snare ([id number]) 02/28/2022 1:47 PM EST Diarrhea, unspecified type COLONOSCOPY Routine 02/28/2022 1:37 PM EST documented in this encounter Results * Surgical Pathology Report (02/28/2022 2:24 PM EST) Final Diagnosis [id number] ? Location: 4; [facility]; A The signing pathologist has (i) examined [...] Elena Verified: ??03/07/2022 17:54 ??Pathologist Performed at: ??-[facility] Dept. of Pathology, [place] [id number] Digital Sales Planner: Ledy Johnston MD, FCAP, ??CLIA Certificate: [id number] SPECIMEN(S) SUBMITTED A - cecal polyp, resection [...] labeled E1. ??pps 03/07/2022 5:54 PM EST [facility] GI Biopsy 02/28/2022 2:24 PM EST 02/28/2022 2:24 PM EST GI Biopsy 02/28/2022 2:24 PM EST 02/28/2022 2:24 PM EST GI Biopsy 02/28/2022 2:24 PM EST 02/28/2022 2:24 PM EST GI Biopsy 02/28/2022 2:24 PM EST 02/28/2022 2:24 PM EST GI Biopsy 02/28/2022 2:24 PM EST 02/28/2022 2:24 PM EST Pelon Tolliver MD PATHOLOGY/CYTOLOG Y ORDERABLES [place], [place] [id number] [place] [address] [place] [address] * Specimen to Pathology (02/28/2022 2:24 PM EST) AP Specimen 02/28/2022 2:24 PM EST 02/28/2022 2:24 PM EST Narrative [facility] - 02/28/2022 2:24 PM EST Specimen requisition ordered. ??Separate Pathology report to follow Pelon Tolliver MD PATHOLOGY/CYTOLOG Y ORDERABLES Performing Organization Address [facility] Co de Phone Number [facility] [place] [address] * Specimen to Pathology (02/28/2022 2:24 PM EST) AP Specimen 02/28/2022 2:24 PM EST 02/28/2022 2:24 PM EST Narrative [facility] - 02/28/2022 2:24 PM EST Specimen requisition ordered. ??Separate Pathology report to follow Pelon Tolliver MD PATHOLOGY/CYTOLOG Y ORDERABLES Performing Organization Address [facility] Co de Phone Number [facility] [place] [address] * Specimen to Pathology (02/28/2022 2:24 PM EST) AP Specimen 02/28/2022 2:24 PM EST 02/28/2022 2:24 PM EST Narrative [facility] - 02/28/2022 2:24 PM EST Specimen requisition ordered. ??Separate Pathology report to follow Pelon Tolliver MD PATHOLOGY/CYTOLOG Y ORDERABLES Performing Organization Address City/[facility]/[place]IP [place] [address] * Specimen to Pathology (02/28/2022 2:24 PM EST) AP Specimen 02/28/2022 2:24 PM EST 02/28/2022 2:24 PM EST Narrative [facility] - 02/28/2022 2:24 PM EST Specimen requisition ordered. ??Separate Pathology report to follow Pelon Tolliver MD PATHOLOGY/CYTOLOG Y ORDERABLES Performing Organization Address [facility] [place] [address] * Specimen to Pathology (02/28/2022 2:24 PM EST) AP Specimen 02/28/2022 2:24 PM EST 02/28/2022 2:24 PM EST Narrative [facility] - 02/28/2022 2:24 PM EST Specimen requisition ordered. ??Separate Pathology report to follow Pelon Tolliver MD PATHOLOGY/CYTOLOG Y ORDERABLES Performing Organization Address [facility] [place] [address] * COLONOSCOPY (02/28/2022 1:37 PM EST) COLONOSCOPY [facility] Endoscopy Procedure Date: 02/28/2022 1:37 PM ? Patient Name: Luz Maria Wai ? N: [id number] ? Date of : 1955 ? Age: 66 ? Order #: [id number] ? Instrument Name: [id number] ? Procedure: ? Colonoscopy Indications: ? Chronic diarrhea, Suspected ? microscopic colitis, Follow-up of ? microscopic colitis Providers: ? Pelon Tolliver MD, Fabian Alvares ? Renu Keller Referring : ?Loni Mosqueda Requesting Provider: ?? Elsa Lugo Medicines: ? Midazolam 3.5 mg IV, Fentanyl [...] Mosqueda APRN GENERAL SURGICAL O RDERABLES [employer] documented in this encounter Visit Diagnoses Diagnosis Diarrhea, unspecified type documented in this encounter Administered Medications Inactive Administered Medications - up to 3 most recent administrations Medication Order MAR Action Action Date Dose Rate Site fentaNYL (pf) (50 mcg/mL) multi-dose injection ONCE PRN, Starting on Thu02/28/22 at 1350, Until Thu02/28/22 at 1732, Intra-Operative (Intra-Procedure), Routine Given 02/28/2022 2:01 PM EST 50 mcg Given 02/28/2022 1:53 PM EST 50 mcg Given 02/28/2022 1:50 PM EST 50 mcg lactated ringers infusion 100 mL/hr, Intravenous, CONTINUOUS, Starting on Thu02/28/22 at 1230, Until Thu02/28/22 at 1732, Endoscopy (Day of Procedure) New Bag 02/28/2022 12:30 PM EST 100 mL/hr 100 mL/hr midazolam (pf) (Versed) (1 mg/mL) multi-dose injection ONCE PRN, Starting on Thu02/28/22 at 1350, Until Thu02/28/22 at 1732, Intra-Operative (Intra-Procedure), Routine Given 02/28/2022 2:05 PM EST 0.5 mg Given 02/28/2022 2:00 PM EST 1 mg Given 02/28/2022 1:53 PM EST 1 mg ondansetron (pf) (Zofran) (2 mg/mL) injection 4 mg 4 mg, Intravenous, ONCE, 1 dose, On Thu02/28/22 at 1445, Endoscopy (Intra-Procedure) Given 02/28/2022 2:08 PM EST 4 mg documented in this encounter Active and Recently [...] 1230 (New Bag - Prov ider: Melva Alvarez RN) PRN Medication Order 02/26/2022 02/27/2022 02/28/2022 fentaNYL [...] Routine 1350 (Given - Provid er: Fabian Keller, RN)1353 (Given - Provider: Fabian Keller, SONIA)1400 (Given - Provider: Fabian Keller RN)1405 (Given - Provider: Fabian Keller RN) documented in this encounter Care Teams Trim Setter Relationship Specialty Start Date End Date Shabbir Ortiz MD [address] [place] [address] PCP - General 01/22/10 05/27/22 documented as of this encounter
--- OUTSIDE RECORDS SUMMARY | 2024-02-17 09:59 | XMS_ITS | Encounter Summary ---
Author Organization [facility] Address [facility] [place] [address] Care Team Providers Care Laundry Helper Name Role Phone Loni Mosqueda APRN Primary Care Provider [phone]- [phone] Encounter Details Date Type Department Care Team (Late st Contact Info) Description 06/27/2022 Telephone [place] [phone] Celestina Ruffin MD [facility] [place] [address] Social History Tobacco Use Types Packs/Day Years [...] place to sleep or slept in a intermediate (including now)? No 09/24/2021 Sex and Gender Information Value Date Recorded Sex Assigned at Not on file Gender Identity Not on file Sexual Orientation Not on file documented as of this encounter Miscellaneous Notes * Telephone Encounter - Celestina Ruffin MD - 06/27/2022 2:08 PM EDT I followed up with Ms. Carreno today regarding her blood pressure prior to surgery. She says that she saw her PCP and was started on a new blood pressure medication. She is seeing them again next week for a recheck. She is scheduled with me for a cholecystectomy on 07/08/22. Celestina Ruffin MD documented in this encounter Plan of Treatment Not on file documented as of this encounter Visit Diagnoses Not on filedocumented in this encounter Care Teams Laundry Helper Relationship Specialty Start Date End Date Loni Mosqueda APRN [address] [place] [address] PCP - General Family Medicine 05/28/22 documented as of this encounter
--- OUTSIDE RECORDS SUMMARY | 2024-02-17 10:00 | XMS_ITS | Encounter Summary ---
Author Organization [facility] Address [address] [place] [address] Care Team Providers Care Sdet Name Role Phone Unavailable Primary Care Provider Unavailabl e Encounter Details Date Type Department Care Team (Late st Contact Info) Description 06/11/2000 Results Only [facility] [address] [place] [address] Soledad Virk NP Social History Tobacco Use Types Packs/Day Years Used Date Smoking Tobacco: Never Assessed Comments Unknown Sex and Gender Information Value Date Recorded Sex Assigned at Not on file Legal Sex Female 18:05 EST Gender Identity Not on file Sexual Orientation Not on file documented as of this encounter Plan of Treatment Not on file documented as of this encounter Procedures Procedure Name Priority Date/Time Associated Diagnosis Comments CYTOPATHOLOGY Routine 06/11/2000 0:00 EDT documented in this encounter Results * CYTOPATHOLOGY (06/11/2000 0:00 EDT) Pathology Report: CYTOPATHOLOGY REPORT Reports generated via electronic interface contain original data; however they are lacking the format of the original report. Caution should be taken when reading/interpreti ng unformatted reports. Name: ? LUZ MARIA QUEEN ? Accession #: ? [id number] : ? 1955 (Age: 44) ??F ?Collect Date: ? 06/11/2000 Location: ? [facility] ? Receive Date: ? 06/12/2000 Provider: ?SOLEDAD VIRK REPRODUCTIVE HEALTHCARE ASSISTANT Copy to: ? Specimen/Source: ?ThinPrep Pap Test, Cervix/Endocervix Last Menstrual Period: ? 05/08/00 ? SPECIMEN ADEQUACY ? Satisfactory for evaluation but limited by scant squamous epithelial component secondary to excessive mucus. GENERAL CATEGORIZATION ? Within Normal Limits ? Document reviewed and electronically signed by: ? NARCISA Ralph(ASCP) ? Report Date: ??06/15/2000 14:20 End of Report [facility] 06/11/2000 06/12/2000 us Soledad Virk NP PATHOLOGY ORDERABLES Final Re sult [facility] [address] [place] [address] documented in this encounter Visit Diagnoses Not on filedocumented in this encounter
--- OUTSIDE RECORDS SUMMARY | 2024-02-17 10:00 | XMS_ITS | Encounter Summary ---
Author Organization [facility] Address [facility] [place] [address] Care Team Providers Care Quality Officer Name Role Phone Shabbir Ortiz MD Primary Care Provider Encounter Details Date Type Department Care Team (Late st Contact Info) Description 09/17/2021 Abstract Cardiology at [address] [phone] Robyn Mcguire RN Social History Tobacco Use Types Packs/Day Years Used Date Smoking Tobacco: Never Assessed Sex and Gender Information Value Date Recorded Sex Assigned at Not on file Gender Identity Not on file Sexual Orientation Not on file documented as of this encounter Plan of Treatment Not on file documented as of this encounter Visit Diagnoses Not on filedocumented in this encounter Care Teams Quality Officer Relationship Specialty Start Date End Date Shabbir Ortiz MD [address] [place], [place] [address] PCP - General 01/22/10 05/27/22 documented as of this encounter
--- OUTSIDE RECORDS SUMMARY | 2024-02-17 10:00 | XMS_ITS | Encounter Summary ---
Author Organization [facility] Address [address] [place] [address] Care Team Providers Care Mailhouse Operator Name Role Phone Unavailable Primary Care Provider Unavailabl e Encounter Details Date Type Department Care Team (Late st Contact Info) Description 05/23/2005 Results Only [facility] - Maple conversion [address] [place] [id number] Jessie Bynum, [facility] [address] [place] [address] [place] [phone] Social History Tobacco Use Types Packs/Day Years [...] Priority Date/Time Associated Diagnosis Comments CYTOPATHOLOGY Routine 05/23/2005 0:00 EST documented in this encounter Results * CYTOPATHOLOGY (05/23/2005 0:00 EST) Pathology Report: CYTOPATHOLOGY REPORT Reports generated via electronic interface contain original data; however they are lacking the format of the original report. Caution should be taken when reading/interpreti ng unformatted reports. Name: ? EUNICE QUEEN ? Accession #: ? [id number] : ? 1955 (Age: 49) ??F ?Collect Date: ? 05/23/2005 Location: ? [facility] ? Receive Date: ? 05/26/2005 Provider: ?JESSIE BYNUM SUPERVISOR POLICY CHANGE CLERKS Copy to: ? Specimen/Source: ?ThinPrep Pap Test, Cervix/Endocervix, processed on [employer] ThinPrep Imaging System, with manual evaluation Last Menstrual Period: ? 07/10/02 Other: ? HPVA - HPV testing requested if ASC-US on the current ThinPrep Pap test. ? SPECIMEN ADEQUACY ? Satisfactory for Evaluation - transformation zone component present GENERAL CATEGORIZATION ? Negative for Intraepithelial Lesion or Malignancy ? Document reviewed and electronically signed by: ? ARI Robertson(ASCP) ? Report Date: ??05/27/2005 16:43 End of Report TERA MORGAN 05/23/2005 05/26/2005 us Jessie Bynum SUPERVISOR POLICY CHANGE CLERKS PATHOLOGY ORDERABLES Final R esult [facility] [address] [place] [address] documented in this encounter Visit Diagnoses Not on filedocumented in this encounter
--- OUTSIDE RECORDS SUMMARY | 2024-02-17 10:00 | XMS_ITS | Encounter Summary ---
Author Organization [facility] Address [address] [place] [address] Care Team Providers Care Cash Clerk Name Role Phone Unknown, Provider Primary Care Provider Carson gotti Encounter Details Date Type Department Care Team (Late st Contact Info) Description 01/30/2022 Lab Requisition [facility] Pathology & Laboratory Medicine - [address] [address] Outr Resulting Lab, Provider Social History Tobacco Use Types Packs/Day Years [...] Procedure Name Priority Date/Time Associated Diagnosis Comments FECAL BACTERIAL PATHOGENS BY PCR Routine 01/29/2022 15:45 EST GIARDIA AND CRYPTOSPORIDIUM ANTIGENS Routine 01/29/2022 15:45 EST documented in this encounter Results * GIARDIA AND CRYPTOSPORIDIUM ANTIGENS (01/29/2022 15:45 EST) Giardia and Cryptosporidium Cryptosporidium Antigen Neg and Giardia Antigen Neg Cryptosporidium Antigen Neg and Giardia Antigen Neg 11:18 EST [facility] Feces SPECIMEN FROM RECTUM / Unknown 01/29/2022 15:45 EST 01/30/2022 22:26 EST us Provider Outr Resulting Lab MICROBIOLOGY - GENER AL ORDERABLES Final Result Performing Organization Address [facility] Co de Phone Number [facility] [address] [place] [address] * FECAL BACTERIAL PATHOGENS BY PCR (01/29/2022 15:45 EST) Salmonella PCR Negative Negative 01/31/2022 11:04 EST [facility] Shigella/Enteroin vasive E. coli Negative Negative 01/31/2022 11:04 EST [facility] HN LAB CAMPYLOBACTER PCR Negative Negative 01/31/2022 11:04 EST [facility] Shiga Toxin PCR Negative Negative 11:04 EST [facility] Feces SPECIMEN FROM RECTUM / Unknown 01/29/2022 15:45 EST 01/30/2022 22:26 EST us Provider Outr Resulting Lab MICROBIOLOGY - GENER AL ORDERABLES Final Result Performing Organization Address [facility] Co de Phone Number [facility] [address] [place] [address] documented in this encounter Visit Diagnoses Not on filedocumented in this encounter Care Teams Cash Clerk Relationship Specialty Start Date End Date Unknown, Provider, PCP - General 11/09/13 documented as of this encounter
--- OUTSIDE RECORDS SUMMARY | 2024-02-17 10:00 | XMS_ITS | Encounter Summary ---
Author Organization [facility] Address [address] [place] [address] Care Team Providers Care Student Assistance Counselor Name Role Phone Unavailable Primary Care Provider Unavailabl e Encounter Details Date Type Department Care Team (Late st Contact Info) Description 06/17/2001 Results Only [facility] - Maple conversion [address] [place] [id number] Soledad Virk NP Social History Tobacco Use [...] Priority Date/Time Associated Diagnosis Comments CYTOPATHOLOGY Routine 06/17/2001 0:00 EDT documented in this encounter Results * CYTOPATHOLOGY (06/17/2001 0:00 EDT) Pathology Report: CYTOPATHOLOGY REPORT Reports generated via electronic interface contain original data; however they are lacking the format of the original report. Caution should be taken when reading/interpreti ng unformatted reports. Name: ? LUZ MARIA QUEEN ? Accession #: ? [id number] : ? 1955 (Age: 45) ??F ?Collect Date: ? 06/17/2001 Location: ? [facility] ? Receive Date: ? 06/18/2001 Provider: ?SOLEDAD VIRK NP Copy to: ? Specimen/Source: ?ThinPrep Pap Test, Cervix/Endocervix Last Menstrual Period: ? 12/31 ? SPECIMEN ADEQUACY ? Satisfactory for Evaluation - transformation zone component present GENERAL CATEGORIZATION ? Negative for Intraepithelial Lesion or Malignancy ? Document reviewed and electronically signed by: ? ARI Herndon(ASCP) ? Report Date: ??06/24/2001 08:34 End of Report TERA MORGAN 06/17/2001 06/18/2001 us Soledad Virk NP PATHOLOGY ORDERABLES Final Re sult [facility] [address] [place] [address] documented in this encounter Visit Diagnoses Not on filedocumented in this encounter
--- OUTSIDE RECORDS SUMMARY | 2024-02-17 10:00 | XMS_ITS | Encounter Summary ---
Author Organization [facility] Address [facility] [place] [address] Care Team Providers Care Imaging Manager Name Role Phone Shabbir Ortiz MD Primary Care Provider Reason for Referral * Consultation (Routine) - Closed Specialty Diagnoses / Procedures Referred By Katherine lópez Referred To Contact Cardiology Diagnoses Lightheadedness Palpitations Benign paroxysmal positional vertigo, unspecified laterality Mild aortic stenosis Mitral valve prolapse Loni Mosqueda APRN [address] [place] [id number] [facility]iology [address] [place] [phone] Referral ID Status Reason Start Date Expiration Date V isits Requested Visits Authorized [id number] Closed Consult, Test & Treat PCP Updated and/or Approved 09/10/2021 09/10/2022 6 6 Encounter Details Date Type Department Care Team (Late st Contact Info) Description 09/10/2021 Transcribe Orders eDH Incoming Referrals [phone] Loni Mosqueda APRN [address] [place] [address] Lightheadedness; Palpitations; Benign paroxysmal positional vertigo, unspecified laterality; Mild aortic stenosis; Mitral valve prolapse Social History Tobacco Use Types Packs/Day Years Used Date Smoking Tobacco: Never Assessed Sex and Gender Information Value Date Recorded Sex Assigned at Not on file Gender Identity Not on file Sexual Orientation Not on file documented as of this encounter Plan of Treatment Not on file documented as of this encounter Procedures Procedure Name Priority Date/Time Associated Diagnosis Comments AMB REFERRAL TO CARDIOLOGY Routine 10/23/2021 2:57 PM EDT Lightheadedness Palpitations Benign paroxysmal positional vertigo, unspecified laterality Mild aortic stenosis Mitral valve prolapse documented in this encounter Results * Referral to Cardiology (10/23/2021 2:57 PM EDT) Loni Mosqueda APRN OUTPATIENT REFERRA L ORDERABLES documented in this encounter Visit Diagnoses Diagnosis Lightheadedness Dizziness and giddiness Palpitations Benign paroxysmal positional vertigo, unspecified laterality Mild aortic stenosis Aortic valve disorders Mitral valve prolapse Mitral valve disorders documented in this encounter Care Teams Imaging Manager Relationship Specialty Start Date End Date Shabbir Ortiz MD [address] [place] [id number] PCP - General 01/22/10 05/27/22 documented as of this encounter
--- OUTSIDE RECORDS SUMMARY | 2024-02-17 10:00 | XMS_ITS | Encounter Summary ---
Author Organization [facility] Address [address] [place] [address] Care Team Providers Care Sports Equipment Supervisor Name Role Phone Unknown, Provider Primary Care Provider Carson gotti Encounter Details Date Type Department Care Team (Late st Contact Info) Description 01/30/2022 Lab Requisition [facility] Pathology & Laboratory Medicine - [address] [id number] Outr Resulting Lab, Provider Social History Tobacco [...] Procedure Name Priority Date/Time Associated Diagnosis Comments CELIAC DISEASE PANEL Routine 01/29/2022 15:45 EST LYME AB Routine 01/29/2022 15:45 EST documented in this encounter Results * LYME AB (01/29/2022 15:45 EST) Lyme Ab Negative Negative 01/31/2022 12:30 EST [facility] Blood VENOUS BLOOD / Unknown 01/29/2022 15:45 EST 01/30/2022 17:29 EST us Provider Outr Resulting Lab IMMUNOLOGY AND SEROL OGY ORDERABLES Final Result Performing Organization Address [facility] de Phone Number [facility] [address] [place] [address] * CELIAC DISEASE PANEL (01/29/2022 15:45 EST) Tissue Transglutaminase Antibody IGA <1.2 <4.0 U/mL 02/03/2022 12:18 EST [facility] Comment: A negative result may be due to IgA deficiency and does not rule out celiac disease. ? Negative: ??<4.0 U/mL ? Weak Positive: ??4.0 - 10.0 U/mL ? Positive: ??>10.0 U/mL Results were obtained with the QuackenworthA Lite R h-tTG IgA VA assay on the [employer] DSX. IgA 378 85 - 499 mg/dL 02/03/2022 12:18 EST [facility] Celiac Disease Interpretation Negative Serology. Celiac disease unlikely. Approximately 10% of patients with celiac disease are seronegative. Patients who are already adhering to a gluten-free diet may also be seronegative. If celiac disease is highly clinically suspected, referral to gastroenterology for additional evaluation is recommended. 02/03/2022 12:18 EST [facility] Blood VENOUS BLOOD / Unknown 01/29/2022 15:45 EST 01/30/2022 17:29 EST us Provider Outr Resulting Lab IMMUNOLOGY AND SEROL OGY ORDERABLES Final Result Performing Organization Address [facility] Co de Phone Number [facility] [address] [place] [address] documented in this encounter Visit Diagnoses Not on filedocumented in this encounter Care Teams Sports Equipment Supervisor Relationship Specialty Start Date End Date Unknown, Provider, PCP - General 11/09/13 documented as of this encounter
--- OUTSIDE RECORDS SUMMARY | 2024-02-17 10:00 | XMS_ITS | Encounter Summary ---
Author Organization [facility] Address [facility] [place] [address] Care Team Providers Care Lead Database Administrator Name Role Phone Shabbir Ortiz MD Primary Care Provider [phone] Encounter Details Date Type Department Care Team (Late st Contact Info) Description 12/31/2021 Ancillary Procedure Radiology Library [facility] [place] [phone] Social History Tobacco Use Types Packs/Day Years [...] medical appointments or from getting medications? No 07/2 07/2021 In the past 12 months, has l [...] Associated Diagnosis Comments FILM LIBRARY STORAGE ONLY MR HEAD Routine 12/31/2021 12:00 AM EDT documented in this encounter Results * Film Library- Storage Only MR Head (12/31/2021 12:00 AM EDT) Narrative Dicom, Auditing User - 07/08/2022 2:11 PM EDT This exam is auto-finalizing. It's purpose is for storage only. Celestina Ruffin MD IMG FILM LIBRARY ORD ERABLES documented in this encounter Visit Diagnoses Not on filedocumented in this encounter Care Teams Lead Database Administrator Relationship Specialty Start Date End Date Shabbir Ortiz MD [address] [place] [id number] PCP - General 01/22/10 05/27/22 documented as of this encounter
--- OUTSIDE RECORDS SUMMARY | 2024-02-17 10:00 | XMS_ITS | Encounter Summary ---
Author Organization Formerly [facility] Address [facility] [place] [address] Care Team Providers Care Salvage Supervisor Name Role Phone Shabbir Ortiz MD Primary Care Provider [phone] Reason for Visit * Consultation (Routine) - Closed Specialty Diagnoses / Procedures Referred By Katherine lópez Referred To Contact Gastroenterology Diagnoses Malaise Nausea and vomiting, unspecified vomiting type Diarrhea, unspecified type Light headedness Malaise / Nausea and vomiting,/ Diarrhea, / Light headedness Loni Mosqueda, MATT [address] [place] [address] [facility] [address] [place] [address] Referral ID Status Reason Start Date Expiration Date V isits Requested Visits Authorized [id number] Closed Consult, Test & Treat PCP Updated and/or Approved 02/12/2022 02/12/2023 6 6 Encounter Details Date Type Department Care Team (Late st Contact Info) Description 02/19/2022 10:00 AM EST Office [place] [address] Elsa Lugo MD [facility] [place] [address] Diarrhea, unspecified type Social History Tobacco Use Types Packs/Day [...] in a residential (including now)? No 09/24/2021 Sex and Gender Information Value Date Recorded Sex Assigned at Not on file Gender Identity Not on file Sexual Orientation Not on file documented as of this encounter Last Filed Vital Signs Vital Sign Reading Time Taken Comments Blood Pressure 130/89 02/19/2022 10:05 AM EST Pulse 68 02/19/2022 10:05 AM EST Temperature - - Respiratory Rate - - Oxygen Saturation - - Inhaled Oxygen Concentration - - Weight 66.8 kg (147 lb 3.2 oz) 02/19/2022 10:05 AM EST Height 160 cm (5' 3) 02/19/2022 10:05 AM EST Body Mass Index 26.08 02/19/2022 10:05 AM EST documented in this encounter Progress Notes * Elsa Lugo MD - 02/19/2022 10:00 AM EST Images from the original note were not included. [facility] Division of Gastroenterology and Hepatology Outpatient Consultation Reason for Visit: Diarrhea Referred by Loni Mosqueda History of Present Illness: Luz Maria Carreno is a 66 y.o. female with past medical history significant for DM, HLD, HTN, and microscopic colitis who is referred to GI for diarrhea. She reports for the past 6-8 weeks she has been having watery diarrhea and having more than 10 bowel movements per day. She endorses crampy abdominal pain before and after bowel movements. She has noticed mucous and pus in her stool but no blood. Her diarrhea has awoken her from sleep and she has had episodes of fecal incontinence during the night. She has not been eating much recently due to fear of more bowel movements. She has felt dehydrated for the past few days and is no urinating less frequently. Around 6 months ago she noted some abdominal pain with dairy so she has been trying to avoid dairy but this has not changed her diarrhea. She has not taken any OTC medications. In the beginning of her course of diarrhea she had a few episodes of nausea and vomiting which has since improved. She denies any recent travel. No sick contacts. She has not used any antibiotics recently. Her PCP obtained stool testing including lactoferrin, salmonella, shigella, campylobacter, shiga toxin, crypto, and giardia negative. She also had serum testing including negative tTG IgA. She does not believe she had C.Diff testing. In the past two days she has been switched from Metformin to Glipizide however she has not changed any other medications over the past several years. She was startedon mesalamine suppositories by her PCP which she has been using for the last week or so but she hasnot noted a difference in her symptoms since that time. She denies any new skin rashes or joint pain. She recently had an eye exam and reports that this was normal. She denies any family history of IBD. Review of Systems: Constitutional: No weight loss HEENT: No visual changes, URI symptoms Cardio: No chest pain/palpitations Resp: No cough, no SOB Hem/Lymph: no new lumps or bumps on body GI: see HPI : no dysuria Skin: no new rashes Musculoskeletal: no new joint pains Neuro: no new numbness, weakness in extremities All other systems negative except as above in HPI Past Medical History: Diagnosis Date ??? Aortic valve stenosis 09/12/2021 ??? Chest pain 09/12/2021 ??? Diabetes mellitus ??? Heart murmur ??? Heart palpitations 09/17/2021 ??? Hyperlipidemia ??? Hypertension ??? Lightheadedness 09/17/2021 ??? Migraine ??? Mitral valve prolapse 09/17/2021 ??? Overweight ??? Palpitations Past Surgical History: Procedure Laterality Date ??? ECTOPIC SURGERY ??? STRABISMUS SURGERY Bilateral Social History: reports that she has never smoked. She has never used smokeless tobacco. She reports current alcohol use. She reports that she does not use drugs. Family History: family history includes Heart Failure in her father; Hypertension in her father andmother; Lung Cancer in her sister; Myocardial Infarction in her father. No family history of IBD orCRC. Current Outpatient Medications Medication Sig Dispense Refill ??? Mesalamine (CANASA) 1,000 mg Suppository ??? glipiZIDE XL (Glucotrol XL) 5 mg Tablet Extended Rel 24 hr Take 5 mg by mouth daily. ??? simvastatin (Zocor) 20 mg Tablet Take 20 mg by mouth nightly. ??? lisinopriL (Zestril) 30 mg Tablet Take 30 mg by mouth daily. ??? metFORMIN (Glucophage) 1,000 mg Tablet Take 2,000 mg by mouth 2 times daily (with meals). ??? Ibuprofen-diphenhydrAMINE (Advil PM) 200-38 mg Tablet Take 1 tablet by mouth nightly. No current facility-administered medications for this visit. Allergies Allergen Reactions ??? Codeine Physical Examination: BP 130/89 (BP Location (NBP): Left arm, Patient Position: Sitting, BP Cuff Sizes: Adult (25-34 cm)) Pulse 68 Ht 160 cm (5' 3) Wt 66.8 kg (147 lb 3.2 oz) BMI 26.08 kg/m?? General: Pleasant, cooperative, no acute distress HEENT: NC/AT, anicteric sclera, MMM Chest: CTAB, no wheeze, rale or rhonchi CVS: Regular rate and rhythm, normal s1/s2, No murmurs, rubs or gallops ABD: soft, normoactive bowel sounds, mildly tender, non-distended, no hepatosplenomegaly appreciated Extremities: Warm and well perfused. No edema Skin: No rash or lesion, no jaundice Neuro: Grossly intact, moves all extremities. No asterixis Labs: Reviewed in EDH/Scan Docs No results found for: WBC, HGB, HCT, MCV, PLATELET Chemistry No results found for: NA, K, CL, CO2, BUN, CREATININE No results found for: CALCIUM, ALKPHOS, AST, ALT, BILITOT Past Endoscopy: Colonoscopy (02/14/2015) at [facility] Relevant Studies/Imaging: None IMPRESSION: Luz Maria Carreno is a 66 y.o. woman with PMH diabetes and history of microscopic colitispresenting with worsening diarrhea. Her diarrhea is most likely secondary to microscopic colitis given her previous history of this. She does take simvastatin which is a potential trigger. We discussed starting with C.Diff testing and a fecal calprotectin as well as basic labs today to evaluate forAKI or electrolyte derangement. Assuming C.Diff is negative then recommended Colonoscopy with non-targeted biopsies to confirm suspicion of microscopic colitis as the culprit. In the interim, she canuse Imodium PRN for symptomatic treatment. RECOMMENDATIONS: - CBC, CMP, CRP - C.Diff - Fecal calprotectin - Colonoscopy with non-targeted colon biopsies - Imodium PRN if C.Diff negative Follow up in 4-5 months This case was discussed with Angy Lugo MD Fellow in Gastroenterology and Hepatology [place] [id number] P: [phone] F: [phone] CC Shabbir Ortiz MD [address] [address] * Connor Travis MD - 02/19/2022 10:00 AM EST ATTENDING ATTESTATION: I have seen, examined, and discussed the patient with the GI fellow Dr. Lugo and I agree with thefindings, assessment, and plan as written. Connor Travis MD, [facility] Attending Staff Section of Gastroenterology and Hepatology Pager [phone] documented in this encounter Plan of Treatment Scheduled Orders Name Type Priority Associated Diagnoses Orde r Schedule ENDOSCOPY CASE REQUEST: COLONOSCOPY, DIAGNOSTIC Procedures Routine Diarrhea, unspecified type Ordered: 02/19/2022 documented as of this encounter Procedures Procedure Name Priority Date/Time Associated Diagnosis Comments HC C. DIFF QUIK CHEK ANTIGEN Routine 02/19/2022 2:15 PM EST Diarrhea, unspecified type HC FECAL CALPROTECTIN Routine 02/19/2022 2:15 PM EST Diarrhea, unspecified type HC VENIPUNCTURE Routine 02/19/2022 11:58 AM EST Diarrhea, unspecified type HEMOGRAM Routine 02/19/2022 11:58 AM EST Diarrhea, unspecified type DIFFERENTIAL, AUTOMATED Routine 02/19/2022 11:58 AM EST Diarrhea, unspecified type HC CBC,PLT & AUTO DIFF Routine 11:58 AM EST Diarrhea, unspecified type COMPREHENSIVE METABOLIC PANEL Routine 02/19/2022 11:58 AM EST Diarrhea, unspecified type documented in this encounter Results * C. Difficile Screen (02/19/2022 2:15 PM EST) C Diff Interp Negative Negative [facility] Comment: Ag/Tox Neg C. diff?? Negative Clostridium difficile is not present in the specimen. If patient is having diarrhea suspected to be from an infectious cause, then Soap & Water Contact Precautions are still required. Stool 02/19/2022 2:15 PM EST 02/19/2022 4:23 PM EST Narrative Resulting Agency Comment Spec In Lab Connor Travis MD MICROBIOLOGY - GENER AL ORDERABLES Performing Organization Address [facility] [place] [address] * (ABNORMAL) Calprotectin, Stool (02/19/2022 2:15 PM EST) [facility] Calprotectin, Stool 1,379(H) <=79 mcg/g [facility] Comment: Calprotectin Concentration ? Interpretation ? < 80 mcg/g ?Normal ? 80 ? 160 mcg/g ?Borderline ? >160 mcg/g ?Elevated Stool 02/19/2022 2:15 PM EST 02/19/2022 3:43 PM EST Narrative Resulting Agency Comment Spec In Lab Connor Travis MD BODY FLUIDS AND STOO LS ORDERABLES Performing Organization Address [facility] [place] [address] * Differential, Automated (02/19/2022 11:58 AM EST) [facility] Neutrophil % 60.2 % [facility] Neutrophil Absolute 4.54 1.70 - 6.10 x10(3)/[facility] Lymph % 29.4 % [facility] Lymphocytes Abs 2.2 0.9 - 3.2 x10(3)/[facility] Monocyte % 8.4 % [facility] Monocyte Abs 0.6 0.3 - 0.9 x10(3)/[facility] Eos % 1.3 % [facility] Eosinophils Abs 0.1 0.0 - 0.4 x10(3)/[facility] Basophil % 0.4 % [facility] Baso Absolute 0.0 0.0 - 0.1 x10(3)/[facility] Immature Gran % 0.30 % [facility] Comment: Immature granulocytes(IG's)percentage and absolute count will include metamyelocytes, myelocytes, and promyelocytes. Blood smears from CBCs yielding IG's will be scanned manually for concordance. If this scan disagrees with the automated IG or if promyelocytes are noted, a manual differential will be performed. Immature Gran Absolute 0.02 0.00 - 0.04 x10(3)/[facility] Blood 02/19/2022 11:5 8 AM EST 02/19/2022 12:03 PM EST Narrative Resulting Agency Comment Spec In Lab Elsa Lugo MD HEMATOLOGY ORDERABLE S [facility] [place] [address] * Hemogram (02/19/2022 11:58 AM EST) White Blood Cell 7.5 4.0 - 9.5 x10(3)/[facility] Red Blood Cell 4.00 4.00 - 5.21 x10(6)/[facility] Hemoglobin 12.0 11.7 - 15.5 g/dL [facility] Hematocrit 35.9 35.7 - 45.8 % [facility] Mean Cell Volume 89.8 82.6 - 94.[address] fL [facility] Mean Cell Hemoglobin 30.0 27.1 - 32.[address] [facility] Mean Cell Hemoglobin Concentration 33.4 31.7 - 35.0 g/dL [facility] Platelet 229 145 - 357 x10(3)/[facility] RDW Standard Deviation 41.9 37.0 - 46.0 fL [facility] RDW coefficient of variation 12.7 11.5 - 14.1 % [facility] Mean Platelet Volume 10.2 7.6 - 12.9 fL [facility] NRBC% auto 0.0 % [facility] NRBC Absolute 0.000 0.000 - 0.000 x10(3)/[facility] Blood 02/19/2022 11:5 8 AM EST 02/19/2022 12:03 PM EST Narrative Resulting Agency Comment Spec In Lab Elsa Lugo MD HEMATOLOGY ORDERABLE S Performing Organization Address City/[facility]/ZIP Co de Phone Number [facility] [place] [address] * CRP, acute inflammation (02/19/2022 11:58 AM EST) C-Reactive Protein <3.0 <=4.9 mg/L [facility] Blood 02/19/2022 11:5 8 AM EST 02/19/2022 12:03 PM EST Narrative Resulting Agency Comment Spec In Lab Connor Travis MD CHEMISTRY ORDERABLES Performing Organization Address [facility] Co de Phone Number [facility] [place] [address] * (ABNORMAL) Comprehensive metabolic panel (non-fasting) (02/19/2022 11:58 AM EST) Glucose 106 65 - 199 mg/dL [facility] Comment:Diabetes: >=200 mg/d L plus symptoms Blood Urea Nitrogen 14 8 - 18 mg/dL [facility] Creatinine 0.71 0.70 - 1.20 mg/dL [facility] Sodium 144 135 - 145 mmol/L [facility] Potassium 3.6 3.5 - 5.0 mmol/L [facility] Comment: Please note: ??Patients with WBC >100,000 may have falsely elevated Potassium levels. ??For accurate Potassium quantification in these patients send serum separator tube (gold top) for subsequent determinations. ??Contact the Clinical Chemistry Laboratory if there are any questions. Chloride 109(H) 98 - 107 mmol/L [facility] Carbon Dioxide 25 22 - 31 mmol/L [facility] Anion Gap 10 5 - 15 mmol/L [facility] Calcium 9.4 8.5 - 10.5 mg/dL [facility] Protein, Total 6.9 6.1 - 8.0 g/dL [facility] Albumin 4.2 3.2 - 5.2 g/dL [facility] Aspartate Aminotransferase 16 0 - 30 unit/L [facility] Alanine Aminotransferase 20 0 - 30 unit/L [facility] Alkaline Phosphatase 107(H) 35 - 105 unit/L [facility] Bilirubin, Total 0.2 0.2 - 1.3 mg/dL [facility] Est Glomerular Filtration Rate 94 >=60 mL/min/1. 73 m?? [facility] Comment: This patient's estimated GFR was [...] In Lab Connor Travis MD CHEMISTRY ORDERABLES Performing Organization Address City/State/[facility] Co de Phone Number [facility] [place] [address] documented in this encounter Visit Diagnoses Diagnosis Diarrhea, unspecified type documented in this encounter Additional Health Concerns Infection Onset Date Last Indicated Resolved Time Rule Out C. difficile 02/19/2022 02/19/20222021 1:34 PM EST documented as of this encounter Care Teams Salvage Supervisor Relationship Specialty Start Date End Date Shabbir Ortiz MD [address] [place] [address] PCP - General 01/22/10 05/27/22 documented as of this encounter
--- OUTSIDE RECORDS SUMMARY | 2024-02-17 10:00 | XMS_ITS | Encounter Summary ---
Author Organization [facility] Address [address] [place] [address] Care Team Providers Care Line Ordering Clinician Name Role Phone Unavailable Primary Care Provider Unavailabl e Encounter Details Date Type Department Care Team (Late st Contact Info) Description 06/03/2004 Results Only [facility] [address] [place] [address] Melyssa Ruiz MD [address] [place] [address] [place] [address] Social History Tobacco Use Types Packs/Day Years [...] Priority Date/Time Associated Diagnosis Comments SURGICAL PATHOLOGY Routine 06/03/2004 0:00 EDT documented in this encounter Results * SURGICAL PATHOLOGY (06/03/2004 0:00 EDT) Pathology Report: SURGICAL PATHOLOGY REPORT Reports generated via electronic interface contain original data; however they are lacking the format of the original report. Caution should be taken when reading/interpreti ng unformatted reports. Name: ? LUZ MARIA QUEEN ? Accession #: ? [id number] ? : ? 1955 (Age: 48) ??F ? Collect Date: ? 06/03/2004 ? Location: ? [facility] ? Receive Date: ? 06/04/2004 ? Provider: MELYSSA RUIZ MD Copy to: TERRIE FLORENCE MD ? Final Pathologic Diagnosis: ? Endometrium, biopsy: 1. ?Superficial strips of weakly proliferative endometrium. 2. ?Focal tubal metaplasia. 3. ?Rare fragments of benign squamous mucosa with no evidence of dysplasia. Document reviewed and electronically signed by: LEXY JOHNSON MD Report ??Date: 06/05/2004 17:18 By the signature above, the attending physician certifies that he/she has personally conducted a gross and/or microscopic examination of the described specimens and rendered or confirmed the above diagnosis. Specimen(s) Received: ? Endometrial bx Clinical History: ? PMB; LMP: 05/18/04 (LMP before that 3 years ago) Gross Description: ? Received in formalin labelled Wai and endometrial bx are 0.5 x 0.5 x 0.3 cm of red-brown, hemorrhagic soft tissue fragments. ??The specimen is entirely submitted in one cassette. ??(Sandeep Archuleta/chi End of Report TERA MORGAN 06/03/2004 06/04/2004 15: 01 EDT us Melyssa Ruiz MD PATHOLOGY ORDERABLES Final Resu lt TERA MORGAN [address] [place] [address] documented in this encounter Visit Diagnoses Not on filedocumented in this encounter
--- OUTSIDE RECORDS SUMMARY | 2024-02-17 10:00 | XMS_ITS | Encounter Summary ---
Author Organization [facility] Address [address] [place] [address] Care Team Providers Care Slab Worker Name Role Phone Unknown, Provider Primary Care Provider Carson gotti Encounter Details Date Type Department Care Team (Late st Contact Info) Description 03/20/2020 Lab Requisition [facility] Pathology & Laboratory Medicine - [address] [address] Jessie Bynum, [address] [place] [id number] Encounter for other general examination Social History Tobacco Use Types Packs/Day Years [...] Procedure Name Priority Date/Time Associated Diagnosis Comments PAP TEST Today 03/20/2020 11:00 EST Encounter for other general examination HPV DNA DETECTION WITH GENOTYPING, PCR Today 03/20/2020 11:00 EST Encounter for other general examination documented in this encounter Results * HUMAN PAPILLOMAVIRUS (HPV) DETECTION-HIGH RISK TYPES (03/20/2020 11:00 EST) HPV other High Risk types, PCR Negative Negative 03/30/2020 14:55 [facility] Comment:No E6 or E7 mRNA is detected from HPV types 16,18,31,33,35,39,45,51,52,56,58,59,66, and 68 by ship's surveyor mediated amplification. Papanicolaou smear specimen (specimen) CERVIX UTERI STRUCTURE / Unknown 03/20/2020 11:00 EST 03/29/2020 11:20 EST Jessie Bynum [facility] MICROBIOLOGY - GENERAL ORDER EBONI Final Result [facility] [address] [place] [address] * PAP TEST (03/20/2020 11:00 EST) Specimens A. Cervix and/or Endocervix , ThinPrep Imaging System with Manual Evaluation 03/30/2020 14:55 [facility] Specimen Adequacy Satisfactory for Evaluation - transformation zone component present 03/30/2020 14:55 [facility] General Categorization Negative for intraepithelial lesion or malignancy 03/30/2020 14:55 [facility] Descriptive Diagnosis Reactive cellular changes associated with inflammation present (includes repair). 03/30/2020 14:55 [facility] Attestation By the signature below, the attending physician certifies that they have personally conducted a gross and/or microscopic examination of the described specimens and rendered or confirmed the above diagnosis. 03/30/2020 14:55 [facility] at 1455 Clinical History See below 03/30/19 14:55 [facility] HPV The result for the Human Papillomavirus (HPV) Detection-High Risk Types is Negative. No E6 or E7 mRNA is detected from HPV types 16,18,31,33,35,39 ,45,51,52,56,58,5 9,66, and 68 by ship's surveyor mediated amplification.Lalita ting was performed on specimen [id number] and was resulted on 03/30/2020 1435 EST by MADHURI, LAB INSTRUMENT RESULTS IN 03/30/2020 14:55 [facility] Performing Lab [facility] 03/30/2020 14:55 EST [facility] Scanned Images 03/30/2020 14:55 EST [facility] Papanicolaou smear specimen (specimen) CERVIX UTERI STRUCTURE / Unknown 03/20/2020 11:00 EST 03/20/2020 15:37 EST Jessie LEP PATHOLOGY ORDERABLES Final R esult [facility] [address] [place] [address] documented in this encounter Visit Diagnoses Diagnosis Encounter for other general examination documented in this encounter Care Teams Slab Worker Relationship Specialty Start Date End Date Unknown, Provider, PCP - General 11/09/13 documented as of this encounter
--- OUTSIDE RECORDS SUMMARY | 2024-02-17 10:00 | XMS_ITS | Encounter Summary ---
Author Organization [facility] Address [address] [place] [address] Care Team Providers Care Identification Technician Name Role Phone Unavailable Primary Care Provider Unavailabl e Encounter Details Date Type Department Care Team (Late st Contact Info) Description 05/24/2008 Before PRISM Converted Visit (Maple) [facility] - Maple conversion [address] [place] [address] Soledad Virk, BLU Social History Tobacco Use Types Packs/Day Years [...] Procedure Name Priority Date/Time Associated Diagnosis Comments HPV DETECTION, HIGH RISK TYPES Routine 05/24/2008 10:41 EDT CYTOPATHOLOGY Routine 05/24/2008 0:00 EDT documented in this encounter Results * HUMAN PAPILLOMA VIRUS DNA TEST (05/24/2008 10:41 EDT) Specimen Description Cervix, ThinPrep vial [facility] Result Negative for HPV types 16, 18, 31, 33, 35, 39, 45, 51, 52, 56, 58, 59, and 68. [facility] Report Status Final 05/31/2008 [facility] 05/24/2008 10:4 1 EDT 05/29/2008 10:41 EDT us Soledad Virk ASSISTANT LOAN PROCESSOR MICROBIOLOGY - GENERAL ORDERA BLES Final Result [facility] [address] [place] [address] * CYTOPATHOLOGY (05/24/2008 0:00 EDT) Pathology Report: CYTOPATHOLOGY REPORT ? Reports generated via electronic interface contain original data; ? however they are lacking the format of the original report. ? Caution should be taken when reading/interpreti ng unformatted reports. ? Name: ? LUZ MARIA QUEEN ? Accession #: ? [id number] ? : ? 1955 (Age: 52) ??F ?Collect Date: ? 05/24/2008 ? Location: ? [facility] ? Receive Date: ? 05/25/2008 ? Provider: ?SOLEDAD M FARRUKH ASSISTANT LOAN PROCESSOR ? Copy to: ? Specimen/Source: ?Pap Test, Cervix/Endocervix, ThinPrep Imaging System ? with manual evaluation ? Last Menstrual Period: ? 05/03 ? Other: ? HPVDX - HPV testing requested regardless of diagnosis on current ThinPrep Pap ?? test. ? SPECIMEN ADEQUACY ? Satisfactory for Evaluation ? - transformation zone component present ? GENERAL CATEGORIZATION ? Negative for Intraepithelial Lesion or Malignancy ? Document reviewed and electronically signed by: ? ARI Robertson(ASCP) ? Report Date: ??05/26/2008 15:21 ? End of Report ? [facility] 05/24/2008 05/25/2008 us Soledad Virk ASSISTANT LOAN PROCESSOR PATHOLOGY ORDERABLES Final Re sult [facility] [address] [place] [address] documented in this encounter Visit Diagnoses Not on filedocumented in this encounter
--- OUTSIDE RECORDS SUMMARY | 2024-02-17 10:00 | XMS_ITS | Encounter Summary ---
Author Organization [facility] [place] [address] Care Team Providers Care Divorce Lawyer Name Role Phone Shabbir Ortiz MD Primary Care Provider [phone] Reason for Referral * Consultation (Routine) - Closed Specialty Diagnoses / Procedures Referred By Katherine lópez Referred To Contact Gastroenterology Diagnoses Malaise Nausea and vomiting, unspecified vomiting type Diarrhea, unspecified type Light headedness Malaise / Nausea and vomiting,/ Diarrhea, / Light headedness Loni Mosqueda APRN [address] [place] [address] [facility] [address] [place] [phone] Referral ID Status Reason Start Date Expiration Date V isits Requested Visits Authorized [id number] Closed Consult, Test & Treat PCP Updated and/or Approved 02/12/2022 02/12/2023 6 6 Encounter Details Date Type Department Care Team (Late st Contact Info) Description 02/12/2022 Transcribe Orders eDH Incoming Referrals [phone] Loni Mosqueda APRN [address] [place] [address] Malaise; Nausea and vomiting, unspecified vomiting type; Diarrhea, unspecified type; Light headedness Social History Tobacco Use Types Packs/Day Years [...] Schedule Referral to Gastroenterology Outpatient Referral Routine Malaise Nausea and vomiting, unspecified vomiting type Diarrhea, unspecified type Light headedness Ordered: 02/12/2022 documented as of this encounter Visit Diagnoses Diagnosis Malaise Other malaise and fatigue Nausea and vomiting, unspecified vomiting type Diarrhea, unspecified type Light headedness Dizziness and giddiness documented in this encounter Care Teams Divorce Lawyer Relationship Specialty Start Date End Date Shabbir Ortiz MD [address] [place] [address] PCP - General 01/22/10 05/27/22 documented as of this encounter
--- OUTSIDE RECORDS SUMMARY | 2024-02-17 10:00 | XMS_ITS | Encounter Summary ---
Author Organization [facility] Address [address] [place] [address] Care Team Providers Care Glaze Mixer Name Role Phone Unavailable Primary Care Provider Unavailabl e Encounter Details Date Type Department Care Team (Late st Contact Info) Description 09/19/2002 Results Only [facility] - Maple conversion [address] [place] [address] Soledad Virk NP Social History Tobacco Use [...] Date/Time Associated Diagnosis Comments SURGICAL PATHOLOGY Routine 09/19/2002 0:00 EDT documented in this encounter Results * SURGICAL PATHOLOGY (09/19/2002 0:00 EDT) Pathology Report: SURGICAL PATHOLOGY REPORT Reports generated via electronic interface contain original data; however they are lacking the format of the original report. Caution should be taken when reading/interpreti ng unformatted reports. Name: ? LUZ MRAIA QUEEN ? Accession #: ? [id number] ? : ? 1955 (Age: 46) ??F ? Collect Date: ? 09/19/2002 ? Location: ? [facility] ? Receive Date: ? 09/19/2002 ? Provider: SOLEDAD VIRK NP Copy to: TERRIE STAHL MD ? Final Pathologic Diagnosis: ? Endometrium, biopsy: 1. ?Abundant mucus and fragments of benign endocervical tissue. 2. ?Superficially stripped fragments of benign lower uterine segment mucosa. Document reviewed and electronically signed by: Rivera Bill MD Report ??Date: 09/21/2002 15:20 By the signature above, the attending physician certifies that he/she has personally conducted a gross and/or microscopic examination of the described specimens and rendered or confirmed the above diagnosis. Specimen(s) Received: ? Endometrial bx Clinical History: ? Post menopausal bleeding (627.1) Gross Description: ? Received in formalin labelled Wai and endometrial bx are multiple fragments of quezada-pink tissue, hemorrhage, and mucoid material. ??The specimen is filtered revealing an aggregate mass of approximately 0.5 cc. ??The specimen is submitted entirely in one cassette. ??(Dr. Carrera)/avtar End of Report [facility] 09/19/2002 09/19/2002 15: 32 EDT us Soledad Virk NP PATHOLOGY ORDERABLES Final Re sult [facility] [address] [place] [address] documented in this encounter Visit Diagnoses Not on filedocumented in this encounter
--- OUTSIDE RECORDS SUMMARY | 2024-02-17 10:00 | XMS_ITS | Encounter Summary ---
Author Organization [facility] Address [address] [place] [address] Care Team Providers Care Architect Internship Name Role Phone Unknown, Provider Primary Care Provider Carson gotti Encounter Details Date Type Department Care Team (Late st Contact Info) Description 11/09/2013 Results Only [facility] Laboratory Services - [facility] ([facility] [address] [place] [address] Alonzo Tuttle MD [address] [place] [phone] Social History Tobacco Use Types Packs/Day Years [...] Date/Time Associated Diagnosis Comments SURGICAL PATHOLOGY Routine 11/09/2013 8:34 EDT documented in this encounter Results * SURGICAL PATHOLOGY (11/09/2013 8:34 EDT) Pathology Report: SURGICAL PATHOLOGY REPORT Reports generated via electronic interface contain original data; however they are lacking the format of the original report. Caution should be taken when reading/interpreti ng unformatted reports. Name: ? LUZ MARIA QUEEN ? Accession #: ? [id number] ? : ? 1955 (Age: 57) ??F ? Collect Date: ? 11/09/2013 ? Location: ? [facility] ? Receive Date: ? 11/10/2013 ? Provider: ALONZO TUTTLE MD Copy to: SUSANNE GARCIA ? Final Pathologic Diagnosis: SOFT TISSUE OF FINGER, RIGHT FOURTH, MASS, EXCISION: - ??Intravascular thrombus. Document reviewed and electronically signed by: EUNICE EVANS MD Report ??Date: 11/11/2013 17:09 By the signature above, the attending physician certifies that he/she has personally conducted a gross and/or microscopic examination of the described specimens and rendered or confirmed the above diagnosis. Specimen(s) Received: R 4th finger mass Clinical History: R 4th finger mass Gross Description: ? Received in formalin labelled with proper patient identification (initials C, P) and R 4th finger mass is an unoriented firm quezada-purple ovoid tissue (0.8 x 0.6 x 0.5 cm). ??The outer surface is inked blue. ??The specimen is bisected and has a central zhang-yellow cut surface with a red-brown periphery. ??Entirely submitted in 1. Soco Vogel 11/10/2013 10:27 AM End of Report [facility] 11/09/2013 8:34 EDT 11/10/2013 8:34 EDT us Alonzo Tuttle MD PATHOLOGY ORDERABLES Final Res ult [facility] [address] [place] [address] documented in this encounter Visit Diagnoses Not on filedocumented in this encounter Care Teams Architect Internship Relationship Specialty Start Date End Date Unknown, Provider, PCP - General 11/09/13 documented as of this encounter
--- OUTSIDE RECORDS SUMMARY | 2024-02-17 10:00 | XMS_ITS | Encounter Summary ---
Author Organization [facility] Address [address] [place] [address] Care Team Providers Care Barrel Polisher Name Role Phone Unavailable Primary Care Provider Unavailabl e Encounter Details Date Type Department Care Team (Late st Contact Info) Description 09/08/2012 Results Only [facility] Laboratory Services - [place] [id number] [place], [place] [address] Soledad Virk, BLU Social History Tobacco Use [...] Name Priority Date/Time Associated Diagnosis Comments PAP TEST- RESULT ONLY Routine 09/08/2012 0:00 EDT documented in this encounter Results * PAP TEST- RESULT ONLY (09/08/2012 0:00 EDT) Pathology Report: CYTOPATHOLOGY REPORT Reports generated via electronic interface contain original data; however they are lacking the format of the original report. Caution should be taken when reading/interpreti ng unformatted reports. Name: ? LUZ MARIA QUEEN ? Accession #: ? [id number] ? : ? 1955 (Age: 56) ??F ?Collect Date: ? 09/08/2012 ? Location: ? [facility] ? Receive Date: ? 09/10/2012 ? Provider: SOLEDAD VIRK SALESPERSON WOMEN'S HATS Copy to: TERRIE FLORENCE MD ? Final Report SPECIMEN ADEQUACY ? Satisfactory for Evaluation - transformation zone component present GENERAL CATEGORIZATION ? Negative for Intraepithelial Lesion or Malignancy ?? Last Menstrual Period: 2002 Hormonal/Contracep tive status: Tubal ligation: bilateral Specimen/Source: ??Pap Test, Cervix/Endocervix, ThinPrep Imaging System with manual evaluation Document reviewed and electronically signed by: ? ARI Robertson(ASCP) ? Report ??Date: 09/15/2012 11:19 HPV with Pap Test ? Date Ordered: ? 09/15/2012 ? Status: ?? Signed Out ?Date Complete: ? 09/17/2012 ? By: ??System Interface ? Date Reported: ? 09/17/2012 ? Interpretation RESULT: Negative for HPV. No E6 or E7 mRNA is detected from HPV types 16,18,31,33,35, 39,45,51,52,56,58, 59,66, and 68 by warp picker mediated amplification. Comments Document reviewed and electronically signed by: ? System Interface ? Report date: 09/17/2012 By the signature above, the attending physician certifies that he/she has personally conducted a gross and/or microscopic examination of the described specimens and rendered or confirmed the above diagnosis. End of Report [facility] 09/08/2012 09/10/2012 us Soledad Virk SALESPERSON WOMEN'S HATS PATHOLOGY ORDERABLES Final Re sult Performing Organization Address City/State/[facility] Co de Phone Number [facility] [address] [place] [address] documented in this encounter Visit Diagnoses Not on filedocumented in this encounter
--- OUTSIDE RECORDS SUMMARY | 2024-02-17 10:00 | XMS_ITS | Encounter Summary ---
Author Organization [facility] Address [address] [place] [address] Care Team Providers Care Manager Statistical Programming Name Role Phone Unavailable Primary Care Provider Unavailabl e Encounter Details Date Type Department Care Team (Late st Contact Info) Description 08/12/2006 Results Only [facility] - Maple conversion [address] [place] [address] Soledad Virk NP Social History Tobacco Use [...] Priority Date/Time Associated Diagnosis Comments CYTOPATHOLOGY Routine 08/12/2006 0:00 EDT documented in this encounter Results * CYTOPATHOLOGY (08/12/2006 0:00 EDT) Pathology Report: CYTOPATHOLOGY REPORT Reports generated via electronic interface contain original data; however they are lacking the format of the original report. Caution should be taken when reading/interpreti ng unformatted reports. Name: ? LUZ MARIA QUEEN ? Accession #: ? [id number] : ? 1955 (Age: 50) ??F ?Collect Date: ? 08/12/2006 Location: ? [facility] ? Receive Date: ? 08/13/2006 Provider: ?SOLEDAD VIRK DIE TECHNICIAN Copy to: ? Specimen/Source: ?ThinPrep Pap Test, Cervix/Endocervix, processed on Alector ThinPrep Imaging System, with manual evaluation Last Menstrual Period: ? 07/02 Other: ? HPVA - HPV testing requested if ASC-US on the current ThinPrep Pap test. ? SPECIMEN ADEQUACY ? Satisfactory for Evaluation - transformation zone component present GENERAL CATEGORIZATION ? Negative for Intraepithelial Lesion or Malignancy ? Document reviewed and electronically signed by: ? Leon Brunner, ARI(ASCP) ? Report Date: ??08/18/2006 12:57 End of Report [facility] 08/12/2006 08/13/2006 us Soledad Virk NP PATHOLOGY ORDERABLES Final Re sult [facility] [address] [place] [address] documented in this encounter Visit Diagnoses Not on filedocumented in this encounter
--- OUTSIDE RECORDS SUMMARY | 2024-02-17 10:00 | XMS_ITS | Encounter Summary ---
Author Organization [facility] Address [address] [place] [address] Care Team Providers Care Recreational Aide Name Role Phone Unknown, Provider Primary Care Provider Carson gotti Encounter Details Date Type Department Care Team ([facility] st Contact Info) Description 05/26/2017 Results Only [facility] [phone] John Torres MD [address] [place] [address] Social History Tobacco Use Types Packs/Day Years [...] Diagnosis Comments PAP TEST- RESULT ONLY Routine 05/26/2017 0:00 EDT documented in this encounter Results * PAP TEST- RESULT ONLY (05/26/2017 0:00 EDT) Pathology Report: CYTOPATHOLOGY REPORT Reports generated via electronic interface contain original data; however they are lacking the format of the original report. Caution should be taken when reading/interpreti ng unformatted reports. Name: ? LUZ MARIA QUEEN ? Accession #: ? [id number] ? : ? 1955 (Age: 61) ??F ?Collect Date: ? 05/26/2017 ? Location: ? [facility] ? Receive Date: ? 05/27/2017 ? Provider: JOHN TORRES MD Copy to: TERRIE FLORENCE MD ? Final Report SPECIMEN ADEQUACY ? Satisfactory for Evaluation - assessment of transformation zone component not applicable ( e.g. atrophy, vaginal sample, hysterectomy) GENERAL CATEGORIZATION ? Negative for Intraepithelial Lesion or Malignancy ?? Menstrual/Pregnanc y Status: ??Menopausal Specimen/Source: ??Pap Test, Cervix, ThinPrep Imaging System with manual evaluation Document reviewed and electronically signed by: ? ARI Laboy(ASCP) ? Report ??Date: 05/28/2017 14:30 HPV with Pap Test ? Date Ordered: ? 05/28/2017 ? Status: ?? Signed Out ?Date Complete: ? 05/29/2017 ? By: ??System Interface ? Date Reported: ? 05/29/2017 ? Interpretation RESULT: Negative for HPV. No E6 or E7 mRNA is detected from HPV types 16,18,31,33,35, 39,45,51,52,56,58, 59,66, and 68 by rivet hole puncher mediated amplification. Comments Document reviewed and electronically signed by: ? System Interface ? Report date: 05/29/2017 By the signature above, the attending physician certifies that he/she has personally conducted a gross and/or microscopic examination of the described specimens and rendered or confirmed the above diagnosis. End of Report [facility] 05/26/2017 05/27/2017 us John Torres MD PATHOLOGY ORDERABLES Final Resul t [facility] [address] [place] [address] documented in this encounter Visit Diagnoses Not on filedocumented in this encounter Care Teams Recreational Aide Relationship Specialty Start Date End Date Unknown, Provider, PCP - General 11/09/13 documented as of this encounter
--- OUTSIDE RECORDS SUMMARY | 2024-02-17 10:00 | XMS_ITS | Encounter Summary ---
Author Organization [facility] Address [facility] [place] [address] Care Team Providers Care Manager Transfusion Name Role Phone Shabbir Ortiz MD Primary Care Provider [phone] Reason for Visit * Reason Onset Date Comments Referral 09/12/2021 Encounter Details Date Type Department Care Team (Late st Contact Info) Description 09/12/2021 Telephone Cardiology at [address] [phone] Farnaz Urena, canal driver Social History Tobacco Use Types Packs/Day Years Used Date Smoking Tobacco: Never Assessed Sex and Gender Information Value Date Recorded Sex Assigned at Not on file Gender Identity Not on file Sexual Orientation Not on file documented as of this encounter Miscellaneous Notes * Telephone Encounter - Farnaz Urena, RN - 09/12/2021 5:03 PM EDT Call back to Luz Maria to triage the report of chest pain made to Alyssa Garcia. Per history by Luz Maria: Chest pain is not new, not extreme, and she has discussed it with her PCP clinic team. The referralfor cardiology was put in by JOSE Cunningham at the office of Shabbir Kolb. Luz Maria says this chest pain does not warrant going to the ER as advised by this nurse. She characterizes it as dull, triggered by stress, and intermittently present for many months. She shares that 6 months ago she was taking carvedilol but we thought my dizzy spells were due to that so it was stopped. She does not have a current prescription for anti-anginal medicines. Years ago she had nitroglycerin prescribed, but it was never used and never refilled. Current home meds she lists as lisinopril, simvastatin, metformin, and hydrochlorthoiazide. She reiterates she knows when she should go to an ER for chest pain and is declining to do so rightnow. Diagnosis information on the referral includes: * lightheadedness * palpitations * benign paroxysmal vertigo * mild aortic stenosis * mitral valve prolapse From progress notes of PCP: * hypertension * diabetes * left knee torn meniscus Most recent echo - 10/08/1920, with normal EF 65%, mild aortic stenosis, mild tricuspid regurgitation, PAP 25-30 mmHg (increased from prior at 15 mmHG) She was previously followed by Dr. Nassar. Plan / offer as a hack driver is not available today or tomorrow - an urgent appointment will be set up Thu, , or Thu next week when cancellations are identified Luz Maria declines. She will be away Thursday, Thursday, and Thursday next week. Instruction: present to ER for evaluation if chest pain worsens in intensity, frequency, or worsensin quality. Instruction: contact your PCP for problems until you see the hack driver Luz Maria states she understands and agrees to both. Plan: identify an appointment for her as soon as possible/with cancellations of the current schedule (which is fully booked for the summer). Luz Maria understands this appointment for cardiology evaluation cannot be responded to with an appointment for at least one week due to her and cardiologists' availability. * Telephone Encounter - Alyssa Garcia - 09/12/2021 3:42 PM EDT Patient called because she has a referral in and would like an appointment soon. She said she is having some chest pain. Please call her back on her cell phone @ [phone] documented in this encounter Plan of Treatment Not on file documented as of this encounter Visit Diagnoses Not on filedocumented in this encounter Care Teams Manager Transfusion Relationship Specialty Start Date End Date Shabbir Ortiz MD [address] [place] [address] PCP - General 01/22/10 05/27/22 documented as of this encounter
--- OUTSIDE RECORDS SUMMARY | 2024-02-17 10:00 | XMS_ITS | Clinical Summary ---
Author Organization [facility] Address [address] [place] [address] Care Team Providers Care Wet Silk Hanger Name Role Phone Unknown, Provider Primary Care Provider Unava ilable Social History Tobacco Use Types Packs/Day Years Used Date Smoking Tobacco: Never Assessed Comments Unknown Sex and Gender Information Value Date Recorded Sex Assigned at Not on file Legal Sex Female 18:05 EST Gender Identity Not on file Sexual Orientation Not on file Plan of Treatment Health Maintenance Due Date Last Done Comments Hepatitis C Screen 1955 Fall Risk Screening 2021 COVID-19 Vaccine ( season) 2023 RSV Immunization ( o r 60+ Years) (1 - 1-dose 75+ series) 12/02/2031 Insurance [facility] [address] , [place] [address] , [place] [address] , [place] [address] , [place] [address] , [place] [address] , [place] [address] Care Teams Wet Silk Hanger Relationship Specialty Start Date End Date Unknown, Provider, PCP - General 11/09/13
--- OUTSIDE RECORDS SUMMARY | 2024-02-17 10:00 | XMS_ITS | Encounter Summary ---
Author Organization [facility] Address [address] [place] [address] Care Team Providers Care Paver Operator Name Role Phone Unavailable Primary Care Provider Unavailabl e Encounter Details Date Type Department Care Team (Late st Contact Info) Description 09/14/2003 Results Only [facility] - Maple conversion [address] [place] [address] Soledda Virk NP Social History Tobacco Use Types [...] Priority Date/Time Associated Diagnosis Comments CYTOPATHOLOGY Routine 09/14/2003 0:00 EDT documented in this encounter Results * CYTOPATHOLOGY (09/14/2003 0:00 EDT) Pathology Report: CYTOPATHOLOGY REPORT Reports generated via electronic interface contain original data; however they are lacking the format of the original report. Caution should be taken when reading/interpreti ng unformatted reports. Name: ? LUZ MARIA QUEEN ? Accession #: ? [id number] : ? 1955 (Age: 47) ??F ?Collect Date: ? 09/14/2003 Location: ? [facility] ? Receive Date: ? 09/18/2003 Provider: ?SOLEDAD VIRK DOCUMENTATION SPEC Copy to: ? Specimen/Source: ?ThinPrep Pap Test, Cervix/Endocervix Last Menstrual Period: ? 05/03 ? SPECIMEN ADEQUACY ? Satisfactory for Evaluation - transformation zone component present GENERAL CATEGORIZATION ? Negative for Intraepithelial Lesion or Malignancy ? Document reviewed and electronically signed by: ? Savanah Haddad, SCT(ASCP) ? Report Date: ??09/22/2003 13:30 End of Report [facility] 09/14/2003 09/18/2003 us Soledad Virk NP PATHOLOGY ORDERABLES Final Re sult [facility] [address] [place] [address] documented in this encounter Visit Diagnoses Not on filedocumented in this encounter
--- OUTSIDE RECORDS SUMMARY | 2024-02-17 10:00 | XMS_ITS | Encounter Summary ---
Author Organization [facility] Address [address] [place] [address] Care Team Providers Care Government Affairs Director Name Role Phone Unknown, Provider Primary Care Provider Unava ilable Reason for Visit * Reason Onset Date Comments Follow-up 10/11/2015 Encounter Details Date Type Department Care Team (Late st Contact Info) Description 10/11/[address] [facility] Hematology & Oncology - [address] [id number] Sofie Massey RN Follow-up Social History Tobacco Use Types Packs/Day Years Used Date Smoking Tobacco: Never Assessed Comments Unknown Sex and Gender Information Value Date Recorded Sex Assigned at Not on file Legal Sex Female 18:05 EST Gender Identity Not on file Sexual Orientation Not on file documented as of this encounter Miscellaneous Notes * Telephone Encounter - Sofie Massey RN - 10/11/2015 1259 EDT erroneous encounter documented in this encounter Plan of Treatment Not on file documented as of this encounter Visit Diagnoses Not on filedocumented in this encounter Care Teams Government Affairs Director Relationship Specialty Start Date End Date Unknown, Provider, PCP - General 11/09/13 documented as of this encounter
--- OUTSIDE RECORDS SUMMARY | 2024-02-17 10:00 | XMS_ITS | Encounter Summary ---
Author Organization [facility] Address [address] [place] [address] Care Team Providers Care Mine Production Engineer Name Role Phone Unknown, Provider Primary Care Provider Carson gotti Encounter Details Date Type Department Care Team (Late st Contact Info) Description 10/16/2022 Lab Requisition [facility] Pathology & Laboratory Medicine - [facility] [address] [place] [address] Loni Mosqueda, CLINICAL TECHNOLOGIST [address] [place] [address] Encounter for other general examination Social History [...] Priority Date/Time Associated Diagnosis Comments SURGICAL PATHOLOGY Today 10/15/2022 10 :00 EDT Encounter for other general examination documented in this encounter Results * SURGICAL PATHOLOGY (10/15/2022 10:00 EDT) Note to Patient The following pathology results have been interpreted by your pathologist and may be available to you before your health provider has had the opportunity to review them. Please allow time for your provider to receive these results and explore management options, if applicable. 10/17[facility]2022 9[facility] Final Diagnosis A. SKIN OF BUTTOCK, LEFT UPPER, SHAVE BIOPSY: - Melanocytic nevus, intradermal type. 10/17/2022 9:33 [facility] Attestation By the signature below, the attending physician certifies that they have 1) personally conducted a gross and/or microscopic examination of the described specimen(s), and/or personally interpreted the results of laboratory testing of the described specimen(s), and 2) personally rendered or confirmed the above diagnosis. 10/17/2022 9:33 [facility] at 0933 Microscopic Description Sections are of a papule with mild epidermal hyperplasia and hyperkeratosis. There is a proliferation of melanocytes within the dermis. The proliferation consists of nests, cords, and strands that diminish in size with descent into the dermis. The melanocytes are slightly enlarged but generally have round-oval nuclei and a moderate amount of cytoplasm. The melanocytes show linoleum layer maturation. 10/17/2022 9:33 [facility] Clinical History Lesion increased in size and bleeding; clinical diagnosis code: L98.9 10/17/2022 9:33 [facility] Gross Description A. Received in formalin labelled with proper patient identification (initials C, P) and not otherwise specified are 3 quezada-white portions of skin ranging in size from 0.3 x 0.3 x 0.1 cm up to 0.7 x 0.5 x 0.1 cm. The specimens are inked and the 2 smallest tissues are submitted intact in A1 while the largest tissue is bisected and submitted in entirely in A2. JOSE NGUYEN(ASCP) 10/16/2022 20:07 10/17/2022 9:33 [facility] Performing Lab [facility] 10/17/2022 9:33 [facility] Scanned Images 10/17/2022 9:33 [facility] Tissue SPECIMEN FROM SKIN / Unknown 10/15/2022 10:00 EDT 10/16/2022 17:33 EDT Loni Mosqueda CLINICAL TECHNOLOGIST PATHOLOGY ORDERABLES Final R esult [facility] [address] [place] [address] documented in this encounter Visit Diagnoses Diagnosis Encounter for other general examination documented in this encounter Care Teams Mine Production Engineer Relationship Specialty Start Date End Date Unknown, Provider, PCP - General 11/09/13 documented as of this encounter
--- OUTSIDE RECORDS SUMMARY | 2024-02-17 10:00 | XMS_ITS | Encounter Summary ---
Author Organization [facility] Address [address] [place] [address] Care Team Providers Care Blockers Skiver Name Role Phone Unknown, Provider Primary Care Provider Unava ilable Encounter Details Date Type Department Care Team (Latest Contact Info) Description 02/14/2015 11:26 EST - 02/14/2015 23:59 EST Hospital Encounter [address] [address] Unknown, Provider, Discharge Disposition: Home or Self Care Social History Tobacco Use Types Packs/Day Years Used Date Smoking Tobacco: Never Assessed Comments Unknown Sex and Gender Information Value Date Recorded Sex Assigned at Not on file Legal Sex Female 18:05 EST Gender Identity Not on file Sexual Orientation Not on file documented as of this encounter Discharge Disposition Disposition Code Departure Means Destination Home or Self Nursing Home documented in this encounter Plan of Treatment Not on file documented as of this encounter Visit Diagnoses Not on filedocumented in this encounter Care Teams Blockers Skiver Relationship Specialty Start Date End Date Unknown, ProviderMD PCP - General 11/09/13 documented as of this encounter
--- OUTSIDE RECORDS SUMMARY | 2024-02-17 10:00 | XMS_ITS | Referral Summary ---
Author Organization [facility] Address [address] [place] [address] Care Team Providers Care Cement Finisher Apprentice Name Role Phone Unknown, Provider Primary Care Provider Unava ilable Social History Tobacco Use Types Packs/Day Years Used Date Smoking Tobacco: Never Assessed Comments Unknown Sex and Gender Information Value Date Recorded Sex Assigned at Not on file Legal Sex Female 18:05 EST Gender Identity Not on file Sexual Orientation Not on file Plan of Treatment Not on file Insurance [facility] [place] [address] , [place] [address] , [place] [address] , [place] [address] , [place] [address] , [place] [address] , [place] [address] Care Teams Cement Finisher Apprentice Relationship Specialty Start Date End Date Unknown, Provider, PCP - General 11/09/13
--- OUTSIDE RECORDS SUMMARY | 2024-02-17 10:00 | XMS_ITS | Encounter Summary ---
Author Organization [facility] Address [address] [place] [address] Care Team Providers Care Surveyor Helper Rod Name Role Phone Unavailable Primary Care Provider Unavailabl e Encounter Details Date Type Department Care Team (Late st Contact Info) Description 06/06/1999 Results Only [facility] [address] [place] [id number] Soledad Virk NP Social History Tobacco Use [...] Priority Date/Time Associated Diagnosis Comments CYTOPATHOLOGY Routine 06/06/1999 13:50 EDT documented in this encounter Results * CYTOPATHOLOGY (06/06/1999 13:50 EDT) Pathology Report: CYTOPATHOLOGY REPORT Reports generated via electronic interface contain original data; however they are lacking the format of the original report. Caution should be taken when reading/interpreti ng unformatted reports. Name: ? LUZ MARIA QUEEN ? Accession #: ? [id number] : ? 1955 (Age: 43) ??F ?Collect Date: ? 06/06/1999 Location: ?Receive Date: ? 06/06/1999 Provider: ?SOLEDAD VIRK GAS DISTRIBUTION AND EMERGENCY CLERK Copy to: ?SOLEDAD VIRK GAS DISTRIBUTION AND EMERGENCY CLERK ? Specimen/Source: ?Community Development Manager ThinPrep Last Menstrual Period: ? GYNECOLOGIC ??CYTOPATHOLOGY ??REPORT Name: LUZ MARIA QUEEN ?[facility] : 1955 ?? 43Y F ?Client ID: [id number] SS#: [id number] ? Clinician: BARNEY VIRK NP ?? Location: [facility] ??Copy to: ?? Specimen: ?Community Development Manager ThinPrep ? Source: Cervix/Endocervix ?Collected: 06/05/99 ? Received: 06/06/1999 ?LMP: 05/26/99 ? Hormone Therapy: No ? : No ? Radiation Therapy: No ?? Post : No ?Chemotherapy: No ?IUD: No ? Prev Abnormal Pap: No ?? Clinical Hx: ?(Blank cassidy indicate information not provided on requisition) SPECIMEN ADEQUACY: ? Satisfactory For Evaluation ?? GENERAL CATEGORIZATION: ? WITHIN NORMAL LIMITS ? Reviewed And Electronically Signed By: ? Nery Gill, CT(ASCP) ? Report Date: ?? 06/12/1999 Similar Pagesquest Archived Tests - Final Diagnosis Text Field: Clinical History : ? Document reviewed and electronically signed by: ? Conversion ? Report Date: ??06/12/1999 00:00 End of Report TERA MORGAN 06/06/1999 13:5 0 EDT 06/06/1999 13:51 EDT us Soledad Virk GAS DISTRIBUTION AND EMERGENCY CLERK PATHOLOGY ORDERABLES Final Re sult TERA MORGAN [address] [place] [address] documented in this encounter Visit Diagnoses Not on filedocumented in this encounter
--- OUTSIDE RECORDS SUMMARY | 2024-02-17 10:00 | XMS_ITS | Encounter Summary ---
Author Organization [facility] Address [address] [place] [address] Care Team Providers Care Crib Pad Maker Name Role Phone Unknown, Provider Primary Care Provider Unava ilable Encounter Details Date Type Department Care Team (Latest Contact Info) Description 11/09/2013 12:19 EDT - 11/09/2013 23:59 EDT Hospital Encounter [address] [address] Unknown, ProviderMD Discharge Disposition: Home or Self Care Social [...] Code Departure Means Destination Home or Self Fpc documented in this encounter Plan of Treatment Not on file documented as of this encounter Visit Diagnoses Not on filedocumented in this encounter Care Teams Crib Pad Maker Relationship Specialty Start Date End Date Unknown, ProviderMD PCP - General 11/09/13 documented as of this encounter
--- OUTSIDE RECORDS SUMMARY | 2024-02-17 10:00 | XMS_ITS | Encounter Summary ---
Author Organization [facility] Address [facility] [place] [address] Care Team Providers Care Environmental Aide Name Role Phone Shabbir Ortiz MD Primary Care Provider [phone] Reason for Visit * Consultation (Routine) - Closed Specialty Diagnoses / Procedures Referred By Katherine t Referred To Contact Cardiology Diagnoses Lightheadedness Palpitations Benign paroxysmal positional vertigo, unspecified laterality Mild aortic stenosis Mitral valve prolapse Loni Mosqueda APRN [address] [place] [address] [facility] Cardiology [address] [place] [phone] Referral ID Status Reason Start Date Expiration Date V isits Requested Visits Authorized [id number] Closed Consult, Test & Treat PCP Updated and/or Approved 09/10/2021 09/10/2022 6 6 Encounter Details Date Type Department Care Team (Late st Contact Info) Description 09/24/2021 3:20 PM EDT Office Visit Cardiology at [address] [phone] Juan Carlos Alejo MD [facility] [place] [address] Chest pain, unspecified type Social History Tobacco Use Types [...] Sign Reading Time Taken Comments Blood Pressure 114/68 09/24/2021 3:29 PM EDT Pulse 58 09/24/2021 3:29 PM EDT Temperature - - Respiratory Rate - - Oxygen Saturation - - Inhaled Oxygen Concentration - - Weight 67.9 kg (149 lb 12.8 oz) 09/24/2021 3:23 PM EDT Height 160 cm (5' 3) 09/24/2021 3:23 PM EDT Body Mass Index 26.54 09/24/2021 3:23 PM EDT documented in this encounter Progress Notes * Juan Carlos Alejo MD - 09/24/2021 3:20 PM EDT Images from the original note were not included. CARDIOLOGY NEW OUTPATIENT PRIMARY CARE PROVIDER: Shabbir Ortiz MD PROBLEM LIST: Patient Active Problem List Diagnosis ??? Aortic valve stenosis ??? Chest pain ??? Situational stress ??? Lightheadedness ??? Heart palpitations ??? Mitral valve prolapse MEDICATIONS: Current Outpatient Medications Medication Sig Dispense Refill ??? simvastatin (Zocor) 20 mg Tablet Take 20 mg by mouth nightly. ??? metFORMIN (Glucophage) 1,000 mg Tablet Take 2,000 mg by mouth 2 times daily (with meals). ??? lisinopriL (Zestril) 30 mg Tablet Take 30 mg by mouth daily. ??? Ibuprofen-diphenhydrAMINE (Advil PM) 200-38 mg Tablet Take 1 tablet by mouth nightly. No current facility-administered medications for this visit. Subjective: Patient ID: Luz Maria Carreno is a 65 y.o. female. HPI: 65 f presents on referral from GP for aortic stenosis and new chest pain Patient's most recent echocardiogram in 08/2021 demonstrated mild (by all obstructive indices) but with a rather discordantly low TWILA. Regarding her symptoms, she reports mild chest pain that occurs mostly with activity but sometimes at rest. It has not been progressive in months. Associated with nyha ii dyspnea Also endorses orthostatic lightheadedness Objective: No data found. Gen: pleasant female in NAD Cor: rrr, s1/s2 of nl character and amplitude, II/ early peaking ursula at base. Estimated RAP not elevated. Carotids without bruit. Pulm: CTAB. Normal diaphragmatic movement without use of accessory muscles EKG: sb via irbbb TTE: 09/2020 EF 65%, GLS -23. Mild TTE 08/2021: unchanged compared to above Assessment and Plan: Chest pain Because of the typical qualities, will obtain stress testing. The mode of stress testing would optimally be echocardiographic, as patient is not low risk (age, DM), and it would be helpful to visualize the aortic valve as well as surrounding areas at stress (given discordant information in resting e chocardiogram) - KINGSLEY RTC pending KINGSLEY Juan Carlos Alejo MD Between 45-59 minutes were spent doing patient care, chart care/review (today), and care coordination. documented in this encounter Miscellaneous Notes * Assessment & Plan Note - Juan Carlos Alejo MD - 10/23/2021 2:55 PM EDT Associated Problem(s): Chest pain Because of the typical qualities, will obtain stress testing. The mode of stress testing would optimally be echocardiographic, as patient is not low risk (age, DM), and it would be helpful to visualize the aortic valve as well as surrounding areas at stress (given discordant information in resting e chocardiogram) - KINGSLEY documented in this encounter Plan of Treatment Not on file documented as of this encounter Procedures Procedure Name Priority Date/Time Associated Diagnosis Comments AMB REFERRAL TO CARDIOLOGY Routine 10/23/2021 2:57 PM EDT Lightheadedness Palpitations Benign paroxysmal positional vertigo, unspecified laterality Mild aortic stenosis Mitral valve prolapse documented in this encounter Visit Diagnoses Diagnosis Chest pain, unspecified type documented in this encounter Care Teams Environmental Aide Relationship Specialty Start Date End Date Shabbir Ortiz MD [address] [place] [id number] PCP - General 01/22/10 05/27/22 documented as of this encounter
--- OUTSIDE RECORDS SUMMARY | 2024-02-17 10:00 | XMS_ITS | Encounter Summary ---
Author Organization [facility] Address [address] [place] [address] Care Team Providers Care Keyboard Instrument Repairer Name Role Phone Unknown, Provider Primary Care Provider Carson gotti Encounter Details Date Type Department Care Team (Late st Contact Info) Description 02/14/2015 Results Only [facility] [phone] Alonzo Tuttle MD [address] [place] [phone] Social History Tobacco Use Types Packs/Day Years [...] Date/Time Associated Diagnosis Comments SURGICAL PATHOLOGY Routine 02/14/2015 9:18 EST documented in this encounter Results * SURGICAL PATHOLOGY (02/14/2015 9:18 EST) Pathology Report: SURGICAL PATHOLOGY REPORT Reports generated via electronic interface contain original data; however they are lacking the format of the original report. Caution should be taken when reading/interpreting unformatted reports. Name: ? LUZ MARIA QUEEN ? Accession #: ? [id number] ? : ? 1955 (Age: 59) ??F ? Collect Date: ? 02/14/2015 ? Location: ? [facility] ? Receive Date: ? 02/15/2015 ? Provider: ALONZO TUTTLE MD Copy to: TERRIE FLORENCE MD ? Final Pathologic Diagnosis: A. COLON, RANDOM, BIOPSY: - ??Colonic mucosa with features of lymphocytic colitis. ??See comment. B. RECTUM, BIOPSY: - ??Colorectal mucosa with features of lymphocytic colitis. ??See comment. Comment: There is marked expansion of the lamina propria with mixed inflammatory cells, including lymphoplasmacytes and rare neutrophils. Basement membrane is mildly thickened. There is surface intraepithelial lymphocytosis associated with epithelial damage. 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 Lymphocytic colitis can develop secondary to etiologies such as gluten sensitive enteropathy or medication/drug/ herbal effect, amongst others. Clinical correlation recommended. There is no unequivocal chronicity. Although similar features can be in context of diverticular disease, involvement of rectum, favors diagnosis of lymphocytic colitis. Document reviewed and electronically signed by: AARON WEBER MD Report ??Date: 02/20/2015 15:39 By the signature above, the attending physician certifies that he/she has personally conducted a gross and/or microscopic examination of the described specimens and rendered or confirmed the above diagnosis. Specimen(s) Received: A. ??Bx colon B. ??Bx rectum Clinical History: Diarrhea; diverticulosis, erythema of rectum,? prep artifact Gross Description: A. ?Received in formalin labelled with proper patient identification (initials C, P) and random colon bx are two fragments of quezada-pink tissue (each 0.3 x 0.2 x 0.2 cm). the specimen is submitted entirely in A1. B. ?Received in formalin labelled with proper patient identification (initials C, P) and rectal bx are two fragments of quezada-pink tissue (each 0.3 x 0.2 x 0.2 cm). The specimen is submitted entirely in B1. 02/15/2015 10:00 AM End of Report [facility] 02/14/2015 9:18 EST 02/15/2015 9:18 EST us Alonzo Tuttle MD PATHOLOGY ORDERABLES Final Res ult [facility] [address] [place] [address] documented in this encounter Visit Diagnoses Not on filedocumented in this encounter Care Teams Keyboard Instrument Repairer Relationship Specialty Start Date End Date Unknown, Provider, PCP - General 11/09/13 documented as of this encounter
--- OUTSIDE RECORDS SUMMARY | 2024-02-17 10:00 | XMS_ITS | Encounter Summary ---
[place] [address] Care Team Providers Care Water Main Pipe Layer Name Role Phone Shabbir Ortiz MD Primary Care Provider [phone] Encounter Details Date Type Department Care Team (Latest Contact Info) Description 12/08/2018 2:35 PM EDT - 12/08/2018 11:59 PM EDT Hospital Encounter [place] [phone] Shabbir Ortiz MD [address] [place] [address] [phone] Aortic valve stenosis, etiology of cardiac valve disease unspecified Discharge Disposition: Home Social History Tobacco Use Types Packs/Day Years Used Date Smoking Tobacco: Never Assessed Sex and Gender Information Value Date Recorded Sex Assigned at Not on file Gender Identity Not on file Sexual Orientation Not on file documented as of this encounter Plan of Treatment Not on file documented as of this encounter Procedures Procedure Name Priority Date/Time Associated Diagnosis Comments ECHO COMPLETE Routine 12/08/2018 2:51 PM EDT Aortic valve stenosis, etiology of cardiac valve disease unspecified documented in this encounter Results * ECHO COMPLETE (12/08/2018 2:51 PM EDT) EF 65 HEARTLAB SYSTEM Anatomical Region Laterality Modality Other 12/08/2018 Narrative 12/08/2018 3:08 PM EDT Amended Report Procedure: ?Transthoracic Echocardiogram Patient: ?BRET Cho . ?(Age): 1955(63y) Med Rec#: ? [id number] ?Sex: ?F ? Site Loc: ? [facility] ??Ht / Wt: ??(cm)/ (kg) ? Pt. Loc: ?Echo Lab ? Study Date: ?? 12/08/2018 ?Pt. Type: Outpatient Tape: ? Referring: Shabbir Ortiz Referring: [facility] Referring: [facility] Referrin Reading: Jefry Valdes ([id number]) Performing: UNKNOWN Butadiene Compressor Operator: RADHA Diagnosis: *Nonrheumatic aortic (valve) stenosis (I35.0) SUMMARY: 1. There is normal global left ventricular systolic function. ??Ejection fraction is estimated to be 65%. There are no left ventricular segmental wall motion abnormalities. 2. Right ventricular chamber size, wall thickness, and systolic function are within normal limits. 3. Normal chamber and aortic dimensions. 4. Normal valve structures. ??The aortic valve is tricuspid. The aortic valve leaflets are mildly thickened. Systolic excursion of the aortic valve is normal. The peak instantaneous/mean trans-valvular gradient across ??the aortic valve is 19 mmHg /8 mmHg that might represent a high flow state. No definite subvalvular stenosis is seen. ?? 5. The pericardium appears normal and there is no evidence of a pericardial effusion. The estimated pulmonary artery systolic pressure is 15 mmHg. The estimated right atrial pressure is 3 mmHg. Findings ? : Left Ventricle: ? The left ventricular chamber size is normal. ?Left ventricular wall thickness is normal. ?There is no evidence of LVOT obstruction. ?There is normal global left ventricular systolic function. ??Ejection fraction is estimated to be 65%. ?There are no left ventricular segmental wall motion abnormalities. Left Atrium: ? The left atrium is normal in size. Right Ventricle: ? Right ventricular chamber size, wall thickness, and systolic function are within normal limits. ?The estimated pulmonary artery systolic pressure is 15 mmHg. ?The estimated right atrial pressure is 3 mmHg. Right Atrium: ? The right atrium is normal in size. Aortic Valve: ? The aortic valve is tricuspid. ?The aortic valve leaflets are mildly thickened. ?Systolic excursion of the aortic valve is normal. ?The peak instantaneous trans-valvular gradient across ??the aortic valve is 19 mmHg. ?The mean trans-valvular gradient across ??the aortic valve is 8 mmHg. Mitral Valve: ? The mitral valve leaflets are mildly thickened. ?There is trace mitral regurgitation present. Tricuspid Valve: ? The tricuspid valve leaflets are morphologically normal. ?There is trace tricuspid regurgitation present. Pulmonic Valve: ? The pulmonic valve appears normal. ?There is trace pulmonic regurgitation present. Pericardium: ? The pericardium appears normal and there is no evidence of a pericardial effusion. Aorta: ? The aortic root is normal in size. ?The ascending aorta is normal in size. Pulmonary Artery: ? The main pulmonary artery appears normal. Venous: ? The inferior vena cava appears normal in size. ?There is a greater than 50% respiratory change in the inferior vena cava dimension. Misc: ? Two-dimensional echo, spectral Doppler and color Doppler performed. Chambers 2D ?Value ?Units (Range) ? IVSd (2D) ? 0.9 ?cm ? LVPWd (2D) ?0.8 ?cm ? IVS:LVPW ratio (2D) 1.1 ?ratio ? RWT (2D) ?0.4 ?ratio ? RWT PW (2D) ? 0.4 ?ratio ? LVIDd (2D) ?4 ?cm ? LVIDs (2D) ?2.4 ?cm ? LV FS (2D) ?40 ? % ? EF Teichholz (2D) ?? 71 ? % ? Ao root diameter (2D2.9 ?cm (2.1 - 3.6) ? Ascending Ao ?2.6 ?cm (2 - 3.5) ? Volumes/Mass ?Value ?Units (Range) ? LA Area 4 CH ?12 ? cm2 (<21) ? RA AREA 4CH ? 8 ?cm2 ? LV mass (2D) ?101.4 ?g ? Diastolic/Systolic Function ?Value ?Units (Range) ? MV E-wave Vmax ?0.6 ?m/sec ? MV deceleration [id number] ?msec ? MV A-wave Vmax ?0.9 ?m/sec ? MV E:A ratio ?0.7 ?ratio ? LV septal e' Vmax ?? 0.1 ?m/sec ? LV lateral e' Vmax ??0.1 ?m/sec ? LV average e' Vmax ??0.1 ?m/sec ? LV E:e' septal ratio6.7 ?ratio ? LV E:e' lateral rati5 ?ratio ? LV average E:e' rati6 ?ratio ? Aortic Valve ?Value ?Units (Range) ? AV Vmax ? 2.2 ?m/sec ? AV VTI ?40.2 ? cm ? AV peak gradient ?19 ? mmHg ? AV mean gradient ?8 ?mmHg ? LVOT diameter ? 1.7 ?cm ? LVOT Vmax ? 1.4 ?m/sec ? LVOT VTI ?29.2 ? cm ? LVOT peak gradient ??7 ?mmHg ? LVOT mean gradient ??4 ?mmHg ? DOI (VTI) ? 0.7 ?ratio ? DOI (Vmax) ?0.6 ?ratio ? SV LVOT ? 66.2 ? ml ? TWILA (continuity Vmax1.4 ?cm2 ? TWILA (continuity VTI)1.7 ?cm ? Tricuspid Valve ?Value ?Units (Range) ? TR Vmax ? 1.7 ?m/sec ? TR peak gradient ?11.6 ? mmHg ? RAP ? 3 ?mmHg ? RVSP ?15 ? mmHg ? This report has been electronically signed by: Jefry Valdes MD ? 12/08/2018 15:08:37 Images reviewed and interpretation verified [facility] Procedure Note Jefry Valdes MD - 12/08/2018 Amended Report Procedure: Transthoracic Echocardiogram Patient: BRET Barrios (Age): 1955(63y) Med Rec#: [id number] Sex: F Site Loc: [facility] Ht / Wt: (cm)/ (kg) Pt. Loc: Echo Lab Study Date: 12/08/2018 Pt. Type: Outpatient Tape: Referring: Shabbir Ortiz Referring: [facility] Referring: [facility] Referrin Reading: Jefry Valdes ([id number]) Performing: UNKNOWN Butadiene Compressor Operator: RADHA Diagnosis: *Nonrheumatic aortic (valve) stenosis (I35.0) SUMMARY: 1. There is normal global left ventricular systolic function. Ejection fraction is estimated to be 65%. There are no left ventricular segmental wall motion abnormalities. 2. Right ventricular chamber size, wall thickness, and systolic function are within normal limits. 3. Normal chamber and aortic dimensions. 4. Normal valve structures. The aortic valve is tricuspid. The aortic valve leaflets are mildly thickened. Systolic excursion of the aortic valve is normal. The peak instantaneous/mean trans-valvular gradient across the aortic valve is 19 mmHg /8 mmHg that might represent a high flow state. No definite subvalvular stenosis is seen. 5. The pericardium appears normal and there is no evidence of a pericardial effusion. The estimated pulmonary artery systolic pressure is 15 mmHg. The estimated right atrial pressure is 3 mmHg. Findings : Left Ventricle: The left ventricular chamber size is normal. Left ventricular wall thickness is normal. There is no evidence of LVOT obstruction. There is normal global left ventricular systolic function. Ejection fraction is estimated to be 65%. There are no left ventricular segmental wall motion abnormalities. Left Atrium: The left atrium is normal in size. Right Ventricle: Right ventricular chamber size, wall thickness, and systolic function are within normal limits. The estimated pulmonary artery systolic pressure is 15 mmHg. The estimated right atrial pressure is 3 mmHg. Right Atrium: The right atrium is normal in size. Aortic Valve: The aortic valve is tricuspid. The aortic valve leaflets are mildly thickened. Systolic excursion of the aortic valve is normal. The peak instantaneous trans-valvular gradient across the aortic valve is 19 mmHg. The mean trans-valvular gradient across the aortic valve is 8 mmHg. Mitral Valve: The mitral valve leaflets are mildly thickened. There is trace mitral regurgitation present. Tricuspid Valve: The tricuspid valve leaflets are morphologically normal. There is trace tricuspid regurgitation present. Pulmonic Valve: The pulmonic valve appears normal. There is trace pulmonic regurgitation present. Pericardium: The pericardium appears normal and there is no evidence of a pericardial effusion. Aorta: The aortic root is normal in size. The ascending aorta is normal in size. Pulmonary Artery: The main pulmonary artery appears normal. Venous: The inferior vena cava appears normal in size. There is a greater than 50% respiratory change in the inferior vena cava dimension. Misc: Two-dimensional echo, spectral Doppler and color Doppler performed. Chambers 2D Value Units (Range) IVSd (2D) 0.9 cm LVPWd (2D) 0.8 cm IVS:LVPW ratio (2D) 1.1 ratio RWT (2D) 0.4 ratio RWT PW (2D) 0.4 ratio LVIDd (2D) 4 cm LVIDs (2D) 2.4 cm LV FS (2D) 40 % EF Teichholz (2D) 71 % Ao root diameter (2D2.9 cm (2.1 - 3.6) Ascending Ao 2.6 cm (2 - 3.5) Volumes/Mass Value Units (Range) LA Area 4 CH 12 cm2 (<21) RA AREA 4CH 8 cm2 LV mass (2D) 101.4 g Diastolic/Systolic Function Value Units (Range) MV E-wave Vmax 0.6 m/sec MV deceleration [id number] msec MV A-wave Vmax 0.9 m/sec MV E:A ratio 0.7 ratio LV septal e' Vmax 0.1 m/sec LV lateral e' Vmax 0.1 m/sec LV average e' Vmax 0.1 m/sec LV E:e' septal ratio6.7 ratio LV E:e' lateral rati5 ratio LV average E:e' rati6 ratio Aortic Valve Value Units (Range) AV Vmax 2.2 m/sec AV VTI 40.2 cm AV peak gradient 19 mmHg AV mean gradient 8 mmHg LVOT diameter 1.7 cm LVOT Vmax 1.4 m/sec LVOT VTI 29.2 cm LVOT peak gradient 7 mmHg LVOT mean gradient 4 mmHg DOI (VTI) 0.7 ratio DOI (Vmax) 0.6 ratio SV LVOT 66.2 ml TWILA (continuity Vmax1.4 cm2 TWILA (continuity VTI)1.7 cm Tricuspid Valve Value Units (Range) TR Vmax 1.7 m/sec TR peak gradient 11.6 mmHg RAP 3 mmHg RVSP 15 mmHg This report has been electronically signed by: Jefry Valdes MD 12/08/2018 15:08:37 Images reviewed and interpretation verified [facility] Shabbir Ortiz MD ECHO ORDERABLES documented in this encounter Visit Diagnoses Diagnosis Aortic valve stenosis, etiology of cardiac valve disease unspecified documented in this encounter Care Teams Water Main Pipe Layer Relationship Specialty Start Date End Date Shabbir Ortiz MD [address] [place] [id number] PCP - General 01/22/10 05/27/22 documented as of this encounter
--- OUTSIDE RECORDS SUMMARY | 2024-02-17 10:00 | XMS_ITS | Encounter Summary ---
Author Organization [facility] Address [facility] [place] [address] Care Team Providers Care General Machinist Name Role Phone Shabbir Ortiz MD Primary Care Provider [phone] Reason for Visit * Reason Comments Chest Pain Encounter Details Date Type Department Care Team (Late st Contact Info) Description 02/11/2013 11:30 AM EST Office Visit [address] [phone] Thien Nassar MD [facility] [place] [address] Chest pain (Primary Dx) Social History Tobacco Use Types Packs/Day Years Used Date Smoking Tobacco: Never Assessed Sex and Gender Information Value Date Recorded Sex Assigned at Not on file Gender Identity Not on file Sexual Orientation Not on file documented as of this encounter Progress Notes * Provider, Scanning - 02/15/2013 9:03 AM EST * Provider, Scanning - 02/15/2013 9:03 AM EST * Thien Nassar - 02/11/2013 12:15 PM EST Scanned note documented in this encounter Plan of Treatment Not on file documented as of this encounter Visit Diagnoses Diagnosis Chest pain- Primary Chest pain, unspecified documented in this encounter Care Teams General Machinist Relationship Specialty Start Date End Date Shabbir Ortiz MD [address] [place] [id number] PCP - General 01/22/10 05/27/22 documented as of this encounter
--- OUTSIDE RECORDS SUMMARY | 2024-02-17 10:00 | XMS_ITS | Encounter Summary ---
Author Organization [facility] Address [address] [place] [address] Care Team Providers Care Welt Maker Name Role Phone Unavailable Primary Care Provider Unavailabl e Encounter Details Date Type Department Care Team (Late st Contact Info) Description 08/19/2002 Results Only [facility] - Maple conversion [address] [place] [id number] Jessie Bynum, [facility] [address] [place] [address] [place] [phone] Social History Tobacco Use Types Packs/Day Years [...] Priority Date/Time Associated Diagnosis Comments CYTOPATHOLOGY Routine 08/19/2002 0:00 EDT documented in this encounter Results * CYTOPATHOLOGY (08/19/2002 0:00 EDT) Pathology Report: CYTOPATHOLOGY REPORT Reports generated via electronic interface contain original data; however they are lacking the format of the original report. Caution should be taken when reading/interpreti ng unformatted reports. Name: ? EUNICE QUEEN ? Accession #: ? [id number] : ? 1955 (Age: 46) ??F ?Collect Date: ? 08/19/2002 Location: ? [facility] ? Receive Date: ? 08/23/2002 Provider: ?JESSIE BYNUM TELEGRAPH INSTALLER Copy to: ? Specimen/Source: ?ThinPrep Pap Test, Cervix/Endocervix Last Menstrual Period: ? 12/31 & Other: ? Additional clinical information: DUB ? SPECIMEN ADEQUACY ? Satisfactory for Evaluation - transformation zone component present GENERAL CATEGORIZATION ? Negative for Intraepithelial Lesion or Malignancy ? Document reviewed and electronically signed by: ? Linda Light, CT(ASCP) ? Report Date: ??08/25/2002 09:09 End of Report [facility] 08/19/2002 08/23/2002 us Jessie Bynum TELEGRAPH INSTALLER PATHOLOGY ORDERABLES Final R esult [facility] [address] [place] [address] documented in this encounter Visit Diagnoses Not on filedocumented in this encounter
--- OUTSIDE RECORDS SUMMARY | 2024-02-17 10:00 | XMS_ITS | Encounter Summary ---
Author Organization [facility] Address [facility] [place] [address] Care Team Providers Care Buckshot Swage Operator Name Role Phone Shabbir Ortiz MD Primary Care Provider [phone] Encounter Details Date Type Department Care Team (Late st Contact Info) Description 11/25/2021 Telephone Cardiology at [address] [phone] Juan Carlos Alejo MD [facility] [place] [address] Social History Tobacco Use Types Packs/Day Years [...] place to sleep or slept in a skilled nursing (including now)? No 09/24/2021 Sex and Gender Information Value Date Recorded Sex Assigned at Not on file Gender Identity Not on file Sexual Orientation Not on file documented as of this encounter Miscellaneous Notes * Telephone Encounter - Farnaz Urena, RN - 11/25/2021 1:42 PM EDT [facility] card lab flame hardening machine operator notified Marine Garcia that Luz Maria is declining to schedule her exercise stressechocardiogram until some insurance issues are resolved. documented in this encounter Plan of Treatment Not on file documented as of this encounter Visit Diagnoses Not on filedocumented in this encounter Care Teams Buckshot Swage Operator Relationship Specialty Start Date End Date Shabbir Ortiz MD [address] [place] [id number] PCP - General 01/22/10 05/27/22 documented as of this encounter
[2024-02-17 20:01] LABS: Bilirubin Negative (Negative); Blood Trace-intact (Negative); Clarity Turbid (Clear); Glucose Negative (Negative); Ketones Negative (Negative); Leukocyte Esterase Negative (Negative); Nitrite Negative (Negative); Specific Gravity >= 1.030 (1.005-1.025); Urobilinogen 0.2 mg/dL (Up to 0.2); pH 5.5 (5-8)
[2024-02-17 20:03] LABS: ALT 24 U/L (14-59); AST 21 U/L (15-37); Alkaline Phosphatase 156 U/L (46-116); Anion Gap 7.1 mmol/L (3-11); BUN 15 mg/dL (7-18); Bilirubin, Total 0.37 mg/dL (0.2-1.0); CO2 27.9 mmol/L (21.0-32.0); CREATININE 0.8 mg/dL (0.55-1.02); Calculated LDL 156 mg/dL (<100); Chloride 108 mmol/L (98-107); Cholesterol 241 mg/dL (<200); Estimated GFR 80.71 (mL/min/1.73m2); Glucose 134 mg/dL (74-106); HDL Cholesterol 67 mg/dL (40-60); Potassium 3.8 mmol/L (3.5-5.1); Sodium 143 mmol/L (136-145); Total Protein 7.5 g/dL (6.4-8.2); Triglyceride 91 mg/dL (<150)
[2024-02-17 20:14] LABS: C & S Indicated? No; Crystals Many Amorphous HPF (Negative)
[2024-02-17 20:34] LABS: COMMENT (LAB VIEW ONLY) 195.83 mg/dL; Microalb ug/mg Crea 10.5 ug/mg Cr
== END 2024-02-17 09:56 | disposition home or self-care (01) ==
LOC: NCHCN 09:55
PROVIDERS: PCP Internal Medicine; Visit Provider Nurse Practitioner Family
DX: E11.9 Type 2 diabetes mellitus without complications (principal)
CPT/HCPCS: 80053; 80061; 81003; 81015; 82043; 82570

== ENCOUNTER 2025-01-19 12:27 | Outpatient (REF) | payer MEDICARE, SELFPAY ==
[2025-01-19 19:27] LABS: RBC >50 HPF (0-2); WBC >50 HPF (0-5)
[2025-01-19 19:34] LABS: Microalb ug/mg Crea 12.2 ug/mg Cr
== END 2025-01-19 12:28 | disposition home or self-care (01) ==
LOC: NCHCN 12:27
PROVIDERS: PCP Internal Medicine; Visit Provider Nurse Practitioner Family
DX: R31.0 Gross hematuria (principal)
CPT/HCPCS: 81015; 82043; 82570

== ENCOUNTER → 2025-02-27 12:52 | Outpatient (BNVA) | payer MEDICARE, SELFPAY | PROVIDERS: PCP Internal Medicine; Referring Provider Internal Medicine; Visit Provider Nurse Practitioner Gerontology | DX: R31.9 Hematuria, unspecified (principal); E11.59 Type 2 diabetes mellitus with other circulatory complications; I10 Essential (primary) hypertension | CPT/HCPCS: 99203; 81002; 51798 ==